=== PATIENT | female | born 1970 | race Caucasian/White ===

== ENCOUNTER 2019-06-14 09:17 | Outpatient (CLI) | payer SELFPAY ==
--- NOTE | 2019-06-14 09:34 | US_ITS ---
WS: [id number] INDICATION: Patient concern posterior distal thigh TECHNIQUE: Ultrasound area of soft tissue concern FINDINGS: In the area of palpable concern is an echogenic focus measuring 1.5 x 12.7 x 0.7 cm. Differ ential considerations include lipoma or intramuscular hematoma. Recommend correlation with recent inj ury. Some of the area of palpable concern appears to represent normal muscle. US/US soft tissue/extremity [id number] IMPRESSION: Echogenic focus measuring 1.5 x 12.7 x 0.7 cm in the area of palpab le concern. Differential considerations include lipoma or intramuscular hematom a. Recommend correlation with recent injury or trauma.
== END 2019-06-14 09:18 | disposition home or self-care (01) ==
PROVIDERS: Family Provider Nurse Practitioner; PCP Nurse Practitioner; Visit Provider Nurse Practitioner Family
DX: R22.41 Localized swelling, mass and lump, right lower limb (principal)
CPT/HCPCS: 76882

== ENCOUNTER 2019-06-16 17:25 | Emergency (ER) | payer MEDICAID, SELFPAY ==
[2019-06-16 19:07] VITALS: BP 129/90; PULSE 88; RESP 20; TEMP 36.8; O2SAT 94; BMI 47.2
[2019-06-16 20:44] LABS: Basophils # 0.1 10^3/uL (0.0-0.1); Basophils % 0.7 %; Eosinophils # 1.1 10^3/uL (0.0-0.8); Eosinophils % 6.8 %; Hematocrit 42.8 % (37.0-47.0); Hemoglobin 13.2 g/dL (11.5-15.3); Lymphocytes # 3.6 10^3/uL (0.8-4.8); Lymphocytes % 21.5 %; Mean Corpuscular HGB Conc 30.8 g/dL (30.0-36.0); Mean Corpuscular Hemoglobin 25.7 pg (28.0-34.0); Mean Corpuscular Volume 83.4 fL (81-99); Mean Platelet Volume 10.2 fL (7.4-10.4); Monocytes # 0.6 10^3/uL (0.2-0.9); Monocytes % 3.7 %; Neutrophils % 66.5 %; Nucleated Red Blood Cells % 0 %; Platelet Count 341 10^3/cmm (130-400); Red Blood Count 5.13 10^6/uL (4.1-5.3); Red Cell Distribution Width 15.1 % (12.1-15.1); White Blood Count 16.5 10^3/uL (4.0-10.0)
[2019-06-16 20:58] LABS: Alanine Aminotransferase 25 U/L (0-33); Albumin Level 4.4 g/dL (3.5-5.2); Alkaline Phosphatase 118 IU/L (35-105); Anion Gap 18.6 (5-19); Aspartate Amino Transferase 19 U/L (0-32); Blood Urea Nitrogen 7 mg/dL (6-20); Calcium 10.1 mg/Dl (8.6-10.0); Carbon Dioxide 28 mmol/L (22-29); Chloride 95 mmol/L (98-107); Globulin 3.1 g/dL (1.3-4.6); Glomerular Filtration Rate 76.9 mL/min (90-130); Glucose 348 mg/dL (74-109); Potassium 4.6 mmol/L (3.5-5.1); Sodium 137 mmol/L (136-145); Total Bilirubin 0.3 mg/dL (0.15-1.2); Total Protein 7.5 g/dL (6.6-8.7)
--- NOTE | 2019-06-16 21:45 | W.ED.GENADLT ---
HPI - General Adult General: Chief complaint: General Medical Stated complaint: Multiple complaints Time Seen by Provider: 06/16/19 21:19 History of Present Illness: HPI narrative: Patient is a 49-year-old female who comes in to the ED with shortness of breath that started a 2-3 days ago. Patient states that she has COPD and is used her prescribed inhalers that has not helped. She also has had some intermittent chest pain that started several days ago that is due to the coughing. She also has had nasal drainage and congestion and a mild sore throat. She also complains of left ear pain and dizziness that started a couple days ago as well. She has been coughing, but it is nonproductive. Patient also told me that she had a fall last Friday, June 11 where she slipped and fell down onto her back and hit back of head. She denied any loss of consciousness, nausea, vomiting, confusion, vision change after fall. Patient states she has had a headache for the past couple days. Denies any fever, chills, abdominal pain, nausea, vomiting, dysuria, hematuria, constipation, diarrhea, blood in stool, numbness/tingling or weakness to extremities. Review of Systems General: Reports: 10 or more systems reviewed and unremarkable except in HPI and below PFSH ED PFSH: Statuses (acute, chronic, etc) shown below reflect problem list status as previously entered and may not be historically accurate Social History Smoking and tobacco status: former smoker Physical Exam Const: COMMON NORMALS: oriented x3 HENMT: COMMON NORMALS: normocephalic HEAD & SCALP: normocephalic FACE & SINUS: sinus tenderness (mild Left side) maxillary TYMPANIC MEMBRANE: TM normal on the right and TM abnormal TM laterality: left Details: bulging, dull, fluid behind TM and loss of landmarks MOUTH: oral and palatal mucosa normal THROAT: posterior oropharynx normal and uvula midline Neck/C-Spine: COMMON NORMALS: supple GENERAL: Yes normal visual inspection Resp: COMMON NORMALS: normal respiratory effort, no retractions, no use of accessory muscles and clear to auscultation bilaterally AUSCULTATION: clear to auscultation bilaterally and diminished lung sounds (mild at the bases) bilateral Cardio: COMMON NORMALS: regular rate, regular rhythm, S1 normal heart sound, S2 normal heart sound, no gallops, no clicks, no murmurs and peripheral pulses 2+ throughout RATE: regular rate RHYTHM: regular rhythm HEART SOUNDS: S1 normal and S2 normal PERIPHERAL PULSES: pulses 2+ throughout GI: COMMON NORMALS: normal to inspection, nondistended, normoactive bowel sounds, soft to palpation, non-tender and no masses PALPATION: Yes soft : COMMON NORMALS: Yes no CVA tenderness BLADDER/KIDNEY EXAM: Yes no CVA tenderness Back/Pelvis: COMMON NORMALS: no CVA tenderness Neuro: COMMON NORMALS: oriented x3, CN's II-XII intact bilaterally, moves all extremities, no focal motor deficits and no sensory deficits noted SENSORY EXAM: Yes extremities (intact) MOTOR EXAM: strength 5/5 throughout Course Vital Signs: Vital signs: Vital Signs Temperature 98.2 F 06/16/19 19:07 Pulse Rate 88 06/16/19 19:07 Respiratory Rate 20 H 06/16/19 19:07 Blood Pressure 129/90 06/16/19 19:07 Pulse Oximetry 94 06/16/19 19:07 MDM - General Adult MDM Narrative: Medical decision making narrative: Patient is a 49-year-old female comes to the ED with shortness of breath and cough. Physical exam showed diminished lung sounds at the bases bilaterally. Labs showed elevated white blood cell count of 16.5. EKG and troponins were drawn to rule out any cardiac cause of shortness of breath. EKG was normal sinus and first troponin draw was 11 which is negative since patient has had shortness of breath and intermittent mild chest pain for several days before coming to the ED. Patient was given a dose of steroids here in the ED and sent home with a prescription for a course of steroids and an antibiotic. She is told to continue using her inhalers as previously prescribed. She was told to follow-up with primary care doctor in 5-7 days for reevaluation. Pt wanted to leave eventhough troponin lab was not complete. She was told to return to ED if she starts to have chest pain or worsening SOB. Hospital will call if troponins are elevated. Patient understood and agreed with plan of care. Lab Data: Attestation: I reviewed the patient's lab results. Labs: Lab Results 06/16/19 06/16/19 06/16/19 Range/Units 20:26 20:26 22:40 WBC 16.5 H (4.0-10.0) 10^3/ uL RBC 5.13 (4.1-5.3) 10^6/u L Hgb 13.2 (11.5-15.3) g/dL Hct 42.8 (37.0-47.0) % MCV 83.4 (81-99) fL MCH 25.7 L (28.0-34.0) pg MCHC 30.8 (30.0-36.0) g/dL RDW 15.1 (12.1-15.1) % Plt Count 341 (130-400) 10^3/c mm MPV 10.2 (7.4-10.4) fL Neut % (Auto) 66.5 % Lymph % (Auto) 21.5 % Charlton % (Auto) 3.7 % Eos % (Auto) 6.8 % Baso % (Auto) 0.7 % Neut # (Auto) 11.0 H (1.8-7.7) 10^3/u L Lymph # (Auto) 3.6 (0.8-4.8) 10^3/u L Charlton # (Auto) 0.6 (0.2-0.9) 10^3/u L Eos # (Auto) 1.1 H (0.0-0.8) 10^3/u L Baso # (Auto) 0.1 (0.0-0.1) 10^3/u L Nucleated RBC % (a uto) 0 % Nucleated RBCs # 0.0 /100WBC Sodium 137 (136-145) mmol/L Potassium 4.6 (3.5-5.1) mmol/L Chloride 95 L (98-107) mmol/L Carbon Dioxide 28 (22-29) mmol/L Anion Gap 18.6 (5-19) BUN 7 (6-20) mg/dL Creatinine 0.8 (0.5-0.9) mg/dL GFR Calculation 76.9 L (90-130) mL/min Glucose 348 H (74-109) mg/dL Calcium 10.1 H (8.6-10.0) mg/Dl Total Bilirubin 0.3 (0.15-1.2) mg/dL AST 19 (0-32) U/L ALT 25 (0-33) U/L Alkaline Phosphata se 118 H (35-105) IU/L Troponin T Gen 5 n g/L (0-10) ng/mL Total Protein 7.5 (6.6-8.7) g/dL Albumin 4.4 (3.5-5.2) g/dL Globulin 3.1 (1.3-4.6) g/dL Urine Color Yellow (Yellow) Urine Appearance Hazy A (CLEAR) Urine pH 5 (5-7) Ur Specific Gravit y 1.015 (1.005-1.030) Urine Protein Neg (Negative) Urine Glucose (UA) 4+ H (Normal) Urine Ketones Negative (Negative) Urine Occult Blood Neg (Negative) Urine Nitrate Negative (Negative) Urine Bilirubin Neg (NEGATIVE) Urine Urobilinogen Norm (Negative) mg/dL Ur Leukocyte Elaine ase Negative (Negative) Urine RBC 0-4 H (0-2) /hpf Urine WBC None (0-5) /hpf Ur Squamous Epith Cells 15-25 H (0-5) Urine Bacteria Trace (NONE) Urine Yeast 2+ H 06/16/19 Range/Units 23:50 WBC (4.0-10.0) 10^3/ uL RBC (4.1-5.3) 10^6/u L Hgb (11.5-15.3) g/dL Hct (37.0-47.0) % MCV (81-99) fL MCH (28.0-34.0) pg MCHC (30.0-36.0) g/dL RDW (12.1-15.1) % Plt Count (130-400) 10^3/c mm MPV (7.4-10.4) fL Neut % (Auto) % Lymph % (Auto) % Charlton % (Auto) % Eos % (Auto) % Baso % (Auto) % Neut # (Auto) (1.8-7.7) 10^3/u L Lymph # (Auto) (0.8-4.8) 10^3/u L Charlton # (Auto) (0.2-0.9) 10^3/u L Eos # (Auto) (0.0-0.8) 10^3/u L Baso # (Auto) (0.0-0.1) 10^3/u L Nucleated RBC % (a uto) % Nucleated RBCs # /100WBC Sodium (136-145) mmol/L Potassium (3.5-5.1) mmol/L Chloride (98-107) mmol/L Carbon Dioxide (22-29) mmol/L Anion Gap (5-19) BUN (6-20) mg/dL Creatinine (0.5-0.9) mg/dL GFR Calculation (90-130) mL/min Glucose (74-109) mg/dL Calcium (8.6-10.0) mg/Dl Total Bilirubin (0.15-1.2) mg/dL AST (0-32) U/L ALT (0-33) U/L Alkaline Phosphata se (35-105) IU/L Troponin T Gen 5 n g/L 11 H (0-10) ng/mL Total Protein (6.6-8.7) g/dL Albumin (3.5-5.2) g/dL Globulin (1.3-4.6) g/dL Urine Color (Yellow) Urine Appearance (CLEAR) Urine pH (5-7) Ur Specific Gravit y (1.005-1.030) Urine Protein (Negative) Urine Glucose (UA) (Normal) Urine Ketones (Negative) Urine Occult Blood (Negative) Urine Nitrate (Negative) Urine Bilirubin (NEGATIVE) Urine Urobilinogen (Negative) mg/dL Ur Leukocyte Elaine ase (Negative) Urine RBC (0-2) /hpf Urine WBC (0-5) /hpf Ur Squamous Epith Cells (0-5) Urine Bacteria (NONE) Urine Yeast EKG Data^: EKG 1: Attestation: I personally reviewed and interpreted this EKG as follows: EKG interpretation date: 06/17/19 Interpretation: Normal sinus rhythm, rate 85 bpm, No ST elevation or depression seen. P-wave difficult to identify Computer generated interpretation: Chest X-Ray 06/16/19 22:42 IMPRESSION: No acute cardiopulmonary disease. Sinus Rhythm-Possible anterior GA--probably old. Discharge Plan Discharge Patient Disposition: Home, Self-Care Clinical Impression: Bronchitis Condition: Stable Prescriptions: New azithromycin 250 mg tablet See Rx Instructions .ROUTE .COMPLEX Qty: 6 RF: 0 prednisone 20 mg tablet 20 mg PO TID 5 Days Qty: 15 RF: 0 No Action glipizide 10 mg tablet 20 mg PO DAILY Qty: 60 RF: 2 prednisone 20 mg tablet RF: 0 clonazepam 0.5 mg tablet RF: 0 simvastatin 20 mg tablet RF: 0 Januvia 100 mg tablet RF: 0 Januvia 100 mg tablet RF: 0 Discharge Orders: Discharge Order (Routine); Ordered 06/17/19 Ordered By: Jono Peterson Referrals: Sherie Luong, CURRICULUM SPECIALIST [Primary Care Provider] - Discharge Diet: Regular Discharge Activity: Resume usual activity Activity Restrictions/Additional Instructions: Follow-up with primary care doctor in 5-7 days for reevaluation. Take full course of antibiotics and steroids as prescribed. Use your at-home breathing treatments as needed for shortness of breath. Take Tylenol or ibuprofen for fever and pain. Drink plenty of fluids. We will give you a call to notify you of your troponin level is elevated. Discharge Date/Time: 06/17/19 01:29 Coding Level of Care Code ED Aircraft Life Support Fitter for Melissa Rutherford
--- NOTE | 2019-06-16 22:42 | XR_ITS ---
WS: [id number] CHEST 2 VIEWS HISTORY: SOB COMPARISON: 05/20/2018 Lungs: Lung volumes are decreased due to increase in thoracic kyphosis. No pneumonia. Normal vasculat ure. No pleural effusion or pneumothorax. Cardiac size: Normal. Mediastinum/Aorta: Normal mediastinum. Bones: Thoracolumbar scoliosis and increase in thoracic kyphosis. XR/XR chest 2V* [id number] IMPRESSION: No acute cardiopulmonary disease.
[2019-06-16 23:14] LABS: Add Urine Microscopic? YES; Bilirubin Urine Neg (NEGATIVE); Blood Urine Neg (Negative); Glucose Urine UA 4+ (Normal); Ketones Urine Negative (Negative); Leukocyte Esterase Urine Negative (Negative); Nitrate Urine Negative (Negative); Protein Urine Neg (Negative); Specific Gravity, Urine 1.015 (1.005-1.030); Urine Appearance Hazy (CLEAR); Urine Color Yellow (Yellow); Urobilinogen Urine Norm (Negative); pH Urine 5 (5-7)
[2019-06-16 23:16] LABS: Bacteria Urine TRACE; RBC Urine 0-4 /hpf (0-2); Squamous Epithelial Cell Urine 15-25 (0-5)
[2019-06-16 23:17] LABS: Add Urine Culture? Yes
[2019-06-17 01:35] LABS: Troponin T (5th) Once 11 ng/mL (0-10)
== END 2019-06-17 01:29 | disposition home or self-care (01) ==
PROVIDERS: Emergency Medicine; Emergency Provider Physician Assistant; Family Provider Nurse Practitioner; PCP Nurse Practitioner
DX: J40 Bronchitis, not specified as acute or chronic (principal); Z87.891 Personal history of nicotine dependence
CPT/HCPCS: 36415; 71046; 80053; 81003; 84484; 85025; 87077; 87086; 87186; 96372; 99281; J2930

== ENCOUNTER 2019-07-31 12:28 | Inpatient (IN) | payer MEDICAID, SELFPAY ==
[2019-07-31] VITALS (13 sets, daily range): BP systolic 118–148; BP diastolic 72–80; PULSE 95–113; RESP 18–24; TEMP 36.8–37.3; O2SAT 86–97; BMI 48.4
--- NOTE | 2019-07-31 12:43 | ECG_ITS ---
Measurements Intervals Jermyn Rate: 98 P: 31 VT: 155 QRS: 3 QRSD: 90 T: -3 QT: 312 QTc: 399 SINUS RHYTHM POSSIBLE ANTERIOR MYOCARDIAL INFARCTION , PROBABLY OLD [30 ms Q WAVE IN V3/V4, OR R < 0.2 mV IN V4] Compared to ECG 05/19/2018 23:35:35 First degree AV block no longer present Myocardial infarct finding still present Electronically Signed On 07-31-2019 20:27:15 SODDER by Lan Carey M.D. [email or web address]
--- NOTE | 2019-07-31 12:43 | XRR_ITS ---
PROCEDURE INFORMATION: Exam: XR Chest, 1 View Exam date and time: 07/31/2019 12:44 PM Age: 49 years old Clinical indication: Shortness of breath; Additional info: Cough TECHNIQUE: Imaging protocol: XR of the chest Views: 1 view. COMPARISON: CR XR chest 2V* [id number] 06/16/2019 11:00 PM FINDINGS: Lungs: Low lung volumes. No consolidation. Pleural space: Unremarkable. No pleural effusion. No pneumothorax. Heart/Mediastinum: Unremarkable. No cardiomegaly. Bones/joints: Unremarkable. XR/XR chest 1V portable [id number] IMPRESSION: No acute findings.
--- NOTE | 2019-07-31 12:46 | ED_ITS ---
Entered by Veronika Min, acting as scribe for Melany Ramirez MD HPI - SOB/Dyspnea General: Chief Complaint: Shortness of Breath/Dyspnea Stated Complaint: fever/vomiting/sob Time Seen by Provider: 07/31/19 12:44 Source: patient and RN notes reviewed Mode of arrival: ambulatory Limitations: no limitations History of Present Illness: HPI Narrative: 49 yo female presents to ED with complaints of shortness of breath, fever and vomiting. The patient said she has COPD but is not on oxygen at home. She said her body hurts. She states she has taken ibuprofen prior to arrival. When patient arrived here she was 86% on room air. She does not wear oxygen at home. States she had a fever MD elicited complaint: shortness of breath Pertinent past history: COPD Onset (ago): hour(s) (2.5 (1030)) Context: recent illness Timing: constant Severity: moderate Exacerbating factors: exertion and talking Relieving factors: oxygen and rest Known history of: COPD Associated symptoms: Reports fever(s), nausea and vomiting; Deny chest pain Treatment prior to arrival: other (ibuprofen) Review of Systems Const: Reports: fever Eyes: Denies: blurry vision or eye discomfort ENMT: Denies: throat pain or dental pain Card: Denies: chest pain Resp: Reports: shortness of breath GI: Reports: nausea and vomiting : Denies: painful urination Musc: Denies: neck pain or back pain Skin/Breast: Denies: rash Neuro: Denies: headache Psych: Denies: depression Jose/Lymph: Denies: easy bruising All/Imm: Denies: hives PFS ED PFSH: Medical History (Updated 07/31/19 @ 15:23 by Anival Brink MD) Anemia Anxiety and depression Chronic neck pain COPD (chronic obstructive pulmonary disease) Essential hypertension, benign GERD (gastroesophageal reflux disease) Hyperlipidemia Hypertension Hypothyroid Intervertebral disc disorders with radiculopathy, lumbosacral region Mixed hyperlipidemia Obesity Type 2 diabetes mellitus with other specified complication Vitamin D deficiency Surgical History H/O dilation and curettage S/P cholecystectomy S/P endometrial ablation Social History (Updated 07/31/19 @ 15:23 by Anival Brink MD) Smoking and tobacco status: former smoker Alcohol intake: never Substance/Drug Use: never Marital status: service: No Current occupational status: disabled History of recent travel: No Physical Exam Const: COMMON NORMALS: no apparent distress, oriented x3 and healthy appearing HENMT: COMMON NORMALS: normocephalic and head/scalp atraumatic HEAD & SCALP: normocephalic and atraumatic Eye: COMMON NORMALS: PERRL and EOMs intact bilaterally PUPIL: Yes PERRL Neck/C-Spine: COMMON NORMALS: full ROM and supple Chest: COMMONS NORMALS: inspection of chest normal and palpation of chest normal Resp: COMMON NORMALS: normal respiratory effort, no retractions, no use of accessory muscles and clear to auscultation bilaterally AUSCULTATION: clear to auscultation bilaterally and wheezes expiratory wheezes (diffuse) Cardio: COMMON NORMALS: regular rate, regular rhythm and no murmurs RATE: regular rate RHYTHM: regular rhythm GI: COMMON NORMALS: normal to inspection, nondistended, normoactive bowel sounds, soft to palpation, non-tender and no masses PALPATION: Yes soft Extremity: COMMON NORMALS: normal to inspection and full ROM Neuro: COMMON NORMALS: oriented x3, moves all extremities and no focal motor deficits Psych: COMMON NORMALS: mental status grossly normal, thought process normal and cooperative THOUGHT PROCESS: normal thought process Skin: COMMON NORMALS: no rashes or lesions noted and no wounds GENERAL SKIN EXAM: no rashes or lesions noted Course Vital Signs: Vital signs: Vital Signs Temperature 98.6 F 07/31/19 12:31 Pulse Rate 101 H 07/31/19 14:22 Respiratory Rate 20 H 07/31/19 14:22 Blood Pressure 124/80 07/31/19 14:19 Pulse Oximetry 94 07/31/19 14:22 MDM - SOB/Dyspnea MDM Narrative: Medical decision making narrative: Patient presents here with influenza also with dyspnea. Patient has COPD and influenza likely worsening in this. X-ray shows no signs of pneumonia. Patient is requiring oxygen now although and I spoke to hospitalist and will admit. Lab Data: Labs: Lab Results 07/31/19 07/31/19 07/31/19 Range/Units 13:01 13:10 13:10 WBC 8.7 (4.0-10.0) 10^3/ uL RBC 4.36 (4.1-5.3) 10^6/u L Hgb 11.6 (11.5-15.3) g/dL Hct 36.3 L (37.0-47.0) % MCV 83.3 (81-99) fL MCH 26.6 L (28.0-34.0) pg MCHC 32.0 (30.0-36.0) g/dL RDW 14.7 (12.1-15.1) % Plt Count 219 (130-400) 10^3/c mm MPV 9.7 (7.4-10.4) fL Neut % (Auto) 89.2 % Lymph % (Auto) 4.6 % [place] % (Auto) 5.0 % Eos % (Auto) 0.1 % Baso % (Auto) 0.2 % Neut # (Auto) 7.7 (1.8-7.7) 10^3/u L Lymph # (Auto) 0.4 L (0.8-4.8) 10^3/u L [place] # (Auto) 0.4 (0.2-0.9) 10^3/u L Eos # (Auto) 0.0 (0.0-0.8) 10^3/u L Baso # (Auto) 0.0 (0.0-0.1) 10^3/u L Nucleated RBC % (a uto) 0 % Nucleated RBCs # 0.0 /100WBC Sodium 133 L (136-145) mmol/L Potassium 4.4 (3.5-5.1) mmol/L Chloride 95 L (98-107) mmol/L Carbon Dioxide 24 (22-29) mmol/L Anion Gap 18.4 (5-19) BUN 4 L (6-20) mg/dL Creatinine 0.7 (0.5-0.9) mg/dL GFR Calculation 89.7 L (90-130) mL/min Glucose 298 H (65-115) mg/dL Calcium 9.4 (8.5-10.5) mg/dL Total Bilirubin 0.3 (0.15-1.2) mg/dL AST 25 (0-32) U/L ALT 16 (0-33) U/L Alkaline Phosphata se 82 (35-105) IU/L NT-Pro-B Natriuret Pep 537 H (0-125) pg/mL Total Protein 6.8 (6.6-8.7) g/dL Albumin 3.8 (3.5-5.2) g/dL Globulin 3.0 (1.3-4.6) g/dL Influenza Type A A g Positive H (Negative) POC Influenza B Ag Negative (Negative) Imaging Data^: CXR: Radiologist's impression: [address] [address] XRay Report Signed Patient: Brie Beltrán #: [id number] : 1970Acct#:[id number] Age/Sex: 49 / FADM Date: 07/31/19 Loc: ERRoom/Bed: Attending Dr: Ordering Provider/Ordering MD: Melany Ramirez MD Date of Service: 07/31/19 Procedure(s): XR chest 1V portable [id number] Accession Number(s): [id number] Report Number: [id number] PROCEDURE INFORMATION: Exam: XR Chest, 1 View Exam date and time: 07/31/2019 12:44 PM Age: 49 years old Clinical indication: Shortness of breath; Additional info: Cough TECHNIQUE: Imaging protocol: XR of the chest Views: 1 view. COMPARISON: CR XR chest 2V* [id number] 06/16/2019 11:00 PM FINDINGS: Lungs: Low lung volumes. No consolidation. Pleural space: Unremarkable. No pleural effusion. No pneumothorax. Heart/Mediastinum: Unremarkable. No cardiomegaly. Bones/joints: Unremarkable. XR/XR chest 1V portable [id number] IMPRESSION: No acute findings. Dictated By:You Vegas Signed By:Jaren Vegas Date/Time:07/31/19 1314 DD/ EKG Data^: EKG 1: Attestation: I personally reviewed and interpreted this EKG as follows: EKG Interpretation Date: 07/31/19 EKG interpretation time: 12:57 Interpretation: nsr hr [address] or t wave abnormalities Discharge Plan Discharge Patient Disposition: Admitted As Inpatient Admit Provider: Anival Brink Clinical Impression: COPD (chronic obstructive pulmonary disease), Influenza Condition: Stable Referrals: Florina Villanueva, PASSENGER SOLICITOR [Primary Care Provider] - Sherie Luong FNP [Family Provider] - Coding Level of Care Code ED Fireman for Chg Fwd Exam Comprehensive The documentation recorded by the Mechelle munguia Valerie R, accurately reflects the service I personally performed and the decisions made by Ashley olivier Korby, MD Jul 31, 2019 12:28
[2019-07-31 13:18] LABS: Basophils % 0.2 %; Eosinophils % 0.1 %; Hematocrit 36.3 % (37.0-47.0); Hemoglobin 11.6 g/dL (11.5-15.3); Lymphocytes # 0.4 10^3/uL (0.8-4.8); Lymphocytes % 4.6 %; Mean Corpuscular Hemoglobin 26.6 pg (28.0-34.0); Mean Corpuscular Volume 83.3 fL (81-99); Mean Platelet Volume 9.7 fL (7.4-10.4); Monocytes # 0.4 10^3/uL (0.2-0.9); Neutrophils # 7.7 10^3/uL (1.8-7.7); Neutrophils % 89.2 %; Nucleated Red Blood Cells % 0 %; Platelet Count 219 10^3/cmm (130-400); Red Blood Count 4.36 10^6/uL (4.1-5.3); Red Cell Distribution Width 14.7 % (12.1-15.1); White Blood Count 8.7 10^3/uL (4.0-10.0)
[2019-07-31 13:42] LABS: Alanine Aminotransferase 16 U/L (0-33); Albumin Level 3.8 g/dL (3.5-5.2); Alkaline Phosphatase 82 IU/L (35-105); Anion Gap 18.4 (5-19); Aspartate Amino Transferase 25 U/L (0-32); Blood Urea Nitrogen 4 mg/dL (6-20); Calcium 9.4 mg/dL (8.5-10.5); Carbon Dioxide 24 mmol/L (22-29); Chloride 95 mmol/L (98-107); Glomerular Filtration Rate 89.7 mL/min (90-130); Glucose 298 mg/dL (65-115); NT Pro B Type Natriuretic Pept 537 pg/mL (0-125); Potassium 4.4 mmol/L (3.5-5.1); Sodium 133 mmol/L (136-145); Total Bilirubin 0.3 mg/dL (0.15-1.2); Total Protein 6.8 g/dL (6.6-8.7)
[2019-07-31 13:44] LABS: Influenza A by IFA Positive (Negative)
[2019-07-31 13:45] LABS: Influenza B by IFA Negative (Negative)
[2019-07-31] MEDS: ipratropium-albuterol 3 mL Neb INHALATION ×4 (14:14→23:15)
--- NOTE | 2019-07-31 14:23 | CTR_ITS ---
PROCEDURE INFORMATION: Exam: CT Abdomen And Pelvis With Contrast Exam date and time: 08/01/2019 11:10 AM Age: 49 years old Clinical indication: Patient HX: Scanned on wrong PT no abd pain was seen for SOB TECHNIQUE: Imaging protocol: Computed tomography of the abdomen and pelvis with intravenous contrast. Radiation optimization: All CT scans at this facility use at least one of these dose optimization techniques: automated exposure control; mA and/or kV adjustment per patient size (includes targeted exams where dose is matched to clinical indication); or iterative reconstruction. Contrast material: OMNI 300; Contrast volume: 95 ml; Contrast route: 20G; COMPARISON: CT Abdomen/Pelvis Renal [id number] 11/08/2018 9:57 PM FINDINGS: Liver: Hepatomegaly. Heterogeneous attenuation of the liver which can be seen with fatty infiltration. Gallbladder and bile ducts: Status post cholecystectomy. Pancreas: No ductal dilation. Spleen: No splenomegaly. Adrenals: No mass. Kidneys and ureters: Unremarkable. No hydronephrosis. Stomach and bowel: No obstruction. No mucosal thickening. Appendix: No evidence of appendicitis. Intraperitoneal space: No free air. No significant fluid collection. Vasculature: No abdominal aortic aneurysm. Lymph nodes: No enlarged lymph nodes. Bladder: Unremarkable as visualized. Reproductive: Unremarkable as visualized. Nonspecific 3 cm left ovarian cyst. Bones/joints: Unremarkable. No acute fracture. Soft tissues: Unremarkable. CT/CT abdomen pelvis w con* [id number] IMPRESSION: No acute findings. Hepatomegaly. Radiation Dose CTDIVOL = (mGy): DLP = 0 (mGy-cm)
--- NOTE | 2019-07-31 15:19 | P.HP_ITS ---
Providers/Chief Complaint Primary Care Provider: SACHIN Orta Chief Complaint: fever/vomiting/sob History of Present Illness Brie Beltrán is a 49 year old female who presents to the emergency department with history of fever up to 102 ?F last night. [place] okay yesterday. Has nasal congestion, cough, increased shortness of breath, and wheezing. Reports a history of COPD for which she had been on prednisone earlier this month. Some vomiting. No reports she usually has some loose stool. No blood in her stool, black or tarry stools, hematemesis. Has had chills as well. No sick contacts she knows of. Review of Systems General: Reports: 10 or more systems reviewed and unremarkable except in HPI and below Const: Reports: fever, chills, body aches and change in appetite Eyes: Denies: blurry vision ENMT: Reports: nasal congestion; Denies: throat pain Card: Denies: chest pain Resp: Reports: shortness of breath, non-productive cough and wheezing GI: Denies: abdominal pain : Denies: difficulty urinating Musc: Reports: back pain; Denies: neck pain Skin/Breast: Denies: rash Neuro: Denies: headache Psych: Reports: depression Endo: Denies: excessive urination Jose/Lymph: Denies: easy bruising All/Imm: Denies: hives Medications/Allergies Home Medications Medication Instructions Recorded Confirmed Last Taken Type metformin 1,000 mg PO BID 07/31/19 07/31/19 07/31/19 History Allergies Allergy/AdvReac Type Severity Reaction Status Date / Time erythromycin base Allergy rash Verified 07/20/19 14:58 PFSH Acute PFSH: Medical History (Updated 07/31/19 @ 15:23 by Anival Brink MD) Anemia Anxiety and depression Chronic neck pain COPD (chronic obstructive pulmonary disease) Essential hypertension, benign GERD (gastroesophageal reflux disease) Hyperlipidemia Hypertension Hypothyroid Intervertebral disc disorders with radiculopathy, lumbosacral region Mixed hyperlipidemia Obesity Type 2 diabetes mellitus with other specified complication Vitamin D deficiency Surgical History H/O dilation and curettage S/P cholecystectomy S/P endometrial ablation Social History (Updated 07/31/19 @ 15:23 by Anival Brink MD) Smoking and tobacco status: former smoker Alcohol intake: never Substance/Drug Use: never Marital status: service: No Current occupational status: disabled History of recent travel: No Vitals/I&O/Wt Last Vital Signs Temp 98.6 F 07/31/19 12:31 Pulse 101 H 07/31/19 14:22 Resp 20 H 07/31/19 14:22 BP 124/80 07/31/19 14:19 Pulse Ox 94 07/31/19 14:22 Weight last 48 hrs Weight 120.202 kg Physical Exam Narrative: EXAM NARRATIVE: General is a tired appearing white female, with nasal congestion HEENT: Pupils equally round. Oropharynx is dry Neck is supple obese no lymphadenopathy or thyromegaly Cardiovascular regular rate and rhythm without murmur no S3 or S4 Lungs faint bibasilar expiratory wheezes. Diminished breath sounds bilaterally Abdomen is soft, positive bowel sounds. No obvious organomegaly was deferred Extremities no cyanosis clubbing or edema, cap refill brisk Skin no rash Neuro no focal deficits Data : 07/31/19 13:10 07/31/19 13:10 Other data: BNP slightly elevated at 537. Influenza a antigen positive Chest x-ray no infiltrate. EKG demonstrates sinus rhythm, normal axis, no significant acute changes. A&P Assessment and plan (1) Influenza: Initiate Tamiflu Status: Acute Code(s): J11.1 - Influenza due to unidentified influenza virus with other respiratory manifestations (2) COPD (chronic obstructive pulmonary disease): With acute exacerbation. Prednisone 40 mg daily, doxycycline, pulmonary toilet Add Advair Status: Acute Code(s): J44.9 - Chronic obstructive pulmonary disease, unspecified Additional A&P Information Mild dehydration. Fluids arranged and ordered Type 2 diabetes. Sliding scale insulin History of anemia, mild currently Depression Chronic back and neck pain History of hypertension GERD Hypothyroidism. Check TSH History of hyperlipidemia Obesity Multiple other medical problems as outlined in past medical history Full code DVT prophylaxis with Lovenox Attestations Medical Necessity Statement*: Will need greater than 2 midnight stay for treatment of COPD exacerbation and influenza. Time Spent in Patient Care: Greater than 35 minutes Coding Level of Care Code Acute Web Content Producer for [facility] Fwd Diagnoses Influenza J11.1 COPD (chronic obstructive pulmonary disease) J44.9
[2019-07-31] MEDS: oseltamivir phosphate 75 mg Capsule PO (15:34)
[2019-07-31] MEDS: ondansetron 2 mg/ML SDV 2 mL 4 MG IVP (17:21)
[2019-07-31 17:23] LABS: Glucose Point of Care 252 mg/dL (70-110)
[2019-07-31] MEDS: enoxaparin 40 mg/0.4 mL Syringe SUBCUT (17:40)
[2019-07-31] MEDS: doxycycline 100 mg Tablet PO (17:40)
[2019-07-31] MEDS: sodium chloride 0.9% 1,000 ML 75 ML IV (17:40)
[2019-07-31 17:53] LABS: Thyroid Stimulating Hormone 1.07 uIU/mL (0.27-4.20)
[2019-07-31] MEDS: acetaminophen 325 mg Tablet 650 MG PO (20:24)
[2019-07-31 21:13] LABS: Bilirubin Urine Neg (NEGATIVE); Blood Urine Neg (Negative); Glucose Urine UA 4+ (Normal); Ketones Urine 1+ (Negative); Nitrate Urine Negative (Negative); Protein Urine Neg (Negative); Urine Appearance Clear (CLEAR); Urine Color Yellow (Yellow); pH Urine 5 (5-7)
[2019-07-31 21:14] LABS: Bacteria Urine 1+; Leukocyte Esterase Urine Negative (Negative); RBC Urine 0-4 /hpf (0-2); Squamous Epithelial Cell Urine 0-4 (0-5); Urobilinogen Urine Norm (Negative); WBC Urine 0-4 /hpf (0-5)
[2019-07-31 21:25] LABS: Glucose Point of Care 432 mg/dL (70-110)
[2019-07-31 21:25] LABS: Glucose Point of Care 403 mg/dL (70-110)
[2019-08-01] VITALS (18 sets, daily range): BP systolic 133–171; BP diastolic 74–96; PULSE 86–110; RESP 18–22; TEMP 36.5–36.8; O2SAT 91–99
--- NOTE | 2019-08-01 00:52 | PC.NURSE ---
Vitals Pt. had O2 cannula off when this nurse entered the room to do midnight vitals, O2 sats in the upper 80s with return up to 90% with O2 on. Pt. needed to go to the restroom, ambulated to bathroom without O2. Patient desatted very easily without O2 into the 70s. Pt. O2 increased to 4L with return of sats up to 91%. Pt. left on pulse ox machine, will reassess. Longer O2 tubing provided for next time patient needs to ambulate to restroom.
[2019-08-01] MEDS: ipratropium-albuterol 3 mL Neb INHALATION ×6 (03:01→23:27)
[2019-08-01] MEDS: acetaminophen 325 mg Tablet 650 MG PO ×2 (05:26→20:05)
[2019-08-01] MEDS: sodium chloride 0.9% 1,000 ML 75 ML IV (05:46)
[2019-08-01 06:24] LABS: Hematocrit 37.4 % (37.0-47.0); Hemoglobin 11.7 g/dL (11.5-15.3); Lymphocytes # 0.5 10^3/uL (0.8-4.8); Lymphocytes % 8.7 %; Mean Corpuscular HGB Conc 31.3 g/dL (30.0-36.0); Mean Corpuscular Hemoglobin 27.4 pg (28.0-34.0); Mean Corpuscular Volume 87.6 fL (81-99); Mean Platelet Volume 10.3 fL (7.4-10.4); Monocytes # 0.3 10^3/uL (0.2-0.9); Monocytes % 4.3 %; Neutrophils # 5.1 10^3/uL (1.8-7.7); Neutrophils % 85.7 %; Nucleated Red Blood Cells % 0 %; Platelet Count 242 10^3/cmm (130-400); Red Blood Count 4.27 10^6/uL (4.1-5.3); Red Cell Distribution Width 15.1 % (12.1-15.1)
[2019-08-01 06:35] LABS: Glucose Point of Care 362 mg/dL (70-110)
[2019-08-01 06:37] LABS: Anion Gap 17.4 (5-19); Blood Urea Nitrogen 9 mg/dL (6-20); Calcium 9.8 mg/dL (8.5-10.5); Carbon Dioxide 25 mmol/L (22-29); Chloride 96 mmol/L (98-107); Glomerular Filtration Rate 89.7 mL/min (90-130); Glucose 393 mg/dL (65-115); Osmolality Calculated 290 mOsm/kg (285-295); Potassium 4.4 mmol/L (3.5-5.1); Sodium 134 mmol/L (136-145)
[2019-08-01] MEDS: oseltamivir phosphate 75 mg Capsule PO ×2 (08:59→20:05)
[2019-08-01] MEDS: atorvastatin 40 mg Tablet 20 MG PO (09:00)
[2019-08-01] MEDS: doxycycline 100 mg Tablet PO ×2 (09:00→18:06)
[2019-08-01] MEDS: sitagliptin 100 mg Tablet PO (09:01)
[2019-08-01] MEDS: levothyroxine 50 mcg Tablet PO (09:01)
[2019-08-01] MEDS: predniSONE 20 mg Tablet 40 MG PO (09:01)
[2019-08-01] MEDS: escitalopram 10 mg Tablet PO (09:01)
[2019-08-01 12:59] LABS: Glucose Point of Care 356 mg/dL (70-110)
[2019-08-01 16:47] LABS: Glucose Point of Care 413 mg/dL (70-110)
[2019-08-01 16:47] LABS: Glucose Point of Care 393 mg/dL (70-110)
[2019-08-01] MEDS: enoxaparin 40 mg/0.4 mL Syringe SUBCUT (18:05)
[2019-08-01] MEDS: fluticasone nasal spray 16gm Btl 2 SPRAY NASAL (18:06)
--- NOTE | 2019-08-01 18:32 | P.PN_ITS ---
Subjective Subjective: Interval history: Brie reports she is feeling better. No nausea or vomiting. Less short of breath but still requiring a fair amount of oxygen. Medications: Reviewed: Yes Vitals/I&O/Wt Last Vital Signs Temp 97.8 F 08/01/19 15:28 Pulse 99 08/01/19 15:28 Resp 18 08/01/19 15:28 BP 159/96 08/01/19 15:28 Pulse Ox 91 08/01/19 15:28 08/01/19 08/01/19 08/01/19 06:59 14:59 22:59 Intake Total 2287.5 / 2527.5 1200 / 1200 540 / 1740 Output Total 1825 / 3575 800 / 800 1800 / 2600 Balance 462.5 / -1047.5 400 / 400 -1260 / -860 Weight last 48 hrs Weight 120.202 kg Physical Exam Narrative: EXAM NARRATIVE: General no apparent distress Cardiovascular regular rate and rhythm without murmur no S3 or S4 Lungs faint bibasilar expiratory wheezes. Improved aeration from yesterday Abdomen is soft, positive bowel sounds. No obvious organomegaly Extremities no cyanosis clubbing or edema Data : 08/01/19 05:13 08/01/19 05:13 A&P Assessment and plan (1) Influenza: Continue Tamiflu Status: Acute Code(s): J11.1 - Influenza due to unidentified influenza virus with other respiratory manifestations (2) COPD (chronic obstructive pulmonary disease): With acute exacerbation. Prednisone 40 mg daily, doxycycline, pulmonary toilet, Advair Symptomatically improving Wean oxygen. Hopefully can get to room air Status: Acute Code(s): J44.9 - Chronic obstructive pulmonary disease, unspecified Additional A&P Information Mild dehydration. Resolved. Fluids will be discontinued Type 2 diabetes. Sliding scale insulin History of anemia, mild currently Depression Chronic back and neck pain History of hypertension GERD Hypothyroidism. Check TSH History of hyperlipidemia Obesity Multiple other medical problems as outlined in past medical history Full code DVT prophylaxis with Lovenox No need for laboratory tomorrow Attestations Medical Necessity Statement*: Needs continued hospital stay, for frequent nebs secondary to COPD exacerbation, influenza Coding Level of Care Code Acute Can Line Examiner for [facility] Fwd Diagnoses Influenza J11.1 COPD (chronic obstructive pulmonary disease) J44.9
[2019-08-01 20:08] LABS: Glucose Point of Care 378 mg/dL (70-110)
[2019-08-02] VITALS (12 sets, daily range): BP systolic 143–168; BP diastolic 84–103; PULSE 79–97; RESP 16–19; TEMP 36.3–36.6; O2SAT 84–95
--- NOTE | 2019-08-02 00:10 | PC.NURSE ---
Patient's IV came out and patient asked if we could leave it out. Patient is not on any IV medications and fluids were DC'd. I called Dr. Tariq and he said it was fine to leave the IV out.
[2019-08-02] MEDS: ipratropium-albuterol 3 mL Neb INHALATION ×3 (03:06→11:48)
[2019-08-02 06:37] LABS: Glucose Point of Care 282 mg/dL (70-110)
[2019-08-02] MEDS: oseltamivir phosphate 75 mg Capsule PO (08:50)
[2019-08-02] MEDS: doxycycline 100 mg Tablet PO (08:50)
[2019-08-02] MEDS: escitalopram 10 mg Tablet PO (08:50)
[2019-08-02] MEDS: atorvastatin 40 mg Tablet 20 MG PO (08:50)
[2019-08-02] MEDS: sitagliptin 100 mg Tablet PO (08:50)
[2019-08-02] MEDS: predniSONE 20 mg Tablet 40 MG PO (08:50)
[2019-08-02] MEDS: levothyroxine 50 mcg Tablet PO (08:50)
[2019-08-02] MEDS: fluticasone nasal spray 16gm Btl 2 SPRAY NASAL (08:51)
--- NOTE | 2019-08-02 11:09 | PC.RESP ---
Patient given information on Pulmonary Rehab.
--- NOTE | 2019-08-02 11:12 | PC.SOCIAL ---
Patient had a question about her medicaid spin down. wanted to know if the hospital will send the bill to her spin down. I called [facility] and spoke with Meghann. She stated that they will place a note of the account that when the bill/charges come out to put it towards her Spin down.
--- NOTE | 2019-08-02 11:58 | P.DS_ITS ---
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 Has had nasal congestion, cough, increased shortness of breath, and wheezing. She tested positive for influenza and was started on Tamiflu. Also received nebulizations, steroids and doxycycline with improvement in symptoms. At day of discharge, she is feeling well, chest is clear and saturating 91-96% on RA since last night. Physical Exam Narrative: EXAM NARRATIVE: GEN: Awake, alert and oriented, no acute distress CVS: S1S2 N RS: CTA B/L Abd: Soft, nt/nd , bs+ PERINATOLOGY PHYSICIAN: no focal neuro deficits Discharge Data Data Completed and Pending: Completed Studies During Hospitalization Category Date Time Status CT abdomen pelvis w con* [id number] Rout ine Cat Scan 07/31/19 14:23 Completed XR chest 1V ankit ble [id number] Urgent Exams 07/31/19 12:43 Completed Labs from last 24 hours 08/02/19 08/01/19 08/01/19 06:33 20:00 16:35 POC Glucose 282 378 393 08/01/19 08/01/19 16:34 10:59 POC Glucose 413 356 Vitals: Last Vital Signs Temp 97.4 F L 08/02/19 11:56 Pulse 97 08/02/19 11:56 Resp 16 08/02/19 11:56 BP 168/103 08/02/19 11:56 Pulse Ox 91 08/02/19 11:56 Discharge Plan Discharge Patient Disposition: Home, Self-Care Condition: Stable Prescriptions: New fluticasone propionate 50 mcg/actuation [place],Suspension 2 spray nasal BID Qty: 0 RF: 0 doxycycline monohydrate 100 mg Tablet 100 mg PO BID 2 Days Qty: 4 RF: 0 prednisone 20 mg Tablet 40 mg PO DAILY 3 Days Qty: 3 RF: 0 fluticasone propion-salmeterol [Advair Diskus] 250-50 mcg/dose Blister With Device 1 puff inhalation BID.RESPIRATORY Qty: 0 RF: 0 oseltamivir 75 mg Capsule 75 mg PO BID 3 Days Qty: 6 RF: 0 Continued glipizide 10 mg tablet 20 mg PO DAILY Qty: 60 RF: 2 simvastatin 20 mg tablet 20 mg PO DAILY Qty: 30 RF: 2 levothyroxine 50 mcg capsule 50 mcg PO DAILY Qty: 30 RF: 1 escitalopram oxalate [Lexapro] 10 mg tablet 10 mg PO DAILY Qty: 30 RF: 0 clonazepam 0.5 mg tablet 0.5 mg PO BID PRN (Reason: anxiety) Qty: 60 RF: 0 Januvia 100 mg tablet 100 mg PO DAILY RF: 0 metformin 1,000 mg Tablet 1,000 mg PO BID RF: 0 olopatadine 0.2 % Drops 1 drp OPHTHALMIC (EYE) DAILY RF: 0 Dexilant 60 mg Capsule,Biphase Delayed Releas 60 mg PO DAILY RF: 0 Referrals: Florina Villanueva FNP [Primary Care Provider] - 1 week Sherie Luong FNP [Family Provider] - Discharge Diet: Diabetic Discharge Activity: Resume usual activity Discharge Attestations Time Spent in Discharge Care*: less than 30 min Quality Metrics Clinical Quality Measures During this hospital stay, did patient experience: None Coding Level of Care Code Acute Hardwood Faller for Melissa Rutherford Diagnoses Influenza J11.1 COPD (chronic obstructive pulmonary disease) J44.9
--- NOTE | 2019-08-02 13:35 | PC.SOCIAL ---
DME O2 Discharge orders placed and home O2 eval completed. Patient qualifies for 2L. Choice sheet signed and placed in [facility]. Pre-cert completed, Pre-Cert number assigned: [id number]. Faxed orders to [facility]
--- NOTE | 2019-08-02 15:23 | PC.SOCIAL ---
DME Oxygen Per JOANIE Wyman, patient cannot afford the oxygen and requests that I send to [facility] as they are cheaper and they may be able to obtain the money in the next couple of days.
[2019-08-02 19:47] LABS: Glucose Point of Care 306 mg/dL (70-110)
== END 2019-08-02 15:51 | disposition home or self-care (01) | DRG 191 ==
LOC: ER 15:14 → MEDSURG 15:37
PROVIDERS: Admitting Provider Internal Medicine; Emergency Provider Emergency Medicine; Family Provider Nurse Practitioner; PCP Nurse Practitioner Family; Visit Provider Student in an Organized Health Care Education/Training Program
DX: J44.9 Chronic obstructive pulmonary disease, unspecified (principal); Z68.42 Body mass index [BMI] 45.0-49.9, adult; J11.1 Influenza due to unidentified influenza virus with other respiratory manifestations; E86.0 Dehydration; E11.9 Type 2 diabetes mellitus without complications; F32.9 Major depressive disorder, single episode, unspecified; G89.29 Other chronic pain; F45.42 Pain disorder with related psychological factors; K21.9 Gastro-esophageal reflux disease without esophagitis; E03.9 Hypothyroidism, unspecified; E66.9 Obesity, unspecified; E78.5 Hyperlipidemia, unspecified; I10 Essential (primary) hypertension; Z87.891 Personal history of nicotine dependence; Z79.84 Long term (current) use of oral hypoglycemic drugs; Z79.890 Hormone replacement therapy
CPT/HCPCS: 12345; 36415; 36416; 71045; 74177; 80048; 80053; 81001; 82962; 83880; 84443; 85025; 87804; 93005; 94640; 96372; 96375; 99283; J1650; J1815; J2405; J2930; J7030; J7512; J7611; Q9967

== ENCOUNTER 2019-07-31 12:28 | Emergency (ER) | payer MEDICAID, SELFPAY | END 2019-07-31 16:44 | disposition admitted as inpatient to this hospital (09) | LOC: ER 08-30 11:31 | PROVIDERS: Emergency Provider Emergency Medicine; Family Provider Nurse Practitioner; PCP Nurse Practitioner Family | DX: J44.9 Chronic obstructive pulmonary disease, unspecified (principal); J11.1 Influenza due to unidentified influenza virus with other respiratory manifestations | CPT/HCPCS: 71045; 80053; 83880; 84443; 85025; 87804; 93005; 94640; 99283; 99285; J7611 ==

== ENCOUNTER → 2019-08-20 12:37 | Outpatient (BNVA) | payer MEDICAID, SELFPAY | PROVIDERS: Family Provider Nurse Practitioner; PCP Nurse Practitioner Family; Visit Provider Nurse Practitioner | DX: F41.1 Generalized anxiety disorder (principal); F43.12 Post-traumatic stress disorder, chronic | CPT/HCPCS: 99213 ==

== ENCOUNTER 2019-08-29 16:45 | Emergency (ER) | payer MEDICAID, SELFPAY ==
--- NOTE | 2019-08-29 16:58 | CTR_ITS ---
PROCEDURE INFORMATION: Exam: CT Left Lower Extremity Without Contrast, Foot Exam date and time: 08/29/2019 5:08 PM Age: 49 years old Clinical indication: Left; Patient HX: C/O L heel pain w/o injury TECHNIQUE: Imaging protocol: CT of the Left lower extremity without contrast was performed. Exam focused on the foot. Total DLP: 90.74 mGy-cm Radiation optimization: All CT scans at this facility use at least one of these dose optimization techniques: automated exposure control; mA and/or kV adjustment per patient size (includes targeted exams where dose is matched to clinical indication); or iterative reconstruction. COMPARISON: US soft tissue/extremity [id number] 06/14/2019 9:30 AM FINDINGS: Bones/joints: The bones are otherwise intact and in normal alignment. Soft tissues: Mild subcutaneous soft tissue edema of the left ankle and foot. Focal soft tissue edema adjacent to the plantar portion of the calcaneus. Irregular spurring of the calcaneus at the insertion of the plantar fascia. CT/[place] [address] IMPRESSION: 1. Plantar calcaneus enthesopathy with adjacent soft tissue edema and probable plantar fasciitis. Radiation Dose CTDIVOL = (mGy): DLP = 90.74 (mGy-cm)
--- NOTE | 2019-08-29 16:58 | XR_ITS ---
WS: [id number] FOOT LEFT TECHNIQUE: 3 views of the left foot CLINICAL INFORMATION: PAIN COMPARISON: None. FINDINGS: No evidence of acute fracture or dislocation. Normal tarsal metatarsal alignment. Normal calcaneus. N ormal visualized talar dome. Calcaneal plantar enthesophytes. IMPRESSION: Calcaneal plantar enthesophytes. No acute fractures.
[2019-08-29 16:59] VITALS: BP 158/51; PULSE 87; RESP 17; O2SAT 94; BMI 46.7
--- NOTE | 2019-08-29 17:14 | W.ED.EXTPRO ---
HPI - Extremity Problem General: Chief complaint: Extremity Injury, Lower Stated complaint: L HEEL PAIN Time Seen by Provider: 08/29/19 16:58 History of Present Illness: HPI Narrative: Brie is a nice 49-year-old female who comes in complaining of left heel pain. She has had similar pain in the past on the other foot caused by a bone spur. She denies any puncture wounds, injuries, numbness or weakness. She denies any fevers or chills or other complaints at this time. Review of Systems General: Reports: 10 or more systems reviewed and unremarkable except in HPI and below PFSH ED PFSH: Medical History Anemia Anxiety and depression Chronic neck pain COPD (chronic obstructive pulmonary disease) Essential hypertension, benign Generalized anxiety disorder GERD (gastroesophageal reflux disease) Hyperlipidemia Hypertension Hypothyroid Intervertebral disc disorders with radiculopathy, lumbosacral region Mixed hyperlipidemia Obesity Post-traumatic stress disorder, chronic Type 2 diabetes mellitus with other specified complication Vitamin D deficiency Surgical History H/O dilation and curettage S/P cholecystectomy S/P endometrial ablation Family History Mother CHF (congestive heart failure) Social History Smoking and tobacco status: former smoker Alcohol intake: never Household members: spouse Marital status: Current occupational status: disabled History of recent travel: No Physical Exam Extremity: OTHER: Left heel without erythema, ecchymosis or swelling. Strong dorsalis pedis pulse noted. Capillary refill normal less than [address] through to the toes. Heel slightly tender to the touch but otherwise unremarkable. Course Vital Signs: Vital signs: Vital Signs Pulse Rate 87 08/29/19 16:59 Respiratory Rate 17 08/29/19 16:59 Blood Pressure 158/51 08/29/19 16:59 Pulse Oximetry 94 08/29/19 16:59 MDM - Extremity (Nontraumatic) MDM Narrative: Medical decision making narrative: Brie is a nice 49-year-old female who comes in with right lower foot pain. It appears that she has a plantar fasciitis. The patient will use crutches, nonsteroidals and follow-up with Dr. Curry for recheck. Imaging Data^: Xray Ortho: My impression: Left foot -no acute fractures or dislocations Other CT: Radiologist's impression: [address] [address] [address] Scan Report Signed Patient: Brie Beltrán Unit #: [id number] : 1970 Age/Sex: 49 / F ADM Date: 08/29/19 Loc: ER Room/Bed: Attending Dr: Ordering Provider/Ordering MD: Daksha Kim DO Date of Service: 08/29/19 Procedure(s): [place] [address] Accession Number(s): [id number] Report Number: [id number] PROCEDURE INFORMATION: Exam: CT Left Lower Extremity Without Contrast, Foot Exam date and time: 08/29/2019 5:08 PM Age: 49 years old Clinical indication: Left; Patient HX: C/O L heel pain w/o injury TECHNIQUE: Imaging protocol: CT of the Left lower extremity without contrast was performed. Exam focused on the foot. Total DLP: 90.74 mGy-cm Radiation optimization: All CT scans at this facility use at least one of these dose optimization techniques: automated exposure control; mA and/or kV adjustment per patient size (includes targeted exams where dose is matched to clinical indication); or iterative reconstruction. COMPARISON: US soft tissue/extremity [id number] 06/14/2019 9:30 AM FINDINGS: Bones/joints: The bones are otherwise intact and in normal alignment. Soft tissues: Mild subcutaneous soft tissue edema of the left ankle and foot. Focal soft tissue edema adjacent to the plantar portion of the calcaneus. Irregular spurring of the calcaneus at the insertion of the plantar fascia. CT/[place] [address] IMPRESSION: 1. Plantar calcaneus enthesopathy with adjacent soft tissue edema and probable plantar fasciitis. Radiation Dose CTDIVOL = (mGy): DLP = 90.74 (mGy-cm) Dictated By: Conor Riley Signed By: Conor Riley Signed Date/Time: 08/29/191742 DD/ 41 Discharge Plan Discharge Patient Disposition: Home, Self-Care Clinical Impression: Plantar fasciitis Condition: Stable Prescriptions: No Action escitalopram oxalate [Lexapro] 10 mg tablet 10 mg PO DAILY Qty: 30 RF: 2 clonazepam 0.5 mg tablet 0.5 mg PO BID PRN (Reason: anxiety) Qty: 60 RF: 2 atenolol 50 mg tablet 50 mg PO DAILY RF: 0 ibuprofen 800 mg tablet 800 mg PO Q8H PRN (Reason: pain) 30 Days Qty: 60 RF: 0 fluticasone propion-salmeterol [Advair Diskus] 250-50 mcg/dose blister with device 1 inh INHALATION BID 30 Days Qty: 60 RF: 2 glipizide 10 mg tablet 20 mg PO DAILY Qty: 60 RF: 2 simvastatin 20 mg tablet 20 mg PO DAILY Qty: 30 RF: 2 levothyroxine 50 mcg capsule 50 mcg PO DAILY Qty: 30 RF: 1 Januvia 100 mg tablet 100 mg PO DAILY RF: 0 metformin 1,000 mg Tablet 1,000 mg PO BID RF: 0 Dexilant 60 mg Capsule,Biphase Delayed Releas 60 mg PO DAILY RF: 0 fluticasone propion-salmeterol [Advair Diskus] 250-50 mcg/dose Blister With Device 1 puff inhalation BID.RESPIRATORY Qty: 0 RF: 0 fluticasone propionate 50 mcg/actuation [place],Suspension 2 spray nasal BID Qty: 0 RF: 0 Benadryl 25 mg Capsule 25 mg PO Q6H PRN (Reason: UNKNOWN) RF: 0 iron 325 mg (65 mg iron) Tablet 325 mg PO DAILY RF: 0 Discharge Orders: Discharge Order (Routine); Ordered 08/29/19 Ordered By: Daksha Kim Referrals: Donny Curry DPM [Physician] - 4-7 days Florina Villanueva FNP [Primary Care Provider] - Sherie Luong FNP [Family Provider] - Discharge Diet: Advance as tolerated Discharge Activity: Increase activity as tolerated Patient Instructions: Plantar Fasciitis (ED) Activity Restrictions/Additional Instructions: Please return to the ER immediately for any of the signs or symptoms listed on your discharge instruction sheets, worsening/changing of your symptoms, you are not getting better as quickly as expected, or for ANY other cause or concerns. Use your crutches as needed and follow-up with Dr. Curry for further evaluation and care. Coding Level of Care Code ED Brick Offbearer for Melissa Rutherford
[2019-08-29 18:22] VITALS: BP 124/98; PULSE 83; RESP 18; O2SAT 96
--- NOTE | 2019-08-30 15:19 | DCPLANNER ---
services program manager had message to schedule a follow up appointment for patient with ortho. services program manager called ortho, spoke with Pat, gave clinic patients information. services program manager was told that patients information would be printed and reviewed. Clinic will call employment case manager and patient with appointment information.
--- NOTE | 2019-09-07 15:40 | DCPLANNER ---
Lesia from [facility] called human services case manager with appointment information. manager mortgage was told that a follow up appointment was scheduled for Sunday, November 03, 2019 at 10:[address] Curry. Clinic will call patient with appointment information.
--- NOTE | 2019-12-01 12:47 | DCPLANNER ---
Patient did attend appointment scheduled for 11.03.19 with ortho.
== END 2019-08-29 18:24 | disposition home or self-care (01) ==
PROVIDERS: Emergency Provider Emergency Medicine; Family Provider Nurse Practitioner; PCP Nurse Practitioner Family
DX: M72.2 Plantar fascial fibromatosis (principal); J44.9 Chronic obstructive pulmonary disease, unspecified; I10 Essential (primary) hypertension; E03.9 Hypothyroidism, unspecified; E78.2 Mixed hyperlipidemia; E66.9 Obesity, unspecified; Z68.42 Body mass index [BMI] 45.0-49.9, adult; Z79.51 Long term (current) use of inhaled steroids; Z79.84 Long term (current) use of oral hypoglycemic drugs; Z87.891 Personal history of nicotine dependence
CPT/HCPCS: 12345; 73630; 73700; 99281; 99283

== ENCOUNTER → 2019-10-05 12:15 | Outpatient (BNVA) | payer MEDICAID, SELFPAY | PROVIDERS: Family Provider Nurse Practitioner; PCP Nurse Practitioner Family; Visit Provider Nurse Practitioner Family | DX: I10 Essential (primary) hypertension (principal); E78.2 Mixed hyperlipidemia; E11.9 Type 2 diabetes mellitus without complications; E55.9 Vitamin D deficiency, unspecified; E03.9 Hypothyroidism, unspecified; D64.9 Anemia, unspecified; H66.90 Otitis media, unspecified, unspecified ear; J02.9 Acute pharyngitis, unspecified; E04.9 Nontoxic goiter, unspecified | CPT/HCPCS: 80053; 80061; 81001; 82306; 82728; 83036; 83550; 84443; 85025 ==

== ENCOUNTER 2019-11-01 10:32 | Outpatient (CLI) | payer MEDICAID, SELFPAY ==
--- NOTE | 2019-11-01 11:00 | US_ITS ---
WS: [id number] THYROID ULTRASOUND REASON FOR EXAM: hypothyroid, possible goiter TECHNIQUE: Grayscale and Doppler ultrasound examination of the thyroid gland. FINDINGS: RIGHT: Right thyroid gland measures 5.4 cm x 1.6 cm x 1.5 cm. Right thyroid volume equals 6.5 ccm3. Inferior pole of the right thyroid shows a nodule measures 0.54 x 0.40 x 2.58 cm this lesion is well encapsul ated and appears to be in adenoma. Along the superior pole of the midportion of the right lobe is a lesion measures 1.05 x 0.41 x 0.84 c m this appears to be a benign adenoma also. LEFT: Left thyroid gland measures 4.6 cm x 2.0 cm x 1.2 cm. Left thyroid volume equals 5.5 ccm3. No definit e nodules noted. Thyroid isthmus: 0.4 mm. US/US thyroid 66590 IMPRESSION: 3 small nodules all of which appear to be benign adenomas are seen in the right lobe The right and left lobes are slightly enlarged and showing slightly inhomogenou s densities suggesting hypothyroidism.
== END 2019-11-01 10:33 | disposition home or self-care (01) ==
LOC: RAD 10:36
PROVIDERS: PCP Nurse Practitioner Family; Visit Provider Nurse Practitioner Family
DX: E03.9 Hypothyroidism, unspecified (principal); E04.2 Nontoxic multinodular goiter
CPT/HCPCS: 76536

== ENCOUNTER → 2019-11-03 10:31 | Outpatient (BNVA) | payer MEDICAID, SELFPAY | PROVIDERS: PCP Nurse Practitioner Family; Referring Provider Emergency Medicine; Visit Provider Podiatrist Foot & Ankle Surgery | DX: M79.671 Pain in right foot (principal) | CPT/HCPCS: 73630 ==

== ENCOUNTER → 2019-11-08 12:03 | Outpatient (BNVA) | payer MEDICAID, SELFPAY | PROVIDERS: PCP Nurse Practitioner Family; Visit Provider Nurse Practitioner Family | DX: E11.69 Type 2 diabetes mellitus with other specified complication (principal); R11.0 Nausea | CPT/HCPCS: 80053; 85025 ==

== ENCOUNTER → 2019-11-10 07:59 | Outpatient (BNVA) | payer MEDICAID, SELFPAY | PROVIDERS: PCP Nurse Practitioner Family; Visit Provider Nurse Practitioner | DX: F43.12 Post-traumatic stress disorder, chronic (principal); F41.1 Generalized anxiety disorder | CPT/HCPCS: 99213 ==

== ENCOUNTER 2019-11-25 11:35 | Outpatient (CLI) | payer MEDICAID, SELFPAY ==
[2019-11-25 12:10] LABS: Basophils # 0.1 10^3/uL (0.0-0.1); Basophils % 0.6 %; Eosinophils # 0.2 10^3/uL (0.0-0.8); Eosinophils % 1.8 %; Hematocrit 40.2 % (37.0-47.0); Hemoglobin 12.4 g/dL (11.5-15.3); Lymphocytes # 2.5 10^3/uL (0.8-4.8); Lymphocytes % 29.9 %; Mean Corpuscular HGB Conc 30.8 g/dL (30.0-36.0); Mean Corpuscular Hemoglobin 25.5 pg (28.0-34.0); Mean Corpuscular Volume 82.5 fL (81-99); Mean Platelet Volume 10.2 fL (7.4-10.4); Monocytes # 0.4 10^3/uL (0.2-0.9); Monocytes % 4.2 %; Neutrophils # 5.2 10^3/uL (1.8-7.7); Neutrophils % 62.9 %; Nucleated Red Blood Cells % 0 %; Platelet Count 272 10^3/cmm (130-400); Red Blood Count 4.87 10^6/uL (4.1-5.3); Red Cell Distribution Width 15.1 % (12.1-15.1); White Blood Count 8.3 10^3/uL (4.0-10.0)
[2019-11-26 17:21] LABS: Alternaria Alternata (M6) Ige <0.10 kU/L; Alternaria Class 0; Cat Dander (E1) Ige <0.10 kU/L; Cat Dander Class 0; Common Ragweed (Short) (W1) Ig <0.10 kU/L; D. Farinae Class 0; Dermatophagoides Class 0; Dermatophagoides Farinae (D2) <0.10 kU/L; Dermatophagoides Pteronyssinus <0.10 kU/L; Dog Dander (E5) Ige <0.10 kU/L; Dog Dander Class 0; Elm (T8) Ige <0.10 kU/L; Elm Class 0; English Plantain (W9) Ige <0.10 kU/L; English Plantain Class 0; House Dust (Greer) (H1) Ige <0.10 kU/L; House Dust (Hollister- Stier) <0.10 kU/L; House Dust Class 0; Immunoglobulin E 77 kU/L (<OR=114); Lamb'S Quarters (Goose Foot) <0.10 kU/L; Lamb'S Quarters Class 0; Maple (Box Elder) (T1) Ige <0.10 kU/L; Maple Class 0; Mucor Racemosus Class 0; Oak (T7) Ige <0.10 kU/L; Oak Class 0; Penicillium Class 0; Penicillium Notatum (M1) Ige <0.10 kU/L; Ragweeed Class 0; Rough Marsh Elder (W16) Ige <0.10 kU/L; Rough Marsh Elder Class 0
[2019-11-26 17:22] LABS: Immunoglobulin E 74 kU/L (<OR=114)
[2019-11-29 17:05] LABS: Bermuda Class 0; Bermuda Grass (G2) Ige <0.10 kU/L; Johnson Grass (G10) Ige <0.10 kU/L; Johnson Grass Cl 0; June Grass Class 0; June Grass(Kentucky Blue) (G8) <0.10 kU/L; Meadow Fescue (G4) Ige <0.10 kU/L; Meadow Fescue Class 0; Orchard Grass (Cocksfoot) (G3) <0.10 kU/L; Perennial Rye Grass (G5) Ige <0.10 kU/L; Perennial Rye Grass Class 0; Sweet Vernal Class 0; Sweet Vernal Grass (G1) Ige <0.10 kU/L; Timothy Grass (G6) Ige <0.10 kU/L; Timothy Grass Class 0
[2019-11-29 18:01] LABS: Aspergillus Fumigatus, Igg Ab, 4.7 mg/L (<=102)
== END 2019-11-25 11:36 | disposition home or self-care (01) ==
LOC: LAB 11:38
PROVIDERS: PCP Nurse Practitioner Family; Visit Provider Internal Medicine Critical Care Medicine
DX: J45.909 Unspecified asthma, uncomplicated (principal); R06.02 Shortness of breath
CPT/HCPCS: 82785; 85025; 86003

== ENCOUNTER → 2019-12-30 11:30 | Outpatient (BNVA) | payer MEDICAID, SELFPAY | PROVIDERS: PCP Nurse Practitioner Family; Visit Provider Nurse Practitioner Family | DX: D50.9 Iron deficiency anemia, unspecified (principal); E78.2 Mixed hyperlipidemia; E11.69 Type 2 diabetes mellitus with other specified complication | CPT/HCPCS: 80053; 80061; 81001; 83036; 83550; 84443; 84681; 85025 ==

== ENCOUNTER → 2020-01-21 13:49 | Outpatient (BNVA) | payer MEDICAID, SELFPAY | PROVIDERS: PCP Nurse Practitioner Family; Referring Provider Nurse Practitioner Family; Visit Provider Internal Medicine | DX: E03.9 Hypothyroidism, unspecified (principal); E11.69 Type 2 diabetes mellitus with other specified complication; E78.2 Mixed hyperlipidemia; E04.2 Nontoxic multinodular goiter | CPT/HCPCS: 99204 ==

== ENCOUNTER → 2020-02-08 13:18 | Outpatient (BNVA) | payer MEDICAID, SELFPAY | PROVIDERS: PCP Nurse Practitioner Family; Visit Provider Licensed Practical Nurse | DX: G60.8 Other hereditary and idiopathic neuropathies (principal); M51.17 Intervertebral disc disorders with radiculopathy, lumbosacral region | CPT/HCPCS: 99214 ==

== ENCOUNTER 2020-02-10 13:14 | Outpatient (CLI) | payer MEDICAID, SELFPAY ==
[2020-02-10 14:00] LABS: C Reactive Protein 15.8 mg/L (0.0-4.9)
[2020-02-10 14:23] LABS: Folate Level 6.8 ng/mL (4.8-37.3)
[2020-02-10 14:31] LABS: Erythrocyte Sedimentation Rate 28 mm/hr (0-15)
[2020-02-15 09:32] LABS: Methylmalonic Acid 183 nmol/L (87-318)
== END 2020-02-10 13:15 | disposition home or self-care (01) ==
LOC: LAB 13:18
PROVIDERS: PCP Nurse Practitioner Family; Visit Provider Licensed Practical Nurse
DX: G60.8 Other hereditary and idiopathic neuropathies (principal)
CPT/HCPCS: 36415; 82746; 83921; 84260; 85651; 86140; 86431

== ENCOUNTER → 2020-02-17 09:06 | Outpatient (BNVA) | payer MEDICAID, SELFPAY | PROVIDERS: PCP Nurse Practitioner Family; Visit Provider Nurse Practitioner | DX: F43.12 Post-traumatic stress disorder, chronic (principal); F41.1 Generalized anxiety disorder; G60.8 Other hereditary and idiopathic neuropathies; M51.17 Intervertebral disc disorders with radiculopathy, lumbosacral region | CPT/HCPCS: 99213; 99214 ==

== ENCOUNTER → 2020-03-24 09:08 | Outpatient (BNVA) | payer MEDICAID, SELFPAY | PROVIDERS: PCP Nurse Practitioner Family; Visit Provider Internal Medicine | DX: E03.9 Hypothyroidism, unspecified (principal); E04.2 Nontoxic multinodular goiter; E11.69 Type 2 diabetes mellitus with other specified complication; E78.2 Mixed hyperlipidemia | CPT/HCPCS: 99214 ==

== ENCOUNTER → 2020-04-13 16:30 | Outpatient (BNVA) | payer MEDICAID, SELFPAY | PROVIDERS: PCP Nurse Practitioner Family; Visit Provider Internal Medicine Critical Care Medicine | DX: Z11.59 Encounter for screening for other viral diseases (principal); Z20.828 Contact with and (suspected) exposure to other viral communicable diseases | CPT/HCPCS: 87635 ==

== ENCOUNTER 2020-04-17 08:47 | Outpatient (CLI) | payer MEDICAID, SELFPAY ==
--- NOTE | 2020-04-17 09:35 | PFTS_ITS ---
Date of Study:04/17/20 Date of Dictation: 04/19/2020 MECHANICS: Forced vital capacity (FVC) is reduced 69% Forced expiratory volume in one second (FEV1) is moderately reduced 67% FEV1/FVC is normal 78% No significant response to bronchodilators. FLOW VOLUME LOOP: Normal flow volume loop . LUNG VOLUMES: Total lung capacity (TLC) is 215% suggesting hyperinflation. Residual volume (RV) is 488% suggest severe air trapping DIFFUSING CAPACITY FOR CARBON MONOXIDE: Normal 89% . INTERPRETATION: The spirometry suggestive of restrictive pattern, lung volumes suggestive of hyperinflation and severe air trapping. Please correlate clinically. MTDD
--- NOTE | 2020-04-17 10:00 | PFTS_ITS ---
Date of Study:04/17/20 Date of Dictation: MECHANICS: Forced vital capacity (FVC) is . Forced expiratory volume in one second (FEV1) is . FEV1/FVC is . FLOW VOLUME LOOP: . LUNG VOLUMES: Total lung capacity (TLC) is . Residual volume (RV) is . DIFFUSING CAPACITY FOR CARBON MONOXIDE: . INTERPRETATION: The pulmonary function tests are . mechanics and lung volumes. Gas exchange (DLCO) is . MTDD
== END 2020-04-17 08:48 | disposition home or self-care (01) ==
LOC: RT 08:48
PROVIDERS: PCP Nurse Practitioner Family; Visit Provider Internal Medicine Critical Care Medicine
DX: J45.909 Unspecified asthma, uncomplicated (principal)
CPT/HCPCS: 94060; 94726; 94729; J7611

== ENCOUNTER → 2020-04-20 08:18 | Outpatient (BNVA) | payer MEDICAID, SELFPAY | PROVIDERS: PCP Nurse Practitioner Family; Visit Provider Nurse Practitioner | DX: F41.1 Generalized anxiety disorder (principal); F43.12 Post-traumatic stress disorder, chronic | CPT/HCPCS: 99213 ==

== ENCOUNTER → 2020-05-09 12:02 | Outpatient (BNVA) | payer MEDICAID, SELFPAY | PROVIDERS: PCP Nurse Practitioner Family; Visit Provider Licensed Practical Nurse | DX: G60.8 Other hereditary and idiopathic neuropathies (principal); M51.17 Intervertebral disc disorders with radiculopathy, lumbosacral region | CPT/HCPCS: 99213 ==

== ENCOUNTER 2020-05-16 17:28 | Emergency (ER) | payer MEDICAID, SELFPAY ==
[2020-05-16] VITALS (9 sets, daily range): BP systolic 107–130; BP diastolic 71–86; PULSE 77–107; RESP 17–20; TEMP 36.9; O2SAT 87–99; BMI 43.9
--- NOTE | 2020-05-16 18:17 | ECG_ITS ---
[facility] Test Date: 2020-05-16 Pat Name: Brie Beltrán Department: Room: Gender: Female Industrial Methods Consultant: : 1970 Requested By: Melany Ramirez Order Number: [id number] Gayle MD: Essence Hess M.D. Measurements Intervals [place] Rate: 89 P: 28 DE: 169 QRS: -6 QRSD: 77 T: 11 QT: 309 QTc: 378 Interpretive Statements SINUS RHYTHM ANTERIOR MYOCARDIAL INFARCTION [40+ ms Q WAVE AND/OR ST/T ABNORMALITY IN V3/V4], PROBABLY OLD INFERIOR MYOCARDIAL INFARCTION [40+ ms Q WAVE AND/OR ST/T ABNORMALITY IN II/aVF], PROBABLY OLD Compared to ECG 07/31/2019 12:57:25 No significant changes Electronically Signed On 05-16-2020 19:25:50 SAP ABAP DEVELOPER by Essence Hess M.D. [email or web address]
--- NOTE | 2020-05-16 18:17 | XR_ITS ---
WS: [id number] XR chest 1V portable [id number] REASON FOR EXAM: sob FINDINGS: Chest is unchanged compared to 20/02/2020. Moderate tortuosity of thoracic aorta. Normal heart. Calcified granulomatous changes in both hemithoraces. No active pulmonary parenchymal or pleural dise ase. XR/XR chest 1V portable [id number] IMPRESSION: No acute chest abnormality.
--- NOTE | 2020-05-16 18:23 | W.ED.COVID ---
HPI - COVID General: Chief Complaint: COVID symptoms Stated Complaint: Low O2/SOB Time Seen by Provider: 05/16/20 18:20 Source: patient Mode of arrival: ambulatory Limitations: no limitations Triage information: Has fever, cough or shortness of breath. No known COVID + exposure last 14 days History of Present Illness: HPI Narrative: Brie is a very nice 50-year-old female who comes in complaining of 2 weeks worth of upper respiratory type symptoms. She has a nonproductive cough, subjective fever, and wheezing. Patient states she is monitor her oxygen level at home and at times she has been in the high 80s. She does not run this way consistently. She denies any nausea or vomiting or diarrhea. She has been exposed to the Covid virus but she is uncertain if she has this she has not been tested. Patient's is sick with similar symptoms but she says he is sicker than she is. Patient is unaware of any exacerbating alleviating factors. Patient states she had similar symptoms in the past with other respiratory illnesses. She otherwise denies any complaints or concerns. She specifically denies chest pain or diaphoresis or nausea or vomiting. COVID 19 common symptoms: positive fever(s), chills, non-productive cough, dyspnea, fatigue, body aches and throat pain; negative productive cough, headache(s), nausea, vomiting or diarrhea COVID 19 other sytmptoms: negative chest pain or confusion COVID Results: SARS-CoV-2 Antigen (Rapid) Positive (Negative) H 05/16/20 18:38 05/16/20 SARS-CoV-2 RNA (RT-PCR) Not detected (NOT DETECTED) 04/13/20 16:30 04/13/20 Review of Systems Const: Reports: fever(s), chills, body aches, fatigue and malaise Eyes: Denies: change in vision, blurry vision, photophobia, eye discomfort, eye discharge, eye redness or yellow eyes ENMT: Reports: throat pain; Denies: odynophagia, hoarseness, swelling of lips/tongue, ear or mastoid pain, ear discharge, change in hearing or nasal discharge Card: Denies: chest pain, palpitations, irregular heart rhythm, edema, lightheadedness, syncope, pre-syncope, dyspnea on exertion or orthopnea Resp: Reports: dyspnea, non-productive cough and wheezing; Denies: productive cough or hemoptysis GI: Denies: abdominal pain, nausea, vomiting, hematemesis, coffee ground emesis, heartburn, diarrhea, constipation, GI cramping, hematochezia or melena : Denies: flank pain, dysuria, urinary frequency, urinary urgency or hematuria Musc: Denies: neck pain, back pain, extremity pain, extremity swelling, joint pain, joint swelling, joint redness, joint warmth or joint stiffness Skin/Breast: Denies: rash, pruritus, erythema, skin pain or skin tenderness Neuro: Denies: headache(s), numbness in extremities, weakness in extremities, sensory changes, lack of coordination, difficulty walking, dizziness, vertigo, confusion, Slurred speech present or seizure-like activity Jose/Lymph: Denies: easy bruising, easy bleeding, petechiae, purpura or enlarged lymph nodes All/Imm: Denies: urticaria, throat swelling, tongue swelling, facial swelling or acute wheezing PFSH ED PFSH: Medical History (Updated 05/16/20 @ 21:23 by Daksha Kim) Anemia Anxiety and depression Chronic diarrhea Chronic neck pain COPD (chronic obstructive pulmonary disease) Essential hypertension, benign Generalized anxiety disorder GERD (gastroesophageal reflux disease) Hyperlipidemia Hypothyroid Intervertebral disc disorders with radiculopathy, lumbosacral region Mixed hyperlipidemia Nausea Obesity Peripheral sensory-motor axonal polyneuropathy Post-traumatic stress disorder, chronic Type 2 diabetes mellitus with other specified complication Vitamin D deficiency Surgical History H/O dilation and curettage S/P cholecystectomy S/P endometrial ablation Family History Mother CHF (congestive heart failure) Social History Smoking and tobacco status: former smoker Quit status (tobacco): has quit using tobacco Year quit tobacco: 2010 - PD x 7 Years Alcohol intake: never Household members: spouse Marital status: Current occupational status: disabled History of recent travel: No Current gender identity: Female Female Reproductive History: Date of last menstrual period: 11/01/19 Physical Exam Const: COMMON NORMALS: no acute distress, patient oriented x3, no limitations and alert GENERAL APPEARANCE: cooperative HENMT: COMMON NORMALS: normocephalic, atraumatic, external ears normal, EAC's normal and Normal external nose present HEAD & SCALP: normal to inspection, normocephalic and atraumatic FACE & SINUS: normal facial exam and face symmetric NOSE: Normal external nose present and Normal nares present EXTERNAL EAR: Yes external ears normal EXTERNAL AUDITORY CANAL: EAC's normal MOUTH: Normal oral and palatal mucosa present, lip normal and tongue normal Eye: COMMON NORMALS: Equal, round and reactive pupils present and conjunctivae normal GENERAL EYE: appearance normal, both eyes and all related structures ALIGNMENT: Yes alignment normal PERIORBITAL: periorbital findings normal EYELID: eyelids normal CONJUNCTIVA: Yes conjunctivae normal SCLERA: sclerae normal PUPIL: Yes Equal, round and reactive pupils present Neck/C-Spine: COMMON NORMALS: full ROM, no lymphadenopathy, supple, no meningeal signs and no JVD GENERAL: Yes normal visual inspection and Yes trachea midline Chest: COMMONS NORMALS: normal inspection of the chest and normal palpation of entire chest wall Resp: COMMON NORMALS: normal respiratory effort, No retractions, No use of accessory muscles and clear to auscultation bilaterally EFFORT & INSPECTION: Yes able to speak in complete sentences and Yes symmetric chest movement AUSCULTATION: clear to auscultation bilaterally, no crackles, no rales, no rhonchi and no wheezes Cardio: COMMON NORMALS: no JVD, regular rate, regular rhythm, S1 normal heart sound present and S2 normal heart sound present RATE: regular rate RHYTHM: regular rhythm HEART SOUNDS: S1 normal heart sound present, S2 normal heart sound present, no click, no gallops, no murmurs and no rubs GI: COMMON NORMALS: Soft to palpation and No hepatosplenomegaly present PALPATION: Yes Soft to palpation, No Tenderness to palpation present (GI), No Guarding due to palpation present (GI), No Rigid due to palpation, Yes No hepatosplenomegaly present, No Hernia present, No Palpable mass present and No Pulsatile mass present : COMMON NORMALS: Yes no CVA tenderness BLADDER/KIDNEY EXAM: Yes no CVA tenderness EXTERNAL FEMALE EXAM: No Hernia present Back/Pelvis: COMMON NORMALS: no CVA tenderness, thoracic and lumbar spine normal to inspection, no thoracic nor lumbar tenderness and thoraco-lumbar ROM normal Extremity: COMMON NORMALS: normal to inspection, full ROM, capillary refill normal, no joint enlargement, no clubbing, cyanosis or edema and no calf tenderness Neuro: COMMON NORMALS: patient oriented x3, CN's II-XII intact bilaterally, moves all extremities, no focal motor deficits and no sensory deficits noted SENSORIUM/ORIENTATION: Yes alert MENINGEAL SIGNS: Yes no meningeal signs SPEECH: speech normal Psych: COMMON NORMALS: mental status grossly normal, Normal thought process present, cooperative, normal affect, speech normal and activity/motor behavior normal SPEECH: Yes normal speech THOUGHT PROCESS: Normal thought process present Skin: COMMON NORMALS: no rashes or lesions noted, turgor normal, no jaundice, no petechiae and no mottling GENERAL SKIN EXAM: no rashes or lesions noted and turgor normal Course ED course: 2110 -risks benefits and timeline for Bamlanivimab infusion given to the patient. After considering all this the patient agrees would like to go ahead with infusion. Patient is not hypoxic, she is not requiring oxygen, she has diabetes and her BMI all qualify her for this infusion. We will try to give her these benefits so she will not need to come into the hospital. 2234 -patient has dropped her saturation on room air oxygen to less than 90%, as low as 85%. The infusion was stopped and she was watched but she remains lower than she was before. We will have to cancel the infusion and give her Decadron and her oxygen back on. Vital Signs: Vital signs: Vital Signs Temperature 98.5 F 05/16/20 17:57 Pulse Rate 95 05/17/20 00:37 Respiratory Rate 18 05/17/20 00:37 Blood Pressure 114/84 05/17/20 00:37 Pulse Oximetry 95 05/17/20 00:37 MDM - COVID MDM Narrative: Medical decision making narrative: 2121 -the patient has not hypoxic and her inflammatory markers are not significantly elevated. She is able to ambulate in the room without desaturating. The patient is a candidate for Bamlanivimab and I will go ahead and give her that infusion. She is able to eat and drink and keep fluids down. I think she is suitable for discharge. I will have her follow-up with her doctor. Patient does agree to this treatment plan. Did discuss with her the reasons for which to return to the hospital and she understands is in agreement. Patient had been on empiric steroids for a total of 10 days prior to this but I will put her back on but this time with a taper as she is gone 10 days and my taper will extend her beyond 2 weeks but again is tapered. Prescription will be handwritten. Differential Diagnosis: Differential diagnosis: Likely COVID 19, influenza, other viral infection, bacterial infection, pneumonia, copd exacerbation, pulmonary embolism, NSTEMI/STEMI and CHF exacerbation Medical Records: Attestation: I reviewed the patient's medical records. Lab Data: Attestation: I reviewed the patient's lab results. Labs: Lab Results 05/16/20 05/16/20 05/16/20 Range/Units 18:30 18:30 18:30 WBC 9.5 (4.0-10.0) 10^3/ uL RBC 6.04 H (4.1-5.3) 10^6/u L Hgb 14.8 (11.5-15.3) g/dL Hct 48.4 H (37.0-47.0) % MCV 80.1 L (81-99) fL MCH 24.5 L (28.0-34.0) pg MCHC 30.6 (30.0-36.0) g/dL RDW 16.6 H (12.1-15.1) % Plt Count 281 (130-400) 10^3/c mm MPV 10.0 (7.4-10.4) fL Neut % (Auto) 68.2 % Lymph % (Auto) 24.6 % [place] % (Auto) 6.1 % Eos % (Auto) 0.1 % Baso % (Auto) 0.3 % Neut # (Auto) 6.47 (1.8-7.7) 10^3/u L Lymph # (Auto) 2.3 (0.8-4.8) 10^3/u L [place] # (Auto) 0.6 (0.2-0.9) 10^3/u L Eos # (Auto) 0.0 (0.0-0.8) 10^3/u L Baso # (Auto) 0.0 (0.0-0.1) 10^3/u L Nucleated RBC % (a uto) 0 % Nucleated RBCs # 0.0 /100WBC Fibrinogen 512 H (174-498) mg/dL D-Dimer 2.18 H (0-0.59) ug/mIFE U Specimen Type Arterial Sample Site Radial, left ABG pH 7.46 H (7.35-7.45) ABG pCO2 31.6 L (35-45) mmHg ABG pO2 69.6 L (80.0-100.0) mmH g ABG HCO3 22.6 (22-26) mmol/L ABG Base Excess -0.4 (-2.0-2.0) mmol/ L Rene Test Pos Hematocrit 44.6 (37-47) % O2 Delivery Device Nc FiO2 1.0 % Public Affairs Officer ID Drn Sodium (136-145) mmol/L Potassium (3.5-5.1) mmol/L Chloride (98-107) mmol/L Carbon Dioxide (22-29) mmol/L Anion Gap (5-19) BUN (6-20) mg/dL Creatinine (0.5-0.9) mg/dL GFR Calculation (90-130) mL/min Glucose (65-115) mg/dL Calculated Osmolal ity (285-295) mOsm/k g Lactic Acid (0.5-2.2) mmol/L Calcium (8.5-10.5) mg/dL Total Bilirubin (0.15-1.2) mg/dL AST (0-32) U/L ALT (0-33) U/L Alkaline Phosphata se (35-105) IU/L C-Reactive Protein (0.0-4.9) mg/L NT-Pro-B Natriuret Pep (0-125) pg/mL Total Protein (6.6-8.7) g/dL Albumin (3.5-5.2) g/dL Globulin (1.3-4.6) g/dL SARS-CoV-2 Ag (Rap id) (Negative) 05/16/20 05/16/20 05/16/20 Range/Units 18:30 18:30 18:38 WBC (4.0-10.0) 10^3/ uL RBC (4.1-5.3) 10^6/u L Hgb (11.5-15.3) g/dL Hct (37.0-47.0) % MCV (81-99) fL MCH (28.0-34.0) pg MCHC (30.0-36.0) g/dL RDW (12.1-15.1) % Plt Count (130-400) 10^3/c mm MPV (7.4-10.4) fL Neut % (Auto) % Lymph % (Auto) % [place] % (Auto) % Eos % (Auto) % Baso % (Auto) % Neut # (Auto) (1.8-7.7) 10^3/u L Lymph # (Auto) (0.8-4.8) 10^3/u L [place] # (Auto) (0.2-0.9) 10^3/u L Eos # (Auto) (0.0-0.8) 10^3/u L Baso # (Auto) (0.0-0.1) 10^3/u L Nucleated RBC % (a uto) % Nucleated RBCs # /100WBC Fibrinogen (174-498) mg/dL D-Dimer (0-0.59) ug/mIFE U Specimen Type Sample Site ABG pH (7.35-7.45) ABG pCO2 (35-45) mmHg ABG pO2 (80.0-100.0) mmH g ABG HCO3 (22-26) mmol/L ABG Base Excess (-2.0-2.0) mmol/ L Rene Test Hematocrit (37-47) % O2 Delivery Device FiO2 % Public Affairs Officer ID Sodium 133 L (136-145) mmol/L Potassium 3.9 (3.5-5.1) mmol/L Chloride 96 L (98-107) mmol/L Carbon Dioxide 27 (22-29) mmol/L Anion Gap 13.9 (5-19) BUN 11 (6-20) mg/dL Creatinine 0.8 (0.5-0.9) mg/dL GFR Calculation 76.6 L (90-130) mL/min Glucose 146 H (65-115) mg/dL Calculated Osmolal ity 278 L (285-295) mOsm/k g Lactic Acid 1.4 (0.5-2.2) mmol/L Calcium 9.4 (8.5-10.5) mg/dL Total Bilirubin 0.3 (0.15-1.2) mg/dL AST 21 (0-32) U/L ALT 29 (0-33) U/L Alkaline Phosphata se 120 H (35-105) IU/L C-Reactive Protein 67.6 H (0.0-4.9) mg/L NT-Pro-B Natriuret Pep 12 (0-125) pg/mL Total Protein 7.4 (6.6-8.7) g/dL Albumin 4.0 (3.5-5.2) g/dL Globulin 3.4 (1.3-4.6) g/dL SARS-CoV-2 Ag (Rap id) Positive H (Negative) Imaging Data: CXR: Attestation: I personally reviewed and interpreted this imaging study as follows: My impression: Possible mild interstitial prominence otherwise no acute cardiopulmonary findings. CT Chest: Radiologist's impression: [facility] [address] [address] Scan Report Signed Patient: Brie Beltrán #: [id number] : 1970Acct#:[id number] Age/Sex: 50 / FADM Date: 05/16/20 Loc: ERRoom/Bed: Attending Dr: Ordering Provider/Ordering MD: Daksha Kim DO Date of Service: 05/16/20 Procedure(s): CT angio chest PE prot [id number] Accession Number(s): [id number] Report Number: [id number] PROCEDURE INFORMATION: Exam: CT Angiography Chest With Contrast Exam date and time: 05/16/2020 7:27 PM Age: 50 years old Clinical indication: Abnormal findings; Abnormal diagnostic tests; Elevated d-dimer; Shortness of breath; Prior surgery; Surgery type: Gb; Additional info: Dyspnea, positive d-dimer, covid positive TECHNIQUE: Imaging protocol: Computed tomographic angiography of the chest with intravenous contrast. 3D rendering (Not supervised by radiologist): MIP and/or 3D reconstructed images were created by the technologist. Radiation optimization: All CT scans at this facility use at least one of these dose optimization techniques: automated exposure control; mA and/or kV adjustment per patient size (includes targeted exams where dose is matched to clinical indication); or iterative reconstruction. Contrast material: OMNI 350; Contrast volume: 68 ml; Contrast route: INTRAVENOUS (IV); COMPARISON: CR XR chest 1V portable [id number] 05/16/2020 6:36 PM RADIATION DOSE METRICS: Total DLP (mGy-cm): 585.89 FINDINGS: Pulmonary arteries: Normal. No pulmonary emboli. Aorta: Unremarkable. No aortic aneurysm. No aortic dissection. Lungs: Patchy predominantly peripheral multilobar ground-glass opacities in both lungs. No focal consolidation. Pleural space: Unremarkable. No pneumothorax. No pleural effusion. Heart: Unremarkable. No cardiomegaly. No pericardial effusion. Lymph nodes: Subcentimeter mediastinal and hilar lymph nodes are most likely reactive. Gallbladder and bile ducts: Cholecystectomy. Bones/joints: Thoracic scoliosis. No compression fracture. Soft tissues: Unremarkable. Other findings: Mild elevation of the left diaphragm. CT/CT angio chest PE protcl [id number] IMPRESSION: 1. No evidence for pulmonary embolus. 2. Multilobar ground-glass opacities, typical of COVID-19 pneumonia. Radiation Dose CTDIVOL = (mGy): DLP = 585.89 (mGy-cm) Dictated By:Conor Riley Signed By:Conor RileySigndomingo Date/Time:05/16/202024 DD/ 22 EKG Data: EKG 1: Attestation: I personally reviewed and interpreted this EKG as follows: EKG interpretation date: 05/16/20 EKG interpretation time: 18:43 Interpretation: Normal sinus rhythm at 89 beats a minute, no blocks, normal intervals, no acute ST-T wave changes. COVID Results: SARS-CoV-2 Antigen (Rapid) Positive (Negative) H 05/16/20 18:38 05/16/20 SARS-CoV-2 RNA (RT-PCR) Not detected (NOT DETECTED) 04/13/20 16:30 04/13/20 Monoclonal Antibody Treatments Inclusion/Exclusion Criteria weight >/= 40 kg and + direct Sars-Cov-2 test less than 7-10 days ago has diabetes not requiring hospitalization and not requiring oxygen (if not chronically on oxygen) Discharge Plan Discharge Patient Disposition: Home Clinical Impression: Pneumonia due to COVID-19 virus Condition: Stable Prescriptions: New Zofran 4 mg tablet 4 mg PO Q6H PRN (Reason: nausea and vomiting) Qty: 20 RF: 0 Tessalon Perles 100 mg capsule 200 mg PO TID PRN (Reason: cough) Qty: 60 RF: 0 No Action ipratropium-albuterol 0.5 mg-3 mg(2.5 mg base)/3 mL solution for nebulization 3 ml INHALATION QID@10,14,18,22 PRN (Reason: Shortness Of Breath) RF: 0 Bydureon 2 mg/0.65 mL pen injector 2 mg SUBCUT Q7D Qty: 4 RF: 3 Lantus Solostar U-100 Insulin 100 unit/mL (3 mL) insulin pen 64 unit SUBCUT DAILY@1000 RF: 0 (DME) pen needle, diabetic [Ultra-Thin II Ins Pen [place]] 29 gauge x 1/2 needle See Rx Instructions .ROUTE .MEDSUPPLY Qty: 100 RF: 3 clonazepam 0.5 mg tablet 0.5 mg PO BID PRN (Reason: anxiety) Qty: 60 RF: 2 ibuprofen 600 mg tablet 600 mg PO Q6H PRN (Reason: pain) Qty: 30 RF: 0 amoxicillin-pot clavulanate [Augmentin] 875-125 mg tablet 1 tab PO BID Qty: 20 RF: 0 fluticasone propionate 50 mcg/actuation spray,suspension See Rx Instructions .ROUTE .COMPLEX Qty: 16 RF: 3 diphenhydramine HCl [Benadryl] 25 mg Capsule 25 mg PO Q6H PRN (Reason: UNKNOWN) RF: 0 Advair Diskus 250-50 mcg/dose blister with device 1 inh INHALATION BID@1000,2200 RF: 0 prednisone 20 mg tablet 40 mg PO DAILY@1000 RF: 0 Euthyrox 50 mcg tablet 50 mcg PO DAILY@1000 RF: 0 simvastatin 20 mg tablet 20 mg PO DAILY@1000 RF: 0 gabapentin 300 mg capsule 300 mg PO BID@1000,2200 RF: 0 Singulair 10 mg tablet 10 mg PO DAILY@1000 RF: 0 atenolol 50 mg tablet 50 mg PO DAILY@1000 RF: 0 Lexapro 20 mg tablet 20 mg PO DAILY@2200 RF: 0 Dexilant 60 mg capsule,biphase delayed releas 60 mg PO DAILY@1000 RF: 0 Jardiance 25 mg tablet 25 mg PO DAILY@1000 RF: 0 Discharge Orders: Discharge ED (Routine); Ordered 05/16/20 Ordered By: Daksha Kim Other Ambulatory Orders: DME: Oxygen (Order) Location: None Selected Ordered By: Daksha Kim Referrals: PRICILA Villanueva, TONGUE AND [employer] MACHINE SETTER [Primary Care Provider] - 1-3 days Discharge Diet: Advance as tolerated Discharge Activity: Limit activity as instructed Patient Instructions: Viral Pneumonia (ED) Activity Restrictions/Additional Instructions: Please return to the ER immediately for any of the signs or symptoms listed on your discharge instruction sheets, worsening/changing of your symptoms, you are not getting better as quickly as expected, or for ANY other cause or concerns. Return to the ER if your home pulse ox monitor shows an oxygen level persistently less than 90 for more than 2 minutes. Return to the ER for worsening cough, shortness of breath, vomiting or any other concern. 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
[2020-05-16 18:41] LABS: ABG PCO2 31.6 mmHg (35-45); ABG PH Result 7.46 (7.35-7.45); Arterial Blood Gas Hematocrit 44.6 % (37-47); Base Excess ABG -0.4 mmol/L (-2.0-2.0); Blood Gas Allen Test Pos; Blood Gas Sample Type Arterial; HCO3 ABG 22.6 mmol/L (22-26); PO2 ABG 69.6 mmHg (80.0-100.0)
[2020-05-16 18:43] LABS: Blood Gas Sample Site Radial, left; Oxygen Device NC
[2020-05-16 18:54] LABS: Basophils % 0.3 %; Eosinophils % 0.1 %; Hematocrit 48.4 % (37.0-47.0); Hemoglobin 14.8 g/dL (11.5-15.3); Lymphocytes # 2.3 10^3/uL (0.8-4.8); Lymphocytes % 24.6 %; Mean Corpuscular HGB Conc 30.6 g/dL (30.0-36.0); Mean Corpuscular Hemoglobin 24.5 pg (28.0-34.0); Mean Corpuscular Volume 80.1 fL (81-99); Monocytes # 0.6 10^3/uL (0.2-0.9); Monocytes % 6.1 %; Neutrophils # 6.47 10^3/uL (1.8-7.7); Neutrophils % 68.2 %; Nucleated Red Blood Cells % 0 %; Platelet Count 281 10^3/cmm (130-400); Red Blood Count 6.04 10^6/uL (4.1-5.3); Red Cell Distribution Width 16.6 % (12.1-15.1); White Blood Count 9.5 10^3/uL (4.0-10.0)
[2020-05-16 19:10] LABS: Fibrinogen 512 mg/dL (174-498)
[2020-05-16 19:13] LABS: D Dimer 2.18 ug/mIFEU (0-0.59)
[2020-05-16 19:14] LABS: SARS Covid-2 Antigen Positive (Negative)
[2020-05-16 19:16] LABS: Lactic Sepsis W/Reflex 1.4 mmol/L (0.5-2.2)
[2020-05-16 19:25] LABS: Alanine Aminotransferase 29 U/L (0-33); Alkaline Phosphatase 120 IU/L (35-105); Anion Gap 13.9 (5-19); Aspartate Amino Transferase 21 U/L (0-32); Blood Urea Nitrogen 11 mg/dL (6-20); C Reactive Protein 67.6 mg/L (0.0-4.9); Calcium 9.4 mg/dL (8.5-10.5); Carbon Dioxide 27 mmol/L (22-29); Chloride 96 mmol/L (98-107); Globulin 3.4 g/dL (1.3-4.6); Glomerular Filtration Rate 76.6 mL/min (90-130); Glucose 146 mg/dL (65-115); NT Pro B Type Natriuretic Pept 12 pg/mL (0-125); Osmolality Calculated 278 mOsm/kg (285-295); Potassium 3.9 mmol/L (3.5-5.1); Sodium 133 mmol/L (136-145); Total Bilirubin 0.3 mg/dL (0.15-1.2); Total Protein 7.4 g/dL (6.6-8.7)
--- NOTE | 2020-05-16 19:25 | CTR_ITS ---
PROCEDURE INFORMATION: Exam: CT Angiography Chest With Contrast Exam date and time: 05/16/2020 7:27 PM Age: 50 years old Clinical indication: Abnormal findings; Abnormal diagnostic tests; Elevated d-dimer; Shortness of breath; Prior surgery; Surgery type: Gb; Additional info: Dyspnea, positive d-dimer, covid positive TECHNIQUE: Imaging protocol: Computed tomographic angiography of the chest with intravenous contrast. 3D rendering (Not supervised by radiologist): MIP and/or 3D reconstructed images were created by the technologist. Radiation optimization: All CT scans at this facility use at least one of these dose optimization techniques: automated exposure control; mA and/or kV adjustment per patient size (includes targeted exams where dose is matched to clinical indication); or iterative reconstruction. Contrast material: OMNI 350; Contrast volume: 68 ml; Contrast route: INTRAVENOUS (IV); COMPARISON: CR XR chest 1V portable [id number] 05/16/2020 6:36 PM RADIATION DOSE METRICS: Total DLP (mGy-cm): 585.89 FINDINGS: Pulmonary arteries: Normal. No pulmonary emboli. Aorta: Unremarkable. No aortic aneurysm. No aortic dissection. Lungs: Patchy predominantly peripheral multilobar ground-glass opacities in both lungs. No focal consolidation. Pleural space: Unremarkable. No pneumothorax. No pleural effusion. Heart: Unremarkable. No cardiomegaly. No pericardial effusion. Lymph nodes: Subcentimeter mediastinal and hilar lymph nodes are most likely reactive. Gallbladder and bile ducts: Cholecystectomy. Bones/joints: Thoracic scoliosis. No compression fracture. Soft tissues: Unremarkable. Other findings: Mild elevation of the left diaphragm. CT/[place] prot [id number] IMPRESSION: 1. No evidence for pulmonary embolus. 2. Multilobar ground-glass opacities, typical of COVID-19 pneumonia. Radiation Dose CTDIVOL = (mGy): DLP = 585.89 (mGy-cm)
[2020-05-16] MEDS: iohexol 350 mg/mL 100 mL Btl IV (19:47)
[2020-05-16] MEDS: albuterol 8 gm MDI 6 PUFF INHALATION (20:20)
--- NOTE | 2020-05-16 22:26 | PC.NURSE ---
This RN discussed risks and benefits of BAM infusion with the patient, patient understands, infusion started
--- NOTE | 2020-05-16 22:36 | PC.NURSE ---
patient was consistently sating under 90% O2 Sat, Dr. Kim notified, this is a change patient had a Sat consistently above 92% BAM infusion stopped
[2020-05-16] MEDS: dexamethasone 4 mg/mL INJ 6 MG IVP (22:52)
[2020-05-17 00:33] VITALS: BP 121/75; PULSE 101; RESP 18; O2SAT 92
[2020-05-17 00:37] VITALS: BP 114/84; PULSE 95; RESP 18; O2SAT 95
--- NOTE | 2020-05-17 13:21 | DCPLANNER ---
Addendum entered by Luzma Bloom 05/30/20 14:32: loading manager called to check on patient after receiving the BAM infusion. loading manager called to check after day 10, unable to speak with patient. loading manager left a voicemail for patient to return case management rn phone call. Addendum entered by Luzma Bloom 05/22/20 12:57: Spoke with patient, she stated that only getting half of the infusion, she can tell a difference and she is feeling better, stated that she does have her sense of taste and smell back. Original Note: loading manager had message that patient had received the BAM infusion. loading manager called patient to check on patient after the infusion. Patient stated that she did not tolerate the infusion well, stated that her oxygen kept dropping and that she only received half of the infusion. Patient stated that before the infusion, she was unable to breath, she had very little coughing, no fever, she did have lost of taste and smell. After the infusion she stated that she can tell a difference, she stated that her chest still hurts, but she can breath better and that she does not feel as weak. Patient does have a follow up appointment scheduled for Saturday, May 23, 2020 at 1:[address] Nye. loading manager called patient with the appointment information.
== END 2020-05-17 00:39 | disposition home or self-care (01) ==
PROVIDERS: Emergency Medicine; Emergency Provider Emergency Medicine; PCP Nurse Practitioner Family
DX: U07.1 COVID-19 (principal); J44.0 Chronic obstructive pulmonary disease with (acute) lower respiratory infection; J12.89 Other viral pneumonia; Z79.4 Long term (current) use of insulin; I10 Essential (primary) hypertension; E78.2 Mixed hyperlipidemia; E11.9 Type 2 diabetes mellitus without complications; Z87.891 Personal history of nicotine dependence
CPT/HCPCS: 12345; 36600; 71045; 71275; 80053; 82803; 83605; 83880; 85025; 85378; 85384; 86140; 87426; 93005; 94640; 96365; 96375; 99283; 99284; J1100; J3535; J7050; Q9967

== ENCOUNTER → 2020-06-26 08:04 | Outpatient (BNVA) | payer MEDICAID, SELFPAY | PROVIDERS: PCP Nurse Practitioner Family; Visit Provider Internal Medicine | DX: E03.9 Hypothyroidism, unspecified (principal); E04.2 Nontoxic multinodular goiter; E11.69 Type 2 diabetes mellitus with other specified complication; E78.2 Mixed hyperlipidemia | CPT/HCPCS: 99214 ==

== ENCOUNTER → 2020-08-07 07:34 | Outpatient (BNVA) | payer MEDICAID, SELFPAY | PROVIDERS: PCP Nurse Practitioner Family; Visit Provider Nurse Practitioner | DX: F43.12 Post-traumatic stress disorder, chronic (principal); F41.1 Generalized anxiety disorder | CPT/HCPCS: 99214 ==

== ENCOUNTER → 2020-08-31 15:17 | Outpatient (BNVA) | payer MEDICAID, SELFPAY | PROVIDERS: PCP Nurse Practitioner Family; Visit Provider Nurse Practitioner Family | DX: S96.912A Strain of unspecified muscle and tendon at ankle and foot level, left foot, initial encounter (principal); L30.9 Dermatitis, unspecified; B37.3 Candidiasis of vulva and vagina; G56.02 Carpal tunnel syndrome, left upper limb; M25.579 Pain in unspecified ankle and joints of unspecified foot; X58.XXXA Exposure to other specified factors, initial encounter | CPT/HCPCS: 73610 ==

== ENCOUNTER → 2020-11-01 08:01 | Outpatient (BNVA) | payer MEDICAID, SELFPAY | PROVIDERS: PCP Nurse Practitioner; Visit Provider Nurse Practitioner | DX: F43.12 Post-traumatic stress disorder, chronic (principal); F41.1 Generalized anxiety disorder | CPT/HCPCS: 99214 ==

== ENCOUNTER 2020-11-28 16:54 | Emergency (ER) | payer MEDICAID, SELFPAY ==
--- NOTE | 2020-11-28 16:57 | XRR_ITS ---
PROCEDURE INFORMATION: Exam: XR Chest Exam date and time: 11/28/2020 4:57 PM Age: 50 years old Clinical indication: Left-sided and other: Cp, nausea, neck/lt. Arm pain; Additional info: Chest pain TECHNIQUE: Imaging protocol: XR of the chest. Views: 1 view. COMPARISON: CR XR chest 1V portable [id number] 05/16/2020 6:36 PM FINDINGS: Lungs: Unremarkable. No consolidation. Pleural spaces: Unremarkable. No pleural effusion. No pneumothorax. Heart/Mediastinum: Unremarkable. No cardiomegaly. Bones/joints: Unremarkable. XR/XR chest 1V portable [id number] IMPRESSION: No acute findings.
--- NOTE | 2020-11-28 16:58 | ECG_ITS ---
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 Measurements Intervals [place] Rate: 86 P: 27 HI: 166 QRS: -3 QRSD: 94 T: 4 QT: 352 QTc: 422 Interpretive Statements SINUS RHYTHM LOW QRS VOLTAGE IN PRECORDIAL LEADS [QRS DEFLECTION < 1.0 mV IN CHEST LEADS] POSSIBLE ANTERIOR MYOCARDIAL INFARCTION [30 ms Q WAVE IN V3/V4, OR R < 0.2 mV IN V4], PROBABLY OLD INFERIOR MYOCARDIAL INFARCTION [40+ ms Q WAVE AND/OR ST/T ABNORMALITY IN II/aVF], PROBABLY OLD Compared to ECG 05/16/2020 18:43:32 Low QRS voltage now present Myocardial infarct finding still present Electronically Signed On 11-29-2020 0:30:19 CDT by Lan Carey M.D. [email or web address]
[2020-11-28 17:08] VITALS: BP 120/81; PULSE 90; RESP 18; TEMP 36.9; O2SAT 97; BMI 49.5
[2020-11-28 17:27] VITALS: BP 146/90; PULSE 90; RESP 20; O2SAT 97
[2020-11-28 18:00] LABS: Basophils # 0.1 10^3/uL (0.0-0.1); Basophils % 0.6 %; Eosinophils # 0.4 10^3/uL (0.0-0.8); Eosinophils % 2.9 %; Hemoglobin 12.9 g/dL (11.5-15.3); Lymphocytes # 3.4 10^3/uL (0.8-4.8); Lymphocytes % 24.8 %; Mean Corpuscular HGB Conc 30.7 g/dL (30.0-36.0); Mean Corpuscular Hemoglobin 25.4 pg (28.0-34.0); Mean Corpuscular Volume 82.8 fL (81-99); Mean Platelet Volume 10.1 fL (7.4-10.4); Monocytes # 0.7 10^3/uL (0.2-0.9); Monocytes % 4.8 %; Neutrophils # 8.99 10^3/uL (1.8-7.7); Neutrophils % 66.1 %; Nucleated Red Blood Cells % 0 %; Platelet Count 280 10^3/cmm (130-400); Red Blood Count 5.07 10^6/uL (4.1-5.3); Red Cell Distribution Width 16.8 % (12.1-15.1); White Blood Count 13.6 10^3/uL (4.0-10.0)
[2020-11-28 18:51] VITALS: BP 118/66; PULSE 95; RESP 14; O2SAT 98
--- NOTE | 2020-11-28 18:58 | ECG_ITS ---
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 Measurements Intervals [place] Rate: 87 P: 28 AK: 174 QRS: -1 QRSD: 94 T: 3 QT: 344 QTc: 415 Interpretive Statements SINUS RHYTHM LOW QRS VOLTAGE IN PRECORDIAL LEADS [QRS DEFLECTION < 1.0 mV IN CHEST LEADS] POSSIBLE ANTERIOR MYOCARDIAL INFARCTION [30 ms Q WAVE IN V3/V4, OR R < 0.2 mV IN V4], PROBABLY OLD Compared to ECG 11/28/2020 17:09:41 No significant changes Electronically Signed On 11-29-2020 0:53:30 CDT by Lan Carey M.D. [id number]
--- NOTE | 2020-11-28 19:08 | PC.NURSE ---
Report from JANETTE Andrew
[2020-11-28 19:15] LABS: Troponin(5th) Baseline 6 ng/L (0-10)
[2020-11-28 19:16] LABS: Alanine Aminotransferase 14 U/L (0-33); Albumin Level 3.9 g/dL (3.5-5.2); Alkaline Phosphatase 91 IU/L (35-105); Anion Gap 14.3 (5-19); Aspartate Amino Transferase 12 U/L (0-32); Blood Urea Nitrogen 8 mg/dL (6-20); Calcium 9.1 mg/dL (8.5-10.5); Carbon Dioxide 27 mmol/L (22-29); Chloride 100 mmol/L (98-107); Globulin 2.7 g/dL (1.3-4.6); Glomerular Filtration Rate 131.7 mL/min (90-130); Glucose 174 mg/dL (65-115); Osmolality Calculated 287 mOsm/kg (285-295); Potassium 4.3 mmol/L (3.5-5.1); Sodium 137 mmol/L (136-145); Total Bilirubin 0.3 mg/dL (0.15-1.2); Total Protein 6.6 g/dL (6.6-8.7)
[2020-11-28 19:22] LABS: Lipase 50 U/L (13-60); NT Pro B Type Natriuretic Pept 42 pg/mL (0-125)
[2020-11-28 21:11] VITALS: BP 141/74; PULSE 93; RESP 17; O2SAT 98
[2020-11-28 21:12] LABS: Troponin 5 2HR Delta 0 ABS# (0-10)
--- NOTE | 2020-11-28 21:52 | ED_ITS ---
HPI - Chest Pain General: Chief Complaint: Chest Pain Stated Complaint: Chest pain, Nausea, neck / L arm pain Time Seen by Provider: 11/28/20 17:22 Source: patient Limitations: no limitations History of Present Illness: HPI narrative: Patient is a 50-year-old female with a history of hypertension, diabetes, COPD, who presents to the emergency department with complaints of chest pain. Symptoms have been going on for a few days, she also complains of 20 pound weight gain in about 2 weeks. She has dyspnea on exertion. No orthopnea MD complaint: chest pain Onset (ago): day(s) Timing of current episode: episodic Prior episodes: Yes Onset: during rest and during exertion Pain location: substernal Pain radiation: none Severity: mild Quality: tightness Relieving factors: nothing Exacerbating factors: nothing Associated symptoms: Deny abdominal pain, diaphoresis, dyspnea, fever(s), leg edema, nausea, palpitations, sense of impending doom, syncope or vomiting Treatment prior to arrival: none Review of Systems General: Reports: 10 or more systems reviewed and unremarkable except in HPI and below Const: Denies: fever(s) or diaphoresis Card: Denies: palpitations or syncope Resp: Denies: dyspnea GI: Denies: abdominal pain, nausea or vomiting PFS ED PFSH: Medical History (Updated 12/06/20 @ 00:01 by ) Anemia Anxiety and depression Carpal tunnel syndrome Chronic diarrhea Chronic neck pain COPD (chronic obstructive pulmonary disease) Dermatitis Essential hypertension, benign Generalized anxiety disorder GERD (gastroesophageal reflux disease) Hyperlipidemia Hypothyroid Intervertebral disc disorders with radiculopathy, lumbosacral region Mixed hyperlipidemia Nausea Obesity Peripheral sensory-motor axonal polyneuropathy Post-traumatic stress disorder, chronic Type 2 diabetes mellitus with other specified complication Vaginal yeast infection Vitamin D deficiency Surgical History H/O dilation and curettage S/P cholecystectomy S/P endometrial ablation Family History Mother CHF (congestive heart failure) Social History Smoking and tobacco status: former smoker Quit status (tobacco): has quit using tobacco Year quit tobacco: 2010PD x 7 Years Alcohol intake: never Household members: spouse Marital status: Current occupational status: disabled History of recent travel: No Current gender identity: Female Female Reproductive History: Date of last menstrual period: 11/01/19 Physical Exam Const: COMMON NORMALS: no acute distress, average body habitus, patient oriented x3, no limitations, healthy appearing, alert and well nourished HENMT: COMMON NORMALS: normocephalic, atraumatic and moist oral mucous membranes HEAD & SCALP: normocephalic and atraumatic Neck/C-Spine: COMMON NORMALS: no meningeal signs and no JVD Chest: COMMONS NORMALS: normal inspection of the chest and normal palpation of entire chest wall Resp: COMMON NORMALS: normal respiratory effort, No retractions, No use of accessory muscles, clear to auscultation bilaterally and percussion normal AUSCULTATION: clear to auscultation bilaterally PERCUSSION: percussion normal Cardio: COMMON NORMALS: no JVD, regular rate, regular rhythm, S1 normal heart sound present, S2 normal heart sound present, No gallops present (Cardio), No clicks present (Cardio), No murmurs present (Cardio), No rub (Cardio) and Peripheral pulses 2+ throughout RATE: regular rate RHYTHM: regular rhythm HEART SOUNDS: S1 normal heart sound present and S2 normal heart sound present PERIPHERAL PULSES: Peripheral pulses 2+ throughout GI: COMMON NORMALS: Normal to inspection, nondistended, normoactive bowel sounds present, Soft to palpation, non-tender, No hepatosplenomegaly present, no masses and no bruits PALPATION: Yes Soft to palpation and Yes No hepatosplenomegaly present Extremity: COMMON NORMALS: normal to inspection, full ROM, capillary refill normal, no calf tenderness and no pedal edema Neuro: COMMON NORMALS: patient oriented x3 SENSORIUM/ORIENTATION: Yes alert MENINGEAL SIGNS: Yes no meningeal signs Course Reevaluation(s): Reevaluation #1: Discussed her lab and imaging findings with her. Negative for acute findings. We will discharge her home with no new orders. Negative high-sensitivity troponin x2 no features of CHF. We will discharge her home with no new orders. She voiced understanding and is in agreement with the plan. Time: 21:53 Vital Signs: Vital signs: Vital Signs Temperature 98.4 F 11/28/20 17:08 Pulse Rate 93 11/28/20 21:11 Respiratory Rate 17 11/28/20 21:11 Blood Pressure 141/74 11/28/20 21:11 Pulse Oximetry 98 11/28/20 21:11 MDM - Chest Pain MDM Narrative: Medical decision making narrative: 50-year-old female patient who presents to the emergency department with chest tightness and weight gain. Evaluation in the emergency department is unremarkable and she is discharged home with no new orders. Medical Records: Attestation: I reviewed the patient's medical records. Lab Data: Attestation: I reviewed the patient's lab results. Labs: Lab Results 11/28/20 11/28/20 11/28/20 Range/Units 17:44 17:44 17:44 WBC 13.6 H (4.0-10.0) 10^3/ uL RBC 5.07 (4.1-5.3) 10^6/u L Hgb 12.9 (11.5-15.3) g/dL Hct 42.0 (37.0-47.0) % MCV 82.8 (81-99) fL MCH 25.4 L (28.0-34.0) pg MCHC 30.7 (30.0-36.0) g/dL RDW 16.8 H (12.1-15.1) % Plt Count 280 (130-400) 10^3/c mm MPV 10.1 (7.4-10.4) fL Neut % (Auto) 66.1 % Lymph % (Auto) 24.8 % [place] % (Auto) 4.8 % Eos % (Auto) 2.9 % Baso % (Auto) 0.6 % Neut # (Auto) 8.99 H (1.8-7.7) 10^3/u L Lymph # (Auto) 3.4 (0.8-4.8) 10^3/u L [place] # (Auto) 0.7 (0.2-0.9) 10^3/u L Eos # (Auto) 0.4 (0.0-0.8) 10^3/u L Baso # (Auto) 0.1 (0.0-0.1) 10^3/u L Nucleated RBC % (a uto) 0 % Nucleated RBCs # 0.0 /100WBC Sodium Cancelled Potassium Cancelled Chloride Cancelled Carbon Dioxide Cancelled Anion Gap Cancelled BUN Cancelled Creatinine Cancelled GFR Calculation Cancelled Glucose Cancelled Calculated Osmolal ity Cancelled Calcium Cancelled Total Bilirubin Cancelled AST Cancelled ALT Cancelled Alkaline Phosphata se Cancelled Troponin T Baselin e Cancelled Troponin T 120 Min [place] (0-10) ng/L Delta Troponin T (0-10) ABS# NT-Pro-B Natriuret Pep (0-125) pg/mL Total Protein Cancelled Albumin Cancelled Globulin Cancelled Lipase (13-60) U/L 11/28/20 11/28/20 11/28/20 Range/Units 18:42 18:42 18:42 WBC (4.0-10.0) 10^3/ uL RBC (4.1-5.3) 10^6/u L Hgb (11.5-15.3) g/dL Hct (37.0-47.0) % MCV (81-99) fL MCH (28.0-34.0) pg MCHC (30.0-36.0) g/dL RDW (12.1-15.1) % Plt Count (130-400) 10^3/c mm MPV (7.4-10.4) fL Neut % (Auto) % Lymph % (Auto) % [place] % (Auto) % Eos % (Auto) % Baso % (Auto) % Neut # (Auto) (1.8-7.7) 10^3/u L Lymph # (Auto) (0.8-4.8) 10^3/u L [place] # (Auto) (0.2-0.9) 10^3/u L Eos # (Auto) (0.0-0.8) 10^3/u L Baso # (Auto) (0.0-0.1) 10^3/u L Nucleated RBC % (a uto) % Nucleated RBCs # /100WBC Sodium 137 Potassium 4.3 Chloride 100 Carbon Dioxide 27 Anion Gap 14.3 BUN 8 Creatinine 0.5 GFR Calculation 131.7 H Glucose 174 H Calculated Osmolal ity 287 Calcium 9.1 Total Bilirubin 0.3 AST 12 ALT 14 Alkaline Phosphata se 91 Troponin T Baselin e 6 Troponin T 120 Min [place] (0-10) ng/L Delta Troponin T (0-10) ABS# NT-Pro-B Natriuret Pep 42 (0-125) pg/mL Total Protein 6.6 Albumin 3.9 Globulin 2.7 Lipase 50 (13-60) U/L 11/28/20 Range/Units 20:40 WBC (4.0-10.0) 10^3/ uL RBC (4.1-5.3) 10^6/u L Hgb (11.5-15.3) g/dL Hct (37.0-47.0) % MCV (81-99) fL MCH (28.0-34.0) pg MCHC (30.0-36.0) g/dL RDW (12.1-15.1) % Plt Count (130-400) 10^3/c mm MPV (7.4-10.4) fL Neut % (Auto) % Lymph % (Auto) % [place] % (Auto) % Eos % (Auto) % Baso % (Auto) % Neut # (Auto) (1.8-7.7) 10^3/u L Lymph # (Auto) (0.8-4.8) 10^3/u L [place] # (Auto) (0.2-0.9) 10^3/u L Eos # (Auto) (0.0-0.8) 10^3/u L Baso # (Auto) (0.0-0.1) 10^3/u L Nucleated RBC % (a uto) % Nucleated RBCs # /100WBC Sodium Potassium Chloride Carbon Dioxide Anion Gap BUN Creatinine GFR Calculation Glucose Calculated Osmolal ity Calcium Total Bilirubin AST ALT Alkaline Phosphata se Troponin T Baselin e Troponin T 120 Min [place] 6.00 (0-10) ng/L Delta Troponin T 0 (0-10) ABS# NT-Pro-B Natriuret Pep (0-125) pg/mL Total Protein Albumin Globulin Lipase (13-60) U/L Imaging Data^: CXR: Attestation: I personally reviewed and interpreted this imaging study as follows: Radiologist's impression: Pauline [address] [id number] ReportSigned Patient: Brie Beltránt #: [id number]: 1970Acct#:[id number]/Sex: 50 / FADM Date: 11/28/20Loc: ERRoom/Bed:Attending Dr: Ordering Provider/Ordering MD: Melody Deras Date of Service: 11/28/20 Procedure(s): XR chest 1V portable [id number] Accession Number(s): [id number] Report Number: [id number] PROCEDURE INFORMATION: Exam: XR Chest Exam date and time: 11/28/2020 4:57 PM Age: 50 years old Clinical indication: Left-sided and other: Cp, nausea, neck/lt. Arm pain; Additional info: Chest pain TECHNIQUE: Imaging protocol: XR of the chest. Views: 1 view. COMPARISON: CR XR chest 1V portable [id number] 05/16/2020 6:36 PM FINDINGS: Lungs: Unremarkable. No consolidation. Pleural spaces: Unremarkable. No pleural effusion. No pneumothorax. Heart/Mediastinum: Unremarkable. No cardiomegaly. Bones/joints: Unremarkable. XR/XR chest 1V portable [id number] IMPRESSION: No acute findings. Dictated By:Yelena Del Angel By:Yelena Del Angel Date/Time:11/28/201845DD/ 43 EKG Data^: EKG 1: Attestation: I personally reviewed and interpreted this EKG as follows: EKG interpretation date: 11/28/20 EKG interpretation time: 18:49 Prior EKG tracings: not available for review Interpretation: Sinus rhythm. Heart rate [address] changes. Discharge Plan Discharge Patient Disposition: Home Clinical Impression: Non-cardiac chest pain Condition: Stable Prescriptions: Continued clonazepam 0.5 mg tablet 0.5 mg PO BID PRN (Reason: anxiety) Qty: 60 RF: 2 Lexapro 20 mg tablet 20 mg PO DAILY@2200 Qty: 30 RF: 2 aripiprazole [Abilify] 2 mg tablet 2 mg PO DAILY Qty: 30 RF: 2 ibuprofen 600 mg tablet 600 mg PO Q6H PRN (Reason: pain) Qty: 30 RF: 0 Lantus Solostar U-100 Insulin 100 unit/mL (3 mL) insulin pen 80 unit SUBCUT DAILY@1000 90 Days Qty: 90 RF: 3 simvastatin 20 mg tablet 20 mg PO DAILY@1000 90 Days Qty: 90 RF: 3 atenolol 50 mg tablet See Rx Instructions .ROUTE .COMPLEX Qty: 30 RF: 2 Jardiance 25 mg tablet 25 mg PO DAILY@1000 Qty: 30 RF: 2 fluticasone propionate 50 mcg/actuation spray,suspension See Rx Instructions .ROUTE .COMPLEX Qty: 16 RF: 3 Bydureon BCise 2 mg/0.85 mL auto-injector 2 mg SUBCUT Q7D 90 Days Qty: 11.05 RF: 3 (DME) TechLITE Insulin Syr Half Unit 0.3 mL 29 gauge x 1/2 syringe See Rx Instructions .Route Qty: 100 RF: 3 gabapentin 300 mg capsule See Rx Instructions .ROUTE .COMPLEX Qty: 60 RF: 1 montelukast 10 mg tablet See Rx Instructions .ROUTE .COMPLEX Qty: 30 RF: 3 Dexilant 60 mg capsule,biphase delayed releas See Rx Instructions .ROUTE .COMPLEX Qty: 30 RF: 5 Incruse Ellipta 62.5 mcg/actuation blister with device 1 inh inhalation DAILY Qty: 30 RF: 3 Bevespi Aerosphere 9-4.8 mcg HFA aerosol inhaler 2 puff inhalation BID Qty: 10.7 RF: 3 Flovent HFA 220 mcg/actuation HFA aerosol inhaler 1 puff inhalation BID Qty: 12 RF: 3 diphenhydramine HCl [Benadryl] 25 mg Capsule 25 mg PO Q6H PRN (Reason: UNKNOWN) RF: 0 No Action Victoza 2-Adeel 0.6 mg/0.1 mL (18 mg/3 mL) pen injector See Rx Instructions .ROUTE .COMPLEX Qty: 9 RF: 0 levothyroxine 50 mcg tablet See Rx Instructions .ROUTE .COMPLEX Qty: 30 RF: 0 Discharge Orders: Discharge ED (Routine); Ordered 11/28/20 Ordered By: Ignacio Bruce Referrals: Carlos Alcala, BROOM BUILDER-C [Primary Care Provider] - 1-3 days Discharge Diet: Usual diet Discharge Activity: Increase activity as tolerated Patient Instructions: Noncardiac Chest Pain (ED) Activity Restrictions/Additional Instructions: Return for any new or worsening symptoms. Follow-up with your primary care provider within 3 days. Continue your home medications. Coding Level of Care Code ED Orthopedic Physician Assistant for Chg Fwd Exam Comprehensive
== END 2020-11-28 22:11 | disposition home or self-care (01) ==
PROVIDERS: Physician Assistant; Emergency Provider Family Medicine; PCP Nurse Practitioner
DX: R07.89 Other chest pain (principal); Z79.4 Long term (current) use of insulin; J44.9 Chronic obstructive pulmonary disease, unspecified; I10 Essential (primary) hypertension; E78.2 Mixed hyperlipidemia; E11.9 Type 2 diabetes mellitus without complications; Z87.891 Personal history of nicotine dependence
CPT/HCPCS: 71045; 80053; 83690; 83880; 84484; 85025; 93005; 99283

== ENCOUNTER → 2021-01-11 07:34 | Outpatient (BNVA) | payer MEDICAID, SELFPAY | PROVIDERS: PCP Nurse Practitioner; Visit Provider Nurse Practitioner | DX: F43.12 Post-traumatic stress disorder, chronic (principal); F41.1 Generalized anxiety disorder | CPT/HCPCS: 99214 ==

== ENCOUNTER → 2021-01-18 09:15 | Outpatient (BNVA) | payer MEDICAID, SELFPAY | PROVIDERS: PCP Nurse Practitioner; Visit Provider Nurse Practitioner Family | DX: M54.9 Dorsalgia, unspecified (principal); E11.69 Type 2 diabetes mellitus with other specified complication | CPT/HCPCS: 36415; 80053; 80061; 81000; 83036; 84443; 85025 ==

== ENCOUNTER → 2021-03-01 14:09 | Outpatient (BNVA) | payer MEDICAID, SELFPAY | PROVIDERS: PCP Nurse Practitioner; Visit Provider Nurse Practitioner Family | DX: M79.641 Pain in right hand (principal); M79.642 Pain in left hand; M54.6 Pain in thoracic spine; M54.5 Low back pain | CPT/HCPCS: 73130 ==

== ENCOUNTER → 2021-03-02 09:07 | Outpatient (BNVA) | payer MEDICAID, SELFPAY | PROVIDERS: PCP Nurse Practitioner; Visit Provider Nurse Practitioner Family | DX: M79.641 Pain in right hand (principal); M79.642 Pain in left hand; M54.6 Pain in thoracic spine | CPT/HCPCS: 80053; 82306; 82607; 84550; 85025; 85651; 86140; 86431 ==

== ENCOUNTER → 2021-03-08 11:28 | Outpatient (BNVA) | payer MEDICAID, SELFPAY | PROVIDERS: PCP Nurse Practitioner; Visit Provider Nurse Practitioner Family | DX: R39.9 Unspecified symptoms and signs involving the genitourinary system (principal); E53.8 Deficiency of other specified B group vitamins; M25.50 Pain in unspecified joint; E55.9 Vitamin D deficiency, unspecified; E61.1 Iron deficiency; R79.82 Elevated C-reactive protein (CRP) | CPT/HCPCS: 81000 ==

== ENCOUNTER 2021-03-19 11:09 | Outpatient (CLI) | payer MEDICAID, SELFPAY ==
--- NOTE | 2021-03-19 11:00 | US_ITS ---
WS: [id number] ULTRASOUND THYROID TECHNIQUE: Ultrasound of the thyroid. CLINICAL INFORMATION: throid nodules COMPARISON: Ultrasound November 01, 2019 FINDINGS: Thyroid: Right and left thyroid lobes are normal in size and echotexture. Previously described small right thyroid nodules are unchanged. No left-sided nodules. Right thyroid lobe: 4.7 cm x 1.5 cm x 2.0 cm Largest hypoechoic right-sided nodule in the mid thyroid measures 3.7 x 6.3 x 5.4 mm. 2 additional no dules are tiny and likely represent incidental colloid cysts. Left thyroid lobe: 4.8 cm x 1.4 cm x 1.7 cm. Isthmus: 0.3 mm. Cervical lymphadenopathy: None. US/US thyroid [id number] IMPRESSION: 3 previous described small right-sided thyroid nodules are stable as described above.
== END 2021-03-19 11:10 | disposition home or self-care (01) ==
LOC: RAD 11:14
PROVIDERS: PCP Nurse Practitioner; Visit Provider Internal Medicine
DX: E04.2 Nontoxic multinodular goiter (principal)
CPT/HCPCS: 76536

== ENCOUNTER → 2021-04-23 13:17 | Outpatient (BNVA) | payer MEDICAID, SELFPAY | PROVIDERS: PCP Nurse Practitioner; Visit Provider Internal Medicine | DX: E11.69 Type 2 diabetes mellitus with other specified complication (principal); E04.2 Nontoxic multinodular goiter; E03.9 Hypothyroidism, unspecified; E78.2 Mixed hyperlipidemia; Z79.4 Long term (current) use of insulin; Z87.891 Personal history of nicotine dependence; E55.9 Vitamin D deficiency, unspecified | CPT/HCPCS: 99214 ==

== ENCOUNTER 2021-05-03 14:52 | Outpatient (CLI) | payer MEDICAID, SELFPAY ==
--- NOTE | 2021-05-03 15:00 | USCV_ITS ---
Brie Beltrán Age: 51 Gender: F : 1970 Exam Date: 05/03/2021 15:18 Ordering Phys: Lan Carey MD ([email or web address]) Technologist: SEAN Exam Location: [facility] [place] Indication: UNSPECIFIED A FIB BP: 125 / 85 HR: 73 Rhythm: Sinus Technical Quality: Technically difficult study MEASUREMENTS (Male / Female) Normal Values 2D ECHO LV Diastolic Diameter PLAX 4.0 cm 4.2 - 5.9 / 3.9 - 5.3 cm LV Systolic Diameter PLAX 2.7 cm IVS Diastolic Thickness 0.7 cm 0.6 - 1.0 / 0.6 - 0.9 cm IVS Systolic Thickness 0.8 cm LVPW Diastolic Thickness 1.3 cm 0.6 - 1.0 / 0.6 - 0.9 cm LVPW Systolic Thickness 1.7 cm LVOT Diameter 2.0 cm LV Ejection Fraction 2D Teich 60.3 % LV Ejection Fraction MOD 2C 65.9 % LV Ejection Fraction 2C AL 65.3 % LA Diameter 3.6 cm LA Width 3.3 cm LA Height 5.3 cm RA Width 3.0 cm RA Height 4.4 cm Aorta at Sinotubular Diameter 2.0 cm M-MODE Aortic Annulus Diameter 2.5 cm LA Ao Ratio MM 1.4 MV E Point Septal Separation 0.4 cm DOPPLER AV Peak Velocity 168.0 cm/s LVOT Peak Velocity 134.0 cm/s AV Area Cont Eq vti 2.6 cm squared AV Area Cont Eq pk 2.5 cm squared MV Area PHT 4.1 cm squared Mitral E to A Ratio 0.9 MV E' Velocity 46.0 cm/s Mitral E to MV E' Ratio 6.1 Mitral E to LV E' Lateral Ratio 4.8 Mitral E to LV E' Septal Ratio 8.4 TR Peak Velocity 127.5 cm/s TR Peak Gradient 6.5 mmHg TR Mean Velocity 86.9 cm/s TR Mean Gradient 3.3 mmHg TR Velocity Time Integral 21.4 cm RV Acceleration Time 0.1 s RV Ejection Time 0.3 s RV AcT/ET 0.5 FINDINGS Left Ventricle Normal left ventricular size and systolic function, EF 60 %. No regional wall motion abnormalities. Right Ventricle The right ventricle is normal in size and function. Right Atrium The right atrium is normal in size. Left Atrium The left atrium is normal in size. Mitral Valve No gross abnormalities noted Aortic Valve Thickened aortic valve. Tricuspid Valve No gross abnormalities noted Pulmonic Valve Pulmonic valve not well visualized. Pericardium Normal pericardium without effusion. Aorta Normal ascending aorta dimension. CONCLUSIONS Normal left ventricular size and systolic function, EF 60 %. No regional wall motion abnormalities. Thickened aortic valve. Normal cardiac chamber sizes. There is no pericardial effusion. No previous similar study is available for comparison. Dr Lan Carey MD [facility] (Electronically Signed) Final Date: 04 May 2021 14:13 S
== END 2021-05-03 14:53 | disposition home or self-care (01) ==
LOC: RAD 14:56
PROVIDERS: PCP Nurse Practitioner; Visit Provider Internal Medicine Cardiovascular Disease
DX: R06.00 Dyspnea, unspecified (principal); R07.9 Chest pain, unspecified; I48.91 Unspecified atrial fibrillation; I35.8 Other nonrheumatic aortic valve disorders
CPT/HCPCS: 93306

== ENCOUNTER → 2021-05-07 07:44 | Outpatient (BNVA) | payer MEDICAID, SELFPAY | PROVIDERS: PCP Nurse Practitioner; Visit Provider Nurse Practitioner | DX: F43.12 Post-traumatic stress disorder, chronic (principal); F41.1 Generalized anxiety disorder; M25.50 Pain in unspecified joint | CPT/HCPCS: 99214 ==

== ENCOUNTER 2021-05-10 08:07 | Outpatient (CLI) | payer MEDICAID, SELFPAY ==
[2021-05-10 08:20] VITALS: BMI 47.7
--- NOTE | 2021-05-10 08:22 | ECG_ITS ---
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 Interpretive Statements NAME OF STUDY: LEXISCAN SESTAMIBI STRESS TEST INDICATION: Chest Pain,/ SEND RESULTS TO LILIYA AGUILAR PROCEDURE: At the baseline, the EKG revealed normal sinus rhythm with a poor R wave progression. Normal ST Ts. The baseline blood pressure was 113/45 mm Hg with a heart rate of 81 beats/min. Lexiscan was infused over a period of 20 seconds. A total of 0.4 milligrams of Lexiscan was infused. The stress phase was continued for a total of 5 minutes. Heart rate at the end of the stress phase was 98 with a blood pressure 114/81. The EKG at the peak infusion revealed no significant changes. Sestamibi was injected 20 seconds after the Lexiscan infusion. Blood pressure at the end of the recovery phase was 112/74 with a heart rate of 88 per minute. CONCLUSION: 1. No significant EKG changes with the LexiScan infusion 2. No LexiScan induced chest pain or cardiac arrhythmia 3. Normal blood pressure and heart rate response 4. Sestamibi/sestamibi perfusion scan pending; see separate report. Electronically Signed On 05-11-2021 9:12:18 BRONZE CHASER by Lan Carey M.D. [email or web address] Therapeuticsselect [id number]
--- NOTE | 2021-05-10 08:22 | NMCV_ITS ---
NM otilio perf SPECT r/s* [id number] Brie Beltrán Age: 51 Gender: F : 1970 Exam Date: 05/10/2021 09:16 Ordering Phys: Lan Carey MD ([email or web address]) Technologist: LYNDSEY Villalobos Exam Location: [facility] [address] Indications: A FIB STRESS TEST [facility] IMAGE PROTOCOL Rest/Stress 1 Lexiscan Day Radiopharmaceutical Dose (mCi) Administration Site Administered by Rest: Tc-99m 10.9 IV LYNDSEY Villalobos Sestamibi Stress:Tc-99m 33.0 IV LYNDSEY Hansen Sestamibi Rest: 10-May-2021 60 Discovery 630 Stress: 10-May-2021 30 Discovery 630 0.4mg Lexiscan. Images obtained in supine and prone position. SPECT RESULTS Technical Quality: Excellent Raw Data Analysis: Normal Image Corrections: No attenuation or motion correction applied Summed Stress Score: 3 Summed Rest Score: 0 Summed Difference Score: 3 PERFUSION FINDINGS Small area of decreased tracer uptake in the mid inferolateral and apical lateral region. Significant reversibility was noted in this region with the supine imaging. However the prone imaging, there was no perfusion abnormality in this area. FUNCTIONAL RESULTS (calculated via Gated SPECT) Stress Image LV EF (%): 77 Stress EDV (mL):77 TID: 0.9 Stress ESV (mL):18 FUNCTIONAL FINDINGS: Segmental wall motion analysis revealing no gross wall motion normalities. IMPRESSIONS 1. Myocardial perfusion imaging revealing small area of reversible defect in the inferolateral region, suggesting ischemia in the distribution of the left circumflex artery. However in view of the inconsistency with the prone imaging, the reliability of this finding is questionable. 2. Normal LV ejection fraction 77%. 3. LV wall motion analysis revealing no gross wall motion normalities. 4. Normal LV volume No similar previous studies are available for comparison Dr Lan Carey MD [facility] (Electronically Signed) Final Date: 10 May 2021 21:14 S
--- NOTE | 2021-05-10 08:26 | PC.NURSE ---
Waiver Pt reports is not . LMP reported 05/01/21. No history of tubal ligation or hysterectomy. Pt declined test and wished to sign waiver. Signed waiver by patient sent to medical records to be scanned to account.
[2021-05-10] MEDS: regadenoson 0.4 Mg/5 ml Syringe IVP (09:51)
[2021-05-10] MEDS: aminophylline 25 mg/mL SDV 10 mL IVP (10:08)
[2021-05-10 10:19] VITALS: BP 122/74; PULSE 88
== END 2021-05-10 08:08 | disposition home or self-care (01) ==
LOC: CDL 08:07
PROVIDERS: PCP Nurse Practitioner; Visit Provider Internal Medicine Cardiovascular Disease
DX: R07.9 Chest pain, unspecified (principal); I48.91 Unspecified atrial fibrillation
CPT/HCPCS: 78452; 93017; A9500; J0280; J2785

== ENCOUNTER → 2021-05-17 09:48 | Outpatient (BNVA) | payer MEDICAID, SELFPAY | PROVIDERS: PCP Nurse Practitioner; Visit Provider Internal Medicine Rheumatology | DX: M15.9 Polyosteoarthritis, unspecified (principal); Z79.899 Other long term (current) drug therapy; Z11.59 Encounter for screening for other viral diseases; Z11.1 Encounter for screening for respiratory tuberculosis; M77.11 Lateral epicondylitis, right elbow; M77.12 Lateral epicondylitis, left elbow; E11.9 Type 2 diabetes mellitus without complications; Z79.4 Long term (current) use of insulin; Z82.61 Family history of arthritis; Z71.85 Encounter for immunization safety counseling; Z87.891 Personal history of nicotine dependence | CPT/HCPCS: 99204; 99214 ==

== ENCOUNTER 2021-05-17 11:27 | Outpatient (CLI) | payer MEDICAID, SELFPAY ==
--- NOTE | 2021-05-17 11:40 | XR_ITS ---
WS: [id number] LEFT FOOT: 3 VIEW(S) TECHNIQUE: AP, oblique and lateral. HISTORY: Z79.899 - Other fpc (current) drug therapy COMPARISON: None available. No acute fracture or dislocation. Normal tarsal/metatarsal alignment. No soft tissue abnormality or bone destruction. Small calcaneal spur. XR/XR foot LT min 3V* [id number] IMPRESSION: Small calcaneal spur is stable. Otherwise negative.
--- NOTE | 2021-05-17 11:40 | XR_ITS ---
WS: [id number] RIGHT FOOT: 3 VIEW(S) TECHNIQUE: AP, oblique and lateral. 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 Normal tarsal/metatarsal alignment. No soft tissue abnormality or bone destruction. Small stable calcaneal spur. XR/XR foot RT min 3V* [id number] IMPRESSION: Stable radiograph. Small calcaneal spur.
[2021-05-17 12:28] LABS: Erythrocyte Sedimentation Rate 26 mm/hr (0-15)
[2021-05-17 12:39] LABS: C Reactive Protein 30.6 mg/L (0.0-4.9)
[2021-05-17 12:56] LABS: 25 Hydroxy Vitamin D 43 ng/mL (30-100)
[2021-05-17 13:15] LABS: Hepatitis B Core AB, Total Non-Reactive (Nonreactive); Hepatitis B Surface Antigen Non-Reactive (Nonreactive); Hepatitis C Virus Antibody Non-Reactive (Nonreactive)
[2021-05-18 13:52] LABS: Cyclic Citrullinated Peptide <16 UNITS
[2021-05-19 08:38] LABS: HLA-B27 NEGATIVE (NEGATIVE)
[2021-05-19 15:07] LABS: Quantiferon Mitogen 7.39 IU/mL; Quantiferon Nil 0.01 IU/mL; Quantiferon TB Gold NEGATIVE (NEGATIVE)
== END 2021-05-17 11:28 | disposition home or self-care (01) ==
LOC: RAD 11:34
PROVIDERS: PCP Nurse Practitioner; Visit Provider Internal Medicine Rheumatology
DX: M19.90 Unspecified osteoarthritis, unspecified site (principal); M45.6 Ankylosing spondylitis lumbar region; Z79.899 Other long term (current) drug therapy; Z11.59 Encounter for screening for other viral diseases; Z11.1 Encounter for screening for respiratory tuberculosis
CPT/HCPCS: 36415; 73630; 82306; 85651; 86140; 86200; 86480; 86704; 86803; 86812; 87340

== ENCOUNTER → 2021-07-31 14:51 | Outpatient (BNVA) | payer MEDICAID, SELFPAY | PROVIDERS: PCP Nurse Practitioner; Visit Provider Internal Medicine Rheumatology | DX: M15.9 Polyosteoarthritis, unspecified (principal); M06.041 Rheumatoid arthritis without rheumatoid factor, right hand; M06.042 Rheumatoid arthritis without rheumatoid factor, left hand; Z82.61 Family history of arthritis; Z79.899 Other long term (current) drug therapy; E11.9 Type 2 diabetes mellitus without complications; Z79.4 Long term (current) use of insulin; Z87.891 Personal history of nicotine dependence | CPT/HCPCS: 99214 ==

== ENCOUNTER 2021-08-02 12:23 | Observation (INO) | payer MEDICAID, SELFPAY ==
[2021-08-02] VITALS (8 sets, daily range): BP systolic 138–156; BP diastolic 64–97; PULSE 67–105; RESP 20–29; TEMP 36.8; O2SAT 96–100; BMI 47.5
--- NOTE | 2021-08-02 12:40 | XR_ITS ---
WS: [id number] Portable AP upright chest, 08/02/2021 Clinical Data: chest pain Comparison: Portable chest, 11/28/2020. Findings: No nodules, masses or effusions are seen. The heart is normal. The pulmonary vascularity is not increased. No pneumonia or pneumothorax is seen. There is a dextroscoliosis of the lower thoraci c spine. XR/XR chest 1V portable [id number] Impression: Negative chest.
--- NOTE | 2021-08-02 12:41 | ECG_ITS ---
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 Measurements Intervals [place] Rate: 94 P: 35 TN: 174 QRS: 0 QRSD: 88 T: 9 QT: 330 QTc: 413 Interpretive Statements SINUS RHYTHM LOW QRS VOLTAGE IN PRECORDIAL LEADS [QRS DEFLECTION < 1.0 mV IN CHEST LEADS] POSSIBLE ANTERIOR MYOCARDIAL INFARCTION , PROBABLY OLD [30 ms Q WAVE IN V3/V4, OR R < 0.2 mV IN V4] Compared to ECG 11/28/2020 18:49:24 No significant changes Electronically Signed On 08-02-2021 17:46:01 NATURAL GAS FIELD PROCESSING SUPERVISOR by Lan Carey M.D. [email or web address] general [email or web address] st. [email or web address]/store/[id number]
--- NOTE | 2021-08-02 12:46 | ED_ITS ---
HPI - Chest Pain General: Chief Complaint: Chest Pain Stated Complaint: Chest Pain Time Seen by Provider: 08/02/21 12:40 Source: patient Mode of arrival: ambulatory Limitations: no limitations History of Present Illness: 51-year-old female presents emergency room with any chest pain for last 3 days. She has shortness of breath dizziness left arm left jaw pain. Has not noticed anything that exacerbates or relieves it. Pain occurred during rest. Patient had a Lexiscan sestamibi stress test that was read as questionable in early May. I cannot see that there is any follow- up on it there is no cardiology notes. There is an area of possible reversibility.However there is a comment in the report that the finding was questionable because of inconsistent imaging between different views. There is a normal ejection fraction at 77% with no gross wall motion abnormalities. MD complaint: chest pain Onset (ago): hour(s) Timing of current episode: constant Prior episodes: Yes Onset: during rest Pain location: left chest Pain radiation: left arm Severity: mild Quality: aching and heaviness Relieving factors: nothing Exacerbating factors: nothing Associated symptoms: Reports diaphoresis, dyspnea and nausea; Deny abdominal pain, fever(s), leg edema, palpitations, sense of impending doom, syncope or vomiting Treatment prior to arrival: none Risk Factors: Coronary artery disease risk factors: diabetes, hyperlipidemia and hypertension Review of Systems Const: Reports: diaphoresis; Denies: fever(s) ENMT: Denies: throat pain, ear or mastoid pain, nasal discharge or nasal congestion Card: Reports: chest pain; Denies: palpitations, edema, swelling of feet/ankles or syncope Resp: Reports: dyspnea GI: Reports: nausea; Denies: abdominal pain or vomiting : Denies: flank pain, difficulty voiding, dysuria, urinary frequency or urinary urgency Skin/Breast: Denies: rash or pruritus PFSH ED PFSH: Medical History Anemia Anxiety and depression Carpal tunnel syndrome Chest pain Chronic diarrhea Chronic neck pain COPD (chronic obstructive pulmonary disease) Dermatitis Essential hypertension, benign Generalized anxiety disorder GERD (gastroesophageal reflux disease) High risk medication use Hyperlipidemia Hypothyroid Immunization counseling Inflammatory arthritis Intervertebral disc disorders with radiculopathy, lumbosacral region Lateral epicondylitis of both elbows Mixed hyperlipidemia Nausea Obesity Peripheral sensory-motor axonal polyneuropathy Post-traumatic stress disorder, chronic Psychiatric care Seronegative rheumatoid arthritis of both hands Type 2 diabetes mellitus with other specified complication Vaginal yeast infection Vitamin D deficiency Surgical History H/O dilation and curettage S/P cholecystectomy S/P endometrial ablation Family History Mother CHF (congestive heart failure) CAD (coronary artery disease) Chronic kidney disease (CKD) Diabetes Lung disease Father CAD (coronary artery disease) CHF (congestive heart failure) Diabetes Grandfather Cancer Grandfather Cancer Family/Other Dementia Sister Stroke Other Hyperlipidemia Hypertension Lupus Rheumatoid arthritis Denies family history of Clotting disorder Suicide Anesthesia complication Bleeding disorder Social History Smoking and tobacco status: former smoker Quit status (tobacco): has quit using tobacco Year quit tobacco: 2010 - 1PPD x 7 Years Alcohol intake: never Household members: spouse Marital status: Current occupational status: disabled History of recent travel: No Current gender identity: Female Female Reproductive History: Date of last menstrual period: 11/01/19 Physical Exam Const: COMMON NORMALS: no acute distress GENERAL APPEARANCE: cooperative and comfortable ORIENTATION/CONSCIOUSNESS: Yes awake, Yes oriented to person, Yes oriented to place and Yes oriented to time HENMT: COMMON NORMALS: normocephalic, atraumatic and hearing grossly normal bilaterally HEAD & SCALP: normocephalic and atraumatic Neck/C-Spine: COMMON NORMALS: no JVD Resp: COMMON NORMALS: normal respiratory effort, No retractions, No use of accessory muscles and clear to auscultation bilaterally AUSCULTATION: clear to auscultation bilaterally Cardio: COMMON NORMALS: no JVD, regular rate, regular rhythm and No murmurs p resent (Cardio) RATE: regular rate RHYTHM: regular rhythm GI: COMMON NORMALS: Soft to palpation and No hepatosplenomegaly present AUSCULTATION: Yes normoactive bowel sounds PALPATION: Yes Soft to palpation, No Tenderness to palpation present (GI), No Guarding due to palpation present (GI) and Yes No hepatosplenomegaly present Extremity: COMMON NORMALS: normal to inspection, capillary refill normal, no clubbing, cyanosis or edema, no calf tenderness and no pedal edema Neuro: SENSORIUM/ORIENTATION: Yes oriented to person, Yes oriented to place and Yes oriented to time Skin: COMMON NORMALS: no rashes or lesions noted GENERAL SKIN EXAM: no rashes or lesions noted Course Vital Signs: Vital signs: Vital Signs Temperature 98.2 F 08/02/21 12:31 Pulse Rate 99 08/02/21 13:03 Respiratory Rate 22 H 08/02/21 13:03 Blood Pressure 145/97 08/02/21 12:31 Pulse Oximetry 96 08/02/21 12:31 MDM - Chest Pain Medical Decision Making Delta troponin is +3.37. She does have fairly significant risk factors diabetes hypertension hyperlipidemia obesity. In addition that she did have a positive stress test has not yet been resolved. Given this we will go ahead and admit her for cardiac evaluation and possible angiogram. Consult cardiology. At this point would seem futile to discharge her home and set up stress testing since she had a positive stress test in May that while the impression read as equivocal to repeat it would likely leave us with unanswered questions and not resolve her issues discussed with hospitalist and with adjuster electrical contacts. Medical Records I reviewed the patient's medical records. Lab Data I reviewed the patient's lab results. : 08/02/21 12:56 08/02/21 12:56 Radiology Impressions Chest X-Ray 08/02/21 12:40 Impression: Negative chest. Laboratory Results WBC 10.9 10^3/uL (4.0-10.0) H 08/02/21 12:56 RBC 5.41 10^6/uL (4.1-5.3) H 08/02/21 12:56 Hgb 14.0 g/dL (11.5-15.3) 08/02/21 12:56 Hct 44.6 % (37.0-47.0) 08/02/21 12:56 MCV 82.4 fl (81-99) 08/02/21 12:56 MCH 25.9 pg (28.0-34.0) L 08/02/21 12:56 MCHC 31.4 g/dL (30.0-36.0) 08/02/21 12:56 RDW 15.6 % (12.1-15.1) H 08/02/21 12:56 Plt Count 257 10^3/cmm (130-400) 08/02/21 12:56 MPV 9.6 fL (7.4-10.4) 08/02/21 12:56 Neut % (Auto) 87.1 % 08/02/21 12:56 Lymph % (Auto) 7.2 % 08/02/21 12:56 [place] % (Auto) 3.6 % 08/02/21 12:56 Eos % (Auto) 1.1 % 08/02/21 12:56 Baso % (Auto) 0.2 % 08/02/21 12:56 Neut # (Auto) 9.49 10^3/uL (1.8-7.7) H 08/02/21 12:56 Lymph # (Auto) 0.8 10^3/uL (0.8-4.8) 08/02/21 12:56 [place] # (Auto) 0.4 10^3/uL (0.2-0.9) 08/02/21 12:56 Eos # (Auto) 0.1 10^3/uL (0.0-0.8) 08/02/21 12:56 Baso # (Auto) 0.0 10^3/uL (0.0-0.1) 08/02/21 12:56 Nucleated RBC % (auto) 0 % 08/02/21 12:56 Nucleated RBCs # 0.0 /100WBC 08/02/21 12:56 Sodium 132 mmol/L (136-145) L 08/02/21 12:56 Potassium 4.9 mmol/L (3.5-5.1) 08/02/21 12:56 Chloride 96 mmol/L (98-107) L 08/02/21 12:56 Carbon Dioxide 28 mmol/L (22-29) 08/02/21 12:56 Anion Gap 12.9 (5-19) 08/02/21 12:56 BUN 11 mg/dL (6-20) 08/02/21 12:56 Creatinine 0.6 mg/dL (0.5-0.9) 08/02/21 12:56 GFR Calculation 106.3 mL/min (90-130) 08/02/21 12:56 Glucose 201 mg/dL (65-115) H 08/02/21 12:56 Calculated Osmolality 279 mOsm/kg (285-295) L 08/02/21 12:56 Calcium 8.9 mg/dL (8.5-10.5) 08/02/21 12:56 Total Bilirubin 0.4 mg/dL (0.15-1.2) 08/02/21 12:56 AST 11 U/L (0-32) 08/02/21 12:56 ALT 13 U/L (0-33) 08/02/21 12:56 Alkaline Phosphatase 101 IU/L (35-105) 08/02/21 12:56 Creatine Kinase 39 U/L (26-192) 08/02/21 12:56 Troponin T Baseline 6 ng/L (0-10) 08/02/21 12:56 Troponin T 120 Minute 9.73 ng/L (0-10) 08/02/21 14:36 Delta Troponin T 3.73 ABS# (0-10) 08/02/21 14:36 Total Protein 7.1 g/dL (6.6-8.7) 08/02/21 12:56 Albumin 4.2 g/dL (3.5-5.2) 08/02/21 12:56 Globulin 2.9 g/dL (1.3-4.6) 08/02/21 12:56 Lipase 22 U/L (13-60) 08/02/21 12:56 Discharge Plan Discharge Patient Disposition: Admitted As Inpatient Clinical Impression: Chest pain, Hyperlipidemia, COPD (chronic obstructive pulmonary disease), Essential hypertension, benign, Type 2 diabetes mellitus with other specified complication, Positive cardiac stress test Condition: Stable Prescriptions: No Action hydroxychloroquine 200 mg tablet 200 mg PO BID Qty: 60 3RF (DME) pen needle, diabetic [Comfort EZ Pen S [place]] 31 gauge x 1/4 needle See Rx Instructions .Route Qty: 200 3RF Rx Instructions: use with [place] zlijcirx-anwbawwmh-IM 3.5-10,000-1 mg/mL-unit/mL-% solution 4 drp otic (ear) Q8H 10 Days Qty: 10 0RF nitroglycerin 0.4 mg tablet, sublingual 0.4 mg sublingual Q5M PRN (Reason: chest pain) Qty: 30 5RF Rx Instructions: do not exceed 3 doses per episode gabapentin 600 mg tablet 600 mg PO QID Qty: 120 5RF ofloxacin 0.3 % drops 10 drp otic (ear) DAILY 7 Days Qty: 10 0RF Trulicity 1.5 mg/0.5 mL pen injector 1.5 mg SUBCUT .q7days 90 Days Qty: 8 3RF ferrous gluconate 324 mg (38 mg iron) tablet 324 mg PO BID 30 Days Qty: 60 2RF cyanocobalamin (vitamin B-12) 1,000 mcg/mL solution 1,000 mcg IM .montly 30 Days Qty: 1 2RF cholecalciferol (vitamin D3) 1,250 mcg (50,000 unit) capsule 50,000 unit PO .weekly Qty: 4 2RF aripiprazole [Abilify] 2 mg tablet 2 mg PO DAILY Qty: 30 2RF clonazepam 0.5 mg tablet 0.5 mg PO BID PRN (Reason: anxiety) Qty: 60 2RF Rx Instructions: Must last 30 days trazodone 50 mg tablet 50 mg PO .HS Qty: 30 2RF duloxetine [Cymbalta] 30 mg capsule,delayed release(DR/EC) 30 mg PO BID 30 Days Qty: 60 2RF methotrexate sodium 2.5 mg tablet 15 mg PO .Q7days Qty: 30 3RF folic acid 1 mg tablet 1 mg PO DAILY Qty: 90 3RF ibuprofen 600 mg tablet 600 mg PO Q6H PRN (Reason: pain) Qty: 30 0RF (DME) TechLITE Insuln Syr(half unit) 0.3 mL 29 gauge x 1/2 syringe See Rx Instructions .Route Qty: 100 3RF Rx Instructions: use to give insulin Flovent HFA 220 mcg/actuation HFA aerosol inhaler 1 puff inhalation BID Qty: 12 3RF Jardiance 25 mg tablet 25 mg PO DAILY@1000 Qty: 90 3RF Rx Instructions: Take one tablet by mouth daily. Lantus Solostar U-100 Insulin 100 unit/mL (3 mL) insulin pen 80 unit SUBCUT DAILY@1000 90 Days Qty: 90 3RF Rx Instructions: start 80 units daily, uptitrate per scale,takes in the morning, max dose of 100 units per day fluticasone propionate 50 mcg/actuation spray,suspension See Rx Instructions .ROUTE .COMPLEX Qty: 16 3RF Dose Instruction: SHAKE LIQUID AND USE TWO SPRAYS IN EACH NOSTRIL TWICE DAILY Rx Instructions: SHAKE LIQUID AND USE TWO SPRAYS IN EACH NOSTRIL TWICE DAILY fluconazole 150 mg tablet 150 mg PO Q3D Qty: 2 0RF Rx Instructions: may repeat second dose 72 hrs after first dose if symptoms persist Anoro Ellipta 62.5-25 mcg/actuation blister with device 1 inh inhalation DAILY Qty: 60 5RF atenolol 50 mg tablet See Rx Instructions .ROUTE .COMPLEX Qty: 30 2RF Dose Instruction: TAKE 1 TABLET BY MOUTH DAILY@ 10:00 Rx Instructions: TAKE 1 TABLET BY MOUTH DAILY@ 10:00 simvastatin 20 mg tablet 20 mg PO DAILY@1000 90 Days Qty: 90 3RF prednisone 5 mg tablet 5 mg PO DAILY PRN (Reason: Pain) 0RF levothyroxine 50 mcg tablet 50 mcg PO DAILY@10 0RF montelukast 10 mg tablet 10 mg PO DAILY 0RF Dexilant 60 mg capsule,biphase delayed releas 60 mg PO DAILY 0RF Referrals: Carlos Alcala, WINDOWS SERVER ARCHITECT-C [Primary Care Provider] - Coding Level of Care Code ED Embroidery Supervisor for Chg Fwd Exam Comprehensive
--- NOTE | 2021-08-02 13:02 | PC.NURSE ---
PT IS ON CONTINUOUS SPO2, NIBP, AND CM.
[2021-08-02] MEDS: aspirin 81 mg Chew Tablet 324 MG PO (13:04)
[2021-08-02 13:11] LABS: Basophils % 0.2 %; Eosinophils # 0.1 10^3/uL (0.0-0.8); Eosinophils % 1.1 %; Hematocrit 44.6 % (37.0-47.0); Lymphocytes # 0.8 10^3/uL (0.8-4.8); Lymphocytes % 7.2 %; Mean Corpuscular HGB Conc 31.4 g/dL (30.0-36.0); Mean Corpuscular Hemoglobin 25.9 pg (28.0-34.0); Mean Corpuscular Volume 82.4 fl (81-99); Mean Platelet Volume 9.6 fL (7.4-10.4); Monocytes # 0.4 10^3/uL (0.2-0.9); Monocytes % 3.6 %; Neutrophils # 9.49 10^3/uL (1.8-7.7); Neutrophils % 87.1 %; Nucleated Red Blood Cells % 0 %; Platelet Count 257 10^3/cmm (130-400); Red Blood Count 5.41 10^6/uL (4.1-5.3); Red Cell Distribution Width 15.6 % (12.1-15.1); White Blood Count 10.9 10^3/uL (4.0-10.0)
[2021-08-02 13:37] LABS: Alanine Aminotransferase 13 U/L (0-33); Albumin Level 4.2 g/dL (3.5-5.2); Alkaline Phosphatase 101 IU/L (35-105); Anion Gap 12.9 (5-19); Aspartate Amino Transferase 11 U/L (0-32); Blood Urea Nitrogen 11 mg/dL (6-20); Calcium 8.9 mg/dL (8.5-10.5); Carbon Dioxide 28 mmol/L (22-29); Chloride 96 mmol/L (98-107); Creatine Phosphokinase 39 U/L (26-192); Globulin 2.9 g/dL (1.3-4.6); Glomerular Filtration Rate 106.3 mL/min (90-130); Glucose 201 mg/dL (65-115); Lipase 22 U/L (13-60); Osmolality Calculated 279 mOsm/kg (285-295); Potassium 4.9 mmol/L (3.5-5.1); Sodium 132 mmol/L (136-145); Total Bilirubin 0.4 mg/dL (0.15-1.2); Total Protein 7.1 g/dL (6.6-8.7)
[2021-08-02 13:38] LABS: Troponin(5th) Baseline 6 ng/L (0-10)
--- NOTE | 2021-08-02 14:41 | ECG_ITS ---
[facility] Test Date: 2021-08-02 Pat Name: Brie Beltrán Department: Room: Gender: Female Rn Supplemental: : 1970 Requested By: Jan Caballero Order Number: [id number] Gayle MD: Lan Carey M.D. Measurements Intervals [place] Rate: 97 P: 44 WA: 182 QRS: 20 QRSD: 78 T: 28 QT: 311 QTc: 395 Interpretive Statements SINUS RHYTHM LOW QRS VOLTAGE IN PRECORDIAL LEADS [QRS DEFLECTION < 1.0 mV IN CHEST LEADS] ANTEROSEPTAL MYOCARDIAL INFARCTION , OF INDETERMINATE AGE [40+ ms Q WAVE IN V1-V4] Compared to ECG 08/02/2021 12:46:07 No significant changes Electronically Signed On 08-02-2021 17:51:36 FIELD EXAMINER by Lan Carey M.D. [id number]
[2021-08-02 15:18] LABS: Troponin 5 2HR 9.73 ng/L (0-10)
[2021-08-02 15:30] LABS: Troponin 5 2HR Delta 3.73 ABS# (0-10)
--- NOTE | 2021-08-02 17:07 | P.CONIM_ITS ---
Providers/Reason For Consult Consulting Physician/Specialty*: Dr. Hess, cardiology Reason for Consult*: Chest pain, abnormal stress test Attending Physician: Eliud Jensen Primary Care Provider: EVELYN Hatch History of Present Illness History of Present Illness Brie Beltrán is a 51 year old female with past medical history of hypertension, hyperlipidemia, diabetes mellitus, gastroesophageal reflux disease, obesity with a BMI greater than 47, COPD, anxiety/depression, PTSD who was initially evaluated in our office for chest discomfort. She had a stress test as an out patient with mild reversibility in inferolateral wall. She is a former smoker quit in 2010 after smoking 7 PKY h/o smoking. she has family history of CHF in mother, questionable history of mild heart attack in her 40s and at age 81. Father with CHF in his 60s. Brother with unspecified heart disease and sister with hole in heart. She has been having chest pain pretty much constant with intermittent worsening unrelated exertion. Chest pain described as 6-9/10 squeezing in nature with radiation to left arm, unrelated to exertion. She has h/o GERD but thinks this pain is different. Non pleuritic and not reproducible. Nausea+; No vomiting. Blood pressure on arrival 145/97 mmHg, heart rate 96 mmHg and oxygen saturation 96%. Labs on arrival with WBC of 10.9, hemoglobin 14, platelets 257, sodium 132, potassium 4.9, chloride 96, BUN 11, creatinine 0.6. Baseline troponin T 9-->6-->0. Review of Systems General: Reports: 10 or more systems reviewed and unremarkable except in HPI and below Const: Reports: diaphoresis; Denies: fever(s) ENMT: Denies: throat pain, ear or mastoid pain, nasal discharge or nasal congestion Card: Reports: chest pain; Denies: palpitations, edema, swelling of feet/ankles or syncope Resp: Reports: dyspnea GI: Reports: nausea; Denies: abdominal pain or vomiting : Denies: flank pain, difficulty voiding, dysuria, urinary frequency or urinary urgency Skin/Breast: Denies: rash or pruritus Neuro: Denies: headache(s), weakness in extremities or dizziness Psych: Denies: anxiety or depression Jose/Lymph: Denies: easy bruising or easy bleeding Medications/Allergies Home Medications Medication Instructions Recorded Confirmed Last Taken Type ibuprofen 600 mg tablet 600 mg PO Q6H PRN #30 tab 02/04/20 08/02/21 05/16/20 Rx insulin syr/ndl U100 half christiano 0.3 #100 ea 11/02/20 08/02/21 Unknown Rx mL 29 gauge x 1/2 (TechLITE Insulin Syringe (half unit)) fluticasone propionate 220 1 puff INHALATION BID #12 g 11/28/20 08/02/21 08/02/21 Rx mcg/actuation HFA aerosol inhaler (Flovent HFA) lyuzgdpl-eivlmvnsv-afzxtxzjn 3.5 4 drp OTIC (EAR) Q8H 10 Days #10 ml 12/18/20 08/02/21 Unknown Rx mg/mL-10,000 unit/mL-1 % ear solution nitroglycerin 0.4 mg sublingual 0.4 mg SUBLINGUAL Q5M PRN #30 tab 12/18/20 08/02/21 Unknown Rx tablet gabapentin 600 mg tablet 600 mg PO QID #120 tab 01/02/21 08/02/21 08/02/21 Rx ofloxacin 0.3 % ear drops 10 drp OTIC (EAR) DAILY 7 Days #10 01/02/21 08/02/21 Unknown Rx ml pen needle, diabetic 31 gauge x #200 ea 01/22/21 08/02/21 Unknown Rx 1/4 (Comfort EZ Pen [place]) empagliflozin 25 mg tablet 25 mg PO DAILY@1000 #90 tab 02/08/21 08/02/21 08/02/21 Rx (Jardiance) insulin glargine 100 unit/mL (3 80 unit (0.8 mL) SUBCUT DAILY@1000 03/06/21 08/02/21 08/02/21 Rx mL) subcutaneous pen (Lantus 90 Days #90 ml Solostar U-100 Insulin) cyanocobalamin (vitamin B-12) 1,000 mcg IM .montly 30 Days #1 ml 03/08/21 08/02/21 Unknown Rx 1,000 mcg/mL injection solution ferrous gluconate 324 mg (38 mg 324 mg PO BID 30 Days #60 tab 03/08/21 08/02/21 08/02/21 Rx iron) tablet cholecalciferol (vitamin D3) 1,250 50,000 unit PO .weekly #4 cap 04/10/21 08/02/21 Unknown Rx mcg (50,000 unit) capsule dulaglutide 1.5 mg/0.5 mL 1.5 mg (0.5 mL) SUBCUT .q7days 90 04/23/21 08/02/21 08/02/21 Rx subcutaneous pen injector Days #8 ml (Trulicity) fluticasone propionate 50 See Rx Instructions .ROUTE 05/04/21 08/02/21 08/02/21 Rx mcg/actuation nasal .COMPLEX #16 g spray,suspension aripiprazole 2 mg tablet (Abilify) 2 mg PO DAILY #30 tab 05/07/21 08/02/21 08/02/21 Rx clonazepam 0.5 mg tablet 0.5 mg PO BID PRN #60 tab 05/07/21 08/02/21 Unknown Rx trazodone 50 mg tablet 50 mg PO .HS #30 tab 05/07/21 08/02/21 Unknown Rx duloxetine 30 mg capsule,delayed 30 mg PO BID 30 Days #60 cap 05/08/21 08/02/21 08/02/21 Rx release (Cymbalta) hydroxychloroquine 200 mg tablet 200 mg PO BID #60 tab 05/17/21 08/02/21 08/02/21 Rx fluconazole 150 mg tablet 150 mg PO Q3D #2 tab 06/19/21 08/02/21 08/02/21 Rx umeclidinium 62.5 mcg-vilanterol 1 inh INHALATION DAILY #60 ea 06/25/21 08/02/21 08/02/21 Rx 25 mcg/actuation powdr for inhalation (Anoro Ellipta) atenolol 50 mg tablet See Rx Instructions .ROUTE 07/03/21 08/02/21 08/02/21 Rx .COMPLEX #30 tab simvastatin 20 mg tablet 20 mg PO DAILY@1000 90 Days #90 tab 07/27/21 08/02/21 08/02/21 Rx folic acid 1 mg tablet 1 mg PO DAILY #90 tab 07/31/21 08/02/21 08/02/21 Rx methotrexate sodium 2.5 mg tablet 15 mg PO .Q7days #30 tab 07/31/21 08/02/21 Unknown Rx dexlansoprazole 60 mg 60 mg PO DAILY 08/02/21 08/02/21 08/02/21 History capsule,biphase delayed release (Dexilant) levothyroxine 50 mcg tablet 50 mcg PO DAILY@10 08/02/21 08/02/21 08/02/21 History montelukast 10 mg tablet 10 mg PO DAILY 08/02/21 08/02/21 08/02/21 History prednisone 5 mg tablet 5 mg PO DAILY PRN 08/02/21 08/02/21 Unknown History Allergies Allergy/AdvReac Type Severity Reaction Status Date / Time erythromycin base Allergy rash Verified 08/02/21 15:31 PFSH Acute PFSH: Medical History (Updated 08/02/21 @ 18:36 by Eliud Jensen MD) Anemia Anxiety and depression Carpal tunnel syndrome Chest pain Chronic diarrhea Chronic neck pain COPD (chronic obstructive pulmonary disease) COVID-19 Dermatitis Essential hypertension, benign Generalized anxiety disorder GERD (gastroesophageal reflux disease) High risk medication use Hyperlipidemia Hypothyroid Immunization counseling Inflammatory arthritis Intervertebral disc disorders with radiculopathy, lumbosacral region Lateral epicondylitis of both elbows Mixed hyperlipidemia Nausea Neuropathy Obesity Peripheral sensory-motor axonal polyneuropathy Post-traumatic stress disorder, chronic Psychiatric care Seronegative rheumatoid arthritis of both hands Type 2 diabetes mellitus with other specified complication Vaginal yeast infection Vitamin D deficiency Surgical History H/O dilation and curettage S/P cholecystectomy S/P endometrial ablation Family History Mother CHF (congestive heart failure) CAD (coronary artery disease) Chronic kidney disease (CKD) Diabetes Lung disease Father CAD (coronary artery disease) CHF (congestive heart failure) Diabetes Grandfather Cancer Grandfather Cancer Family/Other Dementia Sister Stroke Other Hyperlipidemia Hypertension Lupus Rheumatoid arthritis Denies family history of Clotting disorder Suicide Anesthesia complication Bleeding disorder Social History Smoking and tobacco status: former smoker Quit status (tobacco): has quit using tobacco Year quit tobacco: 2010 - 1PPD x 7 Years Alcohol intake: never Household members: spouse Marital status: Current occupational status: disabled History of recent travel: No Current gender identity: Female Female Reproductive History: Date of last menstrual period: 11/01/19 Vitals/I&O/Wt Last Vital Signs Temp 98.2 F 08/02/21 12:31 Pulse 99 08/02/21 13:03 Resp 22 H 08/02/21 13:03 BP 145/97 08/02/21 12:31 Pulse Ox 96 08/02/21 12:31 Weight last 48 hrs Weight 260 lb Physical Exam Narrative: GENERAL: obese woman laying in bed in no acute distress HEENT: No pallor or icterus. NECK: short neck. JVD not appreciated. No carotid bruit. CARDIOVASCULAR SYSTEM: S1-S2 regular. No S3 or S4 present. No murmur rubs or gallops. RESPIRATORY SYSTEM: Chest clear to auscultation. No wheezes rhonchi or rubs heard. No use of accessory muscles. ABDOMEN: Soft, nontender and nondistended. Normal bowel sounds present. obese+ EXTREMITIES: No cyanosis or clubbing. No edema. No signs of chronic venous insufficiency. COMMERCIAL COLLECTIONS SPECIALIST: Patient is alert oriented ?3. No focal neurological deficits. SKIN: Normal turgor and temperature. PSYCH: Normal insight and judgment. Data : 08/03/21 04:05 08/03/21 04:05 Other data: Transthoracic echocardiogram 03 May 2021 ?CONCLUSIONS ?Normal left ventricular size and systolic function, EF 60 %. No ?regional wall motion abnormalities. ?Thickened aortic valve. ?Normal cardiac chamber sizes. ?There is no pericardial effusion. ?No previous similar study is available for comparison. Lexiscan sestamibi myocardial perfusion imaging 10 May 2021 IMPRESSIONS ?1.? Myocardial perfusion imaging revealing small area of reversible defect in ?the inferolateral region, suggesting ischemia in the distribution of the left ?circumflex artery.? However in view of the inconsistency with the prone ?imaging, the reliability of this finding is questionable. ?2.? Normal LV ejection fraction 77%. ?3. LV wall motion analysis revealing no gross wall motion normalities. ?4.? Normal LV volume ?No similar previous studies are available for comparison Chest x-ray 02 August 2021 with no acute cardiopulmonary changes. EKG with sinus rhythm normal axis. Low QRS voltage in precordial leads. Possible anterior GA probably old. Repeat EKG with sinus rhythm with low QRS voltage in precordial leads and anteroseptal GA of indeterminate age. A&P Assessment and plan (1) Chest pain: Mildly abnormal stress test (mild reversibility in LCx artery territory with improved tracer uptake in prone stress images). -chest pain with some typical and atypical features -Multiple CAD risk factors. May benefit from C to settle the question. -will keep her NPO after MN. -continue ASA, statin, atenolol and start on low dose imdur. Status: Acute (2) Essential hypertension, benign: Status: Acute (3) Hyperlipidemia: Status: Acute (4) Type 2 diabetes mellitus with other specified complication: Status: Acute Plan GERD COPD Hypothyroidism Thank you for allowing me to participate in patient's care. Please feel free to call with questions or concerns. Coding Level of Care Code New Pt Acute Leadership Development Instructor for Chg Fwd Patient Type New History Comprehensive Exam Comprehensive Medical Decision Making High Complexity Diagnoses Chest pain R07.9 Essential hypertension, benign I10 Hyperlipidemia E78.5 Type 2 diabetes mellitus with other specified complication E11.69
[2021-08-02 17:50] LABS: D Dimer 1.15 ug/mIFEU (0-0.59)
[2021-08-02] MEDS: ondansetron 2 mg/ML SDV 2 mL 4 MG IVP (18:01)
--- NOTE | 2021-08-02 18:09 | P.HP_ITS ---
Providers/Chief Complaint Admitting Physician: Eliud Jensen Primary Care Provider: Carlos Alcala, EVELYN Chief Complaint: Chest Pain History of Present Illness Pleasant 51-year-old lady with history of inflammatory arthritis, DM2, HLD, obesity, former smoker, COPD, GERD, other medical conditions comes to emergency department for evaluation due to symptoms of chest pain, which she describes a squeezing sensation, centrally, radiating to her back as well neck/jaw, unchang ed by position, not triggered by deep breathing, does not feel like GERD, indigestion, no abdominal pain, no nausea or vomiting. Denies cough, no fever chills or other symptoms of infection. Had a stress test in May with noted mild reversibility in the inferolateral wall, somewhat equivocal finding not seen in prone imaging. Chest x-ray without acute abnormality. Troponin baseline 6, 2-hour 9.73. Lipase 22. D-dimer also checked, abnormal at 1.15. We discussed with her and she is in agreement in case of D-dimer abnormality initiation of empiric anticoagulation, assessment with VQ scan given consideration of possible coronary angiographic assessment tomorrow. Review of Systems Const: Denies: fever(s), chills, body aches or malaise Eyes: Denies: change in vision or eye redness ENMT: Denies: throat pain, oral sores or ear or mastoid pain Card: Reports: chest pain; Denies: edema, pre-syncope or dyspnea on exertion Resp: Denies: dyspnea, productive cough, change in phlegm color or hemoptysis GI: Reports: nausea; Denies: abdominal pain, vomiting, diarrhea, constipation, hematochezia or melena : Denies: flank pain, urinary frequency or hematuria Musc: Denies: back pain, joint swelling or joint redness Skin/Breast: Denies: rash, sores or new lesions Neuro: Denies: headache(s), numbness in extremities, weakness in extremities, dizziness, confusion or seizure-like activity Endo: Denies: polyuria or polydipsia Jose/Lymph: Denies: easy bleeding or purpura All/Imm: Denies: urticaria, throat swelling or tongue swelling Medications/Allergies Home Medications Medication Instructions Recorded Confirmed Last Taken Type ibuprofen 600 mg tablet 600 mg PO Q6H PRN #30 tab 02/04/20 08/02/21 05/16/20 Rx insulin syr/ndl U100 half christiano 0.3 #100 ea 11/02/20 08/02/21 Unknown Rx mL 29 gauge x 1/2 (TechLITE Insulin Syringe (half unit)) fluticasone propionate 220 1 puff INHALATION BID #12 g 11/28/20 08/02/21 08/02/21 Rx mcg/actuation HFA aerosol inhaler (Flovent HFA) jlafqqcc-xmaaadrci-tqevoxett 3.5 4 drp OTIC (EAR) Q8H 10 Days #10 ml 12/18/20 08/02/21 Unknown Rx mg/mL-10,000 unit/mL-1 % ear solution nitroglycerin 0.4 mg sublingual 0.4 mg SUBLINGUAL Q5M PRN #30 tab 12/18/20 08/02/21 Unknown Rx tablet gabapentin 600 mg tablet 600 mg PO QID #120 tab 01/02/21 08/02/21 08/02/21 Rx ofloxacin 0.3 % ear drops 10 drp OTIC (EAR) DAILY 7 Days #10 01/02/21 08/02/21 Unknown Rx ml pen needle, diabetic 31 gauge x #200 ea 01/22/21 08/02/21 Unknown Rx 1/4 (Comfort EZ Pen [place]) empagliflozin 25 mg tablet 25 mg PO DAILY@1000 #90 tab 02/08/21 08/02/21 08/02/21 Rx (Jardiance) insulin glargine 100 unit/mL (3 80 unit (0.8 mL) SUBCUT DAILY@1000 03/06/21 08/02/21 08/02/21 Rx mL) subcutaneous pen (Lantus 90 Days #90 ml Solostar U-100 Insulin) cyanocobalamin (vitamin B-12) 1,000 mcg IM .montly 30 Days #1 ml 03/08/21 08/02/21 Unknown Rx 1,000 mcg/mL injection solution ferrous gluconate 324 mg (38 mg 324 mg PO BID 30 Days #60 tab 03/08/21 08/02/21 08/02/21 Rx iron) tablet cholecalciferol (vitamin D3) 1,250 50,000 unit PO .weekly #4 cap 04/10/21 08/02/21 Unknown Rx mcg (50,000 unit) capsule dulaglutide 1.5 mg/0.5 mL 1.5 mg (0.5 mL) SUBCUT .q7days 90 04/23/21 08/02/21 08/02/21 Rx subcutaneous pen injector Days #8 ml (Trulicity) fluticasone propionate 50 See Rx Instructions .ROUTE 05/04/21 08/02/21 08/02/21 Rx mcg/actuation nasal .COMPLEX #16 g spray,suspension aripiprazole 2 mg tablet (Abilify) 2 mg PO DAILY #30 tab 05/07/21 08/02/21 08/02/21 Rx clonazepam 0.5 mg tablet 0.5 mg PO BID PRN #60 tab 05/07/21 08/02/21 Unknown Rx trazodone 50 mg tablet 50 mg PO .HS #30 tab 05/07/21 08/02/21 Unknown Rx duloxetine 30 mg capsule,delayed 30 mg PO BID 30 Days #60 cap 05/08/21 08/02/21 08/02/21 Rx release (Cymbalta) hydroxychloroquine 200 mg tablet 200 mg PO BID #60 tab 05/17/21 08/02/21 08/02/21 Rx fluconazole 150 mg tablet 150 mg PO Q3D #2 tab 06/19/21 08/02/21 08/02/21 Rx umeclidinium 62.5 mcg-vilanterol 1 inh INHALATION DAILY #60 ea 06/25/21 08/02/21 08/02/21 Rx 25 mcg/actuation powdr for inhalation (Anoro Ellipta) atenolol 50 mg tablet See Rx Instructions .ROUTE 07/03/21 08/02/21 08/02/21 Rx .COMPLEX #30 tab simvastatin 20 mg tablet 20 mg PO DAILY@1000 90 Days #90 tab 07/27/21 08/02/21 08/02/21 Rx folic acid 1 mg tablet 1 mg PO DAILY #90 tab 07/31/21 08/02/21 08/02/21 Rx methotrexate sodium 2.5 mg tablet 15 mg PO .Q7days #30 tab 07/31/21 08/02/21 Unknown Rx dexlansoprazole 60 mg 60 mg PO DAILY 08/02/21 08/02/21 08/02/21 History capsule,biphase delayed release (Dexilant) levothyroxine 50 mcg tablet 50 mcg PO DAILY@10 08/02/21 08/02/21 08/02/21 History montelukast 10 mg tablet 10 mg PO DAILY 08/02/21 08/02/21 08/02/21 History prednisone 5 mg tablet 5 mg PO DAILY PRN 08/02/21 08/02/21 Unknown History Allergies Allergy/AdvReac Type Severity Reaction Status Date / Time erythromycin base Allergy rash Verified 08/02/21 15:31 PFSH Acute PFSH: Medical History (Updated 08/02/21 @ 18:36 by Eliud Jensen MD) Anemia Anxiety and depression Carpal tunnel syndrome Chest pain Chronic diarrhea Chronic neck pain COPD (chronic obstructive pulmonary disease) COVID-19 Dermatitis Essential hypertension, benign Generalized anxiety disorder GERD (gastroesophageal reflux disease) High risk medication use Hyperlipidemia Hypothyroid Immunization counseling Inflammatory arthritis Intervertebral disc disorders with radiculopathy, lumbosacral region Lateral epicondylitis of both elbows Mixed hyperlipidemia Nausea Neuropathy Obesity Peripheral sensory-motor axonal polyneuropathy Post-traumatic stress disorder, chronic Psychiatric care Seronegative rheumatoid arthritis of both hands Type 2 diabetes mellitus with other specified complication Vaginal yeast infection Vitamin D deficiency Surgical History H/O dilation and curettage S/P cholecystectomy S/P endometrial ablation Family History Mother CHF (congestive heart failure) CAD (coronary artery disease) Chronic kidney disease (CKD) Diabetes Lung disease Father CAD (coronary artery disease) CHF (congestive heart failure) Diabetes Grandfather Cancer Grandfather Cancer Family/Other Dementia Sister Stroke Other Hyperlipidemia Hypertension Lupus Rheumatoid arthritis Denies family history of Clotting disorder Suicide Anesthesia complication Bleeding disorder Social History Smoking and tobacco status: former smoker Quit status (tobacco): has quit using tobacco Year quit tobacco: 2010 - 1PPD x 7 Years Alcohol intake: never Household members: spouse Marital status: Current occupational status: disabled History of recent travel: No Current gender identity: Female Female Reproductive History: Date of last menstrual period: 11/01/19 Vitals/I&O/Wt Last Vital Signs Temp 98.2 F 08/02/21 12:31 Pulse 98 08/02/21 17:56 Resp 23 H 08/02/21 17:56 BP 142/93 08/02/21 17:56 Pulse Ox 100 08/02/21 17:56 Weight last 48 hrs Weight 117.934 kg Physical Exam Const: COMMON NORMALS: no acute distress and patient oriented x3 NUTRITIONAL APPEARANCE: obese morbidly obese HENMT: COMMON NORMALS: oropharynx normal Neck/C-Spine: COMMON NORMALS: no JVD Resp: COMMON NORMALS: normal respiratory effort and clear to auscultation bilaterally AUSCULTATION: clear to auscultation bilaterally Cardio: COMMON NORMALS: no JVD, regular rhythm, S1 normal heart sound present, S2 normal heart sound present and No murmurs present (Cardio) RHYTHM: regular rhythm HEART SOUNDS: S1 normal heart sound present and S2 normal heart sound present GI: COMMON NORMALS: Normal to inspection, nondistended, normoactive bowel sounds present, Soft to palpation and non-tender PALPATION: Yes Soft to palpation Extremity: COMMON NORMALS: no joint enlargement and no pedal edema Neuro: COMMON NORMALS: patient oriented x3 and moves all extremities Skin: COMMON NORMALS: no rashes or lesions noted GENERAL SKIN EXAM: no rash es or lesions noted Data : 08/02/21 12:56 08/02/21 12:56 A&P Assessment and plan (1) Chest pain: Appreciate cardiology recommendations regarding additional assessment of chest pain with recent stress test with equivocal finding in the inferolateral wall not present in all views. With risk factors of CAD. Consideration of coronary angiography tomorrow. Keep n.p.o. after midnight. Continue aspirin, beta-stefan, statin. With possible unstable angina and with abnormal D-dimer anticoagulation. Consent I discussed with her D-dimer, case of abnormality start empiric anticoagulation, avoiding CTA with tentative plans for coronary angiography, but with assessment with VQ scan instead. She is agreeable, and will proceed given D-dimer is abnormal. Previously abnormal D-dimer but in the setting of COVID-19 infection. She currently does not have any upper or lower respiratory symptoms or other signs of infection. Will also assess lower extremity duplex. Status: Acute Attestations Medical Necessity Statement*: Place in observation for additional assessment and management of chest pain in a lady with respecters of coronary disease, previously abnormal stress test. Additional assessment with abnormal D-dimer. Coding Level of Care Code Acute Shovel Mechanic for Chg Fwd Exam Comprehensive Diagnoses Chest pain R07.9
--- NOTE | 2021-08-02 18:41 | ECG_ITS ---
[facility] Test Date: 2021-08-02 Pat Name: Brie Beltrán Department: Room: 103 Gender: Female Disability Representative: : 1970 Requested By: Jan Caballero Order Number: [id number] Gayle MD: Essence Hess M.D. Measurements Intervals [place] Rate: 95 P: 36 GA: 171 QRS: 5 QRSD: 95 T: 27 QT: 332 QTc: 418 Interpretive Statements SINUS RHYTHM LOW QRS VOLTAGE IN PRECORDIAL LEADS [QRS DEFLECTION < 1.0 mV IN CHEST LEADS] POSSIBLE ANTERIOR MYOCARDIAL INFARCTION , PROBABLY OLD [30 ms Q WAVE IN V3/V4, OR R < 0.2 mV IN V4] Compared to ECG 08/02/2021 16:17:08 No significant changes Electronically Signed On 08-04-2021 9:07:58 LEASING MANAGER by Essence Hess M.D. [id number]
[2021-08-02] MEDS: enoxaparin 120 mg/0.8 mL Syringe SUBCUT (19:53)
[2021-08-02 19:56] LABS: Troponin 5 6HR Delta 0 ng/L (0-12)
[2021-08-02] MEDS: insulin lispro 100 unit/1 mL SUBCUT (20:41)
[2021-08-02] MEDS: trazodone 50 mg Tablet PO (20:41)
[2021-08-02] MEDS: gabapentin 300 mg Capsule 600 MG PO (20:41)
[2021-08-03] VITALS (64 sets, daily range): BP systolic 101–146; BP diastolic 59–104; PULSE 57–98; RESP 8–25; O2SAT 92–96
[2021-08-03 04:48] LABS: Basophils % 0.4 %; Eosinophils # 0.1 10^3/uL (0.0-0.8); Eosinophils % 1.3 %; Hematocrit 40.3 % (37.0-47.0); Hemoglobin 12.5 g/dL (11.5-15.3); Lymphocytes # 2.1 10^3/uL (0.8-4.8); Lymphocytes % 28.6 %; Mean Corpuscular Hemoglobin 25.8 pg (28.0-34.0); Mean Corpuscular Volume 83.1 fl (81-99); Mean Platelet Volume 9.7 fL (7.4-10.4); Monocytes # 0.5 10^3/uL (0.2-0.9); Monocytes % 6.4 %; Neutrophils # 4.67 10^3/uL (1.8-7.7); Neutrophils % 62.5 %; Nucleated Red Blood Cells % 0 %; Platelet Count 243 10^3/cmm (130-400); Red Blood Count 4.85 10^6/uL (4.1-5.3); Red Cell Distribution Width 15.8 % (12.1-15.1); White Blood Count 7.5 10^3/uL (4.0-10.0)
[2021-08-03] MEDS: acetaminophen 325 mg Tablet 650 MG PO (04:49)
[2021-08-03 05:18] LABS: Anion Gap 13.1 (5-19); Blood Urea Nitrogen 10 mg/dL (6-20); Calcium 8.8 mg/dL (8.5-10.5); Carbon Dioxide 29 mmol/L (22-29); Chloride 100 mmol/L (98-107); Glomerular Filtration Rate 88.9 mL/min (90-130); Glucose 150 mg/dL (65-115); Osmolality Calculated 288 mOsm/kg (285-295); Potassium 4.1 mmol/L (3.5-5.1); Sodium 138 mmol/L (136-145)
[2021-08-03 06:42] LABS: Glucose Point of Care 148 mg/dL (70-110)
[2021-08-03 06:42] LABS: Glucose Point of Care 135 mg/dL (70-110)
--- NOTE | 2021-08-03 09:01 | P.PN_ITS ---
Subjective Subjective: Patient continues to have some tight feeling in the chest, intermittently radiating to the left arm and also to the left shoulder. Denies any unusual shortness of breath. No fever or chills. No cough. She had a venous Doppler examination of the lower extremities and a VQ scan to evaluate her elevated D-dimer The VQ scan was found to be low probability for PE. Medications: Medication Review Details: Current Medications Acetaminophen (Acetaminophen 325 Mg Tablet) 650 mg PO Q6H PRN PRN Reason: MILD PAIN Last Admin: 08/03/21 04:49 Dose: 650 mg Documented by: Aripiprazole (Aripiprazole 2 Mg Tablet) 2 mg PO DAILY [facility] Aspirin (Aspirin 325 Mg Tablet) 325 mg PO DAILY [facility] Atenolol (Atenolol 50 Mg Tablet) 50 mg PO 1000 [facility] Atorvastatin Calcium (Atorvastatin 40 Mg Tablet) 20 mg PO DAILY@1000 [facility] Clonazepam (Clonazepam 0.5 Mg Tablet) 0.5 mg PO BID PRN PRN Reason: anxiety Dextrose (Dextrose 50% Syringe 50 Ml) 25 ml IVP ONCE PRN; Protocol PRN Reason: hypoglycemia protocol Dextrose (Dextrose 50% Syringe 50 Ml) 50 ml IVP PRN PRN; Protocol PRN Reason: hypoglycemia protocol Duloxetine HCl (Duloxetine 30 Mg Capsule) 30 mg PO BID [facility] Enoxaparin Sodium (Enoxaparin 120 Mg/0.8 Ml Syringe) 120 mg SUBCUT Q12H [facility] Last Admin: 08/03/21 06:37 Dose: Not Given Documented by: Fluticasone Propionate (Fluticasone 220mcg Inhaler 12gm) 1 puff INHALATION BID.RESPIRATORY [facility] Last Admin: 08/03/21 08:07 Dose: Not Given Documented by: Fluticasone Propionate (Fluticasone Nasal [place] 16gm Btl) 2 spray NASAL BID [facility] Gabapentin (Gabapentin 300 Mg Capsule) 600 mg PO QID [facility] Last Admin: 08/02/21 20:41 Dose: 600 mg Documented by: Glucagon (Glucagon 1 Mg/Ml Inj 1 Ml) 1 mg IM ONCE PRN; Protocol PRN Reason: Adult Acute Hypoglycemia Prot. Hydroxychloroquine Sulfate (Hydroxychloroquine 200 Mg Tablet) 200 mg PO BID [facility] Dextrose (D5w) 500 mls @ 100 mls/hr IV ONCE PRN; Protocol PRN Reason: Adult Acute Hypoglycemia Prot Insulin Glargine (Insulin Glargine 100 Units/1 Ml) 80 unit SUBCUT DAILY@1000 [facility] Insulin Human Lispro (Insulin Lispro 100 Unit/1 Ml) 0 unit SUBCUT WM&BEDTIME [facility]; Protocol Last Admin: 08/03/21 07:27 Dose: Not Given Documented by: Isosorbide Mononitrate (Isosorbide Mononitrate Er 30 Mg Tablet) 15 mg PO DAILY [facility] Levothyroxine Sodium (Levothyroxine 50 Mcg Tablet) 50 mcg PO DAILY@10 [facility] Montelukast Sodium (Montelukast Sodium 10 Mg Tablet) 10 mg PO DAILY [facility] Nitroglycerin (Nitroglycerin 0.4 Mg Sublingual Tablet) 0.4 mg SUBLINGUAL Q5M PRN PRN Reason: chest pain Non-Formulary Medication (Umeclidinium-Vilanterol [Anoro Ellipta]) 1 inh INHALATION DAILY [facility] Ondansetron HCl (Ondansetron 2 Mg/Ml Sdv 2 Ml) 4 mg IVP Q6H PRN PRN Reason: NAUSEA AND VOMITING Pantoprazole Sodium (Pantoprazole Dr 40 Mg Tablet) 40 mg PO DAILY [facility] Prednisone (Prednisone 5 Mg Tablet) 5 mg PO DAILY PRN PRN Reason: Pain Trazodone HCl (Trazodone 50 Mg Tablet) 50 mg PO BEDTIME [facility] Last Admin: 08/02/21 20:41 Dose: 50 mg Documented by: Vitals/I&O/Wt Last Vital Signs Temp 98.2 F 08/02/21 12:31 Pulse 84 08/03/21 08:08 Resp 16 08/03/21 08:08 BP 142/93 08/02/21 17:56 Pulse Ox 96 08/03/21 08:08 08/02/21 08/03/21 08/03/21 22:59 06:59 14:59 Intake Total 0 / 0 Output Total 0 / 0 Balance 0 / 0 0 / 0 Weight last 48 hrs Weight 260 lb Physical Exam Narrative: GENERAL: The patient is alert and oriented times three. Not in any acute distress. HEENT: No significant pallor, icterus or lymphadenopathy.Oral cavity: There are no mucous membrane lesions. NECK: Trachea appears to be central. No masses noted. No JVD or thyromegaly appreciated. RESPIRATORY: Chest is symmetrical. No intercostals muscle retraction or any accessory muscle activation. There is no chest wall tenderness. Breath sounds are heard bilaterally. No rales or rhonchi heard. No evidence of any consolidation. BREASTS: Deferred. HEART: The heart sounds are normal. No S3 or S4. No significant murmurs. No pericardial rub ABDOMEN: No vessel pulsations or distention. No tenderness. No organomegaly appreciated. Bowel sounds are normally heard. : Deferred. RECTAL: Deferred. LYMPHATIC: No lymphadenopathy noted in the neck or groin. EXTREMITIES: No edema or cyanosis. No clubbing. Peripheral pulses are palpated in fairly good volume and amplitude MUSCULOSKELETAL: No acute joint deformities or swelling SKIN: There are no significant rashes or ecchymosis NEUROPSYCHIATRIC: The patient is alert and oriented x3. Appears to be in a good mood. No tremors or rigidity noted. Data : 08/03/21 04:05 08/03/21 04:05 Other Labs: Laboratory Last Values WBC 7.5 10^3/uL (4.0-10.0) 08/03/21 04:05 RBC 4.85 10^6/uL (4.1-5.3) 08/03/21 04:05 Hgb 12.5 g/dL (11.5-15.3) 08/03/21 04:05 Hct 40.3 % (37.0-47.0) 08/03/21 04:05 MCV 83.1 fl (81-99) 08/03/21 04:05 MCH 25.8 pg (28.0-34.0) L 08/03/21 04:05 MCHC 31.0 g/dL (30.0-36.0) 08/03/21 04:05 RDW 15.8 % (12.1-15.1) H 08/03/21 04:05 Plt Count 243 10^3/cmm (130-400) 08/03/21 04:05 MPV 9.7 fL (7.4-10.4) 08/03/21 04:05 Neut % (Auto) 62.5 % 08/03/21 04:05 Lymph % (Auto) 28.6 % 08/03/21 04:05 [place] % (Auto) 6.4 % 08/03/21 04:05 Eos % (Auto) 1.3 % 08/03/21 04:05 Baso % (Auto) 0.4 % 08/03/21 04:05 Neut # (Auto) 4.67 10^3/uL (1.8-7.7) 08/03/21 04:05 Lymph # (Auto) 2.1 10^3/uL (0.8-4.8) 08/03/21 04:05 [place] # (Auto) 0.5 10^3/uL (0.2-0.9) 08/03/21 04:05 Eos # (Auto) 0.1 10^3/uL (0.0-0.8) 08/03/21 04:05 Baso # (Auto) 0.0 10^3/uL (0.0-0.1) 08/03/21 04:05 Nucleated RBC % (auto) 0 % 08/03/21 04:05 Nucleated RBCs # 0.0 /100WBC 08/03/21 04:05 D-Dimer 1.15 ug/mIFEU (0-0.59) H 08/02/21 16:56 Sodium 138 mmol/L (136-145) 08/03/21 04:05 Potassium 4.1 mmol/L (3.5-5.1) 08/03/21 04:05 Chloride 100 mmol/L (98-107) 08/03/21 04:05 Carbon Dioxide 29 mmol/L (22-29) 08/03/21 04:05 Anion Gap 13.1 (5-19) 08/03/21 04:05 BUN 10 mg/dL (6-20) 08/03/21 04:05 Creatinine 0.7 mg/dL (0.5-0.9) 08/03/21 04:05 GFR Calculation 88.9 mL/min (90-130) L 08/03/21 04:05 Glucose 150 mg/dL (65-115) H 08/03/21 04:05 POC Glucose 135 mg/dL (70-110) H 08/03/21 06:39 Calculated Osmolality 288 mOsm/kg (285-295) 08/03/21 04:05 Calcium 8.8 mg/dL (8.5-10.5) 08/03/21 04:05 Total Bilirubin 0.4 mg/dL (0.15-1.2) 08/02/21 12:56 AST 11 U/L (0-32) 08/02/21 12:56 ALT 13 U/L (0-33) 08/02/21 12:56 Alkaline Phosphatase 101 IU/L (35-105) 08/02/21 12:56 Creatine Kinase 39 U/L (26-192) 08/02/21 12:56 Troponin T Baseline 6 ng/L (0-10) 08/02/21 12:56 Troponin T 120 Minute 9.73 ng/L (0-10) 08/02/21 14:36 Delta Troponin T 3.73 ABS# (0-10) 08/02/21 14:36 Troponin T Hi Sens 6Hr 6.00 ng/L (0-10) 08/02/21 19:22 Troponin T Hi Sens 6Hr Delta 0 ng/L (0-12) 08/02/21 19:22 Total Protein 7.1 g/dL (6.6-8.7) 08/02/21 12:56 Albumin 4.2 g/dL (3.5-5.2) 08/02/21 12:56 Globulin 2.9 g/dL (1.3-4.6) 08/02/21 12:56 Lipase 22 U/L (13-60) 08/02/21 12:56 Other Imaging: My impression: Myocardial perfusion imaging from 05/10/2021 1.? Myocardial perfusion imaging revealing small area of reversible defect in ?the inferolateral region, suggesting ischemia in the distribution of the left ?circumflex artery.? However in view of the inconsistency with the prone ?imaging, the reliability of this finding is questionable. ?2.? Normal LV ejection fraction 77%. ?3. LV wall motion analysis revealing no gross wall motion normalities. ?4.? Normal LV volume ?No similar previous studies are available for comparison Echo: My impression: Echocardiogram from 05-03- normal left ventricular size and systolic function, EF 60 %. No ?regional wall motion abnormalities. ?Thickened aortic valve. ?Normal cardiac chamber sizes. ?There is no pericardial effusion. ?No previous similar study is available for comparison. EKG 1: My Interpretation: The EKG showed sinus rhythm with normal ST Ts. Low voltage complexes in the precordial leads. EKG computer-generated impression: Chest X-Ray 08/02/21 12:40 Impression: Negative chest. Pulmonary Perfusion Imaging 08/03/21 18:35 IMPRESSION: 1. Low probability for pulmonary embolus. Exam interpreted using the PIOPED II criteria 2008: 1. Normal 2. High probability (> 80%) 3. Intermediate probability (20-79%) 4. Low probability (10-19%) 5. Very low probability (<10%) JNM 2007 6. Indeterminate A&P Assessment and plan (1) Chest pain: Patient apparently has increasing episodes of chest pain lately. She has multiple risk factors for coronary artery disease. In view of her ongoing symptoms, in order to further evaluate the coronary status, a cardiac catheterization would be appropriate. The risk of bleeding, hematoma, vascular injury, myocardial infarction, CVA, renal failure and other concomitant complications were explained in detail. Patient understood this well and consented to proceed. We may go ahead and schedule this procedure as early as possible. Status: Acute (2) Essential hypertension, benign: The blood pressure is a stage II. We will try to optimize the antihypertensive medications. Status: Acute (3) Hyperlipidemia: Patient may currently on the current medications. Status: Acute (4) Type 2 diabetes mellitus with other specified complication: The blood sugar is fairly under control. Her kidney function is normal. Status: Acute Plan GERD COPD Obesity Hypothyroidism, clinically euthyroid We will start the patient on IV hydration. The coronary angiogram is scheduled for 1130 this morning in the [facility]. Based on the results, further management decisions will be made. Attestations Medical Necessity Statement*: Patient requires continued hospital stay for close monitoring and further management Coding Level of Care Code Acute Human Factors Engineer for g Fwd History Detailed Exam Detailed Medical Decision Making High Complexity Diagnoses Chest pain R07.9 Essential hypertension, benign I10 Hyperlipidemia E78.5 Type 2 diabetes mellitus with other specified complication E11.69
[2021-08-03] MEDS: aspirin 325 mg Tablet PO (09:36)
[2021-08-03] MEDS: duloxetine 30 mg Capsule PO (09:36)
[2021-08-03] MEDS: isosorbide mononitrate ER 30 mg Tablet 15 MG PO ×2 (09:36→16:50)
[2021-08-03] MEDS: gabapentin 300 mg Capsule 600 MG PO ×2 (09:36→13:27)
[2021-08-03] MEDS: pantoprazole DR 40 mg Tablet PO (09:36)
[2021-08-03] MEDS: hydroxychloroquine 200 mg Tablet PO (09:37)
[2021-08-03] MEDS: montelukast sodium 10 mg Tablet PO (09:37)
[2021-08-03] MEDS: ARIPiprazole 2 mg Tablet PO (09:37)
[2021-08-03] MEDS: fluticasone nasal spray 16gm Btl 2 SPRAY NASAL (09:38)
[2021-08-03] MEDS: insulin glargine 100 units/1 mL 80 UNIT SUBCUT (09:39)
[2021-08-03] MEDS: CLONazepam 0.5 mg Tablet PO (10:12)
[2021-08-03] MEDS: sodium chloride 0.9% 1,000 ML 75 ML IV (10:16)
--- NOTE | 2021-08-03 10:23 | XACV_ITS ---
Exam Room: [facility] Ht: 157 cm Wt: 118 kg BSA: 2.34 m2 Gender: Female : 1970 Any Known Allergies: Other Exam Priority: Routine Procedure(s): Procedure Description: Diagnostic procedure Procedure Description: Left Heart Catheterization Procedure Description: Left ventriculography Procedure Description: Coronary Angiography Diagnostic Cath Status: Urgent Diagnostic Findings * The left main is a medium caliber vessel with no significant stenotic lesions. * The left anterior descending artery is a medium caliber vessel which appears to wrap around the LV apex minimally. The proximal to mid LAD was found to have mild diffuse narrowing of 20 to 30%. Some eccentric calcification was noted in the mid segment of the artery. The first diagonal branch also was found to have around 40 to 50% tubular narrowing proximally involving the ostium. No other significant stenotic lesions were noted. * The left circumflex is a relatively large dominant vessel. It gives of the PDA and the PLV branches distally. The vessels were found to have minimal intimal irregularities. No significant stenotic lesions. * The right coronary artery is a small to medium caliber nondominant vessel, with no significant stenotic lesions. Conclusions 1. This is a 51-year-old white female with history of hypertension, type 2 diabetes, dyslipidemia,rheumatoid arthritis and multiple other medical problems, presented with chest pain. She had a myocardial perfusion imaging in May 2021 which revealed some small areas of reversible defect in the inferolateral region. The findings were inconclusive because of the inconsistency. It was opted to treat her medically in the beginning. However she is readmitted to the hospital with increasing episodes of chest pain. In view of her multiple risk factors and worsening symptoms, in order to further evaluate her coronary status, a cardiac catheterization was recommended. Patient underwent left heart catheterization with the left and right coronary angiogram and LV angiogram today. The findings are as follows.. 2. 20 to 30% diffuse narrowing of the proximal to mid LAD, with some calcification. 40 to 50% narrowing of the proximal segment of the first diagonal branch. Minimal intimal irregularities in the dominant left circumflex artery. Normal LV ejection fraction with evidence of left ventricular diastolic dysfunction. Based on the angiographic findings, it was opted to treat her medically.. Diagnostic RX Recommendation: medical therapy and/or counseling LV EDP: 29 mmHg Ventriculography Ejection Fraction: 55.0 % Left Ventriculography Findings: * Normal LV size ejection fraction of 55%. Normal wall motion abnormalities or filling defects. LVEDP of 29 mmHg. Pressures Phase:Rest AO : 80 / 61 ( 71 ) @ 11:55:00 AM 125 / 72 ( 97 ) @ 12:07:00 PM 123 / 73 ( 97 ) @ 12:07:00 PM LV : 119 / 4 / 25 @ 12:06:00 PM 117 / 11 / 29 @ 12:07:00 PM 118 / 12 / 29 @ 12:07:00 PM Valves Phase:DefaultPhase AV : 0.0 @ 12:12:46 PM AV Mean Gradient: 0.0 @ 12:12:46 PM Clinical Evaluation EBL: 5mL-10mL Procedural Details Procedure Consent Obtained. Pre-Procedure Time Out. Identified patient by full name and date of as verbalized by the patient/guarantor. Does the consent match the physician's order: Yes. Accurate & Complete Informed Consent: Yes. Inpatient/Outpatient History & Physical on Chart: Yes. If H&P is completed, is and addenduem needed: No; If yes, is the addendum complete: N/A. Visualize and Verify Site with Patient/Guarantor: N/A. Relevant Radiology Images available: N/A. Pre-op teaching completed and patient verbalized understanding. The risks, benefits, and alternatives of sedation and/or procedure were discussed by physician. The patient agrees to continue. Procedure started. Admit Source: In Patient. [facility] Clinical Fraility Score: 3: Managing Well. 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 Chest Pain Symptom Assessment: Typical Angina Symptoms. Cardiovascular Instability: No. Correct patient, site and procedure confirmed by cath team. PERRLA. Strong, equal hand suction worker bilaterally. Lungs clear x 5 lobes. IV Fluids: 0.9% NaCl at KVO. 0 mL infused prior to clinical laboratory aides teacher. Pre Procedural Pulses: bilateral radial was 3+. Oxygen started at 2liters/min via nasal canula. Physician arrived. Equipment: 6F - Radial. right groin was prepped with chloroprep then draped in the usual sterile fashion. right radial was prepped with chloroprep then draped in the usual sterile fashion. Baseline sample Acquired. HR: 79 BPM. Physician scrubbed in. Immediate Pre-Procedure Time Out. Correct Patient: Yes; Correct Procedure: Yes; Correct Site: Yes; Correct Patient Position: Yes; Correct Supplies: Yes; Dried Flammable Prep: Yes; Blood Products Available: N/A;. Lidocaine 1% infiltrated to the right radial. Arterial access obtained. A 5 nigerien TIG catheter in over wire. Multiple views taken of left coronary artery. Catheter redirected to the RCA. Catheter out. A 5 nigerien JR4 catheter in over wire. Multiple views taken of right coronary artery. Standard wire out. Glidewire inserted. Inventory is TR Glidewire Angled Stiff Shaft .035 260cm. Catheter removed over the glide wire. A 5 nigerien Angled Pig catheter in over wire. Glidewire out. Bolus complete. Fluid runnig at 100 ml/hr. EDP Sample taken: LV 119/4,25; HR: 81 BPM; SpO2: 96%. LV gram performed in IRIZARRY @ 10 mL/second for a total of 30 mL. EDP Sample taken: LV 117/11,29; HR: 81 BPM; SpO2: 98%. Pullback taken: LV 118/12,29; AO 125/72(97); Mean: 0mmHg, Peak to Peak: 0mmHg, SEP: 20sec/min; HR: 80 BPM; SpO2: 98%. Catheter removed over the standard wire. Physician scrubbed out. A TR Band was successful obtaining hemostatsis at the Right Radial artery insertion site. TR band placed. Hemostasis obtained. Post Procedure: Pulses reassessed and unchanged. PERRLA. Strong, equal hand suction worker bilaterally. No VTE prophylaxis required. Medication's Wasted: Lidocaine 1% = 18 mL. Medication's Wasted: Heparin = 1000 units. Medication's Wasted: Nitro = 49.8 mg. Total IV fluids: 279 mL. Post-op diagnosis: mild cad. Complications: none. Estimated blood loss: 5mL-10mL. Contrast type used: Visipaque 320 mgI/mL, 500 mL bottle. Responsiveness - Normal response to verbal stimuli; alert and oriented, PERRLA. Airway - Unaffected, no intervention required; spontaneous ventilation. Circulation: W/N/L, pulses unchanged. Nausea/Vomiting: No. Procedure completed. Patient transferred by wheelchair to 1st floor. Vital chart was stopped. Access Site Site: Right Radial artery Sheath Size: 6 Fr Hemostasis Method: TR Band Hemostasis Success: Successful Procedure Medications Start: 11:44 AM Stop: 11:44 AM Medication: Versed Amount: 1 mg Route: I.V. Start: 11:44 AM Stop: 11:44 AM Medication: Fentanyl Amount: 50 mcg Route: I.V. Start: 11:47 AM Stop: 11:47 AM Medication: Verapamil Amount: 5 mg Route: I.A. Start: 11:48 AM Stop: 11:48 AM Medication: 0.9% Saline Amount: 250 ml Route: I.V. bolus Start: 11:57 AM Stop: 11:57 AM Medication: Heparin Amount: 5000 units Route: I.V. I, the attending physician, have reviewed and verified all procedure medications. Yes, all medications given per verbal order History/Risk Factors Hypertension: Yes Dyslipidemia: Yes Peripheral Arterial Disease (PAD): No Myocardial Infarction (OR): No Obesity: No Renal Disease: No Tobacco Use: Former Prior Interventions PCI: No CABG: No Valve Surgery: No Report Signatures Finalized by Dr Lan Carey MD [facility] on 08/03/2021 02:36 PM
[2021-08-03] MEDS: atorvastatin 40 mg Tablet 20 MG PO (10:36)
[2021-08-03] MEDS: levothyroxine 50 mcg Tablet PO (10:36)
[2021-08-03] MEDS: atenolol 50 mg Tablet PO (10:37)
[2021-08-03] MEDS: diphenhydrAMINE 50 mg Capsule PO (10:37)
[2021-08-03 11:34] LABS: Glucose Point of Care 133 mg/dL (70-110)
--- NOTE | 2021-08-03 11:36 | W.PM.OPSUD ---
Surgery/Procedure H&P Update DATE OF PROCEDURE: August 03, 2021 DATE H&P PERFORMED: 08/02/21 CHANGES TO PREVIOUS DOCUMENTATION: none PRIMARY INDICATION FOR PROCEDURE: Unstable angina PLANNED PROCEDURE: [facility] with coronary angio and possible PCI PATIENT REASSESSED PRIOR TO SEDATION, WITH NO CHANGE NOTED: Yes PHYSICAL EXAM: alert, clear to auscultation bilaterally and regular rate & rhythm OTHER PERTINENT EXAM FINDINGS: Chest clear. normal heart sounds AIRWAY EVAL/ANESTHESIA PLAN: normal airway, ASA III, Monitored Anesthesia, Local Anesthesia, Risks, benefits & alternatives of sedation and/or procedure discussed and Patient agrees to continue as planned
--- NOTE | 2021-08-03 15:12 | PC.NURSE ---
spoke with Dr kuhn with concerns of giving Isosorbide 30mg now due to the administrations of isosorbide 15mg at 0930am this day Instructions received to administer isosorbide 15mg PO now for a total dose for this day of 30mg
[2021-08-03 15:31] LABS: Glucose Point of Care 147 mg/dL (70-110)
--- NOTE | 2021-08-03 16:27 | PC.NURSE ---
[id number] patient back to room from label tacker TR band in place to right wrist report received from Faisal SAVAGE no hematoma noted 1600 Tr band removed per protocol at this time no hematoma or adverse event noted patient vital signs remain stable
--- NOTE | 2021-08-03 18:35 | NM_ITS ---
WS: [id number] NUCLEAR MEDICINE LUNG VENTILATION AND PERFUSION CLINICAL INFORMATION: chest pain, abnormal ddimer TECHNIQUE: Ventilation/perfusion lung scan with 32.3 mCi technetium 99m DTPA and 5.3 mCi technetium 9 9m MAA. COMPARISON: Radiograph August 02, 2021 FINDINGS: Symmetric bilateral radiotracer uptake on the perfusion images. Mild radiotracer deposition in the pr oximal perihilar bronchi on the ventilation images. No mismatched ventilation/perfusion defects to in dicate pulmonary embolus. NM/DE pul vent and perfus* [id number] IMPRESSION: 1. Low probability for pulmonary embolus. Exam interpreted using the PIOPED II criteria 2008: 1. Normal 2. High probability (> 80%) 3. Intermediate probability (20-79%) 4. Low probability (10-19%) 5. Very low probability (<10%) JNM 2006 6. Indeterminate
--- NOTE | 2021-08-03 18:35 | USCV_ITS ---
Brie Beltrán Age: 51 Gender: F : 1970 Exam Date: 08/03/2021 06:09 Ordering Phys: Eliud Jensen MD Technologist: ESE Exam Location: [facility] [place] Indication: ABNORMAL D DIMER PROCEDURES: Venous duplex imaging was performed in bilateral lower extremities. The following venous structures were evaluated: common femoral vein, profunda vein, proximal portion of the greater saphenous vein, superficial femoral vein, and the popliteal vein. In addition, the posterior tibial and peroneal trunk were evaluated. Serial compression, augmentation maneuvers, and spectral Doppler flow evaluation were performed. FINDINGS: No evidence of DVT seen in any vessel visualized at this time. CONCLUSIONS No evidence of right lower extremity DVT. No evidence of left lower extremity DVT. Daniel Young MD (Electronically Signed) Final Date: 03 August 2021 09:44 S
--- NOTE | 2021-08-03 21:57 | PM.DCS ---
Discharge Providers Date of Admission: 08/02/21 16:40 Date of Discharge: August 03, 2021 Attending Provider at Admission: Eliud Jensen Attending Provider at Discharge: Eliud Jensen Primary Care Provider: EVELYN Hatch Diagnoses at Discharge Discharge Diagnosis (1) Chest pain: Status: Acute (2) Essential hypertension, benign: Status: Acute (3) Hyperlipidemia: Status: Acute (4) Type 2 diabetes mellitus with other specified complication: Status: Acute Reason for Visit Reason for Visit: Chest Pain Brief History: Pleasant 51-year-old lady with history of inflammatory arthritis, DM2, HLD, obesity, former smoker, COPD, GERD, other medical conditions comes to emergency department for evaluation due to symptoms of chest pain, which she describes a squeezing sensation, centrally, radiating to her back as well neck/jaw, unchanged by position, not triggered by deep breathing, does not feel like GERD, indigestion, no abdominal pain, no nausea or vomiting.? Denies cough, no fever chills or other symptoms of infection.? Had a stress test in May with noted mild reversibility in the inferolateral wall, somewhat equivocal finding not seen in prone imaging. Chest x-ray without acute abnormality.? Troponin baseline 6, 2-hour 9.73.? Lipase 22.? D-dimer also checked, abnormal at 1.15.? Hospital Course Hospital Course She was empirically started on anticoagulation. VQ scan was assessed and showed low probability of PE. She was additionally assessed by cardiology, underwent coronary angiography with finding of mild nonobstructive CAD. Her symptoms may have been related to microvascular disease given risk factors, please continue to optimize CAD risks. Possibly vasospasm. She is continued on aspirin and statin. She is started on Imdur. She is asked to follow-up with cardiology in office. Today she was feeling better with near resolution of symptoms. In case of persistent recurrence of symptoms, consider additional assessment. She knows to return to ER for assessment in case of concerning symptoms. Physical Exam Narrative: at bedside. Const: COMMON NORMALS: no acute distress and patient oriented x3 NUTRITIONAL APPEARANCE: obese morbidly obese HENMT: COMMON NORMALS: oropharynx normal Neck/C-Spine: COMMON NORMALS: no JVD Resp: COMMON NORMALS: normal respiratory effort and clear to auscultation bilaterally AUSCULTATION: clear to auscultation bilaterally Cardio: COMMON NORMALS: no JVD, regular rhythm, S1 normal heart sound present, S2 normal heart sound present and No murmurs present (Cardio) RHYTHM: regular rhythm HEART SOUNDS: S1 normal heart sound present and S2 normal heart sound present GI: COMMON NORMALS: Normal to inspection, nondistended, normoactive bowel sounds present, Soft to palpation and non-tender PALPATION: Yes Soft to palpation Extremity: COMMON NORMALS: no joint enlargement and no pedal edema Neuro: COMMON NORMALS: patient oriented x3 and moves all extremities Skin: COMMON NORMALS: no rashes or lesions noted GENERAL SKIN EXAM: no rashes or lesions noted Discharge Data Studies Completed and Pending Completed Studies During Hospitalization Category Date Time Status MANAGER OUTPATIENT request for service Routine Exams 08/03/21 10:23 Completed XR chest 1V portable [id number] Stat Exams 08/02/21 12:40 Completed NM pul vent and perfus* [id number] Routine Nuc Med 08/03/21 18:35 [place] [id number] Routine Ultrasound 08/03/21 18:35 Completed Radiology Impressions Chest X-Ray 08/02/21 12:40 Impression: Negative chest. Pulmonary Perfusion Imaging 08/03/21 18:35 IMPRESSION: 1. Low probability for pulmonary embolus. Exam interpreted using the PIOPED II criteria 2008: 1. Normal 2. High probability (> 80%) 3. Intermediate probability (20-79%) 4. Low probability (10-19%) 5. Very low probability (<10%) JNM 2007 6. Indeterminate Laboratory Results WBC 7.5 10^3/uL (4.0-10.0) 08/03/21 04:05 RBC 4.85 10^6/uL (4.1-5.3) 08/03/21 04:05 Hgb 12.5 g/dL (11.5-15.3) 08/03/21 04:05 Hct 40.3 % (37.0-47.0) 08/03/21 04:05 MCV 83.1 fl (81-99) 08/03/21 04:05 MCH 25.8 pg (28.0-34.0) L 08/03/21 04:05 MCHC 31.0 g/dL (30.0-36.0) 08/03/21 04:05 RDW 15.8 % (12.1-15.1) H 08/03/21 04:05 Plt Count 243 10^3/cmm (130-400) 08/03/21 04:05 MPV 9.7 fL (7.4-10.4) 08/03/21 04:05 Neut % (Auto) 62.5 % 08/03/21 04:05 Lymph % (Auto) 28.6 % 08/03/21 04:05 Amador % (Auto) 6.4 % 08/03/21 04:05 Eos % (Auto) 1.3 % 08/03/21 04:05 Baso % (Auto) 0.4 % 08/03/21 04:05 Neut # (Auto) 4.67 10^3/uL (1.8-7.7) 08/03/21 04:05 Lymph # (Auto) 2.1 10^3/uL (0.8-4.8) 08/03/21 04:05 Amador # (Auto) 0.5 10^3/uL (0.2-0.9) 08/03/21 04:05 Eos # (Auto) 0.1 10^3/uL (0.0-0.8) 08/03/21 04:05 Baso # (Auto) 0.0 10^3/uL (0.0-0.1) 08/03/21 04:05 Nucleated RBC % (auto) 0 % 08/03/21 04:05 Nucleated RBCs # 0.0 /100WBC 08/03/21 04:05 D-Dimer 1.15 ug/mIFEU (0-0.59) H 08/02/21 16:56 Sodium 138 mmol/L (136-145) 08/03/21 04:05 Potassium 4.1 mmol/L (3.5-5.1) 08/03/21 04:05 Chloride 100 mmol/L (98-107) 08/03/21 04:05 Carbon Dioxide 29 mmol/L (22-29) 08/03/21 04:05 Anion Gap 13.1 (5-19) 08/03/21 04:05 BUN 10 mg/dL (6-20) 08/03/21 04:05 Creatinine 0.7 mg/dL (0.5-0.9) 08/03/21 04:05 GFR Calculation 88.9 mL/min (90-130) L 08/03/21 04:05 Glucose 150 mg/dL (65-115) H 08/03/21 04:05 POC Glucose 147 mg/dL (70-110) H 08/03/21 15:27 Calculated Osmolality 288 mOsm/kg (285-295) 08/03/21 04:05 Calcium 8.8 mg/dL (8.5-10.5) 08/03/21 04:05 Total Bilirubin 0.4 mg/dL (0.15-1.2) 08/02/21 12:56 AST 11 U/L (0-32) 08/02/21 12:56 ALT 13 U/L (0-33) 08/02/21 12:56 Alkaline Phosphatase 101 IU/L (35-105) 08/02/21 12:56 Creatine Kinase 39 U/L (26-192) 08/02/21 12:56 Troponin T Baseline 6 ng/L (0-10) 08/02/21 12:56 Troponin T 120 Minute 9.73 ng/L (0-10) 08/02/21 14:36 Delta Troponin T 3.73 ABS# (0-10) 08/02/21 14:36 Troponin T Hi Sens 6Hr 6.00 ng/L (0-10) 08/02/21 19:22 Troponin T Hi Sens 6Hr Delta 0 ng/L (0-12) 08/02/21 19:22 Total Protein 7.1 g/dL (6.6-8.7) 08/02/21 12:56 Albumin 4.2 g/dL (3.5-5.2) 08/02/21 12:56 Globulin 2.9 g/dL (1.3-4.6) 08/02/21 12:56 Lipase 22 U/L (13-60) 08/02/21 12:56 Vitals Last Vital Signs Temp 98.2 F 08/02/21 12:31 Pulse 77 08/03/21 19:10 Resp 20 H 08/03/21 19:10 BP 112/63 08/03/21 19:10 Pulse Ox 93 08/03/21 19:10 Discharge Plan Discharge Patient Disposition: Home Condition: Stable Prescriptions: New isosorbide mononitrate 30 mg Tablet Extended Release 24 Hr 30 mg PO DAILY Qty: 90 0RF aspirin 81 mg capsule 81 mg PO DAILY Qty: 90 0RF Continued hydroxychloroquine 200 mg tablet 200 mg PO BID Qty: 60 3RF (DME) pen needle, diabetic [Comfort EZ Pen [place]] 31 gauge x 1/4 needle See Rx Instructions .Route Qty: 200 3RF Rx Instructions: use with [place] hczhnhhe-mntchnoys-RM 3.5-10,000-1 mg/mL-unit/mL-% solution 4 drp otic (ear) Q8H 10 Days Qty: 10 0RF nitroglycerin 0.4 mg tablet, sublingual 0.4 mg sublingual Q5M PRN (Reason: chest pain) Qty: 30 5RF Rx Instructions: do not exceed 3 doses per episode gabapentin 600 mg tablet 600 mg PO QID Qty: 120 5RF ofloxacin 0.3 % drops 10 drp otic (ear) DAILY 7 Days Qty: 10 0RF Trulicity 1.5 mg/0.5 mL pen injector 1.5 mg SUBCUT .q7days 90 Days Qty: 8 3RF ferrous gluconate 324 mg (38 mg iron) tablet 324 mg PO BID 30 Days Qty: 60 2RF cyanocobalamin (vitamin B-12) 1,000 mcg/mL solution 1,000 mcg IM .montly 30 Days Qty: 1 2RF cholecalciferol (vitamin D3) 1,250 mcg (50,000 unit) capsule 50,000 unit PO .weekly Qty: 4 2RF aripiprazole [Abilify] 2 mg tablet 2 mg PO DAILY Qty: 30 2RF clonazepam 0.5 mg tablet 0.5 mg PO BID PRN (Reason: anxiety) Qty: 60 2RF Rx Instructions: Must last 30 days trazodone 50 mg tablet 50 mg PO .HS Qty: 30 2RF duloxetine [Cymbalta] 30 mg capsule,delayed release(DR/EC) 30 mg PO BID 30 Days Qty: 60 2RF methotrexate sodium 2.5 mg tablet 15 mg PO .Q7days Qty: 30 3RF folic acid 1 mg tablet 1 mg PO DAILY Qty: 90 3RF (DME) TechLITE Insuln Syr(half unit) 0.3 mL 29 gauge x 1/2 syringe See Rx Instructions .Route Qty: 100 3RF Rx Instructions: use to give insulin Flovent HFA 220 mcg/actuation HFA aerosol inhaler 1 puff inhalation BID Qty: 12 3RF Jardiance 25 mg tablet 25 mg PO DAILY@1000 Qty: 90 3RF Rx Instructions: Take one tablet by mouth daily. Lantus Solostar U-100 Insulin 100 unit/mL (3 mL) insulin pen 80 unit SUBCUT DAILY@1000 90 Days Qty: 90 3RF Rx Instructions: start 80 units daily, uptitrate per scale,takes in the morning, max dose of 100 units per day fluticasone propionate 50 mcg/actuation spray,suspension See Rx Instructions .ROUTE .COMPLEX Qty: 16 3RF Dose Instruction: SHAKE LIQUID AND USE TWO SPRAYS IN EACH NOSTRIL TWICE DAILY Rx Instructions: SHAKE LIQUID AND USE TWO SPRAYS IN EACH NOSTRIL TWICE DAILY fluconazole 150 mg tablet 150 mg PO Q3D Qty: 2 0RF Rx Instructions: may repeat second dose 72 hrs after first dose if symptoms persist Anoro Ellipta 62.5-25 mcg/actuation blister with device 1 inh inhalation DAILY Qty: 60 5RF atenolol 50 mg tablet See Rx Instructions .ROUTE .COMPLEX Qty: 30 2RF Dose Instruction: TAKE 1 TABLET BY MOUTH DAILY@ 10:00 Rx Instructions: TAKE 1 TABLET BY MOUTH DAILY@ 10:00 simvastatin 20 mg tablet 20 mg PO DAILY@1000 90 Days Qty: 90 3RF prednisone 5 mg tablet 5 mg PO DAILY PRN (Reason: Pain) 0RF levothyroxine 50 mcg tablet 50 mcg PO DAILY@10 0RF montelukast 10 mg tablet 10 mg PO DAILY 0RF Dexilant 60 mg capsule,biphase delayed releas 60 mg PO DAILY 0RF Discontinued ibuprofen 600 mg tablet 600 mg PO Q6H PRN (Reason: pain) Qty: 30 0RF Discharge Orders: Discharge Order (Routine); Ordered 08/03/21 Ordered By: Eliud Jensen Referrals: Lan Carey MD [Physician] - 1 month ([facility] will be calling to schedule a cardiology followup with Dr. Carey to be seen in 1 month. If you don't hear from them by Friday afternoon, please give them a call. Thank you) Carlos Alcala, SUPERVISOR [employer] [Primary Care Provider] - 08/13/21 3:30 pm () Gricelda Blanco FNP [Nurse Practitioner] - 1 week ([facility] will be calling to schedule a post procedure followup with SACHIN Atwood to be seen in 1 week. If you don't hear from them by Friday afternoon, please give them a call. Thank you) Discharge Diet: Diabetic and Low Cholesterol Discharge Activity: Increase activity as tolerated and Limit activity as instructed Patient Instructions: Chest Pain (GEN), Angiogram (GEN), Chest Pain Stoplight, Post Angiogram Home Care Instructions Activity Restrictions/Additional Instructions: Avoid lifting more than 3 pounds in 2 days. If you notice any signs of swelling, pulsatile mass or bleeding at the site of access for angiogram seek medical attention. Follow-up with your primary care doctor. In case symptoms of chest discomfort persist, please discuss referral for additional evaluation including CAT scan of the chest. Your symptoms may have been due to microvascular cardiovascular disease. Continue to optimize risk factors of cardiovascular disease with your primary doctor including diabetes control, cholesterol, weight. Maintain healthy lifestyle. Would also discontinue ibuprofen due to cardiovascular risk. Please have your primary doctor follow-up renal function in office. Discharge Attestations Time Spent in Discharge Care*: greater than 30 min Quality Metrics Clinical Quality Measures [ No reported AMI, CVA or VTE this stay] Coding Level of Care Code Acute g FW NM note Diagnoses Chest pain R07.9 Essential hypertension, benign I10 Hyperlipidemia E78.5 Type 2 diabetes mellitus with other specified complication E11.69
== END 2021-08-03 17:50 | disposition home or self-care (01) ==
LOC: ER 16:48 → CSU 08-03 08:13
PROVIDERS: Internal Medicine Cardiovascular Disease; Admitting Provider Internal Medicine; Emergency Provider Family Medicine; PCP Nurse Practitioner; Visit Provider Internal Medicine
DX: I25.10 Atherosclerotic heart disease of native coronary artery without angina pectoris (principal); I25.84 Coronary atherosclerosis due to calcified coronary lesion; I10 Essential (primary) hypertension; E78.5 Hyperlipidemia, unspecified; E11.69 Type 2 diabetes mellitus with other specified complication; E66.9 Obesity, unspecified; J44.9 Chronic obstructive pulmonary disease, unspecified; K21.9 Gastro-esophageal reflux disease without esophagitis; Z68.42 Body mass index [BMI] 45.0-49.9, adult; M06.9 Rheumatoid arthritis, unspecified; E03.9 Hypothyroidism, unspecified; Z79.4 Long term (current) use of insulin; Z82.49 Family history of ischemic heart disease and other diseases of the circulatory system
CPT/HCPCS: 36415; 36416; 71045; 78014; 80048; 80053; 82550; 82962; 83690; 84484; 85025; 85378; 93005; 93452; 93458; 93970; 96361; 96372; 96374; 96375; 99285; A9540; A9567; C1769; C1887; C1894; G0378; J1644; J1650; J1815 ×2; J2250; J2405; J3010; J3490; J7030; Q0163; Q9967

== ENCOUNTER → 2021-08-10 09:29 | Outpatient (BNVA) | payer MEDICAID, SELFPAY | PROVIDERS: PCP Nurse Practitioner; Visit Provider Nurse Practitioner Family | DX: I25.10 Atherosclerotic heart disease of native coronary artery without angina pectoris (principal); J44.9 Chronic obstructive pulmonary disease, unspecified; Z87.891 Personal history of nicotine dependence | CPT/HCPCS: 80048; 99214 ==

== ENCOUNTER → 2021-08-15 08:44 | Outpatient (BNVA) | payer MEDICAID, SELFPAY | PROVIDERS: PCP Nurse Practitioner; Visit Provider Internal Medicine | DX: E03.9 Hypothyroidism, unspecified (principal); E04.2 Nontoxic multinodular goiter; E11.69 Type 2 diabetes mellitus with other specified complication; E78.2 Mixed hyperlipidemia; Z79.899 Other long term (current) drug therapy; M19.90 Unspecified osteoarthritis, unspecified site | CPT/HCPCS: 80053; 80061; 80076; 82565; 83036; 84439; 85025; 86140 ==

== ENCOUNTER → 2021-08-18 14:51 | Outpatient (BNVA) | payer MEDICAID, SELFPAY | PROVIDERS: PCP Nurse Practitioner; Visit Provider Registered Nurse Neonatal Intensive Care | DX: J02.9 Acute pharyngitis, unspecified (principal); H66.92 Otitis media, unspecified, left ear | CPT/HCPCS: 87880 ==

== ENCOUNTER → 2021-09-06 12:34 | Outpatient (BNVA) | payer MEDICAID, SELFPAY | PROVIDERS: PCP Nurse Practitioner; Visit Provider Nurse Practitioner | DX: F43.12 Post-traumatic stress disorder, chronic (principal); F41.1 Generalized anxiety disorder | CPT/HCPCS: 99214 ==

== ENCOUNTER → 2021-09-27 14:01 | Outpatient (BNVA) | payer MEDICAID, SELFPAY | PROVIDERS: PCP Nurse Practitioner; Visit Provider Internal Medicine Critical Care Medicine | DX: J45.909 Unspecified asthma, uncomplicated (principal); Z87.891 Personal history of nicotine dependence; K21.9 Gastro-esophageal reflux disease without esophagitis; E78.5 Hyperlipidemia, unspecified; J44.9 Chronic obstructive pulmonary disease, unspecified; E11.65 Type 2 diabetes mellitus with hyperglycemia; E03.9 Hypothyroidism, unspecified; I10 Essential (primary) hypertension; I25.10 Atherosclerotic heart disease of native coronary artery without angina pectoris; R06.00 Dyspnea, unspecified; R06.02 Shortness of breath; R07.9 Chest pain, unspecified; Z79.4 Long term (current) use of insulin | CPT/HCPCS: 99213 ==

== ENCOUNTER 2021-11-02 12:50 | Outpatient (CLI) | payer MEDICAID, SELFPAY ==
--- NOTE | 2021-11-02 13:05 | MM_ITS ---
WS: [id number] BILATERAL 3D TOMOSYNTHESIS DIGITAL DIAGNOSTIC MAMMOGRAPHY WITH CAD CLINICAL INFORMATION: N63.20 - Unspecified lump in the left breast, unspecified... HISTORY: LEFT breast lump COMPARISON: None. TECHNIQUE: Bilateral CC, MLO, and ML views. FINDINGS: Scattered fibroglandular densities bilaterally. Palpable marker lower inner LEFT breast. No definite underlying parenchymal abnormalities. Ultrasound is pending. No other suspicious findings. ULTRASOUND BREAST LEFT TECHNIQUE: Ultrasound left breast focused area of concern. CLINICAL INFORMATION: N63.20 - Unspecified lump in the left breast, unspecified... COMPARISON: None. FINDINGS: Ultrasound LEFT breast at the 8:00 position. Normal underlying breast parenchymal tissue. No cystic o r solid lesions. No lesions to target for biopsy. MM/[place] [id number] IMPRESSION: BI-RADS: 2-Benign FOLLOW UP: 1 Year Follow-up Recommend return to annual screening mammography.
== END 2021-11-02 12:51 | disposition home or self-care (01) ==
LOC: RADSHAW 12:52
PROVIDERS: PCP Nurse Practitioner; Visit Provider Nurse Practitioner Family
DX: N63.20 Unspecified lump in the left breast, unspecified quadrant (principal); J34.2 Deviated nasal septum
CPT/HCPCS: 76642; 77062; 99203

== ENCOUNTER → 2021-11-16 08:17 | Outpatient (BNVA) | payer MEDICAID, SELFPAY | PROVIDERS: PCP Nurse Practitioner; Visit Provider Internal Medicine | DX: E03.9 Hypothyroidism, unspecified (principal); E04.2 Nontoxic multinodular goiter | CPT/HCPCS: 84439; 84443 ==

== ENCOUNTER → 2021-11-20 13:33 | Outpatient (BNVA) | payer MEDICAID, SELFPAY | PROVIDERS: PCP Nurse Practitioner; Visit Provider Internal Medicine | DX: E11.65 Type 2 diabetes mellitus with hyperglycemia (principal); Z79.4 Long term (current) use of insulin; E03.9 Hypothyroidism, unspecified; E04.2 Nontoxic multinodular goiter; E55.9 Vitamin D deficiency, unspecified; D64.9 Anemia, unspecified | CPT/HCPCS: 80061; 83036; 99214 ==

== ENCOUNTER → 2021-11-29 07:25 | Outpatient (BNVA) | payer MEDICAID, SELFPAY | PROVIDERS: PCP Nurse Practitioner; Visit Provider Nurse Practitioner | DX: F43.12 Post-traumatic stress disorder, chronic (principal); F41.1 Generalized anxiety disorder | CPT/HCPCS: 99214 ==

== ENCOUNTER → 2022-01-28 11:08 | Outpatient (BNVA) | payer MEDICAID, SELFPAY | PROVIDERS: PCP Nurse Practitioner; Visit Provider Internal Medicine Critical Care Medicine | DX: J45.50 Severe persistent asthma, uncomplicated (principal); J82.83 Eosinophilic asthma; Z87.891 Personal history of nicotine dependence | CPT/HCPCS: 99213 ==

== ENCOUNTER → 2022-02-18 09:27 | Outpatient (BNVA) | payer MEDICAID, SELFPAY | PROVIDERS: PCP Nurse Practitioner; Visit Provider Nurse Practitioner Family | DX: D64.9 Anemia, unspecified (principal); E03.9 Hypothyroidism, unspecified; E04.2 Nontoxic multinodular goiter; E11.65 Type 2 diabetes mellitus with hyperglycemia; E55.9 Vitamin D deficiency, unspecified; Z79.4 Long term (current) use of insulin; K21.9 Gastro-esophageal reflux disease without esophagitis; E53.8 Deficiency of other specified B group vitamins; E66.01 Morbid (severe) obesity due to excess calories | CPT/HCPCS: 80053; 80061; 83036; 84439; 84443 ==

== ENCOUNTER → 2022-03-26 15:02 | Outpatient (BNVA) | payer MEDICAID, SELFPAY | PROVIDERS: PCP Nurse Practitioner; Visit Provider Nurse Practitioner Family | DX: J02.9 Acute pharyngitis, unspecified (principal); E11.65 Type 2 diabetes mellitus with hyperglycemia; Z79.4 Long term (current) use of insulin; E03.9 Hypothyroidism, unspecified; M51.17 Intervertebral disc disorders with radiculopathy, lumbosacral region; I10 Essential (primary) hypertension; J30.2 Other seasonal allergic rhinitis; K21.9 Gastro-esophageal reflux disease without esophagitis; E78.5 Hyperlipidemia, unspecified; M54.2 Cervicalgia; G89.29 Other chronic pain | CPT/HCPCS: 87071; 87880 ==

== ENCOUNTER → 2022-03-27 13:50 | Outpatient (BNVA) | payer MEDICAID, SELFPAY | PROVIDERS: PCP Nurse Practitioner; Visit Provider Internal Medicine Cardiovascular Disease | DX: I25.10 Atherosclerotic heart disease of native coronary artery without angina pectoris (principal); E11.65 Type 2 diabetes mellitus with hyperglycemia; Z79.4 Long term (current) use of insulin; I10 Essential (primary) hypertension; E78.5 Hyperlipidemia, unspecified; Z87.891 Personal history of nicotine dependence | CPT/HCPCS: 99214 ==

== ENCOUNTER 2022-04-29 10:04 | Outpatient (CLI) | payer MEDICAID, SELFPAY ==
--- NOTE | 2022-04-29 10:15 | US_ITS ---
WS: [id number] THYROID ULTRASOUND HISTORY: Thyroid nodule COMPARISON: 03/19/2021, 11/01/2019 Right lobe: 1.8 cm x 1.7 cm x 4.6 cm (w x ap x l). Volume: 7.3 cm3. Normal size gland. Very small superficial hypoechoic nodule measures 5 x 4 x 5 mm mid gland. Mild het erogeneity throughout the gland. No additional nodule or increased vascularity. Left lobe: 1.5 cm x 1.5 cm x 4.6 cm (w x ap x l). Volume: 5.4 cm3. Normal size gland. Mild heterogeneity. There is a very superficial colloid cyst with a maximum diamet er of 3 mm. Isthmus: 0.2 cm. US/US thyroid [id number] IMPRESSION: 1. Bilateral thyroid nodules are very benign in appearance. No increase in siz e and no echogenic foci. 2. No dominant or suspicious nodules.
== END 2022-04-29 10:05 | disposition home or self-care (01) ==
LOC: RAD 10:04
PROVIDERS: PCP Nurse Practitioner; Visit Provider Internal Medicine
DX: E04.2 Nontoxic multinodular goiter (principal)
CPT/HCPCS: 76536

== ENCOUNTER → 2022-05-20 08:27 | Outpatient (BNVA) | payer MEDICAID, SELFPAY | PROVIDERS: PCP Nurse Practitioner; Visit Provider Nurse Practitioner | DX: E11.65 Type 2 diabetes mellitus with hyperglycemia (principal); Z79.4 Long term (current) use of insulin; E03.9 Hypothyroidism, unspecified; E55.9 Vitamin D deficiency, unspecified | CPT/HCPCS: 80048; 80061; 83036; 84439; 84443 ==

== ENCOUNTER → 2022-06-01 18:21 | Outpatient (BNVA) | payer MEDICAID, SELFPAY | PROVIDERS: PCP Nurse Practitioner; Visit Provider Emergency Medicine | DX: N10 Acute pyelonephritis (principal); R39.9 Unspecified symptoms and signs involving the genitourinary system | CPT/HCPCS: 81000; 87086 ==

== ENCOUNTER → 2022-06-17 10:28 | Outpatient (BNVA) | payer MEDICAID, SELFPAY | PROVIDERS: PCP Nurse Practitioner; Visit Provider Nurse Practitioner | DX: E55.9 Vitamin D deficiency, unspecified (principal) | CPT/HCPCS: 82306; 82607 ==

== ENCOUNTER → 2022-07-31 09:33 | Outpatient (BNVA) | payer MEDICAID, SELFPAY | PROVIDERS: PCP Nurse Practitioner; Visit Provider Nurse Practitioner Family | DX: R50.9 Fever, unspecified (principal); R05.9 Cough, unspecified; E03.9 Hypothyroidism, unspecified; E11.65 Type 2 diabetes mellitus with hyperglycemia; Z79.4 Long term (current) use of insulin; J06.9 Acute upper respiratory infection, unspecified; R19.7 Diarrhea, unspecified | CPT/HCPCS: 80053; 80061; 83036; 84439; 84443; 87426; 87486; 87581; 87633 ==

== ENCOUNTER → 2022-10-01 13:44 | Outpatient (BNVA) | payer MEDICAID, SELFPAY | PROVIDERS: PCP Nurse Practitioner; Visit Provider Internal Medicine Pulmonary Disease | DX: J45.50 Severe persistent asthma, uncomplicated (principal); J82.83 Eosinophilic asthma; Z87.891 Personal history of nicotine dependence | CPT/HCPCS: 99214 ==

== ENCOUNTER → 2022-10-30 09:12 | Outpatient (BNVA) | payer MEDICAID, SELFPAY | PROVIDERS: PCP Nurse Practitioner; Visit Provider Nurse Practitioner Family | DX: G89.29 Other chronic pain (principal); M54.9 Dorsalgia, unspecified; M40.56 Lordosis, unspecified, lumbar region; M40.204 Unspecified kyphosis, thoracic region; I25.10 Atherosclerotic heart disease of native coronary artery without angina pectoris; I10 Essential (primary) hypertension; Z87.891 Personal history of nicotine dependence | CPT/HCPCS: 72020; 72072; 99214 ==

== ENCOUNTER 2022-10-31 06:00 | Outpatient (RCR) | payer MEDICAID, SELFPAY | END 2022-11-29 23:59 | disposition home or self-care (01) | LOC: APT 06:00 | PROVIDERS: Visit Provider Orthopaedic Surgery | DX: M54.50 Low back pain, unspecified (principal); G89.29 Other chronic pain | CPT/HCPCS: 97110; 97163 ==

== ENCOUNTER → 2022-11-14 13:21 | Outpatient (BNVA) | payer MEDICAID, SELFPAY | PROVIDERS: PCP Nurse Practitioner; Referring Provider Nurse Practitioner Family; Visit Provider Orthopaedic Surgery | DX: M54.9 Dorsalgia, unspecified (principal) | CPT/HCPCS: 72110; 99204 ==

== ENCOUNTER → 2022-11-20 08:48 | Outpatient (BNVA) | payer MEDICAID, SELFPAY | PROVIDERS: Visit Provider Internal Medicine | DX: E03.9 Hypothyroidism, unspecified (principal); E04.2 Nontoxic multinodular goiter; E11.69 Type 2 diabetes mellitus with other specified complication; E66.9 Obesity, unspecified; E78.5 Hyperlipidemia, unspecified; E11.65 Type 2 diabetes mellitus with hyperglycemia; Z79.4 Long term (current) use of insulin | CPT/HCPCS: 80053; 80061; 82043; 83036; 84439; 84443; 84480 ==

== ENCOUNTER 2022-11-30 06:00 | Outpatient (RCR) | payer MEDICAID, SELFPAY | END 2022-12-30 23:59 | disposition home or self-care (01) | LOC: APT 06:00 | PROVIDERS: PCP Nurse Practitioner; Visit Provider Orthopaedic Surgery | DX: M54.50 Low back pain, unspecified (principal); G89.29 Other chronic pain | CPT/HCPCS: 97110; 97530 ==

== ENCOUNTER 2022-12-07 14:23 | Emergency (ER) | payer MEDICAID, SELFPAY ==
[2022-12-07 14:27] VITALS: BP 120/84; PULSE 76; RESP 16; TEMP 36.4; O2SAT 93; BMI 45.8
[2022-12-07 15:16] VITALS: BP 134/75; PULSE 77; RESP 11; O2SAT 95
--- NOTE | 2022-12-07 15:26 | W.ED.SKABFB ---
Documented by User: TANYA Kerr 12/07/22 15:56 HPI - Skin/Abscess/Foreign Bdy General: Chief complaint: Eye Problems Stated complaint: spot on Left eye Time Seen by Provider: 12/07/22 15:00 History of Present Illness: Patient is a 52-year-old female who comes to the ED with abscess on face. Patient says it started about 2 weeks ago. She had a small white bump that was on the skin of the medial aspect of left lower eyelid. She took some fish antibiotics at home and it continued to get worse. Started to get more red and swollen and dickerson got larger. She saw all a doctor in [facility] 2 days ago and he thought it was a blocked tear duct and he put her on a prescription for clindamycin. Patient has taken 2 full days of the clindamycin. She feels like the abscess has not improved. She now rates the pain about a 7 out of 10. Denies any vision changes or eye redness. Denies any fevers, chills, vomiting. Associated symptoms: Deny chills, fever(s), nausea or vomiting Review of Systems Const: Denies: fever(s), chills or fatigue Eyes: Denies: change in vision or eye discomfort ENMT: Denies: throat pain, odynophagia, nasal discharge or nasal congestion Card: Denies: chest pain, palpitations, edema, swelling of feet/ankles, dyspnea on exertion or orthopnea Resp: Denies: dyspnea, productive cough or non-productive cough GI: Denies: abdominal pain, nausea, vomiting, diarrhea, constipation or hematochezia : Denies: flank pain, dysuria or hematuria Musc: Denies: neck pain, back pain or extremity swelling Skin/Breast: Reports: new lesions (Abscess on face-left lower eyelid); Denies: rash Neuro: Denies: headache(s), numbness in extremities or weakness in extremities PFSH ED PFSH: Medical History Anemia Anxiety and depression Atherosclerosis of coronary artery Carpal tunnel syndrome Chronic diarrhea Chronic neck pain COPD (chronic obstructive pulmonary disease) Diabetes mellitus with hyperglycemia, with long-term current use of insulin Essential hypertension, benign Generalized anxiety disorder GERD (gastroesophageal reflux disease) High risk medication use Hypothyroid Immunization counseling Inflammatory arthritis Intervertebral disc disorders with radiculopathy, lumbosacral region Lateral epicondylitis of both elbows Mixed hyperlipidemia Obesity Peripheral sensory-motor axonal polyneuropathy Positive cardiac stress test Post-traumatic stress disorder, chronic Psychiatric care Seronegative rheumatoid arthritis of both hands Tooth abscess Type 2 diabetes mellitus with other specified complication Vitamin D deficiency Surgical History H/O dilation and curettage H/O oral surgery S/P cholecystectomy S/P endometrial ablation Family History Mother CHF (congestive heart failure) CAD (coronary artery disease) Chronic kidney disease (CKD) Diabetes Lung disease Father CAD (coronary artery disease) CHF (congestive heart failure) Diabetes Grandfather Cancer Grandfather Cancer Family/Other Dementia Sister Stroke Other Hyperlipidemia Hypertension Lupus Rheumatoid arthritis Denies family history of Clotting disorder Suicide Anesthesia complication Bleeding disorder Social History Smoking and tobacco status: former smoker Quit status (tobacco): has quit using tobacco Year quit tobacco: 2010 - 1PPD x 7 Years Second hand smoke exposure: No Smoking risk assessment/counseling performed?: No Alcohol intake: never Desire information about alcohol rehabilitation?: No Counseling given: No Substance/Drug Use: never Desire information about substance/drug rehabilitation?: No Counseling given: No Adopted: No Caregiver/support person: No Household members: spouse Housing: House Marital status: service: No Current occupational status: disabled Do you think of yourself as: Straight/Heterosexual Current gender identity: Female Physical Exam Const: COMMON NORMALS: patient oriented x3 HENMT: COMMON NORMALS: normocephalic HEAD & SCALP: normocephalic MOUTH: Normal oral and palatal mucosa present THROAT: posterior oropharynx normal and uvula midline Neck/C-Spine: COMMON NORMALS: supple GENERAL: Yes normal visual inspection Resp: COMMON NORMALS: normal respiratory effort, No retractions, No use of accessory muscles and clear to auscultation bilaterally AUSCULTATION: clear to auscultation bilaterally Cardio: COMMON NORMALS: regular rate, regular rhythm, S1 normal heart sound present, S2 normal heart sound present, No gallops present (Cardio), No clicks present (Cardio), No murmurs present (Cardio) and Peripheral pulses 2+ throughout RATE: regular rate RHYTHM: regular rhythm HEART SOUNDS: S1 normal heart sound present and S2 normal heart sound present PERIPHERAL PULSES: Peripheral pulses 2+ throughout GI: COMMON NORMALS: Normal to inspection, nondistended, normoactive bowel sounds present, Soft to palpation, non-tender and no masses PALPATION: Yes Soft to palpation : COMMON NORMALS: Yes no CVA tenderness BLADDER/KIDNEY EXAM: Yes no CVA tenderness Back/Pelvis: COMMON NORMALS: no CVA tenderness Extremity: COMMON NORMALS: normal to inspection Neuro: COMMON NORMALS: patient oriented x3 GAIT: Yes Normal gait present Skin: NARRATIVE SKIN EXAM: Patient has skin abscess on medial aspect left lower eyelid close to nasal bridge. It has surrounding erythema and is tender to the touch. Abscess is pointed and is fluctuant to the touch as well. GENERAL SKIN EXAM: dry skin Course Vital Signs: Vital signs: Vital Signs Temperature 97.5 F L 12/07/22 14:27 Pulse Rate 77 12/07/22 15:16 Respiratory Rate 11 L 12/07/22 15:16 Blood Pressure 134/75 12/07/22 15:16 Pulse Oximetry 95 12/07/22 15:16 Oxygen Delivery Me thod Room Air 12/07/22 15:16 Discharge Plan Discharge Patient Disposition: Home Clinical Impression: Abscess Condition: Stable Prescriptions: New amoxicillin-pot clavulanate 875-125 mg tablet 1 tab PO BID 7 Days Qty: 14 0RF mupirocin 2 % ointment 1 applic topical DAILY 7 Days Qty: 15 0RF No Action nitroglycerin 0.4 mg tablet, sublingual 0.4 mg sublingual Q5M PRN (Reason: chest pain) Qty: 30 5RF Rx Instructions: do not exceed 3 doses per episode (DME) Disposable nebulizer circuit with mask See Rx Instructions .ROUTE .MEDSUPPLY Qty: 1 2RF Rx Instructions: As directed albuterol sulfate 2.5 mg /3 mL (0.083 %) solution for nebulization 2.5 mg inhalation Q4H PRN (Reason: shortness of breath or wheezing) Qty: 180 2RF ferrous gluconate 324 mg (38 mg iron) tablet 324 mg PO BID 30 Days Qty: 60 2RF neomycin-polymyxin B-dexameth [Maxitrol] 3.5mg/mL-10,000 unit/mL-0.1 % drops,suspension 1 drp ophthalmic (eye) Q8H Qty: 5 0RF clonazepam 0.5 mg tablet 0.5 mg PO BID PRN (Reason: anxiety) Qty: 60 2RF Rx Instructions: Must last 30 days duloxetine 60 mg capsule,delayed release(DR/EC) See Rx Instructions .ROUTE .COMPLEX Qty: 60 2RF Dose Instruction: TAKE ONE CAPSULE BY MOUTH TWICE DAILY Rx Instructions: TAKE ONE CAPSULE BY MOUTH TWICE DAILY trazodone 100 mg tablet See Rx Instructions .ROUTE .COMPLEX Qty: 60 2RF Dose Instruction: TAKE TWO TABLETS BY MOUTH AT BEDTIME Rx Instructions: TAKE TWO TABLETS BY MOUTH AT BEDTIME rosuvastatin 20 mg tablet 20 mg PO DAILY Qty: 30 2RF pantoprazole 40 mg tablet,delayed release (DR/EC) 40 mg PO DAILY Qty: 30 2RF montelukast 10 mg tablet 10 mg PO DAILY Qty: 30 2RF levothyroxine 50 mcg tablet 50 mcg PO DAILY@10 Qty: 30 2RF Rx Instructions: Take one tablet by mouth daily. gabapentin 600 mg tablet 600 mg PO QID Qty: 120 2RF albuterol sulfate 90 mcg/actuation HFA aerosol inhaler 2 inh inhalation Q6H PRN (Reason: shortness of breath or wheezing) Qty: 6.7 0RF Jardiance 25 mg tablet 25 mg PO DAILY@1000 Qty: 90 0RF Rx Instructions: Take one tablet by mouth daily. (DME) TechLITE Insuln Syr(half unit) 0.3 mL 29 gauge x 1/2 syringe See Rx Instructions .Route Qty: 100 3RF Rx Instructions: use to give insulin (DME) pen needle, diabetic [Comfort EZ Pen Roscoe] 31 gauge x 1/4 needle See Rx Instructions .Route Qty: 200 3RF Rx Instructions: use with Byetta aspirin 81 mg capsule 81 mg PO DAILY Qty: 90 3RF isosorbide mononitrate 30 mg tablet extended release 24 hr 30 mg PO DAILY Qty: 90 3RF Anoro Ellipta 62.5-25 mcg/actuation blister with device 1 inh inhalation DAILY Qty: 60 5RF Trulicity 4.5 mg/0.5 mL pen injector 4.5 mg SUBCUT Q7D 30 Days Qty: 2.5 1RF Rx Instructions: 4.5 mg once weekly for 1 month and continue Trulicity 3 mg/0.5 mL pen injector 3 mg SUBCUT ONCE 30 Days Qty: 15 0RF Rx Instructions: 3mg weekly for 1 month Lantus Solostar U-100 Insulin 100 unit/mL (3 mL) insulin pen 90 unit SUBCUT DAILY@1000 90 Days Qty: 90 1RF Rx Instructions: max dose of 100 units per day Flovent HFA 220 mcg/actuation HFA aerosol inhaler 1 puff inhalation BID Qty: 12 3RF Rx Instructions: NEEDS APPT PRIOR TO FURTHER REFILLS fluticasone propionate 50 mcg/actuation spray,suspension See Rx Instructions .ROUTE .COMPLEX Qty: 16 3RF Dose Instruction: SHAKE LIQUID AND USE TWO SPRAYS IN EACH NOSTRIL TWICE DAILY Rx Instructions: SHAKE LIQUID AND USE TWO SPRAYS IN EACH NOSTRIL TWICE DAILY atenolol 25 mg tablet 25 mg PO DAILY Qty: 30 2RF valsartan [Diovan] 40 mg tablet 40 mg PO DAILY Qty: 30 2RF Discharge Orders: Discharge ED (Routine); Ordered 12/07/22 Ordered By: Jono Peterson Referrals: Carlos Alcala, EVELYN [Primary Care Provider] - Discharge Diet: Regular Discharge Activity: Resume usual activity Activity Restrictions/Additional Instructions: Follow-up with PCP within the next 2 to 3 days for reevaluation. Apply thin layer of mupirocin daily as prescribed. Take medications as prescribed. Return to the ER or your medical provider if condition worsens. Please read and understand discharge instructions. Thank you for choosing [facility] for your healthcare needs today. Please realize this is an emergency room and that we are providing you with a medical screening exam and this may not be complete and all inclusive of all the testing and or work up that you may need to determine your ailment or severity of your illness. It is very important that you follow up as instructed or that you return to the Emergency Department should you have concerns or if your condition changes or worsens in any way. Coding Level of Care Code ED Calendar Control Clerk Blood Bank for Chg Fwd Documented by User: Jan Mcneal DO 12/07/22 15:33 HPI - Skin/Abscess/Foreign Bdy General: Chief complaint: Eye Problems Stated complaint: spot on Left eye Time Seen by Provider: 12/07/22 15:00 PFSH ED PFSH: Medical History Anemia Anxiety and depression Atherosclerosis of coronary artery Carpal tunnel syndrome Chronic diarrhea Chronic neck pain COPD (chronic obstructive pulmonary disease) Diabetes mellitus with hyperglycemia, with long-term current use of insulin Essential hypertension, benign Generalized anxiety disorder GERD (gastroesophageal reflux disease) High risk medication use Hypothyroid Immunization counseling Inflammatory arthritis Intervertebral disc disorders with radiculopathy, lumbosacral region Lateral epicondylitis of both elbows Mixed hyperlipidemia Obesity Peripheral sensory-motor axonal polyneuropathy Positive cardiac stress test Post-traumatic stress disorder, chronic Psychiatric care Seronegative rheumatoid arthritis of both hands Tooth abscess Type 2 diabetes mellitus with other specified complication Vitamin D deficiency Surgical History H/O dilation and curettage H/O oral surgery S/P cholecystectomy S/P endometrial ablation Family History Mother CHF (congestive heart failure) CAD (coronary artery disease) Chronic kidney disease (CKD) Diabetes Lung disease Father CAD (coronary artery disease) CHF (congestive heart failure) Diabetes Grandfather Cancer Grandfather Cancer Family/Other Dementia Sister Stroke Other Hyperlipidemia Hypertension Lupus Rheumatoid arthritis Denies family history of Clotting disorder Suicide Anesthesia complication Bleeding disorder Social History Smoking and tobacco status: former smoker Quit status (tobacco): has quit using tobacco Year quit tobacco: 2010 - 1PPD x 7 Years Second hand smoke exposure: No Smoking risk assessment/counseling performed?: No Alcohol intake: never Desire information about alcohol rehabilitation?: No Counseling given: No Substance/Drug Use: never Desire information about substance/drug rehabilitation?: No Counseling given: No Adopted: No Caregiver/support person: No Household members: spouse Housing: House Marital status: service: No Current occupational status: disabled Do you think of yourself as: Straight/Heterosexual Current gender identity: Female Procedures Abscess I/D Site: face (Left lower eyelid medially) Side (if applicable): left Amount of fluid expressed (mL): 2 Irrigation: No Packing used?: none Course Vital Signs: Vital signs: Vital Signs Temperature 97.5 F L 12/07/22 14:27 Pulse Rate 77 12/07/22 15:16 Respiratory Rate 11 L 12/07/22 15:16 Blood Pressure 134/75 12/07/22 15:16 Pulse Oximetry 95 12/07/22 15:16 Oxygen Delivery Me thod Room Air 12/07/22 15:16 MDM - Skin/Abscess/Foreign Bdy Medicial Decision Making I was asked by TANYA Kerr to see the patient with him. Patient is reporting a abscess on the left lower eyelid medially she been placed on clindamycin for several days ago continue to get bigger is painful to the touch locally erythematous. The abscess is pointing. It is fluctuant to the touch. Palpable this appears separate from the lacrimal duct. Discussed incision and drainage for the patient. At this point given where it is at and the fact that is pointing recommended just incising with a vincent of an 18-gauge needle culturing and expressing any further fluid. Using anesthesia would actually likely be more painful than just incising patient consented to incision and drainage. The overlying skin was cleaned with alcohol then bevel of an 18-gauge needle was used to create approximately half centimeter incision. There was immediate drainage of purulent fluid which was cultured. Expressed the remainder of the purulence manually. Lesion is significantly smaller there was some mild bleeding after expression of fluid this was controlled with direct pressure. Advised applying topical antibiotic antibiotic ointment once twice a day switch from clindamycin to Augmentin and follow-up with primary care if not improving. Discharge Plan Discharge Patient Disposition: Home Clinical Impression: Abscess Condition: Stable Prescriptions: New amoxicillin-pot clavulanate 875-125 mg tablet 1 tab PO BID 7 Days Qty: 14 0RF mupirocin 2 % ointment 1 applic topical DAILY 7 Days Qty: 15 0RF No Action nitroglycerin 0.4 mg tablet, sublingual 0.4 mg sublingual Q5M PRN (Reason: chest pain) Qty: 30 5RF Rx Instructions: do not exceed 3 doses per episode (DME) Disposable nebulizer circuit with mask See Rx Instructions .ROUTE .MEDSUPPLY Qty: 1 2RF Rx Instructions: As directed albuterol sulfate 2.5 mg /3 mL (0.083 %) solution for nebulization 2.5 mg inhalation Q4H PRN (Reason: shortness of breath or wheezing) Qty: 180 2RF ferrous gluconate 324 mg (38 mg iron) tablet 324 mg PO BID 30 Days Qty: 60 2RF neomycin-polymyxin B-dexameth [Maxitrol] 3.5mg/mL-10,000 unit/mL-0.1 % drops,suspension 1 drp ophthalmic (eye) Q8H Qty: 5 0RF clonazepam 0.5 mg tablet 0.5 mg PO BID PRN (Reason: anxiety) Qty: 60 2RF Rx Instructions: Must last 30 days duloxetine 60 mg capsule,delayed release(DR/EC) See Rx Instructions .ROUTE .COMPLEX Qty: 60 2RF Dose Instruction: TAKE ONE CAPSULE BY MOUTH TWICE DAILY Rx Instructions: TAKE ONE CAPSULE BY MOUTH TWICE DAILY trazodone 100 mg tablet See Rx Instructions .ROUTE .COMPLEX Qty: 60 2RF Dose Instruction: TAKE TWO TABLETS BY MOUTH AT BEDTIME Rx Instructions: TAKE TWO TABLETS BY MOUTH AT BEDTIME rosuvastatin 20 mg tablet 20 mg PO DAILY Qty: 30 2RF pantoprazole 40 mg tablet,delayed release (DR/EC) 40 mg PO DAILY Qty: 30 2RF montelukast 10 mg tablet 10 mg PO DAILY Qty: 30 2RF levothyroxine 50 mcg tablet 50 mcg PO DAILY@10 Qty: 30 2RF Rx Instructions: Take one tablet by mouth daily. gabapentin 600 mg tablet 600 mg PO QID Qty: 120 2RF albuterol sulfate 90 mcg/actuation HFA aerosol inhaler 2 inh inhalation Q6H PRN (Reason: shortness of breath or wheezing) Qty: 6.7 0RF Jardiance 25 mg tablet 25 mg PO DAILY@1000 Qty: 90 0RF Rx Instructions: Take one tablet by mouth daily. (DME) TechLITE Insuln Syr(half unit) 0.3 mL 29 gauge x 1/2 syringe See Rx Instructions .Route Qty: 100 3RF Rx Instructions: use to give insulin (DME) pen needle, diabetic [Comfort EZ Pen Roscoe] 31 gauge x 1/4 needle See Rx Instructions .Route Qty: 200 3RF Rx Instructions: use with Byetta aspirin 81 mg capsule 81 mg PO DAILY Qty: 90 3RF isosorbide mononitrate 30 mg tablet extended release 24 hr 30 mg PO DAILY Qty: 90 3RF Anoro Ellipta 62.5-25 mcg/actuation blister with device 1 inh inhalation DAILY Qty: 60 5RF Trulicity 4.5 mg/0.5 mL pen injector 4.5 mg SUBCUT Q7D 30 Days Qty: 2.5 1RF Rx Instructions: 4.5 mg once weekly for 1 month and continue Trulicity 3 mg/0.5 mL pen injector 3 mg SUBCUT ONCE 30 Days Qty: 15 0RF Rx Instructions: 3mg weekly for 1 month Lantus Solostar U-100 Insulin 100 unit/mL (3 mL) insulin pen 90 unit SUBCUT DAILY@1000 90 Days Qty: 90 1RF Rx Instructions: max dose of 100 units per day Flovent HFA 220 mcg/actuation HFA aerosol inhaler 1 puff inhalation BID Qty: 12 3RF Rx Instructions: NEEDS APPT PRIOR TO FURTHER REFILLS fluticasone propionate 50 mcg/actuation spray,suspension See Rx Instructions .ROUTE .COMPLEX Qty: 16 3RF Dose Instruction: SHAKE LIQUID AND USE TWO SPRAYS IN EACH NOSTRIL TWICE DAILY Rx Instructions: SHAKE LIQUID AND USE TWO SPRAYS IN EACH NOSTRIL TWICE DAILY atenolol 25 mg tablet 25 mg PO DAILY Qty: 30 2RF valsartan [Diovan] 40 mg tablet 40 mg PO DAILY Qty: 30 2RF Discharge Orders: Discharge ED (Routine); Ordered 12/07/22 Ordered By: Jono Peterson Referrals: Carlos Alcala, VENTILATING EXPERT-C [Primary Care Provider] - Discharge Diet: Regular Discharge Activity: Resume usual activity Activity Restrictions/Additional Instructions: Follow-up with PCP within the next 2 to 3 days for reevaluation. Apply thin layer of mupirocin daily as prescribed. Take medications as prescribed. Return to the ER or your medical provider if condition worsens. Please read and understand discharge instructions. Thank you for choosing [facility] for your healthcare needs today. Please realize this is an emergency room and that we are providing you with a medical screening exam and this may not be complete and all inclusive of all the testing and or work up that you may need to determine your ailment or severity of your illness. It is very important that you follow up as instructed or that you return to the Emergency Department should you have concerns or if your condition changes or worsens in any way. Coding Level of Care Code ED Calendar Control Clerk Blood Bank for Melissa Rutherford
[2022-12-07] MEDS: mupirocin oint 22 gm 1 APPLIC TOPICAL (15:42)
[2022-12-07 15:59] VITALS: BP 132/71; PULSE 75; RESP 10; O2SAT 96
[2022-12-07 16:02] VITALS: BP 132/71; PULSE 75; RESP 10; O2SAT 96
== END 2022-12-07 16:02 | disposition home or self-care (01) ==
PROVIDERS: Emergency Provider Family Medicine; PCP Nurse Practitioner
DX: H00.035 Abscess of left lower eyelid (principal)
CPT/HCPCS: 67700; 87070; 87075; 87077; 87186; 87205; 99283

== ENCOUNTER 2022-12-19 09:31 | Outpatient (CLI) | payer MEDICAID, SELFPAY ==
--- NOTE | 2022-12-19 10:00 | CT_ITS ---
WS: [id number] CT LUMBAR SPINE TECHNIQUE: Contrast-enhanced CT of the lumbar spine with coronal and sagittal reformatted images. CLINICAL INFORMATION: chronic low back pain/MYELOGRAM COMPARISON: CT lumbar 2019 DLP: 1005.[address] scans at [facility] use at least one of these dose optimization techniques: automated e xposure control; mA and/or kV adjustment per patient size (includes targeted exams where dose is matc hed to clinical indication); or iterative reconstruction. FINDINGS: Mild lumbar curve. Slight anterolisthesis L4 on L5. Lumbar scoliosis convex LEFT. T12-L1: Disc desiccation with mild disc bulging. Slight effacement of the ventral thecal sac. Spinal canal and foramen are patent. L1-L2: Minimal annular bulging. Spinal canal and foramen are patent. L2-L3: No significant disc bulging. Spinal canal and foramen are patent. L3-L4: No significant disc bulging. Mild facet arthropathy. Spinal canal and foramen are patent. L4-L5: Slight anterolisthesis L4 on L5. Mild annular bulging with mild RIGHT and no significant LEFT foraminal narrowing. Mild facet arthropathy. Spinal canal is patent. L5-S1: Tiny shallow central protrusion with slight encroachment on traversing S1 nerve roots. Spinal canal is patent. Mild RIGHT and no significant LEFT foraminal narrowing. Visualized pelvic bony structures: Normal. Paravertebral soft tissues: Normal. Adrenal glands are normal. CT/CT lumbar spine w con [id number] IMPRESSION: 1. Slight anterolisthesis L4 on L5. Lumbar scoliosis convex LEFT. 2. Disc desiccation T12-L1 with mild disc bulging similar to previous. 3. Mild RIGHT L4-L5 and RIGHT L5-S1 foraminal narrowing appears slightly progr essed. 4. Shallow central disc protrusion L5-S1 with slight encroachment traversing S 1 nerve roots. Spinal canal remains patent. 5. Mild facet arthropathy L3-L5.
--- NOTE | 2022-12-19 10:00 | IR_ITS ---
WS: [id number] MYELOGRAM LUMBAR SPINE Fluoroscopic guided lumbar myelogram CLINICAL INFORMATION: chronic low back pain COMPARISON: None. TECHNIQUE: The procedure, including risks, benefits, and complications, were discussed with the patie nt who agreed to proceed. A timeout was performed to confirm correct patient, procedure, and site. Using sterile technique, the patient was prepped and draped in the usual sterile fashion. After admin istration of local anesthesia using 1% preservative-free lidocaine and using fluoroscopic guidance, a 22-gauge spinal needle was advanced into the subarachnoid space at the L4-L5 level. Subsequently 12 cc of Omnipaque 300 was administered into the thecal sac. The needle was removed and hemostasis was a chieved. Spot fluoroscopic images were obtained. FLUOROSCOPIC TIME: 3min [id number] # of spot films: 10 Cholecystectomy clips. 5 nonrib bearing Lumbar vertebral bodies. Disc space heights and vertebral body heights are relatively well-preserved. Disc space narrowing T12-L1 Please see CT myelogram report for additional detail. IR/IR myelogram sp lumbar [id number] IMPRESSION: 1. Uncomplicated lumbar myelogram. 2. Please see CT myelogram report for additional detail.
== END 2022-12-19 09:32 | disposition home or self-care (01) ==
PROVIDERS: PCP Nurse Practitioner; Visit Provider Orthopaedic Surgery
DX: M51.35 Other intervertebral disc degeneration, thoracolumbar region (principal); M51.27 Other intervertebral disc displacement, lumbosacral region; M47.816 Spondylosis without myelopathy or radiculopathy, lumbar region; M48.07 Spinal stenosis, lumbosacral region; M41.9 Scoliosis, unspecified; G89.29 Other chronic pain
CPT/HCPCS: 62304; 72132; Q9966

== ENCOUNTER 2022-12-31 06:00 | Outpatient (RCR) | payer MEDICAID, SELFPAY | END 2023-01-30 23:59 | disposition home or self-care (01) | LOC: APT 06:00 | PROVIDERS: PCP Nurse Practitioner; Visit Provider Orthopaedic Surgery | DX: M54.50 Low back pain, unspecified (principal); G89.29 Other chronic pain | CPT/HCPCS: 97110; 97530 ==

== ENCOUNTER 2023-01-31 06:00 | Outpatient (RCR) | payer MEDICAID, SELFPAY | END 2023-03-01 23:59 | disposition home or self-care (01) | LOC: APT 06:00 | PROVIDERS: PCP Nurse Practitioner; Visit Provider Orthopaedic Surgery | DX: M54.50 Low back pain, unspecified (principal); G89.29 Other chronic pain | CPT/HCPCS: 97110; 97530 ==

== ENCOUNTER → 2023-03-04 08:12 | Outpatient (BNVA) | payer MEDICAID, SELFPAY | PROVIDERS: PCP Nurse Practitioner; Visit Provider Internal Medicine | DX: E11.69 Type 2 diabetes mellitus with other specified complication (principal); E03.9 Hypothyroidism, unspecified; E11.65 Type 2 diabetes mellitus with hyperglycemia; Z79.4 Long term (current) use of insulin | CPT/HCPCS: 80053; 80061; 82043; 83036; 84439; 84443 ==

== ENCOUNTER → 2023-04-17 10:29 | Outpatient (BNVA) | payer MEDICAID, SELFPAY | PROVIDERS: PCP Nurse Practitioner; Visit Provider Internal Medicine Pulmonary Disease | DX: J82.83 Eosinophilic asthma (principal); Z87.891 Personal history of nicotine dependence | CPT/HCPCS: 99214 ==

== ENCOUNTER → 2023-08-06 11:23 | Outpatient (BNVA) | payer MEDICAID, SELFPAY ==
[2023-08-04 10:06] VITALS: BP 152/82; BMI 46.6
== END ==
PROVIDERS: PCP Nurse Practitioner; Visit Provider Nurse Practitioner Family
DX: M25.571 Pain in right ankle and joints of right foot (principal); R06.89 Other abnormalities of breathing
CPT/HCPCS: 71046; 73610

== ENCOUNTER → 2023-08-15 08:50 | Outpatient (BNVA) | payer MEDICAID, SELFPAY ==
[2023-08-04 10:06] VITALS: BP 152/82; BMI 46.6
== END ==
PROVIDERS: PCP Nurse Practitioner; Visit Provider Internal Medicine
DX: E11.69 Type 2 diabetes mellitus with other specified complication (principal); E03.9 Hypothyroidism, unspecified; E78.5 Hyperlipidemia, unspecified; E04.2 Nontoxic multinodular goiter; E11.65 Type 2 diabetes mellitus with hyperglycemia; Z79.4 Long term (current) use of insulin
CPT/HCPCS: 80053; 80061; 82043; 83036; 84439; 84443

== ENCOUNTER → 2023-08-18 07:52 | Outpatient (BNVA) | payer MEDICAID, SELFPAY ==
[2023-08-04 10:06] VITALS: BP 152/82; BMI 46.6
== END ==
PROVIDERS: PCP Nurse Practitioner; Visit Provider Internal Medicine
DX: E11.69 Type 2 diabetes mellitus with other specified complication (principal); E03.9 Hypothyroidism, unspecified; E78.5 Hyperlipidemia, unspecified; E04.2 Nontoxic multinodular goiter; E66.9 Obesity, unspecified; E11.65 Type 2 diabetes mellitus with hyperglycemia; Z79.4 Long term (current) use of insulin; M21.40 Flat foot [pes planus] (acquired), unspecified foot
CPT/HCPCS: 99203; 99214

== ENCOUNTER 2023-09-16 14:36 | Outpatient (CLI) | payer MEDICAID, SELFPAY ==
[2023-08-04 10:06] VITALS: BP 152/82; BMI 46.6
--- NOTE | 2023-09-16 14:45 | USCV_ITS ---
Brie Beltrán Age: 53 Gender: F : 1970 Exam Date: 09/16/2023 14:55 Ordering Phys: Amina Lawrence SALES TRAINING MANAGER-C Technologist: CT Exam Location: [facility] – [place] Indication: HISTORY: Lower extremity pain. PROCEDURES: Venous duplex imaging was performed in only the right lower extremity. The following venous structures were evaluated: common femoral vein, profunda vein, proximal portion of the greater saphenous vein, superficial femoral vein, and the popliteal vein. In addition, the posterior tibial and peroneal trunk were evaluated. Serial compression, augmentation maneuvers, and spectral Doppler flow evaluation were performed. FINDINGS: No evidence of DVT seen in any vessel visualized at this time. CONCLUSIONS No evidence of right lower extremity DVT. Daniel Young MD (Electronically Signed) Final Date: 17 September 2023 11:38 S
== END 2023-09-16 14:37 | disposition home or self-care (01) ==
LOC: RAD 14:37
PROVIDERS: PCP Nurse Practitioner; Visit Provider Nurse Practitioner Family
DX: M25.571 Pain in right ankle and joints of right foot (principal); M25.471 Effusion, right ankle; I10 Essential (primary) hypertension; I25.10 Atherosclerotic heart disease of native coronary artery without angina pectoris; E78.5 Hyperlipidemia, unspecified; Z79.899 Other long term (current) drug therapy; F41.1 Generalized anxiety disorder; E11.65 Type 2 diabetes mellitus with hyperglycemia; Z79.4 Long term (current) use of insulin
CPT/HCPCS: 93971; 99213

== ENCOUNTER → 2023-10-02 10:15 | Outpatient (BNVA) | payer MEDICAID, SELFPAY ==
[2023-08-04 10:06] VITALS: BP 152/82; BMI 46.6
== END ==
PROVIDERS: PCP Nurse Practitioner; Visit Provider Internal Medicine
DX: E11.69 Type 2 diabetes mellitus with other specified complication (principal); E03.9 Hypothyroidism, unspecified; E78.5 Hyperlipidemia, unspecified; E04.2 Nontoxic multinodular goiter; E66.9 Obesity, unspecified; Z68.42 Body mass index [BMI] 45.0-49.9, adult; Z79.4 Long term (current) use of insulin; Z79.84 Long term (current) use of oral hypoglycemic drugs; Z79.890 Hormone replacement therapy
CPT/HCPCS: 99214

== ENCOUNTER 2023-11-05 15:39 | Emergency (ER) | payer SELFPAY ==
[2023-08-04 10:06] VITALS: BP 152/82; BMI 46.6
[2023-11-05 15:42] VITALS: BP 132/88; PULSE 74; TEMP 36.4; O2SAT 96
--- NOTE | 2023-11-05 15:53 | CTR_ITS ---
PROCEDURE INFORMATION: Exam: CT Maxillofacial With Contrast Exam date and time: 11/05/2023 4:46 PM Age: 53 years old Clinical indication: Other: See below; Patient HX: Inflamationa and redness to inner corner of left eye and all around eye, pain; Additional info: Abscess/pain with eom TECHNIQUE: Imaging protocol: Computed tomography of the face with contrast. Radiation optimization: All CT scans at this facility use at least one of these dose optimization techniques: automated exposure control; mA and/or kV adjustment per patient size (includes targeted exams where dose is matched to clinical indication); or iterative reconstruction. Contrast material: OMNI 350; Contrast volume: 100 ml; Contrast route: INTRAVENOUS (IV); COMPARISON: US thyroid [id number] 04/29/2022 10:17 AM RADIATION DOSE METRICS: Total DLP (mGy-cm): 629 FINDINGS: Orbital cavities: There is a 2 cm oval fluid collection lying in the medial aspect of the left orbit. There is surrounding soft tissue swelling that involves the left eyelid. The fluid collection extends into the nasolacrimal duct. Paranasal sinuses: Normal. No air-fluid levels. Bones: No acute fracture. Soft tissues: See Orbital cavities finding. CT/CT facial bones w con [id number] IMPRESSION: 2 cm left nasolacrimal duct mucocele
--- NOTE | 2023-11-05 16:02 | W.ED.EYEPROB ---
HPI - Eye Problem General: Chief complaint: Eye Problems Stated complaint: Eye pain Time Seen by Provider: 11/05/23 15:48 Source: patient Mode of arrival: ambulatory Limitations: no limitations History of Present Illness: Patient is a 53-year-old female who presents to the emergency department complaining of left eye redness and swelling onset for the past few days. She states she was seen at [facility] couple days ago, was prescribed Augmentin for a periorbital cellulitis. She since has developed a focal area of swelling/abscess to the left nasolacrimal area, and states she has had this issue before that required drainage in the emergency department. She is denying any fever, though is now reporting that she is having some changes in vision as well as pain with extraocular movement. No nausea or vomiting reported. No headaches. No other symptoms to report at this time. She is only taken her Augmentin for 1 day. chief complaint: eye pain, eye redness and vision change Onset (ago): day(s) Onset description: sudden Duration: constant and progressively worsening Location: left eye Severity: severe Severity scale (1-10): 10 If Pain, Quality: sharp Associated symptoms: Denies fever(s), headache(s), nausea, neck pain or vomiting Treatments Prior to Arrival: other (Antibiotic) Review of Systems General: Reports: 10 or more systems reviewed and unremarkable except in HPI and below Const: Denies: fever(s), chills or fatigue Eyes: Reports: change in vision, eye redness (Plus periorbital swelling) and other (Pain with extraocular movement) ENMT: Denies: throat pain, ear or mastoid pain or nasal discharge Card: Denies: chest pain, palpitations, swelling of feet/ankles or lightheadedness Resp: Denies: dyspnea, productive cough or wheezing GI: Denies: abdominal pain, nausea, vomiting, diarrhea or constipation : Denies: flank pain, difficulty voiding, dysuria or urinary frequency Musc: Denies: neck pain, back pain or joint pain Skin/Breast: Denies: rash Neuro: Denies: headache(s), numbness in extremities or weakness in extremities PFSH ED PFSH: Medical History Tooth abscess Diabetes mellitus with hyperglycemia, with long-term current use of insulin Atherosclerosis of coronary artery Positive cardiac stress test Seronegative rheumatoid arthritis of both hands Psychiatric care Lateral epicondylitis of both elbows Immunization counseling High risk medication use Inflammatory arthritis Carpal tunnel syndrome Peripheral sensory-motor axonal polyneuropathy Chronic diarrhea Post-traumatic stress disorder, chronic Generalized anxiety disorder Obesity Anemia Chronic neck pain Anxiety and depression Vitamin D deficiency Type 2 diabetes mellitus with other specified complication Mixed hyperlipidemia Intervertebral disc disorders with radiculopathy, lumbosacral region GERD (gastroesophageal reflux disease) Essential hypertension, benign Hypothyroid COPD (chronic obstructive pulmonary disease) Surgical History H/O oral surgery S/P endometrial ablation H/O dilation and curettage S/P cholecystectomy Family History Mother Congestive heart failure (CHF) CAD (coronary artery disease) Chronic kidney disease (CKD) Diabetes Lung disease Father CAD (coronary artery disease) Congestive heart failure (CHF) Diabetes Grandfather Cancer Grandfather Cancer Family/Other Dementia Sister Stroke Other Hyperlipidemia Hypertension Lupus Rheumatoid arthritis Denies family history of Clotting disorder Suicide Anesthesia complication Bleeding disorder Social History Smoking and tobacco/nicotine status: former use of tobacco/nicotine Quit status (tobacco/nicotine): has quit using Year quit tobacco: 2010 - 1PPD x 7 Years Second hand smoke exposure: No Alcohol intake: never Substance/Drug Use: never Adopted: No Caregiver/support person: No Household members: spouse Housing: House Marital status: service: No Current occupational status: disabled Do you think of yourself as: Straight/Heterosexual Current gender identity: Female Physical Exam Const: COMMON NORMALS: no acute distress, patient oriented x3, no limitations, healthy appearing and alert GENERAL APPEARANCE: cooperative NUTRITIONAL APPEARANCE: obese ORIENTATION/CONSCIOUSNESS: Yes awake HENMT: COMMON NORMALS: normocephalic, atraumatic, external ears normal and Normal external nose present HEAD & SCALP: normocephalic and atraumatic FACE & SINUS: sinuses nontender NOSE: Normal external nose present EXTERNAL EAR: Yes external ears normal MOUTH: Normal oral and palatal mucosa present THROAT: posterior oropharynx normal Eye: COMMON NORMALS: Equal, round and reactive pupils present and conjunctivae normal CONJUNCTIVA: Yes conjunctivae normal PUPIL: Yes Equal, round and reactive pupils present OTHER: There is inferior swelling and redness to the left eye, with a palpable area of fluctuance noted adjacent to the nasolacrimal duct. Mild pain noted with extraocular movements. No scleral injection or concerning conjunctival findings. The erythematous area is exquisitely tender to the touch. Neck/C-Spine: COMMON NORMALS: full ROM and no lymphadenopathy Resp: COMMON NORMALS: normal respiratory effort, No use of accessory muscles and clear to auscultation bilaterally AUSCULTATION: clear to auscultation bilaterally Cardio: COMMON NORMALS: regular rate, regular rhythm, No clicks present (Cardio), No murmurs present (Cardio) and No rub (Cardio) RATE: regular rate RHYTHM: regular rhythm Extremity: COMMON NORMALS: normal to inspection and full ROM Neuro: COMMON NORMALS: patient oriented x3, moves all extremities, no focal motor deficits and no sensory deficits noted SENSORIUM/ORIENTATION: Yes alert Skin: COMMON NORMALS: no rashes or lesions noted GENERAL SKIN EXAM: no rashes or lesions noted Course Vital Signs: Vital signs: Vital Signs Temperature 97.6 F 11/05/23 15:42 Pulse Rate 86 11/05/23 17:44 Blood Pressure 135/90 11/05/23 17:44 Pulse Oximetry 97 11/05/23 17:44 Oxygen Delivery Me thod Room Air 11/05/23 15:42 [facility] - Eye Problem Medical Decision Making Patient presented with swelling to the medial inferior aspect of the left eye. Currently on Augmentin. Has history of same, states in the past it was drained though it came back 2 days ago. States she is currently in the process of getting follow-up with ophthalmology. Due to her pain with extraocular movements and some visual changes, I did want a CT to rule out any extension of the periorbital cellulitis into the orbital space, which was negative. Clinical evidence of a mucocele, and I informed patient that this is treated with warm compress and further evaluation from ophthalmology to potentially remove the duct as it keeps getting obstructed. She is to keep taking her Augmentin for her periorbital cellulitis, and take Tylenol or ibuprofen for pain. Reasons to return were discussed, and she will follow-up with ophthalmology this week. Lab Data Radiology Impressions Face CT 11/05/23 15:53 IMPRESSION: 2 cm left nasolacrimal duct mucocele All radiology interpretation(s) finalized by discharge Discharge Plan Discharge Patient Disposition: Home Clinical Impression: Mucocele of lacrimal sac of left eye Condition: Stable Prescriptions: No Action (DME) Disposable nebulizer circuit with mask See Rx Instructions .ROUTE .MEDSUPPLY Qty: 1 2RF Rx Instructions: As directed albuterol sulfate 2.5 mg /3 mL (0.083 %) solution for nebulization 2.5 mg inhalation Q4H PRN (Reason: shortness of breath or wheezing) Qty: 180 2RF albuterol sulfate 90 mcg/actuation HFA aerosol inhaler 2 inh inhalation Q6H PRN (Reason: shortness of breath or wheezing) Qty: 6.7 0RF gabapentin 600 mg tablet 600 mg PO DAILY Qty: 30 2RF Trulicity 0.75 mg/0.5 mL pen injector 0.75 mg SUBCUT Q7D 90 Days Qty: 6.5 0RF Trulicity 1.5 mg/0.5 mL pen injector 1.5 mg SUBCUT Q7D 90 Days Qty: 6.5 0RF (DME) Diabetic shoes See Rx Instructions .ROUTE .MEDSUPPLY Qty: 1 0RF Rx Instructions: With 3 pairs of inserts aspirin 81 mg capsule 81 mg PO DAILY Qty: 90 3RF Anoro Ellipta 62.5-25 mcg/actuation blister with device 1 inh inhalation DAILY Qty: 60 5RF Flovent HFA 220 mcg/actuation HFA aerosol inhaler 1 puff inhalation BID Qty: 12 3RF Rx Instructions: NEEDS APPT PRIOR TO FURTHER REFILLS (DME) pen needle, diabetic [TechLITE Pen Needle] 32 gauge x 5/32 needle See Rx Instructions .ROUTE .COMPLEX Qty: 200 3RF Dose Instruction: USE WITH BYETTA Rx Instructions: USE WITH BYETTA (DME) TechLITE Insuln Syr(half unit) 0.3 mL 29 gauge x 1/2 syringe See Rx Instructions .Route Qty: 100 3RF Rx Instructions: use to give insulin clonazepam 0.5 mg tablet 0.5 mg PO BID PRN (Reason: anxiety) Qty: 60 2RF Rx Instructions: Must last 30 days Lantus Solostar U-100 Insulin 100 unit/mL (3 mL) insulin pen See Rx Instructions .ROUTE .COMPLEX Qty: 90 1RF Dose Instruction: INJECT 90 UNIT (0.9mL) UNDER SKIN DAILY AT 10:00 IN THE MORNING; MAX DOSE 100 UNITS PER DAY Rx Instructions: INJECT 90 UNIT (0.9mL) UNDER SKIN DAILY AT 10:00 IN THE MORNING; MAX DOSE 100 UNITS PER DAY nitroglycerin 0.4 mg tablet, sublingual 0.4 mg sublingual Q5M PRN (Reason: chest pain) Qty: 30 5RF Rx Instructions: do not exceed 3 doses per episode levothyroxine 50 mcg tablet 50 mcg PO DAILY@10 Qty: 30 2RF Rx Instructions: Take one tablet by mouth daily. rosuvastatin 20 mg tablet 20 mg PO DAILY Qty: 30 2RF isosorbide mononitrate 30 mg tablet extended release 24 hr 30 mg PO DAILY Qty: 30 2RF pantoprazole 40 mg tablet,delayed release (DR/EC) 40 mg PO DAILY Qty: 30 2RF (DME) Dexcom G7 Bank President Misc See Rx Instructions .Route Qty: 1 0RF Rx Instructions: As directed (DME) Dexcom G7 Sensor Device See Rx Instructions .Route Qty: 3 3RF Rx Instructions: As directed change every 10 days fluticasone propionate 50 mcg/actuation spray,suspension See Rx Instructions .ROUTE .COMPLEX Qty: 16 6RF Dose Instruction: SHAKE LIQUID AND USE TWO SPRAYS IN EACH NOSTRIL TWICE DAILY Rx Instructions: SHAKE LIQUID AND USE TWO SPRAYS IN EACH NOSTRIL TWICE DAILY duloxetine 60 mg capsule,delayed release(DR/EC) See Rx Instructions .ROUTE .COMPLEX Qty: 60 2RF Dose Instruction: TAKE ONE CAPSULE BY MOUTH TWICE DAILY Rx Instructions: TAKE ONE CAPSULE BY MOUTH TWICE DAILY trazodone 100 mg tablet See Rx Instructions .ROUTE .COMPLEX Qty: 60 2RF Dose Instruction: TAKE TWO TABLETS BY MOUTH AT BEDTIME Rx Instructions: TAKE TWO TABLETS BY MOUTH AT BEDTIME atenolol 25 mg tablet 25 mg PO DAILY Qty: 90 3RF glipizide 5 mg tablet See Rx Instructions .ROUTE .COMPLEX Qty: 90 0RF Dose Instruction: TAKE ONE TABLET BY MOUTH THREE TIMES DAILY NEEDED Rx Instructions: TAKE ONE TABLET BY MOUTH THREE TIMES DAILY NEEDED Jardiance 25 mg tablet See Rx Instructions .ROUTE .COMPLEX Qty: 60 0RF Dose Instruction: TAKE ONE TABLET BY MOUTH DAILY AT 10:00 IN THE MORNING Rx Instructions: TAKE ONE TABLET BY MOUTH DAILY AT 10:00 IN THE MORNING Discharge Orders: Discharge ED (Routine); Ordered 11/05/23 Ordered By: Shay Adler Referrals: Carlos Alcala, JENNIFERC [Primary Care Provider] - Discharge Diet: Usual diet Discharge Activity: Increase activity as tolerated Patient Instructions: Blocked Tear Duct (ED) Activity Restrictions/Additional Instructions: Continue Augmentin. Warm compresses every 30-45 minutes. Follow-up with ophthalmology as discussed. Ibuprofen or Tylenol for pain. Return with any new or worsening symptoms. Coding Level of Care Code ED Cager Operator for Melissa Rutherford
[2023-11-05] MEDS: iohexol 350 mg/mL 500 mL Btl (per mL) IV (16:49)
[2023-11-05 17:44] VITALS: BP 135/90; PULSE 86; O2SAT 97
== END 2023-11-05 17:43 | disposition home or self-care (01) ==
PROVIDERS: Emergency Provider Physician Assistant; PCP Nurse Practitioner
DX: H04.432 Chronic lacrimal mucocele of left lacrimal passage (principal); Z79.85 Long-term (current) use of injectable non-insulin antidiabetic drugs; Z79.82 Long term (current) use of aspirin; Z79.4 Long term (current) use of insulin; Z79.84 Long term (current) use of oral hypoglycemic drugs; Z87.891 Personal history of nicotine dependence; E11.9 Type 2 diabetes mellitus without complications; I25.10 Atherosclerotic heart disease of native coronary artery without angina pectoris; E78.2 Mixed hyperlipidemia; I10 Essential (primary) hypertension; J44.9 Chronic obstructive pulmonary disease, unspecified
CPT/HCPCS: 70487; 99285; Q9967

== ENCOUNTER 2023-11-24 17:14 | Inpatient (IN) | payer SELFPAY ==
[2023-08-04 10:06] VITALS: BP 152/82; BMI 46.6
--- NOTE | 2023-11-24 17:15 | XRR_ITS ---
PROCEDURE INFORMATION: Exam: XR Chest Exam date and time: 11/24/2023 5:32 PM Age: 53 years old Clinical indication: Pain; Shortness of breath; Chest pressure; Additional info: Cp TECHNIQUE: Imaging protocol: Radiologic exam of the chest. Views: 1 view. COMPARISON: CR XR chest 2V* [id number] 08/06/2023 11:22 AM FINDINGS: Lungs: Moderate right lower lung field opacities most consistent with pneumonia. Pleural spaces: Unremarkable. No pleural effusion. No pneumothorax. Heart/Mediastinum: Unremarkable. No cardiomegaly. Bones/joints: Dextroscoliosis. XR/XR chest 1V portable [id number] IMPRESSION: Moderate right lower lung field opacities most consistent with pneumonia.
--- NOTE | 2023-11-24 17:19 | ECG_ITS ---
[facility] Test Date: 2023-11-24 Pat Name: Brie Beltrán Department: Room: Gender: Female Pediatric Dietician: : 1970 Requested By: Melany Ramirez Order Number: [id number] Gayle MD: Lan Carey M.D. Measurements Intervals [place] Rate: 92 P: 31 DE: 150 QRS: -8 QRSD: 78 T: 33 QT: 333 QTc: 414 Interpretive Statements SINUS RHYTHM LOW QRS VOLTAGE IN PRECORDIAL LEADS [QRS DEFLECTION < 1.0 mV IN CHEST LEADS] POSSIBLE ANTERIOR MYOCARDIAL INFARCTION , PROBABLY OLD [30 ms Q WAVE IN V3/V4, OR R < 0.2 mV IN V4] Compared to ECG 08/02/2021 18:14:31 No significant changes Electronically Signed On 11-25-2023 23:41:47 CDT by Lan Carey M.D. [email or web address]
[2023-11-24 17:37] VITALS: BP 104/71; PULSE 94; RESP 20; TEMP 37.3; O2SAT 91; BMI 46.6
[2023-11-24 17:39] LABS: Basophils # 0.1 10^3/uL (0.0-0.1); Basophils % 0.5 %; Eosinophils # 0.3 10^3/uL (0.0-0.8); Eosinophils % 2.5 %; Hematocrit 42.4 % (36-47); Lymphocytes # 2.2 10^3/uL (0.8-4.8); Lymphocytes % 17.3 %; Mean Corpuscular HGB Conc 31.4 g/dL (30-55); Mean Corpuscular Hemoglobin 25.1 pg (27-33); Mean Platelet Volume 9.6 fL (7.4-10.4); Monocytes # 0.7 10^3/uL (0.2-0.9); Monocytes % 5.8 %; Neutrophils # 9.26 10^3/uL (1.8-7.7); Neutrophils % 73.3 %; Nucleated Red Blood Cells % 0 %; Platelet Count 306 10^3/cmm (157-399); Red Cell Distribution Width 17.1 % (12.1-15.1); White Blood Count 12.61 10^3/uL (3.29-11.43)
[2023-11-24 17:54] LABS: Troponin(5th) Baseline < 6 ng/L (0-10)
[2023-11-24 17:55] LABS: Alanine Aminotransferase 15 U/L (0-33); Albumin Level 3.9 g/dL (3.5-5.2); Alkaline Phosphatase 108 U/L (35-105); Anion Gap 15.7 (5-19); Aspartate Amino Transferase 10 U/L (0-32); Blood Urea Nitrogen 13 mg/dL (6-20); Calcium 9.3 mg/dL (8.5-10.5); Carbon Dioxide 22 mmol/L (22-29); Chloride 101 mmol/L (98-107); Creatinine Clr Calc Pharmacy 114.5653; Globulin 3.6 g/dL (1.3-4.6); Glomerular Filtration Rate 88.2 mL/min (90-130); Glucose 142 mg/dL (65-115); Lipase 41 U/L (13-60); Osmolality Calculated 281 mOsm/kg (285-295); Potassium 4.7 mmol/L (3.5-5.1); Sodium 134 mmol/L (136-145); Total Bilirubin 0.4 mg/dL (0.15-1.2); Total Protein 7.5 g/dL (6.6-8.7)
--- NOTE | 2023-11-24 18:06 | ED_ITS ---
HPI - Chest Pain 2 General: Chief Complaint: Chest Pain Stated Complaint: Chest pains, sob Time Seen by Provider: 11/24/23 17:17 Source: patient Mode of arrival: ambulatory Limitations: no limitations History of Present Illness: 53-year-old female states that over the last 3 days she has been having increasing cough and low-grade fever and shortness of breath. States she had wheezing she been doing breathing treatments with minimal improvement. States cough has been productive gets very short of breath with exertion she states she been having sharp chest pains after coughing. Associated symptoms: Reports dyspnea; Deny abdominal pain, fever(s), nausea or vomiting Review of Systems 2 Const: Denies: fever(s), chills, body aches or change in appetite ENMT: Denies: throat pain or dental pain Card: Reports: chest pain Resp: Reports: dyspnea, productive cough and wheezing GI: Denies: abdominal pain, nausea, vomiting or diarrhea Musc: Denies: neck pain or back pain Skin/Breast: Denies: rash Neuro: Denies: headache(s) PFSH ED 2 PFSH: Medical History Tooth abscess Diabetes mellitus with hyperglycemia, with long-term current use of insulin Atherosclerosis of coronary artery Positive cardiac stress test Seronegative rheumatoid arthritis of both hands Psychiatric care Lateral epicondylitis of both elbows Immunization counseling High risk medication use Inflammatory arthritis Carpal tunnel syndrome Peripheral sensory-motor axonal polyneuropathy Chronic diarrhea Post-traumatic stress disorder, chronic Generalized anxiety disorder Obesity Anemia Chronic neck pain Anxiety and depression Vitamin D deficiency Type 2 diabetes mellitus with other specified complication Mixed hyperlipidemia Intervertebral disc disorders with radiculopathy, lumbosacral region GERD (gastroesophageal reflux disease) Essential hypertension, benign Hypothyroid COPD (chronic obstructive pulmonary disease) Surgical History H/O oral surgery S/P endometrial ablation H/O dilation and curettage S/P cholecystectomy Family History Mother Congestive heart failure (CHF) CAD (coronary artery disease) Chronic kidney disease (CKD) Diabetes Lung disease Father CAD (coronary artery disease) Congestive heart failure (CHF) Diabetes Grandfather Cancer Grandfather Cancer Family/Other Dementia Sister Stroke Other Hyperlipidemia Hypertension Lupus Rheumatoid arthritis Denies family history of Clotting disorder Suicide Anesthesia complication Bleeding disorder Social History Smoking and tobacco/nicotine status: former use of tobacco/nicotine Quit status (tobacco/nicotine): has quit using Year quit tobacco: 2010 - 1PPD x 7 Years Second hand smoke exposure: No Alcohol intake: never Substance/Drug Use: never Adopted: No Caregiver/support person: No Household members: spouse Housing: House Marital status: service: No Current occupational status: disabled Do you think of yourself as: Straight/Heterosexual Current gender identity: Female Physical Exam 2 Const: COMMON NORMALS: no acute distress, patient oriented x3 and healthy appearing HENMT: COMMON NORMALS: normocephalic and atraumatic HEAD & SCALP: n ormocephalic and atraumatic Neck/C-Spine: COMMON NORMALS: full ROM and supple Chest: COMMONS NORMALS: normal inspection of the chest Resp: COMMON NORMALS: No retractions EFFORT & INSPECTION: Yes respiratory distress AUSCULTATION: rhonchi Cardio: COMMON NORMALS: regular rate, regular rhythm and No murmurs present (Cardio) RATE: regular rate RHYTHM: regular rhythm GI: COMMON NORMALS: Normal to inspection, nondistended, normoactive bowel sounds present, Soft to palpation, non-tender and no masses PALPATION: Yes Soft to palpation Extremity: COMMON NORMALS: normal to inspection and full ROM Neuro: COMMON NORMALS: patient oriented x3, moves all extremities and no focal motor deficits Psych: COMMON NORMALS: mental status grossly normal, Normal thought process present and cooperative THOUGHT PROCESS: Normal thought process present Skin: COMMON NORMALS: no rashes or lesions noted and no wounds GENERAL SKIN EXAM: no rashes or lesions noted Course 2 Vital Signs: Vital signs: Vital Signs Temperature 99.2 F 11/24/23 17:37 Pulse Rate 94 11/24/23 17:37 Respiratory Rate 20 H 11/24/23 17:37 Blood Pressure 104/71 11/24/23 17:37 Pulse Oximetry 91 11/24/23 17:37 Oxygen Delivery Me thod Room Air 11/24/23 17:37 MDM - Chest Pain Medical Decision Making Patient presents with cough fever shortness of breath does have a right lower lobe pneumonia spoke to hospitalist will admit at this time she has some slight hypoxia with a history of COPD did give her a dose of antibiotics in the ER Medical Records I reviewed the patient's medical records. Lab Data I reviewed the patient's lab results. 11/24/23 17:28 11/24/23 17:28 Laboratory Results WBC 12.61 10^3/uL (3.29-11.43) H 11/24/23 17:28 RBC 5.30 10^6/uL (3.85-5.65) 11/24/23 17:28 Hgb 13.30 g/dL (11.27-16.99) 11/24/23 17:28 Hct 42.4 % (36-47) 11/24/23 17:28 MCV 80.0 fl (85-98) L 11/24/23 17: MCH 25.1 pg (27-33) L 11/24/23 17: MCHC 31.4 g/dL (30-55) 11/24/23 17: RDW 17.1 % (12.1-15.1) H 11/24/23 17:28 Plt Count 306 10^3/cmm (157-399) 11/24/23 17:28 MPV 9.6 fL (7.4-10.4) 11/24/23 17:28 Neut % (Auto) 73.3 % 11/24/23 17:28 Lymph % (Auto) 17.3 % 11/24/23 17:28 Rich % (Auto) 5.8 % 11/24/23 17:28 Eos % (Auto) 2.5 % 11/24/23 17:28 Baso % (Auto) 0.5 % 11/24/23 17:28 Neut # (Auto) 9.26 10^3/uL (1.8-7.7) H 11/24/23 17:28 Lymph # (Auto) 2.2 10^3/uL (0.8-4.8) 11/24/23 17:28 Rich # (Auto) 0.7 10^3/uL (0.2-0.9) 11/24/23 17:28 Eos # (Auto) 0.3 10^3/uL (0.0-0.8) 11/24/23 17:28 Baso # (Auto) 0.1 10^3/uL (0.0-0.1) 11/24/23 17:28 Nucleated RBC % (auto) 0 % 11/24/23 17:28 Nucleated RBCs # 0.0 /100WBC 11/24/23 17:28 Sodium 134 mmol/L (136-145) L 11/24/23 17:28 Potassium 4.7 mmol/L (3.5-5.1) 11/24/23 17:28 Chloride 101 mmol/L (98-107) 11/24/23 17:28 Carbon Dioxide 22 mmol/L (22-29) 11/24/23 17:28 Anion Gap 15.7 (5-19) 11/24/23 17:28 BUN 13 mg/dL (6-20) 11/24/23 17:28 Creatinine 0.7 mg/dL (0.5-0.9) 11/24/23 17:28 GFR Calculation 88.2 mL/min (90-130) L 11/24/23 17:28 Glucose 142 mg/dL (65-115) H 11/24/23 17:28 Calculated Osmolality 281 mOsm/kg (285-295) L 11/24/23 17:28 Calcium 9.3 mg/dL (8.5-10.5) 11/24/23 17:28 Total Bilirubin 0.4 mg/dL (0.15-1.2) 11/24/23 17:28 AST 10 U/L (0-32) 11/24/23 17:28 ALT 15 U/L (0-33) 11/24/23 17:28 Alkaline Phosphatase 108 U/L (35-105) H 11/24/23 17:28 Troponin T Baseline < 6 ng/L (0-10) 11/24/23 17:28 Total Protein 7.5 g/dL (6.6-8.7) 11/24/23 17:28 Albumin 3.9 g/dL (3.5-5.2) 11/24/23 17:28 Globulin 3.6 g/dL (1.3-4.6) 11/24/23 17:28 Lipase 41 U/L (13-60) 11/24/23 17:28 XR interpretation done by ED provider, pending radiology final review ED provider radiology interpretation(s): Chest x-ray right lower lobe pneumonia Discharge Plan Discharge Patient Disposition: Admitted As Inpatient Clinical Impression: Right lower lobe pneumonia Condition: Stable Prescriptions: No Action (DME) Disposable nebulizer circuit with mask See Rx Instructions .ROUTE .MEDSUPPLY Qty: 1 2RF Rx Instructions: As directed albuterol sulfate 2.5 mg /3 mL (0.083 %) solution for nebulization 2.5 mg inhalation Q4H PRN (Reason: shortness of breath or wheezing) Qty: 180 2RF albuterol sulfate 90 mcg/actuation HFA aerosol inhaler 2 inh inhalation Q6H PRN (Reason: shortness of breath or wheezing) Qty: 6.7 0RF gabapentin 600 mg tablet 600 mg PO DAILY Qty: 30 2RF Trulicity 0.75 mg/0.5 mL pen injector 0.75 mg SUBCUT Q7D 90 Days Qty: 6.5 0RF Trulicity 1.5 mg/0.5 mL pen injector 1.5 mg SUBCUT Q7D 90 Days Qty: 6.5 0RF (DME) Diabetic shoes See Rx Instructions .ROUTE .MEDSUPPLY Qty: 1 0RF Rx Instructions: With 3 pairs of inserts clonazepam 0.5 mg tablet 0.5 mg PO BID PRN (Reason: anxiety) Qty: 60 2RF Rx Instructions: Must last 30 days duloxetine 60 mg capsule,delayed release(DR/EC) See Rx Instructions .ROUTE .COMPLEX Qty: 60 2RF Dose Instruction: TAKE ONE CAPSULE BY MOUTH TWICE DAILY Rx Instructions: TAKE ONE CAPSULE BY MOUTH TWICE DAILY trazodone 100 mg tablet See Rx Instructions .ROUTE .COMPLEX Qty: 60 2RF Dose Instruction: TAKE TWO TABLETS BY MOUTH AT BEDTIME Rx Instructions: TAKE TWO TABLETS BY MOUTH AT BEDTIME aspirin 81 mg capsule 81 mg PO DAILY Qty: 90 3RF Anoro Ellipta 62.5-25 mcg/actuation blister with device 1 inh inhalation DAILY Qty: 60 5RF Flovent HFA 220 mcg/actuation HFA aerosol inhaler 1 puff inhalation BID Qty: 12 3RF Rx Instructions: NEEDS APPT PRIOR TO FURTHER REFILLS (DME) pen needle, diabetic [TechLITE Pen Needle] 32 gauge x 5/32 needle See Rx Instructions .ROUTE .COMPLEX Qty: 200 3RF Dose Instruction: USE WITH BYETTA Rx Instructions: USE WITH BYETTA (DME) TechLITE Insuln Syr(half unit) 0.3 mL 29 gauge x 1/2 syringe See Rx Instructions .Route Qty: 100 3RF Rx Instructions: use to give insulin clonazepam 0.5 mg tablet 0.5 mg PO BID PRN (Reason: anxiety) Qty: 60 2RF Rx Instructions: Must last 30 days nitroglycerin 0.4 mg tablet, sublingual 0.4 mg sublingual Q5M PRN (Reason: chest pain) Qty: 30 5RF Rx Instructions: do not exceed 3 doses per episode rosuvastatin 20 mg tablet 20 mg PO DAILY Qty: 30 2RF pantoprazole 40 mg tablet,delayed release (DR/EC) 40 mg PO DAILY Qty: 30 2RF [place] [place] Dexcom G7 Rotary Drier Operator Misc See Rx Instructions .Route Qty: 1 0RF Rx Instructions: As directed [place] [place] Dexcom G7 Sensor Device See Rx Instructions .Route Qty: 3 3RF Rx Instructions: As directed change every 10 days fluticasone propionate 50 mcg/actuation spray,suspension See Rx Instructions .ROUTE .COMPLEX Qty: 16 6RF Dose Instruction: SHAKE LIQUID AND USE TWO SPRAYS IN EACH NOSTRIL TWICE DAILY Rx Instructions: SHAKE LIQUID AND USE TWO SPRAYS IN EACH NOSTRIL TWICE DAILY duloxetine 60 mg capsule,delayed release(DR/EC) See Rx Instructions .ROUTE .COMPLEX Qty: 60 2RF Dose Instruction: TAKE ONE CAPSULE BY MOUTH TWICE DAILY Rx Instructions: TAKE ONE CAPSULE BY MOUTH TWICE DAILY trazodone 100 mg tablet See Rx Instructions .ROUTE .COMPLEX Qty: 60 2RF Dose Instruction: TAKE TWO TABLETS BY MOUTH AT BEDTIME Rx Instructions: TAKE TWO TABLETS BY MOUTH AT BEDTIME atenolol 25 mg tablet 25 mg PO DAILY Qty: 90 3RF glipizide 5 mg tablet See Rx Instructions .ROUTE .COMPLEX Qty: 90 0RF Dose Instruction: TAKE ONE TABLET BY MOUTH THREE TIMES DAILY NEEDED Rx Instructions: TAKE ONE TABLET BY MOUTH THREE TIMES DAILY NEEDED Jardiance 25 mg tablet See Rx Instructions .ROUTE .COMPLEX Qty: 60 0RF Dose Instruction: TAKE ONE TABLET BY MOUTH DAILY AT 10:00 IN THE MORNING Rx Instructions: TAKE ONE TABLET BY MOUTH DAILY AT 10:00 IN THE MORNING Lantus Solostar U-100 Insulin 100 unit/mL (3 mL) insulin pen See Rx Instructions .ROUTE .COMPLEX Qty: 90 1RF Dose Instruction: INJECT 90 UNIT (0.9mL) UNDER SKIN DAILY AT 10:00 IN THE MORNING; MAX DOSE 100 UNITS PER DAY Rx Instructions: INJECT 90 UNIT (0.9mL) UNDER SKIN DAILY AT 10:00 IN THE MORNING; MAX DOSE 100 UNITS PER DAY isosorbide mononitrate 30 mg tablet extended release 24 hr 30 mg PO DAILY Qty: 30 2RF levothyroxine 50 mcg tablet 50 mcg PO DAILY@10 Qty: 30 2RF Rx Instructions: Take one tablet by mouth daily. Referrals: Carlos Alcala, SURVEILLANCE OPERATOR-C [Primary Care Provider] - Coding Level of Care Code ED Pinion Polisher for Melissa Rutherford
[2023-11-24 18:35] VITALS: BP 138/83; PULSE 92; O2SAT 92
[2023-11-24] MEDS: levofloxacin-dextrose 5 % 750 MG/150 ML PREMIX 100 MG IV (18:44)
[2023-11-24] MEDS: methylPREDNISolone sod succ 125 mg/2 mL INJ IVP (18:44)
[2023-11-24 19:37] LABS: Troponin 5 2HR 6.28 ng/L (0-10); Troponin 5 2HR Delta 0.28001 ABS# (0-10)
[2023-11-24 19:45] VITALS: BP 130/65; PULSE 95; RESP 19; TEMP 36.9; O2SAT 92
--- NOTE | 2023-11-24 20:00 | P.HP_ITS ---
Providers/Chief Complaint 2 Admitting Physician: Jovi Barraza MD Primary Care Provider: Carlos Alcala, TALEND DEVELOPER-C Chief Complaint: Chest pains, sob History of Present Illness Brie Beltrán is a 53 year old female with COPD, DM, HTN, inflammatory arthritis presenting to the hospital with chief complaints of increasing shortness of breath over the last 3 to 4 weeks. Initially diagnosed with dactylitis, received Augmentin for the same, bilateral eye symptoms improved but respiratory symptoms continue to worsen. She developed a low-grade fever, cough with expectoration and increased dyspnea. She has been using nebulizers more frequently over the last 3 days but this has not led to any relief. Presented to the emergency room and Found to have a pneumonia. She has a new oxygen Requirement of 2 L/min today. denies chest pain, palpitations, abdominal pain , nausea, vomiting Review of Systems 2 General: Reports: 10 or more systems reviewed and unremarkable except in HPI and below Const: Denies: fever(s), chills, body aches, change in appetite, change in weight, malaise, night sweats, diaphoresis, change in sleep pattern, daytime sleepiness or snoring Eyes: Denies: change in vision, blurry vision, photophobia, eye discomfort or eye discharge ENMT: Denies: throat pain, enlarged tonsils, hoarseness, mouth pain, oral sores, dry mouth, tinnitus, nasal congestion or post nasal drip Card: Denies: chest pain, palpitations, irregular heart rhythm, edema, swelling of feet/ankles, lightheadedness, syncope, pre-syncope, dyspnea on exertion, orthopnea, leg pain with exertion or acrocyanosis Resp: Denies: dyspnea, productive cough, non-productive cough, wheezing, stridor, pain on inspiration, change in phlegm color, hemoptysis or chest congestion GI: Denies: abdominal pain, nausea, vomiting, hematemesis, coffee ground emesis, dysphagia, heartburn, diarrhea, constipation, bloating, GI cramping, change in bowel habits, pain on defecation, hematochezia or melena : Denies: flank pain, dysuria, urinary frequency, urinary urgency, urinary hesitancy, nocturia or hematuria Musc: Denies: neck pain, back pain, extremity pain, joint pain, joint swelling, joint redness, joint stiffness or limited range of motion Neuro: Denies: headache(s), numbness in extremities, weakness in extremities, sensory changes, lack of coordination, difficulty walking, frequent falls, dizziness, vertigo, confusion, Slurred speech present, difficulty communicating thoughts or seizure-like activity Psych: Denies: anxiety, depression, mood swings, panic attacks, hopelessness or irritability Endo: Denies: polyuria, polydipsia, tired all the time, cold intolerance, excessive sweating, flushing or heat intolerance Jose/Lymph: Denies: easy bruising or easy bleeding All/Imm: Denies: tongue swelling, facial swelling or acute wheezing Medications/Allergies Home Medications Medication Instructions Recorded Confirmed Last Taken Type Disposable nebulizer circuit with #1 ea 08/28/21 11/25/23 Unknown Rx mask albuterol sulfate 2.5 mg/3 mL 2.5 mg (3 mL) inhalation Q4H PRN 11/30/21 11/25/23 Unknown Rx (0.083 %) solution for nebulization shortness of breath or wheezing #180 mL aspirin 81 mg capsule 81 mg PO DAILY #90 caps 01/28/22 11/25/23 2 Days Ago Rx ~11/23/23 albuterol sulfate 90 mcg/actuation 2 inh inhalation Q6H PRN shortness 05/03/22 11/25/23 Unknown Rx aerosol inhaler of breath or wheezing #6.7 grams gabapentin 600 mg tablet 600 mg PO DAILY #30 tabs 01/09/23 11/25/23 2 Days Ago Rx ~11/23/23 pen needle, diabetic 32 gauge x ##200 01/29/23 11/25/23 Unknown Rx /32 (TechLITE Pen Needle) insulin syr/ndl U100 half christiano 0.3 #100 ea 02/04/23 11/25/23 Unknown Rx mL 29 gauge x 1/2 (TechLITE Insulin Syringe (half unit)) clonazepam 0.5 mg tablet 0.5 mg PO BID PRN anxiety #60 tabs 03/05/23 11/25/23 1 Day Ago Rx ~11/24/23 nitroglycerin 0.4 mg sublingual 0.4 mg sublingual Q5M PRN chest 07/11/23 11/25/23 Unknown Rx tablet pain #30 tabs rosuvastatin 20 mg tablet 20 mg PO DAILY #30 tabs 07/11/23 11/25/23 1 Day Ago Rx ~11/24/23 pantoprazole 40 mg tablet,delayed 40 mg PO DAILY #30 tabs 07/29/23 11/25/23 1 Day Ago Rx release ~11/24/23 Diabetic shoes #1 ea 08/18/23 11/25/23 Unknown Rx blood-glucose meter,continuous #1 ea 08/19/23 11/25/23 Unknown Rx (Dexcom G7 Strategic Development Manager) blood-glucose sensor (Dexcom G7 #3 ea 08/19/23 11/25/23 Unknown Rx Sensor device) fluticasone propionate 50 See Rx Instructions .Route 09/02/23 11/25/23 Unknown Rx mcg/actuation nasal .COMPLEX #16 grams spray,suspension atenolol 25 mg tablet 25 mg PO DAILY #90 tabs 10/24/23 11/25/23 1 Day Ago Rx ~11/24/23 duloxetine 60 mg capsule,delayed See Rx Instructions .Route 10/24/23 11/25/23 1 Day Ago Rx release .COMPLEX #60 caps ~11/24/23 empagliflozin 25 mg tablet See Rx Instructions .Route 10/24/23 11/25/23 1 Day Ago Rx (Jardiance) .COMPLEX #60 tabs ~11/24/23 glipizide 5 mg tablet See Rx Instructions .Route 10/24/23 11/25/23 1 Day Ago Rx .COMPLEX #90 tabs ~11/24/23 insulin glargine 100 unit/mL (3 See Rx Instructions .Route 11/12/23 11/25/23 1 Day Ago Rx mL) subcutaneous pen (Lantus .COMPLEX #90 mL ~11/24/23 Solostar U-100 Insulin) clonazepam 0.5 mg tablet 0.5 mg PO BID PRN anxiety #60 tabs 11/14/23 11/25/23 1 Day Ago Rx ~11/24/23 duloxetine 60 mg capsule,delayed See Rx Instructions .Route 11/14/23 11/25/23 1 Day Ago Rx release .COMPLEX #60 caps ~11/24/23 trazodone 100 mg tablet See Rx Instructions .Route 11/14/23 11/25/23 1 Day Ago Rx .COMPLEX #60 tabs ~11/24/23 isosorbide mononitrate 30 mg 30 mg PO DAILY #30 tabs 11/17/23 11/25/23 1 Day Ago Rx tablet,extended release 24 hr ~11/24/23 levothyroxine 50 mcg tablet 50 mcg PO DAILY@10 #30 tabs 11/18/23 11/25/23 1 Day Ago Rx ~11/24/23 trazodone 100 mg tablet See Rx Instructions .Route 11/25/23 11/25/23 1 Day Ago History .COMPLEX PRN Sleep ~11/24/23 Allergies Allergy/AdvReac Type Severity Reaction Status Date / Time erythromycin base Allergy rash Verified 11/14/23 13:53 PFSH Acute 2 PFSH: Medical History (Updated 11/25/23 @ 14:32 by Jovi Barraza MD) Tooth abscess Diabetes mellitus with hyperglycemia, with long-term current use of insulin Atherosclerosis of coronary artery Positive cardiac stress test Seronegative rheumatoid arthritis of both hands Psychiatric care Lateral epicondylitis of both elbows Immunization counseling High risk medication use Inflammatory arthritis Carpal tunnel syndrome Peripheral sensory-motor axonal polyneuropathy Chronic diarrhea Post-traumatic stress disorder, chronic Generalized anxiety disorder Obesity Anemia Chronic neck pain Anxiety and depression Vitamin D deficiency Type 2 diabetes mellitus with other specified complication Mixed hyperlipidemia Intervertebral disc disorders with radiculopathy, lumbosacral region GERD (gastroesophageal reflux disease) Essential hypertension, benign Hypothyroid COPD (chronic obstructive pulmonary disease) Surgical History H/O oral surgery S/P endometrial ablation H/O dilation and curettage S/P cholecystectomy Family History Mother Congestive heart failure (CHF) CAD (coronary artery disease) Chronic kidney disease (CKD) Diabetes Lung disease Father CAD (coronary artery disease) Congestive heart failure (CHF) Diabetes Grandfather Cancer Grandfather Cancer Family/Other Dementia Sister Stroke Other Hyperlipidemia Hypertension Lupus Rheumatoid arthritis Denies family history of Clotting disorder Suicide Anesthesia complication Bleeding disorder Social History Smoking and tobacco/nicotine status: former use of tobacco/nicotine Quit status (tobacco/nicotine): has quit using Year quit tobacco: 2010 - 1PPD x 7 Years Second hand smoke exposure: No Alcohol intake: never Substance/Drug Use: never Adopted: No Caregiver/support person: No Household members: spouse Housing: House Marital status: service: No Current occupational status: disabled Do you think of yourself as: Straight/Heterosexual Current gender identity: Female Vitals/I&O/Wt Last Vital Signs Temp 98.9 F 11/25/23 04:00 Pulse 95 11/25/23 05:28 Resp 18 11/25/23 04:00 BP 109/69 11/25/23 04:00 Pulse Ox 91 11/25/23 04:00 O2 Del Method Nasal Cannula 11/25/23 04:00 O2 Flow Rate 2 11/25/23 04:00 11/24/23 11/24/23 11/25/23 14:59 22:59 06:59 Intake Total 560 / 560 0 / 560 Output Total 1000 / 1000 Balance 560 / 560 -1000 / -440 Weight last 48 hrs Weight 115.621 kg Weight 115.666 kg Weight 115.666 kg Physical Exam 2 Narrative: EXAM NARRATIVE: General: No acute distress, AO x3, NC oxygen supplementation HEENT: PERRLA, pupils bilaterally equal and reactive Chest: scattered wheezing to auscultation B/L CVS: S1-S2 regular, no murmurs, no tachycardia, no gallops, no rubs Abdomen: Soft, nontender, no organomegaly, bowel sounds present, morbidly obese Neuro: No focal deficits, no facial deformity, AO x3, power 5/5 in all limbs Data 11/25/23 04:59 11/25/23 04:59 Other Labs: CXR XR/XR chest 1V portable [id number] IMPRESSION: Moderate right lower lung field opacities most consistent with pneumonia. Micro: Microbiology 11/24/23 18:39 Blood Culture - Preliminary Blood SPECIMEN COLLECTED 11/24/23 18:36 Blood Culture - Preliminary Blood SPECIMEN COLLECTED A&P Assessment and plan (1) Pneumonia: Admit to [facility] in view of right lower lobe pneumonia. Recently had a course of Augmentin. Will continue to have persisting respiratory symptoms in spite of that. Will admit for IV antibiotics. Start ceftriaxone IV every 24 hours and doxycycline 100 mg p.o. twice daily for atypical coverage. Check sputum culture and Gram stain Check MRSA screen Check respiratory panel to evaluate for viral causes. Supplemental O2 to keep saturation greater than 92%. (2) COPD exacerbation: Methylprednisolone 40 mg IV every 8 hours duoneb q6h, budesonide q12h scheduled nebulization For acute on chronic COPD exacerbation Mental O2 to keep saturation 90 to 92%. (3) Failure of outpatient treatment: Plan Diabetes mellitus: Insulin sliding scale, home dose of Lantus. Check A1c. Carb consistent cardiac diet Protonix for PUD prophylaxis DVT prophylaxis: Lovenox Full code Attestations 2 Medical Necessity Statement*: Greater than 2 midnight admission is anticipated given concerns for pneumonia in setting of failure of outpatient treatment in a patient with history of type 2 diabetes mellitus, morbid obesity and COPD Diagnoses Pneumonia J18.9 COPD exacerbation J44.1 Failure of outpatient treatment Z78.9
--- NOTE | 2023-11-24 20:05 | ECG_ITS ---
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 Measurements Intervals [place] Rate: 94 P: 32 RI: 154 QRS: 0 QRSD: 86 T: 28 QT: 328 QTc: 410 Interpretive Statements SINUS RHYTHM LOW QRS VOLTAGE IN PRECORDIAL LEADS [QRS DEFLECTION < 1.0 mV IN CHEST LEADS] POSSIBLE ANTERIOR MYOCARDIAL INFARCTION , PROBABLY OLD [30 ms Q WAVE IN V3/V4, OR R < 0.2 mV IN V4] Compared to ECG 11/24/2023 17:19:51 No significant changes Electronically Signed On 11-25-2023 23:52:47 CDT by Lan Carey M.D. [email or web address] [email or web address]/store/OM/[id number]
[2023-11-24 20:21] VITALS: BP 138/83; PULSE 93; O2SAT 91
[2023-11-24 20:38] VITALS: PULSE 95; RESP 18; O2SAT 93
[2023-11-24] MEDS: ipratropium-albuterol 3 mL Neb INHALATION (20:38)
[2023-11-24] MEDS: budesonide 0.5 mg/2 mL Neb INHALATION (20:38)
[2023-11-24 20:47] VITALS: PULSE 97; O2SAT 92
[2023-11-24 20:54] LABS: Procalcitonin 0.08 ng/mL (0-0.5); Thyroid Stimulating Hormone 3.23 uIU/mL (0.27-4.20); Vitamin B12 470 pg/mL (232-1245)
[2023-11-24] MEDS: cefTRIAXone 1,000 MG in sodium chloride 0.9% (plus) 50 ML 100 MG IV (20:54)
[2023-11-24] MEDS: enoxaparin 40 mg/0.4 mL Syringe SUBCUT (20:55)
[2023-11-24] MEDS: methylPREDNISolone sod succ 40 mg/mL INJ IVP (20:56)
[2023-11-24] MEDS: ondansetron 2 mg/ML SDV 2 mL 4 MG IVP (20:56)
[2023-11-24 21:05] LABS: Iron 31 ug/dL (37-145); Percent Saturation 10.9 % (20-50); Total Iron Binding Capacity 282 mcg/dl; Unsaturated Iron Binding 251 ug/dL (112-347)
[2023-11-24 21:06] LABS: D Dimer 1.23 ug/mLFEU (0-0.59)
[2023-11-24] MEDS: trazodone 100 mg Tablet 200 MG PO (21:09)
--- NOTE | 2023-11-24 23:27 | ECG_ITS ---
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 Measurements Intervals [place] Rate: 101 P: 43 AZ: 160 QRS: 2 QRSD: 85 T: 29 QT: 336 QTc: 437 Interpretive Statements SINUS TACHYCARDIA POSSIBLE LEFT ATRIAL ENLARGEMENT [-0.1mV P-WAVE IN V1/V2] LOW QRS VOLTAGE IN PRECORDIAL LEADS [QRS DEFLECTION < 1.0 mV IN CHEST LEADS] ANTERIOR MYOCARDIAL INFARCTION , PROBABLY OLD [40+ ms Q WAVE AND/OR ST/T ABNORMALITY IN V3/V4] Compared to ECG 11/24/2023 20:05:22 Sinus rhythm no longer present Myocardial infarct finding still present Electronically Signed On 11-25-2023 23:54:21 CDT by Lan Carey M.D. [email or web address]*Bio/store/[id number]
[2023-11-25] VITALS (14 sets, daily range): BP systolic 109–151; BP diastolic 69–90; PULSE 82–106; RESP 16–20; TEMP 36.3–37.2; O2SAT 91–95; BMI 46.6
[2023-11-25 00:10] LABS: Troponin 5 6HR Delta 0.00001 ng/L (0-12)
[2023-11-25 00:16] LABS: Adenovirus Not Detected (NOT DETECT); Chlamydia Pneumoniae Not Detected (NOT DETECT); Coronavirus 229E,HKU1,NL63,OC4 Not Detected (NOT DETECT); Human Metapneumovirus Not Detected (NOT DETECT); Human Rhinovirus/Enterovirus Not Detected (NOT DETECT); Influenza A Not Detected (NOT DETECT); Influenza A H1 Not Detected (NOT DETECT); Influenza A H1-2009 Not Detected (NOT DETECT); Influenza A H3 Not Detected (NOT DETECT); Influenza B Not Detected (NOT DETECT); Mycoplasma Pneumoniae Not Detected (NOT DETECT); Parainfluenza Virus Type 1 Not Detected (NOT DETECT); Parainfluenza Virus Type 2 Not Detected (NOT DETECT); Parainfluenza Virus Type 3 Not Detected (NOT DETECT); Parainfluenza Virus Type 4 Not Detected (NOT DETECT); Respiratory Syncytial Virus A Not Detected (NOT DETECT); Respiratory Syncytial Virus B Not Detected (NOT DETECT); SARS-COV-2 Not Detected (NOT DETECT)
[2023-11-25] MEDS: ipratropium-albuterol 3 mL Neb INHALATION ×4 (02:22→20:36)
[2023-11-25] MEDS: methylPREDNISolone sod succ 40 mg/mL INJ IVP ×3 (03:16→17:44)
[2023-11-25] MEDS: acetaminophen 325 mg Tablet 650 MG PO (03:17)
[2023-11-25 05:08] LABS: Basophils % 0.2 %; Eosinophils % 0.1 %; Hematocrit 43.4 % (36-47); Lymphocytes # 0.8 10^3/uL (0.8-4.8); Lymphocytes % 7.3 %; Mean Corpuscular HGB Conc 31.3 g/dL (30-55); Mean Corpuscular Volume 79.8 fl (85-98); Mean Platelet Volume 9.7 fL (7.4-10.4); Monocytes # 0.1 10^3/uL (0.2-0.9); Monocytes % 0.8 %; Neutrophils # 10.19 10^3/uL (1.8-7.7); Neutrophils % 90.9 %; Nucleated Red Blood Cells % 0 %; Platelet Count 284 10^3/cmm (157-399); Red Blood Count 5.44 10^6/uL (3.85-5.65); Red Cell Distribution Width 16.8 % (12.1-15.1); White Blood Count 11.21 10^3/uL (3.29-11.43)
[2023-11-25 05:35] LABS: Alanine Aminotransferase 13 U/L (0-33); Albumin Level 3.8 g/dL (3.5-5.2); Alkaline Phosphatase 123 U/L (35-105); Anion Gap 18.7 (5-19); Aspartate Amino Transferase 10 U/L (0-32); Blood Urea Nitrogen 20 mg/dL (6-20); Calcium 9.6 mg/dL (8.5-10.5); Carbon Dioxide 21 mmol/L (22-29); Chloride 100 mmol/L (98-107); Globulin 3.8 g/dL (1.3-4.6); Glomerular Filtration Rate 75.6 mL/min (90-130); Glucose 305 mg/dL (65-115); Magnesium 2.3 mg/dL (1.7-2.3); Osmolality Calculated 294 mOsm/kg (285-295); Phosphorus 3.7 mg/dL (2.5-4.5); Potassium 4.7 mmol/L (3.5-5.1); Sodium 135 mmol/L (136-145); Total Bilirubin 0.3 mg/dL (0.15-1.2); Total Protein 7.6 g/dL (6.6-8.7)
[2023-11-25 05:51] LABS: Chol HDL Ratio 3.07 mg/dL (0.0-4.40); Cholesterol 184 mg/dL (0-200); HDL Cholesterol 60 mg/dL (60-100); LDL Cholesterol Calculated 108 mg/dL (50-129); Triglycerides 79 mg/dL (0-150)
[2023-11-25 06:23] LABS: Estmated Average Glucose 206; Hemoglobin A1C 8.8 % (4.0-6.0)
[2023-11-25] MEDS: budesonide 0.5 mg/2 mL Neb INHALATION ×2 (07:36→20:36)
[2023-11-25] MEDS: doxycycline 100 mg Tablet PO ×2 (08:16→17:44)
[2023-11-25] MEDS: duloxetine 60 mg Capsule PO ×2 (08:16→17:44)
[2023-11-25] MEDS: gabapentin 300 mg Capsule 600 MG PO (08:16)
[2023-11-25] MEDS: atorvastatin 40 mg Tablet PO (08:16)
[2023-11-25] MEDS: atenolol 50 mg Tablet 25 MG PO (08:16)
[2023-11-25] MEDS: pantoprazole DR 40 mg Tablet PO (08:16)
[2023-11-25] MEDS: aspirin 81 mg EC Tablet PO (08:44)
[2023-11-25 09:16] LABS: Urine Color Yellow (Yellow)
[2023-11-25 09:17] LABS: Add Urine Microscopic? YES; Bilirubin Urine Neg (Negative); Blood Urine Neg (Negative); Glucose Urine UA 4+ (Normal); Urine Appearance Clear (CLEAR); Urobilinogen Urine Norm (Negative); pH Urine 5 (5-7)
--- NOTE | 2023-11-25 09:28 | PC.CHAP ---
Pastoral Care Encounter/Spiritual Assessment Type of Contact [] Declined linux system administrator visit [] Patient/Family/Request visit [] Outpatient visit [] Follow-up visit [] Physician referral [] Code/Alert [] Routine visit [] Staff referral [] Actively dying [] Patient sleeping [] Family support [] [] Out of room [] Palliative care [] [x] Receiving care in room [] Pre-surgical visit [] Trauma [] Long length of stay [] ICU visit [] Other: Relational/Emotional Strength [] Patient feels connected with others/family/visitors/staff [] Distress [] Loneliness/isolation [] Abandonment Spirituality of Patient [] Person of Arielal [] Attends Adventism of their Ariella [] Believes in Prayer [] Reads Bible or Mandaen materials [] There are Spiritual issues to be addressed Punch Operator Interventions [] Prayer [] Active listening [] Non-anxious presence [] Spiritual/emotional support [] Crisis/trauma care [] Spiritual counseling [] Bereavement support [] Provided bereavement packet [] Provided Bible/devotional materials [] Provided toy/stuffed animal, coloring book to patient or family member [] Provided Communion [] Anointing/Hull [] Salvation [] Completed spiritual assessment [] Other: Impact on Illness or Injury [] Angry [] Fearful [] Anxious [] Often cries [] Exhaustion [] Unable to work [] Unable to attend catholic [] Unable to walk/stand [] Unable to read [] Unable to drive [] Unable to eat/drink [] Unable to sleep [] Unable to be with family [] Patient intubated [] Other: Summary Time spent with patient
[2023-11-25] MEDS: levothyroxine 50 mcg Tablet PO (09:31)
[2023-11-25 09:58] LABS: Protein Urine Neg (Negative)
[2023-11-25 09:59] LABS: Ketones Urine 2+ (Negative); Leukocyte Esterase Urine Negative (Negative); Nitrate Urine Negative (Negative)
[2023-11-25 10:02] LABS: Add Urine Culture? No; Mucus Urine TRACE /hpf
[2023-11-25 11:01] LABS: Glucose Point of Care 396 mg/dL (70-110)
[2023-11-25] MEDS: insulin lispro 100 unit/1 mL SUBCUT ×3 (11:54→20:39)
[2023-11-25] MEDS: isosorbide mononitrate ER 30 mg Tablet PO (11:54)
[2023-11-25] MEDS: insulin glargine 100 units/1 mL 50 UNIT SUBCUT ×2 (12:16→17:43)
--- NOTE | 2023-11-25 14:33 | P.PN_ITS ---
Subjective 2 Subjective: No acute vents overnight. Patient states he is feeling better. Currently on 2 L of oxygen supplementation. Denies any nausea, vomiting, headache. Has remained hemodynamically stable and afebrile. Blood sugar slightly elevated. Vitals/I&O/Wt Last Vital Signs Temp 97.5 F L 11/25/23 12:00 Pulse 82 11/25/23 13:22 Resp 16 11/25/23 13:22 BP 132/73 11/25/23 12:00 Pulse Ox 95 11/25/23 13:22 O2 Del Method Nasal Cannula 11/25/23 13:22 O2 Flow Rate 2 11/25/23 13:22 11/24/23 11/25/23 11/25/23 22:59 06:59 14:59 Intake Total 560 / 560 0 / 560 120 / 120 Output Total 1000 / 1000 500 / 500 Balance 560 / 560 -1000 / -440 -380 / -380 Weight last 48 hrs Weight 115.621 kg Weight 115.621 kg Weight 115.666 kg Weight 115.666 kg Physical Exam 2 Narrative: EXAM NARRATIVE: General: No acute distress, AO x3, NC oxygen supplementation HEENT: PERRLA, pupils bilaterally equal and reactive Chest: scattered wheezing to auscultation B/L CVS: S1-S2 regular, no murmurs, no tachycardia, no gallops, no rubs Abdomen: Soft, nontender, no organomegaly, bowel sounds present, morbidly obese Neuro: No focal deficits, no facial deformity, AO x3, power 5/5 in all limbs Data 11/25/23 04:59 11/25/23 04:59 Micro: Microbiology 11/24/23 18:39 Blood Culture - Preliminary Blood SPECIMEN COLLECTED 11/24/23 18:36 Blood Culture - Preliminary Blood SPECIMEN COLLECTED A&P Assessment and plan (1) Pneumonia: Recently had a course of Augmentin. Will continue to have persisting respiratory symptoms in spite of that. Follow-up blood culture, sputum culture. Respiratory viral panel negative. MRSA swab pending. For now continue with community-acquired pneumonia treatment with IV ceftriaxone and oral doxycycline. Patient is allergic to azithromycin. Oxygen supplementation keeping saturation over 90%. (2) COPD exacerbation: History of COPD. Morbid obesity. Wean methylprednisolone 40 mg IV every 12 hours Continue with duoneb q6h, budesonide q12h scheduled nebulization For acute on chronic COPD exacerbation (3) Failure of outpatient treatment: Plan Hypertension: Goal blood pressure less than 140/90 mmHg. Continue with home dose of metoprolol and Imdur. If needed will add amlodipine or losartan. Continue other chronic home medications. Diabetes mellitus: Insulin sliding scale moderate dose protocol. Lantus 50 units twice daily. Appreciate A1c. Carb consistent cardiac diet Protonix for PUD prophylaxis DVT prophylaxis: Lovenox Full code Attestations 2 Medical Necessity Statement*: Requires further hospitalization for management of COPD exacerbation in setting of right lower lobe pneumonia in a patient with baseline morbid obesity and type 2 diabetes mellitus, failure to outpatient treatment Diagnoses Pneumonia J18.9 COPD exacerbation J44.1 Failure of outpatient treatment Z78.9
[2023-11-25 16:41] LABS: Glucose Point of Care 338 mg/dL (70-110)
[2023-11-25] MEDS: fluticasone nasal spray 16gm Btl 2 SPRAY INTRANASAL (17:44)
[2023-11-25] MEDS: cefTRIAXone 1,000 MG in sodium chloride 0.9% (plus) 50 ML 100 MG IV (19:45)
[2023-11-25] MEDS: enoxaparin 40 mg/0.4 mL Syringe SUBCUT (19:46)
[2023-11-25 20:29] LABS: Glucose Point of Care 390 mg/dL (70-110)
[2023-11-25] MEDS: trazodone 100 mg Tablet 200 MG PO (20:39)
[2023-11-25] MEDS: ibuprofen 600 mg Tablet PO (23:48)
[2023-11-26] VITALS (10 sets, daily range): BP systolic 102–136; BP diastolic 60–76; PULSE 73–89; RESP 16–18; TEMP 36.3–36.6; O2SAT 87–95
[2023-11-26] MEDS: ipratropium-albuterol 3 mL Neb INHALATION ×3 (02:35→13:15)
[2023-11-26] MEDS: methylPREDNISolone sod succ 40 mg/mL INJ IVP (04:59)
[2023-11-26 05:54] LABS: Basophils % 0.1 %; Hematocrit 42.2 % (36-47); Lymphocytes # 1.5 10^3/uL (0.8-4.8); Lymphocytes % 9.4 %; Mean Corpuscular HGB Conc 30.8 g/dL (30-55); Mean Corpuscular Volume 81.2 fl (85-98); Mean Platelet Volume 9.9 fL (7.4-10.4); Monocytes # 0.7 10^3/uL (0.2-0.9); Monocytes % 4.5 %; Neutrophils # 13.47 10^3/uL (1.8-7.7); Neutrophils % 84.7 %; Nucleated Red Blood Cells % 0 %; Platelet Count 330 10^3/cmm (157-399); Red Cell Distribution Width 16.6 % (12.1-15.1); White Blood Count 15.89 10^3/uL (3.29-11.43)
[2023-11-26 06:12] LABS: Alanine Aminotransferase 11 U/L (0-33); Albumin Level 3.7 g/dL (3.5-5.2); Alkaline Phosphatase 102 U/L (35-105); Anion Gap 15.6 (5-19); Aspartate Amino Transferase 7 U/L (0-32); Blood Urea Nitrogen 29 mg/dL (6-20); Calcium 9.3 mg/dL (8.5-10.5); Carbon Dioxide 23 mmol/L (22-29); Chloride 100 mmol/L (98-107); Creatinine Clr Calc Pharmacy 89.0218; Globulin 3.5 g/dL (1.3-4.6); Glucose 313 mg/dL (65-115); Osmolality Calculated 296 mOsm/kg (285-295); Potassium 4.6 mmol/L (3.5-5.1); Sodium 134 mmol/L (136-145); Total Bilirubin 0.2 mg/dL (0.15-1.2); Total Protein 7.2 g/dL (6.6-8.7)
[2023-11-26 06:31] LABS: Glucose Point of Care 279 mg/dL (70-110)
[2023-11-26] MEDS: budesonide 0.5 mg/2 mL Neb INHALATION (07:31)
[2023-11-26] MEDS: duloxetine 60 mg Capsule PO (08:26)
[2023-11-26] MEDS: isosorbide mononitrate ER 30 mg Tablet PO (08:26)
[2023-11-26] MEDS: aspirin 81 mg EC Tablet PO (08:26)
[2023-11-26] MEDS: doxycycline 100 mg Tablet PO (08:26)
[2023-11-26] MEDS: gabapentin 300 mg Capsule 600 MG PO (08:26)
[2023-11-26] MEDS: levothyroxine 50 mcg Tablet PO (08:26)
[2023-11-26] MEDS: pantoprazole DR 40 mg Tablet PO (08:26)
[2023-11-26] MEDS: atorvastatin 40 mg Tablet PO (08:26)
[2023-11-26] MEDS: insulin glargine 100 units/1 mL 50 UNIT SUBCUT (08:27)
[2023-11-26] MEDS: insulin lispro 100 unit/1 mL SUBCUT ×2 (08:27→13:23)
[2023-11-26] MEDS: atenolol 50 mg Tablet 25 MG PO (08:28)
[2023-11-26] MEDS: fluticasone nasal spray 16gm Btl 2 SPRAY INTRANASAL (08:28)
[2023-11-26 11:25] LABS: Glucose Point of Care 371 mg/dL (70-110)
--- NOTE | 2023-11-26 11:42 | PM.DCS ---
Discharge Providers Date of Admission: 11/24/23 18:42 Date of Discharge: November 26, 2023 Attending Provider at Admission: Jovi Barraza MD Attending Provider at Discharge: Jovi Barraza MD Primary Care Provider: EVELYN Hatch Diagnoses at Discharge Discharge Diagnosis (1) Pneumonia: Status: Acute (2) COPD exacerbation: Status: Acute (3) Failure of outpatient treatment: Status: Acute Reason for Visit Reason for Visit: Chest pains, sob Brief History: History as per HPI: Brie Beltrán is a 53 year old female with COPD, DM, HTN, inflammatory arthritis presenting to the hospital with chief complaints of increasing shortness of breath over the last 3 to 4 weeks. Initially diagnosed with dactylitis, received Augmentin for the same, bilateral eye symptoms improved but respiratory symptoms continue to worsen. She developed a low-grade fever, cough with expectoration and increased dyspnea. She has been using nebulizers more frequently over the last 3 days but this has not led to any relief. Presented to the emergency room and Found to have a pneumonia. She has a new oxygen Requirement of 2 L/min today. She denies chest pain, palpitations, abdominal pain , nausea, vomiting Hospital Course Hospital Course She was admitted to the hospital further evaluation and management of community-acquired pneumonia leading to COPD exacerbation in setting of failure of outpatient treatment. She was started on broad-spectrum antibiotics, inhalation treatment and IV steroids. Blood culture remain negative and sputum culture so far is showing gram-positive cocci and gram-negative rods. Patient responded well to the treatment and has been improving with breathing effort as well. She is currently on room air at rest requiring 2 L on exertion on home O2 evaluation. She has been discharged in the stable condition on admission treatment, oral cefdinir and Levaquin for next 7 days along with steroid taper. Physical Exam Narrative: EXAM NARRATIVE: General: No acute distress, AO x3, NC oxygen supplementation HEENT: PERRLA, pupils bilaterally equal and reactive Chest: scattered wheezing to auscultation B/L CVS: S1-S2 regular, no murmurs, no tachycardia, no gallops, no rubs Abdomen: Soft, nontender, no organomegaly, bowel sounds present, morbidly obese Neuro: No focal deficits, no facial deformity, AO x3, power 5/5 in all limbs Discharge Data Studies Completed and Pending Completed Studies During Hospitalization Category Date Time Status XR chest 1V portable [id number] Stat Exams 11/24/23 17:15 Completed Pending at discharge Category Date Time Status Blood Culture Stat Lab 11/24/23 18:39 Results MRSA [Methicillin Resistant S.aureu] Routine Lab 11/24/23 20:03 Received Sputum Culture and Gram Stain Stat Lab 11/24/23 19:58 Results Radiology Impressions Chest X-Ray 11/24/23 17:15 IMPRESSION: Moderate right lower lung field opacities most consistent with pneumonia. Laboratory Results WBC 15.89 10^3/uL (3.29-11.43) H 11/26/23 05:08 RBC 5.20 10^6/uL (3.85-5.65) 11/26/23 05:08 Hgb 13.00 g/dL (11.27-16.99) 11/26/23 05:08 Hct 42.2 % (36-47) 11/26/23 05:08 MCV 81.2 fl (85-98) L 11/26/23 05:08 MCH 25.0 pg (27-33) L 11/26/23 05:08 MCHC 30.8 g/dL (30-55) 11/26/23 05:08 RDW 16.6 % (12.1-15.1) H 11/26/23 05:08 Plt Count 330 10^3/cmm (157-399) 11/26/23 05:08 MPV 9.9 fL (7.4-10.4) 11/26/23 05:08 Neut % (Auto) 84.7 % 11/26/23 05:08 Lymph % (Auto) 9.4 % 11/26/23 05:08 [place] % (Auto) 4.5 % 11/26/23 05:08 Eos % (Auto) 0.0 % 11/26/23 05:08 Baso % (Auto) 0.1 % 11/26/23 05:08 Neut # (Auto) 13.47 10^3/uL (1.8-7.7) H 11/26/23 05:08 Lymph # (Auto) 1.5 10^3/uL (0.8-4.8) 11/26/23 05:08 [place] # (Auto) 0.7 10^3/uL (0.2-0.9) 11/26/23 05:08 Eos # (Auto) 0.0 10^3/uL (0.0-0.8) 11/26/23 05:08 Baso # (Auto) 0.0 10^3/uL (0.0-0.1) 11/26/23 05:08 Nucleated RBC % (auto) 0 % 11/26/23 05:08 Nucleated RBCs # 0.0 /100WBC 11/26/23 05:08 D-Dimer 1.23 ug/mLFEU (0-0.59) H 11/24/23 17:28 Sodium 134 mmol/L (136-145) L 11/26/23 05:08 Potassium 4.6 mmol/L (3.5-5.1) 11/26/23 05:08 Chloride 100 mmol/L (98-107) 11/26/23 05:08 Carbon Dioxide 23 mmol/L (22-29) 11/26/23 05:08 Anion Gap 15.6 (5-19) 11/26/23 05:08 BUN 29 mg/dL (6-20) H 11/26/23 05:08 Creatinine 0.9 mg/dL (0.5-0.9) 11/26/23 05:08 GFR Calculation 66.0 mL/min (90-130) L 11/26/23 05:08 Glucose 313 mg/dL (65-115) H 11/26/23 05:08 POC Glucose 371 mg/dL (70-110) H 11/26/23 11:18 Estimat Average Glucose 206 11/25/23 04:59 Hemoglobin A1c 8.8 % (4.0-6.0) H 11/25/23 04:59 Calculated Osmolality 296 mOsm/kg (285-295) H 11/26/23 05:08 Calcium 9.3 mg/dL (8.5-10.5) 11/26/23 05:08 Phosphorus 3.7 mg/dL (2.5-4.5) 11/25/23 04:59 Magnesium 2.3 mg/dL (1.7-2.3) 11/25/23 04:59 Iron 31 ug/dL (37-145) L 11/24/23 17:28 TIBC 282 mcg/dl 11/24/23 17:28 % Saturation 10.9 % (20-50) L 11/24/23 17:28 Unsat Iron Binding 251 ug/dL (112-347) 11/24/23 17:28 Total Bilirubin 0.2 mg/dL (0.15-1.2) 11/26/23 05:08 AST 7 U/L (0-32) 11/26/23 05:08 ALT 11 U/L (0-33) 11/26/23 05:08 Alkaline Phosphatase 102 U/L (35-105) 11/26/23 05:08 Troponin T Baseline < 6 ng/L (0-10) 11/24/23 17:28 Troponin T 120 Minute 6.28 ng/L (0-10) 11/24/23 18:09 Delta Troponin T 0.57305 ABS# (0-10) 11/24/23 18:09 Troponin T Hi Sens 6Hr 6.00 ng/L (0-10) 11/24/23 23:36 Troponin T Hi Sens 6Hr Delta 0.79620 ng/L (0-12) 11/24/23 23:36 Total Protein 7.2 g/dL (6.6-8.7) 11/26/23 05:08 Albumin 3.7 g/dL (3.5-5.2) 11/26/23 05:08 Globulin 3.5 g/dL (1.3-4.6) 11/26/23 05:08 Triglycerides 79 mg/dL (0-150) 11/25/23 04:59 Cholesterol 184 mg/dL (0-200) 11/25/23 04:59 LDL Cholesterol, Calc 108 mg/dL (50-129) 11/25/23 04:59 HDL Cholesterol 60 mg/dL (60-100) 11/25/23 04:59 LDL/HDL Ratio 1.80 RATIO (0.00-3.22) 11/25/23 04:59 Cholesterol/HDL Ratio 3.07 mg/dL (0.0-4.40) 11/25/23 04:59 Lipase 41 U/L (13-60) 11/24/23 17:28 Vitamin B12 470 pg/mL (232-1245) 11/24/23 17:28 Folate 14.0 ng/mL (4.8-37.3) 11/25/23 04:59 Procalcitonin 0.08 ng/mL (0-0.5) 11/24/23 17:28 TSH 3.23 uIU/mL (0.27-4.20) 11/24/23 17:28 Urine Color Yellow (Yellow) 11/25/23 08:30 Urine Appearance Clear (CLEAR) 11/25/23 08:30 Urine pH 5 (5-7) 11/25/23 08:30 Ur Specific [place] 1.020 (1.005-1.030) 11/25/23 08:30 Urine Protein Neg (Negative) 11/25/23 08:30 Urine Glucose (UA) 4+ (Normal) H 11/25/23 08:30 Urine Ketones 2+ (Negative) H 11/25/23 08:30 Urine Blood Neg (Negative) 11/25/23 08:30 Urine Nitrate Negative (Negative) 11/25/23 08:30 Urine Bilirubin Neg (Negative) 11/25/23 08:30 Urine Urobilinogen Norm mg/dL (Negative) 11/25/23 08:30 Ur Leukocyte Esterase Negative (Negative) 11/25/23 08:30 Urine RBC None /hpf (0-2) 11/25/23 08:30 Urine WBC None /hpf (0-5) 11/25/23 08:30 Ur Squamous Epith Cells 5-10 /hpf (0-5) H 11/25/23 08:30 Amorphous Sediment Not Reportable 11/25/23 08:30 Urine Bacteria None /hpf (NONE) 11/25/23 08:30 Urine Mucus Trace /hpf 11/25/23 08:30 Urine Yeast Trace /hpf 11/25/23 08:30 Adenovirus (PCR) Not detected (NOT DETECT) 11/24/23 22:20 C. pneumoniae DNA (PCR) Not detected (NOT DETECT) 11/24/23 22:20 Coronavirus 229E (PCR) Not detected (NOT DETECT) 11/24/23 22:20 Human Metapneumovir PCR Not detected (NOT DETECT) 11/24/23 22:20 Influenza A (H1) PCR Not detected (NOT DETECT) 11/24/23 22:20 Influ A (H1/09) PCR Not detected (NOT DETECT) 11/24/23 22:20 Influenza A (H3) PCR Not detected (NOT DETECT) 11/24/23 22:20 Influenza Type A (PCR) Not detected (NOT DETECT) 11/24/23 22:20 Influenza Type B (PCR) Not detected (NOT DETECT) 11/24/23 22:20 M. pneumoniae (PCR) Not detected (NOT DETECT) 11/24/23 22:20 Parainfluenza 1 (PCR) Not detected (NOT DETECT) 11/24/23 22:20 Parainfluenza 2 (PCR) Not detected (NOT DETECT) 11/24/23 22:20 Parainfluenza 3 (PCR) Not detected (NOT DETECT) 11/24/23 22:20 Parainfluenza 4 (PCR) Not detected (NOT DETECT) 11/24/23 22:20 RSV Type A (PCR) Not detected (NOT DETECT) 11/24/23 22:20 RSV Type B (PCR) Not detected (NOT DETECT) 11/24/23 22:20 Entero/Rhino (PCR) Not detected (NOT DETECT) 11/24/23 22:20 SARS-CoV-2 (PCR) Not detected (NOT DETECT) 11/24/23 22:20 Vitals Last Vital Signs Temp 97.4 F L 11/26/23 07:40 Pulse 89 11/26/23 07:42 Resp 16 11/26/23 07:40 BP 122/76 11/26/23 07:40 Pulse Ox 93 11/26/23 10:11 O2 Del Method Room Air 11/26/23 07:40 O2 Flow Rate 2 11/26/23 10:11 Discharge Plan Discharge Patient Disposition: Home Condition: Stable Prescriptions: New budesonide 0.5 mg/2 mL Suspension For Nebulization 0.5 mg inhalation BID.RESPIRATORY 30 Days Qty: 120 0RF cefdinir 300 mg capsule 300 mg PO Q12H 7 Days Qty: 14 0RF levofloxacin 750 mg tablet 750 mg PO Q24H 7 Days Qty: 7 0RF prednisone 10 mg tablet See Taper PO DIRECTED Qty: 42 0RF Taper: predniSONE 60-10 60 mg Daily for 2 Days and 0 Hour 50 mg Daily for 2 Days and 0 Hour 40 mg Daily for 2 Days and 0 Hour 30 mg Daily for 2 Days and 0 Hour 20 mg Daily for 2 Days and 0 Hour 10 mg Daily for 2 Days and 0 Hour Rx Instructions: see taper instructions ipratropium-albuterol 0.5 mg-3 mg(2.5 mg base)/3 mL Solution For Nebulization 3 ml inhalation Q6H.RESP 30 Days Qty: 360 0RF Continued (DME) Disposable nebulizer circuit with mask See Rx Instructions .ROUTE .MEDSUPPLY Qty: 1 2RF Rx Instructions: As directed albuterol sulfate 2.5 mg /3 mL (0.083 %) solution for nebulization 2.5 mg inhalation Q4H PRN (Reason: shortness of breath or wheezing) Qty: 180 2RF albuterol sulfate 90 mcg/actuation HFA aerosol inhaler 2 inh inhalation Q6H PRN (Reason: shortness of breath or wheezing) Qty: 6.7 0RF gabapentin 600 mg tablet 600 mg PO DAILY Qty: 30 2RF (DME) Diabetic shoes See Rx Instructions .ROUTE .MEDSUPPLY Qty: 1 0RF Rx Instructions: With 3 pairs of inserts clonazepam 0.5 mg tablet 0.5 mg PO BID PRN (Reason: anxiety) Qty: 60 2RF Rx Instructions: Must last 30 days duloxetine 60 mg capsule,delayed release(DR/EC) See Rx Instructions .ROUTE .COMPLEX Qty: 60 2RF Dose Instruction: TAKE ONE CAPSULE BY MOUTH TWICE DAILY Rx Instructions: TAKE ONE CAPSULE BY MOUTH TWICE DAILY trazodone 100 mg tablet See Rx Instructions .ROUTE .COMPLEX Qty: 60 2RF Dose Instruction: TAKE TWO TABLETS BY MOUTH AT BEDTIME Rx Instructions: TAKE TWO TABLETS BY MOUTH AT BEDTIME aspirin 81 mg capsule 81 mg PO DAILY Qty: 90 3RF (DME) pen needle, diabetic [TechLITE Pen Needle] 32 gauge x 5/32 needle See Rx Instructions .ROUTE .COMPLEX Qty: 200 3RF Dose Instruction: USE WITH BYETTA Rx Instructions: USE WITH BYETTA (DME) TechLITE Insuln Syr(half unit) 0.3 mL 29 gauge x 1/2 syringe See Rx Instructions .Route Qty: 100 3RF Rx Instructions: use to give insulin clonazepam 0.5 mg tablet 0.5 mg PO BID PRN (Reason: anxiety) Qty: 60 2RF Rx Instructions: Must last 30 days nitroglycerin 0.4 mg tablet, sublingual 0.4 mg sublingual Q5M PRN (Reason: chest pain) Qty: 30 5RF Rx Instructions: do not exceed 3 doses per episode rosuvastatin 20 mg tablet 20 mg PO DAILY Qty: 30 2RF pantoprazole 40 mg tablet,delayed release (DR/EC) 40 mg PO DAILY Qty: 30 2RF (DME) Dexcom G7 Human Resources Safety Manager Misc See Rx Instructions .Route Qty: 1 0RF Rx Instructions: As directed (DME) Dexcom G7 Sensor Device See Rx Instructions .Route Qty: 3 3RF Rx Instructions: As directed change every 10 days fluticasone propionate 50 mcg/actuation spray,suspension See Rx Instructions .ROUTE .COMPLEX Qty: 16 6RF Dose Instruction: SHAKE LIQUID AND USE TWO SPRAYS IN EACH NOSTRIL TWICE DAILY Rx Instructions: SHAKE LIQUID AND USE TWO SPRAYS IN EACH NOSTRIL TWICE DAILY duloxetine 60 mg capsule,delayed release(DR/EC) See Rx Instructions .ROUTE .COMPLEX Qty: 60 2RF Dose Instruction: TAKE ONE CAPSULE BY MOUTH TWICE DAILY Rx Instructions: TAKE ONE CAPSULE BY MOUTH TWICE DAILY atenolol 25 mg tablet 25 mg PO DAILY Qty: 90 3RF glipizide 5 mg tablet See Rx Instructions .ROUTE .COMPLEX Qty: 90 0RF Dose Instruction: TAKE ONE TABLET BY MOUTH THREE TIMES DAILY NEEDED Rx Instructions: TAKE ONE TABLET BY MOUTH THREE TIMES DAILY NEEDED Jardiance 25 mg tablet See Rx Instructions .ROUTE .COMPLEX Qty: 60 0RF Dose Instruction: TAKE ONE TABLET BY MOUTH DAILY AT 10:00 IN THE MORNING Rx Instructions: TAKE ONE TABLET BY MOUTH DAILY AT 10:00 IN THE MORNING Lantus Solostar U-100 Insulin 100 unit/mL (3 mL) insulin pen See Rx Instructions .ROUTE .COMPLEX Qty: 90 1RF Dose Instruction: INJECT 90 UNIT (0.9mL) UNDER SKIN DAILY AT 10:00 IN THE MORNING; MAX DOSE 100 UNITS PER DAY Rx Instructions: INJECT 90 UNIT (0.9mL) UNDER SKIN DAILY AT 10:00 IN THE MORNING; MAX DOSE 100 UNITS PER DAY isosorbide mononitrate 30 mg tablet extended release 24 hr 30 mg PO DAILY Qty: 30 2RF levothyroxine 50 mcg tablet 50 mcg PO DAILY@10 Qty: 30 2RF Rx Instructions: Take one tablet by mouth daily. trazodone 100 mg tablet See Rx Instructions .ROUTE .COMPLEX PRN (Reason: Sleep) Rx Instructions: TAKE TWO TABLETS BY MOUTH AT BEDTIME Discharge Orders: Discharge Order (Routine); Ordered 11/26/23 Ordered By: Jovi Barraza Other Ambulatory Orders: DME: Oxygen (Order) Location: None Selected Ordered By: Jovi Barraza Referrals: Carlos Alcala FNP-C [Primary Care Provider] - 7-10 days Discharge Diet: Cardiac Discharge Activity: Resume usual activity and Increase activity as tolerated Patient Instructions: Opioid Safety Activity Restrictions/Additional Instructions: Cefdinir and Levaquin of the 2 antibiotics which she should be on for next 7 days. Cefdinir will be twice daily and Levaquin only once daily. Please follow-up with your primary care provider within next 10 days. You will be on steroid taper as directed. Continue using oxygen as prescribed on exertion. Discharge Attestations Time Spent in Discharge Care*: greater than 30 min Specific Discharge Activities: educating patient, educating and/or supporting family/caregiver, discussing with pcp/other providers, discussing with pillowcase cleaner/social workers/dc planners, documenting/other paperwork and evaluating patient/reviewing data Status at Discharge: Cognitive status at discharge: cognitively intact, Behavioral status at discharge: cooperative, Functional status at discharge: independent ambulation, Overall status at discharge: patient is back to baseline Quality Metrics Clinical Quality Measures [ No reported AMI, CVA or VTE this stay] Coding Level of Care Code 59090 Total time (in minutes) for Discharge: 60 Diagnoses Pneumonia J18.9 COPD exacerbation J44.1 Failure of outpatient treatment Z78.9
[2023-11-27 14:11] LABS: Methicillin-Resist S.aureu PCR NOT DETECTED (NOT DETECTED)
== END 2023-11-26 14:40 | disposition home or self-care (01) | DRG 190 ==
LOC: ER 18:27 → MEDSURG 18:42
PROVIDERS: Admitting Provider Student in an Organized Health Care Education/Training Program; Emergency Provider Emergency Medicine; PCP Nurse Practitioner; Visit Provider Student in an Organized Health Care Education/Training Program
DX: J44.0 Chronic obstructive pulmonary disease with (acute) lower respiratory infection (principal); J18.9 Pneumonia, unspecified organism; J44.1 Chronic obstructive pulmonary disease with (acute) exacerbation; Z87.891 Personal history of nicotine dependence; E11.9 Type 2 diabetes mellitus without complications; I10 Essential (primary) hypertension; Z79.4 Long term (current) use of insulin; E03.9 Hypothyroidism, unspecified; K21.9 Gastro-esophageal reflux disease without esophagitis; E78.5 Hyperlipidemia, unspecified; F32.A Depression, unspecified; F41.1 Generalized anxiety disorder; F43.12 Post-traumatic stress disorder, chronic; M13.80 Other specified arthritis, unspecified site
CPT/HCPCS: 36415; 36416; 71045; 80053; 80061; 81001; 82607; 82746; 82962; 83036; 83540; 83550; 83690; 83735; 84100; 84145; 84443; 84484; 85025; 85378; 86403; 87040; 87070; 87205; 87449; 87486; 87581; 87633; 87641; 93005; 94640; 94760; 96365; 96372; 96375; 99285; J0696; J1650; J1815; J1956; J2405; J2919; J7626

== ENCOUNTER → 2023-12-24 10:50 | Outpatient (BNVA) | payer SELFPAY ==
[2023-11-26 11:38] VITALS: BP 122/76; BMI 46.6
== END ==
PROVIDERS: PCP Nurse Practitioner; Visit Provider Nurse Practitioner Family
DX: R06.02 Shortness of breath (principal); J18.9 Pneumonia, unspecified organism
CPT/HCPCS: 83880; 85025

== ENCOUNTER → 2023-12-29 10:07 | Outpatient (BNVA) | payer SELFPAY ==
[2023-11-26 11:38] VITALS: BP 122/76; BMI 46.6
== END ==
PROVIDERS: PCP Nurse Practitioner; Visit Provider Nurse Practitioner Family
DX: J18.9 Pneumonia, unspecified organism (principal)
CPT/HCPCS: 71046

== ENCOUNTER → 2024-01-05 10:24 | Outpatient (BNVA) | payer SELFPAY ==
[2023-11-26 11:38] VITALS: BP 122/76; BMI 46.6
== END ==
PROVIDERS: PCP Nurse Practitioner; Visit Provider Nurse Practitioner Family
DX: J18.9 Pneumonia, unspecified organism (principal)
CPT/HCPCS: 71046

== ENCOUNTER → 2024-01-09 08:47 | Outpatient (BNVA) | payer SELFPAY ==
[2023-11-26 11:38] VITALS: BP 122/76; BMI 46.6
== END ==
PROVIDERS: PCP Nurse Practitioner; Visit Provider Nurse Practitioner
DX: E11.69 Type 2 diabetes mellitus with other specified complication (principal); E03.9 Hypothyroidism, unspecified; E78.5 Hyperlipidemia, unspecified
CPT/HCPCS: 80053; 80061; 82043; 83036; 84439; 84443

== ENCOUNTER 2024-01-27 08:45 | Outpatient (CLI) | payer BC, MEDICAID, SELFPAY ==
[2023-11-26 11:38] VITALS: BP 122/76; BMI 46.6
--- NOTE | 2024-01-27 09:00 | CT_ITS ---
WS: [id number] CT chest wo con [id number] HISTORY: J18.9 - Pneumonia, unspecified organism TECHNIQUE: Axial imaging performed through the thorax. Coronal and sagittal reformats are submitted. All CT scans at [facility] use at least one of these dose optimization techniques: automated exposure control; mA and/or kV adjustment per patient size (includes targeted exams where dose is mat ched to clinical indication); or iterative reconstruction. CONTRAST: None DLP: 694.16 mGy.cm COMPARISON: Prior CT 05/16/2020, radiograph 01/05/2024 Lungs and central airway: Very mild breathing motion artifact. No mass or pulmonary nodule identified . No lobar collapse. Pleura: Normal. No pleural effusion. Heart and pericardium: Normal size heart with no pericardial effusion. Mild coronary artery calcifica tions. Mediastinum and satish: There are a few small lymph nodes along the paratracheal regions and para-aorti c with the largest measuring 12 mm. The hilar regions are not very well evaluated without IV contrast . Hilar lymph nodes cannot be excluded. Vessels: Normal size aortic and pulmonary artery. No coronary artery calcifications. Chest wall and lower neck: No soft tissue masses. Upper abdomen: Prior cholecystectomy. No adrenal mass. Mild hepatic steatosis. Osseous structures: Increase in thoracic kyphosis. Mild anterior wedging of several of the lower thor acic vertebral bodies. No acute fractures. CT/CT chest wo con [id number] IMPRESSION: 1. No pneumonia or pneumonitis identified. 2. Indeterminate para-aortic lymph node at 12 mm. May be reactive. The hilar r egions cannot be evaluated for adenopathy without IV contrast. 3. Prior cholecystectomy.
== END 2024-01-27 08:46 | disposition home or self-care (01) ==
LOC: RAD 08:46
PROVIDERS: PCP Nurse Practitioner; Visit Provider Nurse Practitioner Family
DX: J18.9 Pneumonia, unspecified organism (principal); J44.9 Chronic obstructive pulmonary disease, unspecified
CPT/HCPCS: 71250

== ENCOUNTER 2024-02-10 19:26 | Emergency (ER) | payer BC, MEDICAID, SELFPAY ==
[2024-02-03 10:45] VITALS: BP 122/76; BMI 46.6
--- NOTE | 2024-02-10 19:28 | XRR_ITS ---
PROCEDURE INFORMATION: Exam: XR Chest Exam date and time: 02/10/2024 7:44 PM Age: 54 years old Clinical indication: Angina; Additional info: Cp TECHNIQUE: Imaging protocol: Radiologic exam of the chest. Views: 1 view. COMPARISON: CT chest [facility] [id number] 01/27/2024 8:57 AM FINDINGS: Lungs: Unremarkable. No consolidation. Pleural spaces: Unremarkable. No pleural effusion. No pneumothorax. Heart/Mediastinum: Unremarkable. No cardiomegaly. Bones/joints: Mild dextroscoliosis of the lower thoracic spine, stable. XR/XR chest 1V portable [id number] IMPRESSION: No acute plain radiographic cardiopulmonary abnormality .
--- NOTE | 2024-02-10 19:28 | ECG_ITS ---
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: : 1970 Requested By: Melany Ramirez Order Number: [id number] Reading MD: KEEGAN CRAVEN Measurements Intervals [place] Rate: 82 P: 38 SD: 190 QRS: -7 QRSD: 88 T: 10 QT: 352 QTc: 412 Interpretive Statements SINUS RHYTHM LOW QRS VOLTAGE IN PRECORDIAL LEADS [QRS DEFLECTION < 1.0 mV IN CHEST LEADS] ANTERIOR MYOCARDIAL INFARCTION , PROBABLY OLD [40+ ms Q WAVE AND/OR ST/T ABNORMALITY IN V3/V4] INFERIOR MYOCARDIAL INFARCTION , PROBABLY OLD [40+ ms Q WAVE AND/OR ST/T ABNORMALITY IN II/aVF] Compared to ECG 11/24/2023 23:27:26 Sinus tachycardia no longer present Myocardial infarct finding still present Electronically Signed On 02-12-2024 11:56:00 CDT by KEEGAN CRAVEN [id number]
[2024-02-10 19:37] VITALS: BP 116/75; PULSE 84; RESP 16; TEMP 36.7; O2SAT 94; BMI 48.6
[2024-02-10 19:58] LABS: Basophils # 0.1 10^3/uL (0.0-0.1); Basophils % 0.4 %; Eosinophils # 0.4 10^3/uL (0.0-0.8); Eosinophils % 2.5 %; Lymphocytes # 3.7 10^3/uL (0.8-4.8); Lymphocytes % 25.6 %; Mean Corpuscular HGB Conc 31.2 g/dL (30-55); Mean Corpuscular Volume 83.3 fl (85-98); Mean Platelet Volume 9.6 fL (7.4-10.4); Monocytes # 0.8 10^3/uL (0.2-0.9); Monocytes % 5.8 %; Neutrophils % 64.8 %; Nucleated Red Blood Cells % 0 %; Platelet Count 283 10^3/cmm (157-399); Red Blood Count 5.16 10^6/uL (3.85-5.65); Red Cell Distribution Width 17.2 % (12.1-15.1); White Blood Count 14.51 10^3/uL (3.29-11.43)
[2024-02-10 20:11] LABS: INR 0.89 (0.8-1.2)
[2024-02-10 20:16] LABS: Troponin(5th) Baseline < 6 ng/L (0-10)
[2024-02-10 20:18] LABS: Alanine Aminotransferase 13 U/L (0-33); Albumin Level 4.2 g/dL (3.5-5.2); Alkaline Phosphatase 77 U/L (35-105); Anion Gap 15.1 (5-19); Aspartate Amino Transferase 11 U/L (0-32); Calcium 9.7 mg/dL (8.5-10.5); Carbon Dioxide 28 mmol/L (22-29); Chloride 99 mmol/L (98-107); Creatinine Clr Calc Pharmacy 90.4092; Globulin 2.2 g/dL (1.3-4.6); Glomerular Filtration Rate 65.8 mL/min (90-130); Glucose 199 mg/dL (65-115); Lipase 92 U/L (13-60); Potassium 4.1 mmol/L (3.5-5.1); Sodium 138 mmol/L (136-145); Total Bilirubin 0.3 mg/dL (0.15-1.2); Total Protein 6.4 g/dL (6.6-8.7)
[2024-02-10 20:26] VITALS: BP 129/72; PULSE 82; RESP 18; O2SAT 96
--- NOTE | 2024-02-10 20:30 | CTR_ITS ---
PROCEDURE INFORMATION: Exam: CTA Chest With Contrast Exam date and time: 02/10/2024 8:45 PM Age: 54 years old Clinical indication: Pain; Angina pectoris; Additional info: Chest pain TECHNIQUE: Imaging protocol: Computed tomographic angiography of the chest with contrast. Exam focused on the arteries. 3D rendering (Not supervised by radiologist): MIP and/or 3D reconstructed images were created by the technologist. Radiation optimization: All CT scans at this facility use at least one of these dose optimization techniques: automated exposure control; mA and/or kV adjustment per patient size (includes targeted exams where dose is matched to clinical indication); or iterative reconstruction. Contrast material: OMNI 350; Contrast volume: 100 ml; Contrast route: INTRAVENOUS (IV); COMPARISON: CT angio chest PE protcl [id number] 05/16/2020 7:36 PM RADIATION DOSE METRICS: Total DLP (mGy-cm): 1115 FINDINGS: Pulmonary arteries: No evidence of pulmonary emboli. Aorta: No aortic aneurysm. No obvious dissection flap, limited by suboptimal opacification. Lungs: Unremarkable. No consolidation. No masses. Stable elevation of the left hemidiaphragm. Pleural spaces: Unremarkable. No pneumothorax. No pleural effusion. Heart: Stable borderline cardiac silhouette size. Mild coronary calcification. Lymph nodes: Mildly enlarged prevascular, paratracheal and hilar lymph nodes up to 1.4 cm are not significantly changed from 01/27/2024 and as far back as 05/16/2020, likely reactive. Liver: Mild diffuse hepatic steatosis and hepatomegaly. Gallbladder and biliary ducts: Cholecystectomy clips. Bones/joints: Mild multilevel thoracic spondylosis. Mild dextroscoliosis. Soft tissues: Unremarkable. CT/CT angio chest PE protcl [id number] IMPRESSION: 1. No evidence of pulmonary embolism. 2. No focal airspace opacity. 3. Stable mild mediastinal adenopathy, likely reactive/inflammatory.
--- NOTE | 2024-02-10 20:34 | W.ED.CHESTPA ---
HPI - Chest Pain General: Chief Complaint: Chest Pain Stated Complaint: Chest Pains Time Seen by Provider: 02/10/24 19:33 History of Present Illness: 54-year-old female with a history of obesity, diabetes, coronary artery disease with nonobstructive disease, COPD, GERD, hypertension and anxiety who presents emergency room with chest pain. She says she has been diagnosed with pneumonia couple times recently. She has had some cough recently. She is postop a CT of the near future for some enlarged lymph nodes she says. She does have some nitro at home. She had taken that. She had a cath about a year ago that showed nonocclusive disease. Says she has had pain last week but got better with nitro. She then started having pain today took a nitro got better for a little bit then it came back again so she is come to the emergency room. No abdominal pain. No nausea or vomiting. No altered mental status. No focal motor deficits. Says she feels mildly short of breath. Related Data Home Medications Medication Instructions Recorded Confirmed trazodone 100 mg tablet See Rx Instructions .Route 11/25/23 02/04/24 .COMPLEX PRN Sleep Previous Rx's Medication Instructions Recorded Disposable nebulizer circuit with #1 ea 08/28/21 mask albuterol sulfate 2.5 mg/3 mL 2.5 mg (3 mL) inhalation Q4H PRN 11/30/21 (0.083 %) solution for nebulization shortness of breath or wheezing #180 mL aspirin 81 mg capsule 81 mg PO DAILY #90 caps 01/28/22 albuterol sulfate 90 mcg/actuation 2 inh inhalation Q6H PRN shortness 05/03/22 aerosol inhaler of breath or wheezing #6.7 grams pen needle, diabetic 32 gauge x ##200 01/29/23 5/32 (TechLITE Pen Needle) insulin syr/ndl U100 half christiano 0.3 #100 ea 02/04/23 mL 29 gauge x 1/2 (TechLITE Insulin Syringe (half unit)) clonazepam 0.5 mg tablet 0.5 mg PO BID PRN anxiety #60 tabs 03/05/23 nitroglycerin 0.4 mg sublingual 0.4 mg sublingual Q5M PRN chest 07/11/23 tablet pain #30 tabs Diabetic shoes #1 ea 08/18/23 blood-glucose meter,continuous #1 ea 08/19/23 (Dexcom G7 Insurance Application Investigator) blood-glucose sensor (Dexcom G7 #3 ea 08/19/23 Sensor device) fluticasone propionate 50 See Rx Instructions .Route 09/02/23 mcg/actuation nasal .COMPLEX #16 grams spray,suspension atenolol 25 mg tablet 25 mg PO DAILY #90 tabs 10/24/23 duloxetine 60 mg capsule,delayed See Rx Instructions .Route 10/24/23 release .COMPLEX #60 caps glipizide 5 mg tablet See Rx Instructions .Route 10/24/23 .COMPLEX #90 tabs clonazepam 0.5 mg tablet 0.5 mg PO BID PRN anxiety #60 tabs 11/14/23 duloxetine 60 mg capsule,delayed See Rx Instructions .Route 11/14/23 release .COMPLEX #60 caps trazodone 100 mg tablet See Rx Instructions .Route 11/14/23 .COMPLEX #60 tabs isosorbide mononitrate 30 mg 30 mg PO DAILY #30 tabs 11/17/23 tablet,extended release 24 hr levothyroxine 50 mcg tablet 50 mcg PO DAILY@10 #30 tabs 11/18/23 gabapentin 600 mg tablet 600 mg PO TID #90 tabs 01/05/24 ketoconazole 2 % topical cream 1 applic topical BID #15 grams 01/05/24 nystatin 100,000 unit/mL oral 4 - 6 ml PO TID 14 days #473 mL 01/05/24 suspension pantoprazole 40 mg tablet,delayed 40 mg PO DAILY #30 tabs 01/05/24 release rosuvastatin 20 mg tablet 20 mg PO DAILY #30 tabs 01/05/24 glipizide 5 mg tablet 5 mg PO .TID AC #90 tabs 01/12/24 insulin glargine 100 unit/mL (3 See Rx Instructions .Route 01/12/24 mL) subcutaneous pen (Lantus .COMPLEX #90 mL Solostar U-100 Insulin) empagliflozin 25 mg tablet See Rx Instructions .Route 01/19/24 (Jardiance) .COMPLEX #60 tabs nystatin 100,000 unit/gram topical 1 applic topical BID #60 grams 01/30/24 powder prednisone 20 mg tablet 60 mg (3 x 20 mg) PO DAILY 5 days 01/31/24 #15 tabs budesonide-formoterol HFA 160 2 puff inhalation BID #10.2 grams 02/04/24 mcg-4.5 mcg/actuation aerosol inhaler (Symbicort) cyclobenzaprine 10 mg tablet 10 mg PO BID PRN muscle spasm #60 02/04/24 tabs doxycycline hyclate 100 mg tablet 100 mg PO BID #14 tabs 02/04/24 fluconazole 150 mg tablet 150 mg PO Q3D 2 doses #2 tabs 02/04/24 Allergies Allergy/AdvReac Type Severity Reaction Status Date / Time erythromycin base Allergy rash Verified 02/04/24 08:42 Review of Systems Narrative: Constitutional symptoms: Negative except as documented in HPI. Skin symptoms: Negative except as documented in HPI. Eye symptoms: Negative except as documented in HPI. ENMT symptoms: Negative except as documented in HPI. Respiratory symptoms: Negative except as documented in HPI. Cardiovascular symptoms: Negative except as documented in HPI. Gastrointestinal symptoms: Negative except as documented in HPI. Genitourinary symptoms: Negative except as documented in HPI. Musculoskeletal symptoms: Negative except as documented in HPI. Neurologic symptoms: Negative except as documented in HPI. Psychiatric symptoms: Negative except as documented in HPI. Endocrine symptoms: Negative except as documented in HPI. PFSH ED PFSH: Medical History Tooth abscess Diabetes mellitus with hyperglycemia, with long-term current use of insulin Atherosclerosis of coronary artery Positive cardiac stress test Seronegative rheumatoid arthritis of both hands Psychiatric care Lateral epicondylitis of both elbows Immunization counseling High risk medication use Inflammatory arthritis Carpal tunnel syndrome Peripheral sensory-motor axonal polyneuropathy Chronic diarrhea Post-traumatic stress disorder, chronic Generalized anxiety disorder Obesity Anemia Chronic neck pain Anxiety and depression Vitamin D deficiency Type 2 diabetes mellitus with other specified complication Mixed hyperlipidemia Intervertebral disc disorders with radiculopathy, lumbosacral region GERD (gastroesophageal reflux disease) Essential hypertension, benign Hypothyroid COPD (chronic obstructive pulmonary disease) Surgical History H/O oral surgery S/P endometrial ablation H/O dilation and curettage S/P cholecystectomy Family History Mother Congestive heart failure (CHF) CAD (coronary artery disease) Chronic kidney disease (CKD) Diabetes Lung disease Father CAD (coronary artery disease) Congestive heart failure (CHF) Diabetes Grandfather Cancer Grandfather Cancer Family/Other Dementia Sister Stroke Other Hyperlipidemia Hypertension Lupus Rheumatoid arthritis Denies family history of Clotting disorder Suicide Anesthesia complication Bleeding disorder Social History Smoking and tobacco/nicotine status: never used tobacco/nicotine Quit status (tobacco/nicotine): has quit using Year quit tobacco: 2010 - 1PPD x 7 Years Second hand smoke exposure: No Alcohol intake: never Substance/Drug Use: never Adopted: No Caregiver/support person: No Household members: spouse Housing: House Marital status: service: No Current occupational status: disabled Do you think of yourself as: Straight/Heterosexual Current gender identity: Female Physical Exam Narrative: EXAM NARRATIVE: General: Alert, no acute distress. Skin: Warm, dry. Head: Normocephalic, atraumatic. Neck: Supple, trachea midline. Eye: Extraocular movements are intact. Ears, nose, mouth and throat: mucosa moist. Cardiovascular: Regular, Normal peripheral perfusion. Respiratory: Lungs are clear to auscultation, respirations are non-labored, breath sounds are equal, Symmetrical chest wall expansion. Gastrointestinal: Soft, Nontender, Non distended Musculoskeletal: Normal ROM, no deformity. Neurological: Alert and oriented, No focal neurological deficit observed. Psychiatric: Cooperative, appropriate mood & affect. Course Vital Signs: Vital signs: Vital Signs Temperature 98.0 F 02/10/24 19:37 Pulse Rate 83 02/10/24 21:47 Respiratory Rate 16 02/10/24 21:47 Blood Pressure 126/81 02/10/24 21:47 Pulse Oximetry 93 02/10/24 21:47 Oxygen Delivery Me thod Room Air 02/10/24 19:37 MDM - Chest Pain Medical Decision Making Differential diagnosis for patient with chest pain includes but is not limited to and based on the above HPI, review of systems and physical exam: Pneumonia. unstable angina. angina. Acute coronary syndrome / LA. Pulmonary embolism. Costochondritis / musculoskeletal. Pleurisy. Pericarditis. Esophageal spasm. Pancreatis. Cholecystitis. Orders placed to evaluate differential diagnosis based on the above differential, HPI and physical exam EK rate 79. Normal sinus rhythm, No ST-T changes, no ectopy, normal DC & QRS intervals, This was reviewed and interpreted by myself the ER physician at 2125 Lab Review: Laboratory results were reviewed and interpreted by myself the emergency room physician. Lab work is fairly unremarkable. Mild leukocytosis with white count 15. Hemoglobin 13. BUN/creatinine are 22 and 0.9. Serial troponins are negative. I reviewed the patient's medical record. HEART Pathway for Early Discharge in Acute Chest Pain from [email or web address] on 02/10/2024 All calculations should be rechecked by clinician prior to use RESULT SUMMARY: 3 points HEART Pathway Score Low risk 0.9-1.7% 30-day MACE Repeat troponin at 3 hours and if negative, discharge home with outpatient follow-up. INPUTS: History ?> 1 = Moderately suspicious EKG ?> 0 = Normal Age ?> 1 = 45-64 Risk factors ?> 1 = 1-2 risk factors Initial troponin ?> 0 = <=ormal limit Chest x-ray: No acute process. No infiltrate. No pneumothorax. This was reviewed and interpreted by myself the ER physician. CTA of the chest with PE protocol: No evidence of any acute process. No PE. No infiltrates. She does have some stable lymphadenopathy. Likely reactive. This was reviewed and interpreted by myself the emergency room physician. I also reviewed the radiology report. Reexamination: Patient remained stable. No increased work of breathing. No altered mental status. No focal motor deficits. Assessment and plan: Noncardiac chest pain - Discharged home - Discussed findings and plan with patient. Answered any questions. - All laboratory values were reviewed and interpreted personally by myself, the ER physician - All imaging was reviewed and interpreted personally by myself, the ER physician. - Evaluation and treatment of this problem were appropriate in the emergency setting Lab Data 02/10/24 19:48 02/10/24 19:48 Radiology Impressions Chest X-Ray 02/10/24 19:28 IMPRESSION: No acute plain radiographic cardiopulmonary abnormality . Chest CTA 02/10/24 20:30 IMPRESSION: 1. No evidence of pulmonary embolism. 2. No focal airspace opacity. 3. Stable mild mediastinal adenopathy, likely reactive/inflammatory. Laboratory Results WBC 14.51 10^3/uL (3.29-11.43) H 02/10/24 19:48 RBC 5.16 10^6/uL (3.85-5.65) 02/10/24 19:48 Hgb 13.40 g/dL (11.27-16.99) 02/10/24 19:48 Hct 43.0 % (36-47) 02/10/24 19:48 MCV 83.3 fl (85-98) L 02/10/24 19:48 MCH 26.0 pg (27-33) L 02/10/24 19:48 MCHC 31.2 g/dL (30-55) 02/10/24 19:48 RDW 17.2 % (12.1-15.1) H 02/10/24 19:48 Plt Count 283 10^3/cmm (157-399) 02/10/24 19:48 MPV 9.6 fL (7.4-10.4) 02/10/24 19:48 Neut % (Auto) 64.8 % 02/10/24 19:48 Lymph % (Auto) 25.6 % 02/10/24 19:48 [place] % (Auto) 5.8 % 02/10/24 19:48 Eos % (Auto) 2.5 % 02/10/24 19:48 Baso % (Auto) 0.4 % 02/10/24 19:48 Neut # (Auto) 9.40 10^3/uL (1.8-7.7) H 02/10/24 19:48 Lymph # (Auto) 3.7 10^3/uL (0.8-4.8) 02/10/24 19:48 [place] # (Auto) 0.8 10^3/uL (0.2-0.9) 02/10/24 19:48 Eos # (Auto) 0.4 10^3/uL (0.0-0.8) 02/10/24 19:48 Baso # (Auto) 0.1 10^3/uL (0.0-0.1) 02/10/24 19:48 Nucleated RBC % (auto) 0 % 02/10/24 19:48 Nucleated RBCs # 0.0 /100WBC 02/10/24 19:48 PT 12.30 SECONDS (12.1-14.9) 02/10/24 19:48 INR 0.89 (0.8-1.2) 02/10/24 19:48 Sodium 138 mmol/L (136-145) 02/10/24 19:48 Potassium 4.1 mmol/L (3.5-5.1) 02/10/24 19:48 Chloride 99 mmol/L (98-107) 02/10/24 19:48 Carbon Dioxide 28 mmol/L (22-29) 02/10/24 19:48 Anion Gap 15.1 (5-19) 02/10/24 19:48 BUN 22 mg/dL (6-20) H 02/10/24 19:48 Creatinine 0.9 mg/dL (0.5-0.9) 02/10/24 19:48 GFR Calculation 65.8 mL/min (90-130) L 02/10/24 19:48 Glucose 199 mg/dL (65-115) H 02/10/24 19:48 Calculated Osmolality 295 mOsm/kg (285-295) 02/10/24 19:48 Calcium 9.7 mg/dL (8.5-10.5) 02/10/24 19:48 Total Bilirubin 0.3 mg/dL (0.15-1.2) 02/10/24 19:48 AST 11 U/L (0-32) 02/10/24 19:48 ALT 13 U/L (0-33) 02/10/24 19:48 Alkaline Phosphatase 77 U/L (35-105) 02/10/24 19:48 Troponin T Baseline < 6 ng/L (0-10) 02/10/24 19:48 Troponin T 120 Minute 6.35 ng/L (0-10) 02/10/24 21:20 Delta Troponin T 0.07130 ABS# (0-10) 02/10/24 21:20 Total Protein 6.4 g/dL (6.6-8.7) L 02/10/24 19:48 Albumin 4.2 g/dL (3.5-5.2) 02/10/24 19:48 Globulin 2.2 g/dL (1.3-4.6) 02/10/24 19:48 Lipase 92 U/L (13-60) H 02/10/24 19:48 All radiology interpretation(s) finalized by discharge Discharge Plan Discharge Patient Disposition: Home Clinical Impression: Non-cardiac chest pain Condition: Stable Prescriptions: No Action (DME) Disposable nebulizer circuit with mask See Rx Instructions .ROUTE .MEDSUPPLY Qty: 1 2RF Rx Instructions: As directed albuterol sulfate 2.5 mg /3 mL (0.083 %) solution for nebulization 2.5 mg inhalation Q4H PRN (Reason: shortness of breath or wheezing) Qty: 180 2RF Lantus Solostar U-100 Insulin 100 unit/mL (3 mL) insulin pen See Rx Instructions .ROUTE .COMPLEX Qty: 90 1RF Dose Instruction: INJECT 90 UNIT (0.9mL) UNDER SKIN DAILY AT 10:00 IN THE MORNING; MAX DOSE 100 UNITS PER DAY Rx Instructions: INJECT 160 UNIT (0.9mL) UNDER SKIN DAILY AT 10:00 IN THE MORNING; glipizide 5 mg tablet 5 mg PO .TID AC Qty: 90 3RF albuterol sulfate 90 mcg/actuation HFA aerosol inhaler 2 inh inhalation Q6H PRN (Reason: shortness of breath or wheezing) Qty: 6.7 0RF (DME) Diabetic shoes See Rx Instructions .ROUTE .MEDSUPPLY Qty: 1 0RF Rx Instructions: With 3 pairs of inserts clonazepam 0.5 mg tablet 0.5 mg PO BID PRN (Reason: anxiety) Qty: 60 2RF Rx Instructions: Must last 30 days duloxetine 60 mg capsule,delayed release(DR/EC) See Rx Instructions .ROUTE .COMPLEX Qty: 60 2RF Dose Instruction: TAKE ONE CAPSULE BY MOUTH TWICE DAILY Rx Instructions: TAKE ONE CAPSULE BY MOUTH TWICE DAILY trazodone 100 mg tablet See Rx Instructions .ROUTE .COMPLEX Qty: 60 2RF Dose Instruction: TAKE TWO TABLETS BY MOUTH AT BEDTIME Rx Instructions: TAKE TWO TABLETS BY MOUTH AT BEDTIME rosuvastatin 20 mg tablet 20 mg PO DAILY Qty: 30 2RF pantoprazole 40 mg tablet,delayed release (DR/EC) 40 mg PO DAILY Qty: 30 2RF nystatin 100,000 unit/mL suspension 4 - 6 ml PO TID 14 Days Qty: 473 0RF Rx Instructions: swish and swallow ketoconazole 2 % cream 1 applic topical BID Qty: 15 0RF gabapentin 600 mg tablet 600 mg PO TID Qty: 90 2RF prednisone 20 mg tablet 60 mg PO DAILY 5 Days Qty: 15 0RF budesonide-formoterol [Symbicort] 160-4.5 mcg/actuation HFA aerosol inhaler 2 puff inhalation BID Qty: 10.2 0RF cyclobenzaprine 10 mg tablet 10 mg PO BID PRN (Reason: muscle spasm) Qty: 60 2RF fluconazole 150 mg tablet 150 mg PO Q3D Qty: 2 0RF Rx Instructions: may repeat second dose 72 hrs after first dose if symptoms persist doxycycline hyclate 100 mg tablet 100 mg PO BID Qty: 14 0RF aspirin 81 mg capsule 81 mg PO DAILY Qty: 90 3RF (DME) pen needle, diabetic [TechLITE Pen Needle] 32 gauge x 5/32 needle See Rx Instructions .ROUTE .COMPLEX Qty: 200 3RF Dose Instruction: USE WITH BYETTA Rx Instructions: USE WITH BYETTA (DME) TechLITE Insuln Syr(half unit) 0.3 mL 29 gauge x 1/2 syringe See Rx Instructions .Route Qty: 100 3RF Rx Instructions: use to give insulin clonazepam 0.5 mg tablet 0.5 mg PO BID PRN (Reason: anxiety) Qty: 60 2RF Rx Instructions: Must last 30 days nitroglycerin 0.4 mg tablet, sublingual 0.4 mg sublingual Q5M PRN (Reason: chest pain) Qty: 30 5RF Rx Instructions: do not exceed 3 doses per episode (DME) Dexcom G7 Insurance Application Investigator Misc See Rx Instructions .Route Qty: 1 0RF Rx Instructions: As directed (DME) Dexcom G7 Sensor Device See Rx Instructions .Route Qty: 3 3RF Rx Instructions: As directed change every 10 days fluticasone propionate 50 mcg/actuation spray,suspension See Rx Instructions .ROUTE .COMPLEX Qty: 16 6RF Dose Instruction: SHAKE LIQUID AND USE TWO SPRAYS IN EACH NOSTRIL TWICE DAILY Rx Instructions: SHAKE LIQUID AND USE TWO SPRAYS IN EACH NOSTRIL TWICE DAILY duloxetine 60 mg capsule,delayed release(DR/EC) See Rx Instructions .ROUTE .COMPLEX Qty: 60 2RF Dose Instruction: TAKE ONE CAPSULE BY MOUTH TWICE DAILY Rx Instructions: TAKE ONE CAPSULE BY MOUTH TWICE DAILY atenolol 25 mg tablet 25 mg PO DAILY Qty: 90 3RF glipizide 5 mg tablet See Rx Instructions .ROUTE .COMPLEX Qty: 90 0RF Dose Instruction: TAKE ONE TABLET BY MOUTH THREE TIMES DAILY NEEDED Rx Instructions: TAKE ONE TABLET BY MOUTH THREE TIMES DAILY NEEDED isosorbide mononitrate 30 mg tablet extended release 24 hr 30 mg PO DAILY Qty: 30 2RF levothyroxine 50 mcg tablet 50 mcg PO DAILY@10 Qty: 30 2RF Rx Instructions: Take one tablet by mouth daily. Jardiance 25 mg tablet See Rx Instructions .ROUTE .COMPLEX Qty: 60 0RF Dose Instruction: TAKE ONE TABLET BY MOUTH ONCE DAILY AT 10:00 A.M. Rx Instructions: TAKE ONE TABLET BY MOUTH ONCE DAILY AT 10:00 A.M. nystatin 100,000 unit/gram powder 1 applic topical BID Qty: 60 2RF trazodone 100 mg tablet See Rx Instructions .ROUTE .COMPLEX PRN (Reason: Sleep) Rx Instructions: TAKE TWO TABLETS BY MOUTH AT BEDTIME Discharge Orders: Discharge ED (Routine); Ordered 02/10/24 Ordered By: Qian Reilly Referrals: Carlos Alcala, JENNIFERC [Primary Care Provider] - Discharge Diet: Usual diet Discharge Activity: Increase activity as tolerated Patient Instructions: Noncardiac Chest Pain (ED) Activity Restrictions/Additional Instructions: Thank you for choosing [facility] for your healthcare needs today. Please realize this is an emergency room and that we are providing you with a medical screening exam and this may not be complete and all inclusive of all the testing and or work up that you may need to determine your ailment or severity of your illness. You have been screened and evaluated and felt safe for discharge. Health conditions do change or evolve sometimes and as such it is important that you follow up with your Primary Doctor to be re checked, 3-5 days is a general good time frame for follow up. You are always welcome to return to the ED for re assessment if your symptoms are worsening or you have new concerns Coding Level of Care Code ED Director Style for Melissa Rutherford
[2024-02-10] MEDS: iohexol 350 mg/mL 500 mL Btl (per mL) IV (20:48)
[2024-02-10 21:06] LABS: Blood Urea Nitrogen 22 mg/dL (6-20); Osmolality Calculated 295 mOsm/kg (285-295)
[2024-02-10 21:07] VITALS: BP 126/83; PULSE 80; RESP 16; O2SAT 95
--- NOTE | 2024-02-10 21:23 | ECG_ITS ---
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 Measurements Intervals [place] Rate: 79 P: 42 W[place]: 196 QRS: 2 QRSD: 81 T: 15 QT: 350 QTc: 403 Interpretive Statements SINUS RHYTHM LOW QRS VOLTAGE IN PRECORDIAL LEADS [QRS DEFLECTION < 1.0 mV IN CHEST LEADS] POSSIBLE ANTERIOR MYOCARDIAL INFARCTION , PROBABLY OLD [30 ms Q WAVE IN V3/V4, OR R < 0.2 mV IN V4] Compared to ECG 11/24/2023 23:27:26 Sinus tachycardia no longer present Myocardial infarct finding still present Electronically Signed On 02-10-2024 21:58:12 CDT by Lan Carey M.D. [email or web address]
[2024-02-10 21:41] LABS: Troponin 5 2HR 6.35 ng/L (0-10); Troponin 5 2HR Delta 0.35001 ABS# (0-10)
[2024-02-10 21:47] VITALS: BP 126/81; PULSE 83; RESP 16; O2SAT 93
[2024-02-10 21:54] VITALS: BP 125/88; PULSE 83; RESP 16; O2SAT 99
== END 2024-02-10 21:55 | disposition home or self-care (01) ==
PROVIDERS: Emergency Medicine; Emergency Provider Emergency Medicine; PCP Nurse Practitioner
DX: R07.89 Other chest pain (principal); Z79.4 Long term (current) use of insulin; Z79.84 Long term (current) use of oral hypoglycemic drugs; Z79.82 Long term (current) use of aspirin; Z87.891 Personal history of nicotine dependence; E11.9 Type 2 diabetes mellitus without complications; E78.2 Mixed hyperlipidemia; I10 Essential (primary) hypertension; J44.9 Chronic obstructive pulmonary disease, unspecified
CPT/HCPCS: 36415; 71045; 71275; 80053; 83690; 84484; 85025; 85610; 93005; 99285

== ENCOUNTER → 2024-02-17 10:32 | Outpatient (BNVA) | payer BC, MEDICAID, SELFPAY ==
[2024-02-03 10:45] VITALS: BP 122/76; BMI 46.6
== END ==
PROVIDERS: PCP Nurse Practitioner; Visit Provider Orthopaedic Surgery
DX: M54.9 Dorsalgia, unspecified (principal)
CPT/HCPCS: 72110; 73502

== ENCOUNTER → 2024-05-13 13:02 | Outpatient (BNVA) | payer BC, SELFPAY ==
[2024-03-08 10:35] VITALS: BP 122/76; BMI 46.6
== END ==
PROVIDERS: PCP Nurse Practitioner Family; Visit Provider Nurse Practitioner Family
DX: E11.65 Type 2 diabetes mellitus with hyperglycemia; Z79.4 Long term (current) use of insulin; E03.9 Hypothyroidism, unspecified; E04.2 Nontoxic multinodular goiter; E78.5 Hyperlipidemia, unspecified
CPT/HCPCS: 80053; 80061; 82043; 83036; 84439; 84443

== ENCOUNTER 2024-05-27 08:44 | Outpatient (CLI) | payer BC, MEDICAID, SELFPAY ==
[2024-05-17 10:00] VITALS: BP 122/76; BMI 46.6
[2024-05-19 13:25] VITALS: BP 137/80; BMI 49.9
--- NOTE | 2024-05-27 08:45 | US_ITS ---
WS: [id number] Complete ABDOMINAL ULTRASOUND HISTORY: R10.819 - Abdominal tenderness, unspecified site COMPARISON: 04/02/2019 Liver: 23.1 cm in length. Markedly enlarged liver. Diffuse heterogeneity throughout the liver from he patic steatosis. No mass identified. Portal Vein: Normal hepatopetal flow with monophasic waveform. Gallbladder: Prior cholecystectomy. CBD: 0.9 cm, top normal size but may be appropriate for the prior cholecystectomy state. Pancreas: Not visualized. Right kidney: 10.5 cm x 5.3 x 5.1 cm. Cortex:1.1 cm. Normal size and echogenicity. No hydronephrosis or mass. Left kidney: 10.0 cm x 5.3 cm x 6.2 cm. Cortex: 1.1 cm. Normal size and echogenicity. No hydronephrosis or mass. Spleen: 13.5 cm. Normal size and echogenicity. Aorta and IVC: Limited. US/US abdomen complete* [id number] Impression: 1. Technically difficult abdominal ultrasound. 2. Markedly enlarged liver with hepatic steatosis. 3. Prior cholecystectomy. 4. No renal obstruction.
== END 2024-05-27 08:45 | disposition home or self-care (01) ==
LOC: RAD 08:45
PROVIDERS: PCP Nurse Practitioner Family; Visit Provider Nurse Practitioner Family
DX: K76.0 Fatty (change of) liver, not elsewhere classified (principal); R19.00 Intra-abdominal and pelvic swelling, mass and lump, unspecified site; R10.819 Abdominal tenderness, unspecified site; Z90.49 Acquired absence of other specified parts of digestive tract
CPT/HCPCS: 76700

== ENCOUNTER → 2024-08-16 09:21 | Outpatient (BNVA) | payer BC, MEDICAID, SELFPAY ==
[2024-07-22 10:34] VITALS: BP 137/80; BMI 49.9
== END ==
PROVIDERS: Family Provider Nurse Practitioner Family; PCP Nurse Practitioner Family; Visit Provider Internal Medicine
DX: E03.9 Hypothyroidism, unspecified (principal); E04.2 Nontoxic multinodular goiter; E78.5 Hyperlipidemia, unspecified; E11.65 Type 2 diabetes mellitus with hyperglycemia; Z79.4 Long term (current) use of insulin
CPT/HCPCS: 80053; 80061; 83036; 84439; 84443

== ENCOUNTER → 2024-08-24 14:49 | Outpatient (BNVA) | payer BC, MEDICAID, SELFPAY ==
[2024-08-18 11:58] VITALS: BP 112/80; BMI 50.6
== END ==
PROVIDERS: Family Provider Nurse Practitioner Family; PCP Nurse Practitioner Family; Visit Provider Nurse Practitioner Family
DX: J45.909 Unspecified asthma, uncomplicated (principal); J44.1 Chronic obstructive pulmonary disease with (acute) exacerbation; M41.85 Other forms of scoliosis, thoracolumbar region; R93.7 Abnormal findings on diagnostic imaging of other parts of musculoskeletal system
CPT/HCPCS: 71046

== ENCOUNTER 2024-11-04 15:48 | Outpatient (CLI) | payer BC, MEDICAID, SELFPAY ==
[2024-08-18 11:58] VITALS: BP 112/80; BMI 50.6
--- NOTE | 2024-11-04 11:45 | US_ITS ---
WS: [id number] THYROID ULTRASOUND HISTORY: see problem list COMPARISON: None available. Right lobe: 1.3 cm x 1.7 cm x 5.7 cm (w x ap x l). Volume: 6.1 cm3. Normal size with mild increased echotexture. No significant are dominant nodules are present. Previously described nodule along the surface of the thyroid is not identified today. Left lobe: 1.5 cm x 1.8 cm x 5.1 cm (w x ap x l). Volume: 6.7 cm3. Normal size with mild increased echotexture. No significant or dominant nodules are present. Isthmus: 0.4 cm. US/US thyroid [id number] IMPRESSION: No thyroid nodules.
== END 2024-11-04 15:49 | disposition home or self-care (01) ==
PROVIDERS: PCP Nurse Practitioner Family; Visit Provider Internal Medicine
DX: M06.9 Rheumatoid arthritis, unspecified (principal); E66.9 Obesity, unspecified
CPT/HCPCS: 36415; 76536; 80076; 82306; 82550; 82565; 83036; 83520; 85025; 85651; 86140; 86431; 86480; 86704; 86803; 87340

== ENCOUNTER 2024-11-23 08:49 | Outpatient (CLI) | payer BC, MEDICAID, SELFPAY ==
[2024-08-18 11:58] VITALS: BP 112/80; BMI 50.6
[2024-11-23 09:14] VITALS: PULSE 81; RESP 18; O2SAT 96
[2024-11-23] MEDS: albuterol 2.5 mg/3 mL Neb INHALATION (09:14)
== END 2024-11-23 08:50 | disposition home or self-care (01) ==
LOC: RT 08:50
PROVIDERS: PCP Nurse Practitioner Family; Visit Provider Nurse Practitioner Family
DX: J45.909 Unspecified asthma, uncomplicated (principal); R94.2 Abnormal results of pulmonary function studies
CPT/HCPCS: 94060; 94729; J7613

== ENCOUNTER → 2025-02-14 08:07 | Outpatient (BNVA) | payer BC, MEDICAID, SELFPAY ==
[2024-11-23 10:53] VITALS: BP 112/80; BMI 50.6
== END ==
PROVIDERS: PCP Nurse Practitioner Family; Visit Provider Internal Medicine
DX: E66.9 Obesity, unspecified (principal); E78.5 Hyperlipidemia, unspecified; E11.65 Type 2 diabetes mellitus with hyperglycemia; Z79.4 Long term (current) use of insulin; E04.2 Nontoxic multinodular goiter; E03.9 Hypothyroidism, unspecified
CPT/HCPCS: 80053; 80061; 82043; 82306; 83036; 84439; 84443

== ENCOUNTER 2025-03-28 11:29 | Outpatient (CLI) | payer BC, MEDICAID, SELFPAY ==
[2025-02-18 16:12] VITALS: BP 136/88; BMI 50.8
--- NOTE | 2025-03-28 11:32 | XR_ITS ---
WS: [id number] Exam: XR shoulder RT min 2V* [id number] Date/Time of Exam: 03/28/2025 11:56 AM Reason For Exam: M25.511 - Pain in right shoulder DLP: No fracture. The joints are preserved. Normal soft tissues. XR/XR shoulder RT min 2V* [id number] IMPRESSION: 1. Normal RIGHT shoulder.
== END 2025-03-28 11:30 | disposition home or self-care (01) ==
LOC: RAD 11:30
PROVIDERS: PCP Nurse Practitioner Family; Visit Provider Nurse Practitioner Family
DX: M25.511 Pain in right shoulder (principal)
CPT/HCPCS: 73030

== ENCOUNTER → 2025-04-15 12:47 | Outpatient (BNVA) | payer BC, MEDICAID, SELFPAY ==
[2025-02-18 16:12] VITALS: BP 136/88; BMI 50.8
== END ==
PROVIDERS: PCP Nurse Practitioner Family; Referring Provider Nurse Practitioner Family; Visit Provider Internal Medicine
DX: J44.9 Chronic obstructive pulmonary disease, unspecified (principal); E11.65 Type 2 diabetes mellitus with hyperglycemia; Z79.4 Long term (current) use of insulin; E03.9 Hypothyroidism, unspecified
CPT/HCPCS: 36415; 80053; 82044; 82103; 83036; 84439; 84443